=== PATIENT | female | born 1955 | race Caucasian/White ===

== ENCOUNTER 2023-12-10 06:18 | Day surgery (SDC) | payer MEDICARE, OTHER, SELFPAY ==
--- NOTE | 2023-11-05 09:10 | CM ---
Addendum entered by Joan Ferrer 12/01/23 07:21:
Surgery date was changed to 12/10/23.
Addendum entered by Joan Ferrer 11/19/23 13:53:
Spoke again with patient. She has obtained a hip kit and firm cushion.
Original Note:
Patient is scheduled for an elective R THR on 11/26/23- she is a same day patient. Spoke with patient prior to surgery. Introduced role of Orthopedic Navigator. Patient reports that he lives with her in a two story home. There is one step to
enter and patient has a first floor set up. Her son and his twins live on the second floor. She currently functions independently and uses a rolling walker. She also has a cane, raised toilet seat, commode and shower seat. She has had VN services
through [facility]. PCP id Willem Caseyophelia.
Discussed orthopedic program and post surgical plans. Reviewed that she will have VN services initially (medicare.gov website and ratings reviewed) and will then start outpatient PT. Patient selects [facility] (face sheet faxed to [facility] to facilitate
confirmation of benefits) for her home care needs but states she will not have transport for outpatient PT and need VN services beyond the typical period.
Patient is in agreement with plan and states that her will be home with her for the first day.
Patient will complete online education.
Plan: Orthopedic Navigator will remain available to assist with the care of patient and will reassess discharge needs after surgery.
[2023-11-10 13:38] VITALS: BMI 30.7
[2023-11-10 13:56] LABS: Hematocrit 33.1 % (37.0-47.0); Mean Corp Hgb Conc. 33.2 g/dL (33.0-37.0); Mean Corpuscular Hgb 29.8 pg (27.0-31.0); Mean Corpuscular Volume 89.7 fL (81.0-99.0); Mean Platelet Volume 9.4 fL (7.4-10.4); Platelet Count 290 10^3/uL (130-400); Red Blood Cell Count 3.69 10^6/uL (4.20-5.40); White Blood Cell Count 6.2 10^3/uL (4.8-10.8)
[2023-11-10 14:09] LABS: ALT (SGPT) < 10 U/L (0-35); AST (SGOT) 19 U/L (14-36); Albumin 3.6 g/dl (3.5-5.0); Alkaline Phosphatase 126 U/L (38-126); Blood Urea Nitrogen 13 mg/dl (7-17); Calcium 8.8 mg/dl (8.4-10.2); Carbon Dioxide 31 mmol/L (22-30); Chloride 99 mmol/L (98-107); Estimated Creatinine Clearance 85 ml/min; Glucose 96 mg/dl (70-99); Sodium 137 mmol/L (135-145); Total Bilirubin 0.8 mg/dl (0.2-1.3); Total Protein 6.4 g/dl (6.3-8.2); eGFR > 60.00
[2023-11-10 15:12] VITALS: BMI 30.7
[2023-11-11 09:49] LABS: Glycohemoglobin (HgbA1c) 5.5 % (4.0-5.6)
[2023-12-10] VITALS (11 sets, daily range): BP systolic 109–143; BP diastolic 56–76; PULSE 76; O2SAT 96; BMI 30.7
[2023-12-10] MEDS: NORMOSOL-R 1000 IV (07:54)
[2023-12-10] MEDS: ROXICODONE 5 MG PO ×2 (11:57→12:56)
[2023-12-10] MEDS: TYLENOL 1000 MG PO (12:03)
--- NOTE | 2023-12-10 12:12 | CM ---
Patient had planned R THR today. Met with patient and her at bedside to review discharge plans. Patient will be returning home today with services through [facility]. She will not have transportation for outpatient PT and will have [facility] services
until able to drive.
Patient has her rolling walker here with her.
PT and VN were kept updated as to progress and discharge plans.
[2023-12-10] MEDS: SINEMET 25-100 2 TABLET PO (12:33)
[2023-12-10] MEDS: ANCEF 5 IV (12:50)
== END 2023-12-10 13:47 | disposition home health service (06) ==
LOC: SDS 06:18
PROVIDERS: ATTENDING PHYSICIAN Orthopaedic Surgery; FAMILY PHYSICIAN Physician Assistant Medical; REFERRING PHYSICIAN Physician Assistant
DX: M16.11 Unilateral primary osteoarthritis, right hip (principal)
CPT/HCPCS: 27130; C1776; 36415; 73502; 80053; 83036; 85027; 86850; 86900; 86901; 87070; 93005; 97116; 97162

== ENCOUNTER 2024-04-22 17:31 | Observation (INO) | payer MEDICARE, OTHER, SELFPAY ==
[2024-04-22 14:10] VITALS: BP 121/57
[2024-04-22 14:15] VITALS: BMI 29.9
[2024-04-22 14:40] LABS: % Basophils 0.3 % (0-2); % Eosinophils 0.1 % (0-6); % Immature Granulocytes 0.1 % (0-0.5); % Lymphocytes 4.8 % (20.5-51.1); % Monocytes 3.4 % (1.7-9.3); % Neutrophils 91.3 % (42.2-75.2); Absolute Lymphocytes 0.4 10^3/uL (1.2-3.4); Absolute Monocytes 0.3 10^3/uL (0.1-0.6); Absolute Neutrophils 6.7 10^3/uL (1.4-6.5); Hematocrit 34.8 % (37.0-47.0); Hemoglobin 11.1 g/dL (12.0-16.0); Mean Corp Hgb Conc. 31.9 g/dL (33.0-37.0); Mean Corpuscular Hgb 26.9 pg (27.0-31.0); Mean Corpuscular Volume 84.5 fL (81.0-99.0); Mean Platelet Volume 10.2 fL (7.4-10.4); Nucleated Red Blood Cells % 0 %; Platelet Count 233 10^3/uL (130-400); Red Blood Cell Count 4.12 10^6/uL (4.20-5.40); Red Cell Dist. Width 14.7 % (11.5-14.5); White Blood Cell Count 7.4 10^3/uL (4.8-10.8)
[2024-04-22 14:42] LABS: Blood Urea Nitrogen 10 mg/dl (7-17); Calcium 8.9 mg/dl (8.4-10.2); Carbon Dioxide 28 mmol/L (22-30); Chloride 101 mmol/L (98-107); Estimated Creatinine Clearance 86 ml/min; Glucose 139 mg/dl (70-99); Sodium 136 mmol/L (135-145); eGFR > 60.00
--- NOTE | 2024-04-22 14:54 | ED.GENMED ---
History of Present Illness
General
Chief Complaint: Seizure
Source: patient and ambulance crew
Time Seen by Provider: 04/22/24 14:30
History of Present Illness
History of Present Illness:
68-year-old female brought to the emergency room by ambulance after being found unresponsive by family. They report her being blue. When they called 911 reported a cardiac arrest. When medics arrived they found the patient to have a pulse and the
breathing spontaneously though the hypoxic. Patient seemed to gradually increase her level of responsiveness. She had vomited for medics. They gave her Zofran. Medics report a history of a decrease in her dose of Ativan from 2 mg 3 times a day
to an unknown dose. Patient is responsive to me but not able to provide much history at this point because she still appears a bit sleepy and slow to answer
Past History
Past History
ED Past Medical History: Cancer (ovarian), Hypercholesterolemia, Psychiatric (Anxiety/depression) and Other (Migraines, Parkinson's)
ED Past Surgical History: Appendectomy and Gynecological
Social History
Tobacco: Non-smoker
Alcohol: None
Drug: None
Personal:
Living: with family
Employment: Retired
Family History
Family History: Other (Noncontributory )
Phy Exam
Physical Exam
Physical Exam:
General: Awake, but slow to answer
Vitals: unremarkable
Head: Atraumatic
Eyes: Pupils equal, EOMI
Throat: Airway intact, no exudates
Neck: Trachea midline
Lungs: Clear and equal b/l
Heart: Regular rate, no murmurs
Abd: Soft, Nontender, No pulsatile mass
Neuro: Grossly nonfocal
Skin: Warm, dry, no rash
Extremities: pulses equal b/l, no edema
Course
Orders/Labs/Results
Orders:
Orders
04/22/24 14:17
Electrocardiogram (*1) Urgent
Reason for Study: Fatigue / Weakness
04/22/24 14:19
EKG- Treatment ONCE
04/22/24 14:20
Basic Metabolic Panel Urgent
Complete Blood Count/With Diff Urgent
04/22/24 Dinner
Regular
At Your Request: Full Participation
Does patient need a safe tray?: No
04/22/24 15:18
Lorazepam [Ativan] 2 mg IV NOW STA
04/22/24 15:31
Rotigotine [Neupro] 4 mg TRANSDERM NOW STA
04/22/24 15:32
Rotigotine [Neupro] 2 mg TRANSDERM NOW STA
04/22/24 15:33
CT Head W/o Iv Contrast Urgent
Comment:
Reason For Exam: frequent seizure
04/22/24 17:21
Admit/Transfer Patient As Directed
Co-Sign Provider:
Level of Care: Observation services
Assign to:: Telemetry
Physician / Group: yony
Diagnosis: seizure
Reason for Telemetry: Arrhythmia
Date to Stop Telemetry: 04/25/24
Time to Stop Telemetry: 11:00
Code Status As Directed
Resuscitation Status: Full Code
04/22/24 18:10
Acetaminophen [Tylenol] 500 mg PO DAILYPRN PRN
Calcium Carbonate Chewable [Tums] 1 tablet PO DAILYPRN PRN
Carbidopa/Levodopa [Sinemet 25-100] 1 tablet PO TIDPRN PRN
Loperamide [Imodium] 2 mg PO BIDPRN PRN
Trimethobenzamide [Tigan] 200 mg IM Q6HPRN PRN
04/22/24 18:10
NEUROLOGY CONSULT Routine
Consulting Provider: Soham De Luna
Was physician already notified: Yes
Activity As Directed
Activity Level: As Tolerated
Vital Signs As Directed
Frequency: Per unit guidelines
DX Deep Vein Thrombosis Video Routine
04/22/24 18:26
Bismuth Subsalicylate [Pepto-Bismol] 1 tablet PO BIDPRN PRN
04/22/24 19:00
Midodrine [ProAmatine] 2.5 mg PO TID @ 0800,1200,1700
04/22/24 20:00
Heparin 5,000 units SC Q12
04/22/24 22:00
Escitalopram Oxalate [Lexapro] 10 mg PO HS
Escitalopram Oxalate [Lexapro] 20 mg PO HS
Lorazepam [Ativan] 2 mg PO TID
Rosuvastatin Calcium [Crestor] 10 mg PO HS
04/23/24 06:00
EKG [Electrocardiogram (*1)] IN AM
Reason for Study: QTc Monitoring
Complete Blood Count/With Diff IN AM
Comprehensive Metabolic Panel IN AM
04/23/24 08:00
Aspirin 325 mg PO DAILY
Carbidopa/Levodopa [Sinemet 25-100] 2 tablet PO TID@0800,1200,1600
Rotigotine [Neupro] 4 mg TRANSDERM DAILY
04/25/24 11:00
DC Protocol for Telemetry ONCE
Abnormal Lab Results
04/22/24
14:20
RBC 4.12 L 10^6/uL
(4.20-5.40)
Hgb 11.1 L g/dL
(12.0-16.0)
Hct 34.8 L %
(37.0-47.0)
MCH 26.9 L pg
(27.0-31.0)
MCHC 31.9 L g/dL
(33.0-37.0)
RDW 14.7 H %
(11.5-14.5)
Absolute Neuts (auto) 6.7 H 10^3/uL
(1.4-6.5)
Absolute Lymphs (auto) 0.4 L 10^3/uL
(1.2-3.4)
Neutrophils % 91.3 H %
(42.2-75.2)
Lymphocytes % 4.8 L %
(20.5-51.1)
Creatinine 0.4 L mg/dL
(0.6-1.0)
Glucose 139 H mg/dl
(70-99)
04/22/24 14:20
04/22/24 14:20
Vital Signs
Initial and Last Documented VS:
Initial Vital Signs
Temp Pulse Resp BP Pulse Ox
98.1 F 80 18 121/57 90
04/22/24 14:10 04/22/24 14:10 04/22/24 14:10 04/22/24 14:10 04/22/24 14:10
Last Documented Vital Signs
Temp Pulse Resp BP Pulse Ox
98.3 F 83 16 111/60 98
04/22/24 18:29 04/22/24 18:29 04/22/24 18:29 04/22/24 18:29 04/22/24 18:29
MDM/Problems Addressed
Differential Diagnosis Includes:
Breakthrough seizure, benzo withdrawal seizure, electrolyte abnormality
MDM/Problems Addressed:
Patient appears postictal on arrival. Family arrived short time after the patient and has informed me that the patient did not receive all of her medications today. Patient slept in later than normal. She did get a dose of her carbidopa levodopa.
However she did not get her Ativan and has not had her patch of neuro pro. 2 mg of lorazepam ordered IV as well as her Parkinson's patch. Shortly after receiving the Ativan the patient had a tonic-clonic seizure. Lasted for about 45 seconds. It
seems that the patient did not receive her medications because she was sleeping late today.
Patient will be hospitalized for observation of further seizures. I do not believe starting Keppra is appropriate as these are likely related to the withdrawal or lack of benzos for period of time. Patient seems particularly sensitive to missing
her dose of her lower dose.
*Radiology
Radiology exam reviewed: radiology read reviewed
*Pulse Oximetry
Patient hypoxic: no
*EKG
Comparison EKG: no changes
Heart Rate: 84
Rate: normal
Rhythm: PVC's
QRS Pattern: normal QRS
Ischemia: non-specific ST changes
*Store Receiving Clerk Interpretation
Rate: normal
Interpretation: abnormal
Rhythm: sinus and PVC's
*Critical Care Note
Total Time (30-74mins, 75-104mins- exclusive of procedures): 35 min
comment:
Critical care statement: A total of 35 minutes of critical care time was provided for this patient. This includes management of unstable vital signs, evaluation of the patient at bedside, reviewing the patient's pertinent medical records, discussion
with consultants, review of old EKGs and review of pertinent medical records. This time with separate from time utilized to perform the aforementioned documented procedures
ED Attending Note
-
Portions of this chart may have been created with voice recognition software.� Occasional wrong word or��sound alike� substitutions may have occurred due to the inherent limitations of voice recognition software.
Discharge Plan
Departure
Patient Disposition: Admit
Date of Disposition: 04/22/24
Time of Disposition: 16:43
Admit to: IMU
Presentation/result/management discussed w/ accepting MD/DO: Hospitalist
Condition: Fair
Discharge Problem:
Seizure concurrent with and due to sedative withdrawal
Interventions
Interventions:
*Risk Screen - Suicide Last Done: 04/22/24 18:29
*General Assessment Last Done: 04/22/24 14:15
*Neglect/Abuse Screening Last Done: 04/22/24 14:15
ED- Fall Risk Assessment Last Done: 04/22/24 15:00
*ED COVID-19 Vaccine History Last Done: 04/22/24 18:29
*Nursing Disposition Last Done: 04/22/24 18:02
ED- Cardiac Assessment Last Done: 04/22/24 14:16
ED- Neurological Assessment Last Done: 04/22/24 14:21
ED- Pulmonary Assessment Last Done: 04/22/24 14:21
Discharge Date and Time
Discharge Date/Time: 04/22/24 18:02
[2024-04-22 15:00] VITALS: BP 118/61
[2024-04-22] MEDS: ATIVAN 2 MG IV (15:23)
[2024-04-22] MEDS: NEUPRO 2 MG TRANSDERM (15:55)
[2024-04-22] MEDS: NEUPRO 4 MG TRANSDERM (15:56)
[2024-04-22 16:16] VITALS: BP 123/55
--- NOTE | 2024-04-22 16:23 | PHANOTE ---
Addendum entered by Hubert English 04/22/24 17:10:
04/22/2024, med rec tech, daughter states pt. takes Aspirin 325 mg daily, but is unsure of Lexapro dose; spoke to pt. and they state that they take 30 mg of Lexapro HS.
Original Note:
04/22/2024, med rec tech, spoke to daughter to obtain pt.'s med. history; daughter does not know how pt. currently takes her Lexapro; daughter going home to confirm meds.; will followup with daughter to confirm the rest of pt.'s meds.
[2024-04-22 17:00] VITALS: BP 110/53
--- NOTE | 2024-04-22 17:23 | HPS.HSE ---
Family Physician
-
Family Physician: NOT KNOW UNKNOWN - PT DOES
Chief Complaint
-
seizure
History of Present Illness
68-year-old female past medical history of advanced Parkinson disease with autonomic dysfunction, benzodiazepine withdrawal seizures, anxiety/depression, hyperlipidemia, migraines, Chiari I malformation, prolonged QTc, cervical disc herniation,
presenting to the emergency room after being found unresponsive by family. History is obtained from patient's . He states that patient did not sleep well last night and woke up later than usual today so her morning medications were delayed.
Later she was feeling unwell and she was sitting down and sometime after she took her medication she suddenly became unresponsive. Her eyes went off to the side which is a sign that she was having a seizure. noted that she had bilateral
upper extremity tremor and patient was unresponsive for around 15 minutes. 911 was called and medics arrived and they found the patient had a pulse and was breathing spontaneously although hypoxic. Patient became more responsive and vomited once
as per medics. She was given Zofran.
She has been more tired and lethargic since then but is able to answer questions at this time. She denies any pain.
Apparently yesterday patient saw her primary care physician and Ativan was recommended to be decreased from 2 mg 3 times a day to 2 mg twice a day with an extra milligram dose in the middle of the day. This was not implemented yet. Zofran is also
a new medication that started within the past few days. Also Lexapro dosage was also increased within the past few days.
Patient denies smoking or alcohol use.
Medical History
Past Medical History
Past Medical History: Reports Other (advanced Parkinson disease with autonomic dysfunction, benzodiazepine withdrawal seizures, anxiety/depression, hyperlipidemia, migraines, Chiari I malformation, prolonged QTc, cervical disc herniation)
Past Surgical History: Reports Other (Appendectomy and Gynecological)
Social History
Tobacco: Non-smoker
Alcohol: None
Drug: None
Family History
Family History: Not pertinent
Allergies / Home Medications
Allergies reflects when Allergies were last updated in [facility].
Home Medications with original date entered in [facility]
Allergy/Medication List:
Allergies
Allergy/AdvReac Type Severity Reaction Status Date / Time
No Known Allergies Allergy Verified 04/22/24 14:10
Home Medications
rosuvastatin 10 mg tablet 10 mg PO HS High Cholesterol 03/14/23
lorazepam 2 mg tablet 2 mg PO BID Mental Health/Anxiety 03/28/23
midodrine 2.5 mg tablet 2.5 mg PO TID 30 days #90 tabs 04/27/23
escitalopram oxalate 20 mg tablet (Lexapro) 20 mg PO HS 11/05/23
carbidopa 25 mg-levodopa 100 mg tablet 2 tab PO TID@0800,12,16 12/10/23
acetaminophen 500 mg tablet (Tylenol Extra Strength) 500 mg PO DAILYPRN PRN mild pain 04/22/24
aspirin 325 mg tablet 325 mg PO DAILY 04/22/24
bismuth subsalicylate 262 mg tablet (Pepto-Bismol) 262 mg PO BIDPRN PRN diarrhea 04/22/24
calcium carbonate (Tums) 400 mg PO DAILYPRN PRN gerd 04/22/24
carbidopa 25 mg-levodopa 100 mg tablet 1 tab PO TID PRN Parkinson's disease 04/22/24
escitalopram oxalate 10 mg tablet (Lexapro) 10 mg PO HS 04/22/24
loperamide 2 mg capsule 2 mg PO BIDPRN PRN diarrhea 04/22/24
ondansetron HCl 4 mg tablet 4 mg PO Q6H PRN nausea/vomiting 04/22/24
rotigotine 6 mg/24 hour transdermal 24 hour patch (Neupro) 6 mg transdermal DAILY 04/22/24
trazodone 100 mg tablet 100 mg PO HS 04/22/24
Review of Systems
-
History Source: Patient
A 12 point ROS was completed and negative except as noted: Yes
Constitutional: Reports No Symptoms
EENT: Reports No Symptoms
Respiratory: Reports No Symptoms
Cardiac: Reports No Symptoms
Abdomen/GI: Reports No Symptoms
: Reports No Symptoms
Musculoskeletal: Reports No Symptoms
Skin: Reports No Symptoms
Neurological: Reports No Symptoms
Endocrine: Reports No Symptoms
Hematologic/Lymphatic: Reports No Symptoms
Psych: Reports No Symptoms
Physical Exam
Vital Signs
Vital Signs
Temp Pulse Resp BP Pulse Ox
98.1 F 72 17 123/55 98
04/22/24 14:10 04/22/24 16:16 04/22/24 16:16 04/22/24 16:16 04/22/24 16:16
Physical Exam
General: Well Developed, Well Nourished and No Apparent Distress
HEENT: NormoCephalic, Moist mucous membranes and Atraumatic
Respiratory: Clear
Cardiac: S1/S2 and Regular Rhythm; No Murmur or Rub
GI: Soft, Non Tender, Non Distended and Normal Bowel Sounds; No Organomegaly
Rectal: Deferred by Provider
Musculoskeletal: No Clubbing, No Cyanosis and No Edema
Skin: No Rash
Neuro: Nonfocal/grossly intact
Laboratory Results
-
04/22/24 14:20
04/22/24 14:20
Laboratory Results
Total Bilirubin Cancelled 04/22/24 14:20
AST Cancelled 04/22/24 14:20
ALT Cancelled 04/22/24 14:20
Alkaline Phosphatase Cancelled 04/22/24 14:20
Data Reviewed
-
Lab Data: Labs Reviewed by me
Old Records: Reviewed
Impression/Plan
-
IMPRESSION:
PLAN:
# Seizure, possibly secondary to benzodiazepine delay
# History of benzodiazepine withdrawal seizures
-Benzodiazepine dose decrease has not been implemented yet
-EKG shows sinus rhythm with occasional PVCs,
-2 mg IV Ativan given in ER
-Continue Ativan 2 mg 3 times daily
-Neurology consulted
# QTc prolongation secondary to increased Lexapro dose/addition of Zofran
-QTc of 512
-Recheck in the morning
-Hold Zofran, Tigan if needed for nausea
History of advanced Parkinson's
-Continue carbidopa/levodopa
-Continue Neupro
Orthostatic hypotension secondary to autonomic dysfunction from Parkinson's
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
-Continue midodrine
History of migraines
Chiari I malformation
Anxiety/depression
-Hold trazodone for now given lethargy
Hyperlipidemia
-Continue statin
Cervical disc herniation
Obesity secondary to excess calories
History of partial small bowel obstruction due to incarcerated ventral abdominal hernia status post hernia repair
Full code
DVT prophylaxis�heparin
Regular diet
[2024-04-22 18:29] VITALS: BP 111/60; BMI 29.7
[2024-04-22] MEDS: ProAmatine 2.5 MG PO (19:54)
[2024-04-22] MEDS: HEPARIN 5000 UNITS SC (19:54)
[2024-04-22] MEDS: TIGAN 200 MG IM (19:55)
[2024-04-22] MEDS: LEXAPRO 20 MG PO (21:49)
[2024-04-22] MEDS: CRESTOR 10 MG PO (21:49)
[2024-04-22] MEDS: ATIVAN 2 MG PO (21:49)
[2024-04-22] MEDS: LEXAPRO 10 MG PO (21:50)
[2024-04-22 23:17] VITALS: BP 101/50
[2024-04-23 03:18] VITALS: BP 105/52
[2024-04-23 06:49] LABS: % Basophils 0.3 % (0-2); % Eosinophils 0.2 % (0-6); % Immature Granulocytes 0.3 % (0-0.5); % Lymphocytes 8.5 % (20.5-51.1); % Monocytes 6.6 % (1.7-9.3); % Neutrophils 84.1 % (42.2-75.2); Absolute Lymphocytes 0.6 10^3/uL (1.2-3.4); Absolute Monocytes 0.4 10^3/uL (0.1-0.6); Absolute Neutrophils 5.6 10^3/uL (1.4-6.5); Hematocrit 32.4 % (37.0-47.0); Hemoglobin 10.6 g/dL (12.0-16.0); Mean Corp Hgb Conc. 32.7 g/dL (33.0-37.0); Mean Corpuscular Volume 82.7 fL (81.0-99.0); Mean Platelet Volume 10.3 fL (7.4-10.4); Nucleated Red Blood Cells % 0 %; Platelet Count 263 10^3/uL (130-400); Red Blood Cell Count 3.92 10^6/uL (4.20-5.40); Red Cell Dist. Width 15.1 % (11.5-14.5); White Blood Cell Count 6.6 10^3/uL (4.8-10.8)
[2024-04-23 07:00] VITALS: BP 123/57
[2024-04-23 07:17] LABS: ALT (SGPT) < 10 U/L (0-35); AST (SGOT) 12 U/L (14-36); Albumin 3.9 g/dl (3.5-5.0); Alkaline Phosphatase 120 U/L (38-126); Blood Urea Nitrogen 10 mg/dl (7-17); Calcium 9.1 mg/dl (8.4-10.2); Carbon Dioxide 33 mmol/L (22-30); Chloride 99 mmol/L (98-107); Estimated Creatinine Clearance 85 ml/min; Glucose 96 mg/dl (70-99); Potassium 3.5 mmol/L (3.5-5.1); Sodium 139 mmol/L (135-145); Total Bilirubin 1.6 mg/dl (0.2-1.3); Total Protein 6.6 g/dl (6.3-8.2); eGFR > 60.00
[2024-04-23] MEDS: ASPIRIN 325 MG PO (07:50)
[2024-04-23] MEDS: ATIVAN 2 MG PO ×2 (07:50→16:21)
[2024-04-23] MEDS: HEPARIN 5000 UNITS SC (07:51)
[2024-04-23] MEDS: NEUPRO 4 MG TRANSDERM (07:51)
[2024-04-23] MEDS: NEUPRO 2 MG TRANSDERM (07:52)
[2024-04-23] MEDS: ProAmatine 2.5 MG PO (07:52)
[2024-04-23] MEDS: SINEMET 25-100 2 TABLET PO ×3 (07:53→16:21)
--- NOTE | 2024-04-23 07:59 | CON.NEURO ---
Neuro Assessment/Plan
Assessment
IMPRESSIONS/RECOMMENDATIONS:
Abrupt recurrence of unresponsiveness. Patient has a prior history of episodic changes in mental status presumed to be due to seizure activity secondary to benzodiazepine decrease
Patient additionally has a history of parkinsonism and orthostatic hypotension.
Plan
Consider restart of levetiracetam 500 mg twice a day
Store patient's prior benzodiazepine dosing to dosing of 2 mg 3 times a day, long-term plan for diminishing this medication may be of benefit
Check orthostatic blood pressures
Continue carbidopa levodopa 25/100 tablet p.o. 3 times a day
Continue rotigotine 6 mg/day
Increase midodrine from 2.5 to 5 mg 3 times a day, hold SBP > 140
Continue Trimethobenzamide
Will continue to follow patient. Thank you.
Consultation
Order
Date of Consultation: 04/23/24
Requesting Provider: Hospitalist
Reason for Consult: Seizure activity
Subjective/Objective
Subjective Data
Date of Service: April 23, 2024
Edited from my esteemed colleague's note:
'DICTATED BY: Mars Davis
DATE/TIME OF CONSULTATION: 03/28/23
67-year-old woman with a past medical history of Parkinson's disease, significant anxiety on chronic benzodiazepines, migraines, cervical degenerative disc disease who presents to the hospital with multiple episodes of vomiting brownish in color and
has been noted to have partial small bowel obstruction. Currently denies any flatus but denies any abdominal pain or nausea. She does not have any hallucinations currently but says that the wounds she has been having recently have been bothersome
to her or anxiety provoking.
Hospitalization 03/14 to 03/27 for seizure secondary to benzodiazepine withdrawal and underdosing, she had been placed on levetiracetam with plan for taper as an outpatient she has not had any seizures since she was resumed on higher dose of lorazepam
she has been on 2 mg TID for total of 6 mg total at home.
Reports tremor on the right hand is tolerable. Had formal diagnosis of Parkinson's disease around 2 years ago and had been following with Maira Michael although the symptoms of Parkinson's seem to been going around around for around 4 to 5
years according to patient's sister. Dosing or Carbidopa/Levodopa at home had been 2 tablets of 10/100 four times during the day and 2 tablets at bedtime around midnight. Last dose of Carbidopa/Levodopa last night around midnight.'
From his subsequent note during that admission:
'-Continue Rotigotine patch 6 mg total daily dosing q24 hours as replacement for dopamine while not able to take carbidopa/levodopa
-When able to resume PO, would switch to the 25/100 carbidopa levodopa formulation and not 10/100, higher dose of carbidopa helps to prevent nausea
-Follow for worsening symptoms of rigidity or tremor
-No significant or disturbing hallucinations
-Avoid antipsychotics which can worsen Parkinsonism, would prefer Zofran for anti-nausea rather than prochlorperazine or promethazine which have anti-dopamine properties
-Levetiracetam 500 mg q12hr IV
-Patient on adequate dosing of benzodiazepines'
Patient was subsequently evaluated by our esteemed nurse practitioner as an outpatient on April 08, 2024. At that time the patient was described as stable while off of levetiracetam.'
Patient returned to this hospital's emergency department with described change in mental status and unresponsiveness. The patient was also described as having generalized shaking with a recurrent episode after the patient presented to this
[facility]'s emergency department.
As stated by the patient's daughter at bedside, the patient had missed dosing of her usual medications at the usual timing of her medications including lorazepam.
Objective Data
Vital Signs
Temp Pulse Resp BP Pulse Ox
37.6 C 71 18 105/52 98
04/23/24 03:18 04/23/24 03:18 04/23/24 03:18 04/23/24 03:18 04/23/24 03:18
Lab Results
04/23/24 05:44
04/23/24 05:44
Sodium 139 mmol/L (135-145) 04/23/24 05:44
Potassium 3.5 mmol/L (3.5-5.1) 04/23/24 05:44
BUN 10 mg/dl (7-17) 04/23/24 05:44
Glucose 96 mg/dl (70-99) 04/23/24 05:44
Calcium 9.1 mg/dl (8.4-10.2) 04/23/24 05:44
Patient Allergies
No Known Allergies Allergy (Verified 04/22/24 14:10)
Review of Systems
-
History Source: Patient
All other systems: Reviewed and negative
EENT: Negative Swallowing Difficulty
Respiratory: Negative Trouble Breathing
Cardiac: Negative Chest Pain
Abdomen/GI: Negative Incontinence of Stool
Genitourinary: Negative Incontinence
Physical Exam
-
General: No Apparent Distress and Appears Stated Age
Eyes: OU Absent Papilledema, Round OU, [place] Conjunctivae and No Ptosis
HEENT: Anicteric and Moist Mucous Membranes
Neck: Full Range of Motion
Respiratory: No Dyspnea
Cardiac: No JVD
GI: Non-distended
Skin: Unremarkable
Extremities: No Clubbing, No Cyanosis and No Edema
Psych: Intact Judgement/Insight
Extended Neurological Exam
Mood & Affect: Mood Unremarkable and Affect Unremarkable
Attention Span & Concentration: Awake, Alert, Interactive and Mild Difficulty with 2 Step Request
Memory: Unremarkable and Reduced (Recall for the event leading to the hospital.)
Tremor: Hand Tremor Absent and Head Tremor Absent
Involuntary Movement: None
Speech: Quality Unremarkable and Quantity Unremarkable
Cranial Nerve II: Left Eye: Pupillary Reactivity Unremarkable, Pupillary Size Unremarkable and Visual Arita Intact
Cranial Nerve II: Right Eye: Pupillary Reactivity Unremarkable, Pupillary Size Unremarkable and Visual Arita Intact
Cranial Nerves III, IV, : Extraocular Movement: Extraocular Movement Full in all Directions
Cranial Nerve VII: Facial Symmetry: Normal Facial Symmetry
Cranial Nerve VIII: Hearing: Negative Unremarkable Hearing to Normal Conversational Volume
Cranial Nerves IX, X: Palate Movement: Palate Elevation Symmetric
Cranial Nerve XI: Shoulder Shrug: Unremarkable
Cranial Nerve XII: Tongue Protusion: Midline
Muscle Strength, Overall: Full Throughout
Muscle Bulk & Tone: Bulk Unremarkable, Tone Unremarkable and Other (Mildly Camptocormic)
Pronator Drift: No Drift in Upper Extremities
Deep Tendon Reflexes: Absent Throughout
Touch Sensation: Unremarkable
Coordination: [id number] Testing Unremarkable
Babinski Sign: Absent Bilaterally
Data Reviewed
-
CT Head: Report Reviewed
MRI Head: Report Reviewed (March 2023 right frontal lobe gyrus signal abnormality, Arnold-Chiari type I malformation 9 mm on the right)
Labs: Report Reviewed
Reviewed with: Physician and Patient
Old Records: Summarized
Medications
-
Active Medications
Generic Name Dose Route Start Last Admin
Trade Name Freq PRN Reason Stop Dose Admin
Acetaminophen 500 mg 04/22/24 18:10
Acetaminophen 500 Mg Tablet PO 05/20/24 18:09
DAILYPRN PRN
mild pain
Aspirin 325 mg 04/23/24 08:00
Aspirin 325 Mg Tablet PO 05/21/24 07:59
DAILY LISSA
Bismuth Subsalicylate 1 tablet 04/22/24 18:26
Pepto-Bismol Chewable Tablet (Bismuth Subsalicylate 262 Mg) PO 05/20/24 18:25
BIDPRN PRN
diarrhea
Calcium Carbonate 1 tablet 04/22/24 18:10
Calcium Carbonate 500 Mg (Regular-Strength) Chew Tablet PO 05/20/24 18:09
DAILYPRN PRN
gerd
Carbidopa/Levodopa 2 tablet 04/23/24 08:00
Carbidopa (25 Mg)/Levodopa (100 Mg) Regular Release Tablet PO 05/21/24 07:59
TID@0800,1200,1600 LISSA
Carbidopa/Levodopa 1 tablet 04/22/24 18:10
Carbidopa (25 Mg)/Levodopa (100 Mg) Regular Release Tablet PO 05/20/24 18:09
TIDPRN PRN
Parkinson's disease
Escitalopram Oxalate 20 mg 04/22/24 22:00 04/22/24 21:49
Escitalopram 20 Mg Tablet PO 05/20/24 21:59 20 mg
HS LISSA Administration
Escitalopram Oxalate 10 mg 04/22/24 22:00 04/22/24 21:50
Escitalopram 10 Mg Tablet PO 05/20/24 21:59 10 mg
HS LISSA Administration
Heparin Sodium 5,000 units 04/22/24 20:00 04/22/24 19:54
Heparin 5,000 Units/Ml 1 Ml Vial SC 05/20/24 19:59 5,000 units
Q12 LISSA Administration
Loperamide HCl 2 mg 04/22/24 18:10
Loperamide 2 Mg Capsule PO 05/20/24 18:09
BIDPRN PRN
diarrhea
Lorazepam 2 mg 04/22/24 22:00 04/22/24 21:49
Lorazepam 2 Mg Tablet PO 05/20/24 21:59 2 mg
TID LISSA Administration
Midodrine 2.5 mg 04/22/24 19:00 04/22/24 19:54
Midodrine 5 Mg Tablet PO 05/20/24 18:59 2.5 mg
TID @ 0800,1200,1700 LISSA Administration
Rosuvastatin Calcium 10 mg 04/22/24 22:00 04/22/24 21:49
Rosuvastatin (Crestor) 10 Mg Tablet PO 05/20/24 21:59 10 mg
HS LISSA Administration
Rotigotine 4 mg 04/23/24 08:00
Rotigotine (Neupro) 4 Mg Patch TRANSDERM 05/21/24 07:59
DAILY LISSA
Rotigotine 2 mg 04/23/24 08:00
Rotigotine (Neupro) 2 Mg Patch TRANSDERM 05/21/24 07:59
DAILY LISSA
Sodium Chloride 0 flush 04/22/24 19:00
Sodium Chloride 0.9% (Flush) Syringe IV 05/20/24 18:59
PER PROTOCOL LISSA
Trimethobenzamide HCl 200 mg 04/22/24 18:10 04/22/24 19:55
Trimethobenzamide 200 Mg/2 Ml Vial IM 05/20/24 18:09 200 mg
Q6HPRN PRN Administration
nausea
Home Medications
�Medication �Instructions �Recorded
rosuvastatin 10 mg tablet 10 mg PO HS High Cholesterol 03/14/23
lorazepam 2 mg tablet 2 mg PO BID Mental Health/Anxiety 03/28/23
midodrine 2.5 mg tablet 2.5 mg PO TID 30 days #90 tabs 04/27/23
escitalopram oxalate 20 mg tablet 20 mg PO HS 11/05/23
(Lexapro)
carbidopa 25 mg-levodopa 100 mg 2 tab PO TID@0800,12,16 12/10/23
tablet
acetaminophen 500 mg tablet 500 mg PO DAILYPRN PRN mild pain 04/22/24
(Tylenol Extra Strength)
aspirin 325 mg tablet 325 mg PO DAILY 04/22/24
bismuth subsalicylate 262 mg 262 mg PO BIDPRN PRN diarrhea 04/22/24
tablet (Pepto-Bismol)
calcium carbonate (Tums) 400 mg PO DAILYPRN PRN gerd 04/22/24
carbidopa 25 mg-levodopa 100 mg 1 tab PO TID PRN Parkinson's 04/22/24
tablet disease
escitalopram oxalate 10 mg tablet 10 mg PO HS 04/22/24
(Lexapro)
loperamide 2 mg capsule 2 mg PO BIDPRN PRN diarrhea 04/22/24
ondansetron HCl 4 mg tablet 4 mg PO Q6H PRN nausea/vomiting 04/22/24
rotigotine 6 mg/24 hour 6 mg transdermal DAILY 04/22/24
transdermal 24 hour patch (Neupro)
trazodone 100 mg tablet 100 mg PO HS 04/22/24
Past History
Past History
ED Past Medical History: Cancer (ovarian team), Hypercholesterolemia, Psychiatric (Anxiety/depression) and Other (Migraines, Parkinson's)
ED Past Surgical History: Appendectomy, Gynecological (AMALIA/BSO 2012), Orthopedic (Bilateral knee replacements, right hip replacement) and Other (Herniorrhaphy)
Social History
Tobacco: Non-smoker
Alcohol: None
Drug: None
Personal:
Living: with family
Employment: Retired
Family History
Family History: Other (Reviewed and noncontributory )
--- NOTE | 2024-04-23 08:00 | W.PN.HOSP.TC ---
Addendum entered and electronically signed by Davis Walker MD 04/23/24 17:40:
[id number]
Addendum entered and electronically signed by Davis Walker MD 04/23/24 17:38:
Patient and patient's family amenable to Keppra initiation. Start Keppra 500 mg, 2 times daily. Increase midodrine to 5 mg 3 times daily. Orthostatics negative.
Follow-up PCP, psychiatry, neurology outpatient. Goal is to wean Ativan. May need to increase Keppra in the future
Original Note:
Today's Communication/Plan
-
neuro recs
orthostatics
pt/ot
midodrine
Assessment / Plan
Assessment / Plan
Physical Exam
General: Well Developed, Well Nourished and No Apparent Distress
HEENT: NormoCephalic, Moist mucous membranes and Atraumatic
Respiratory: Clear
Cardiac: S1/S2 and Regular Rhythm; No Murmur or Rub
GI: Soft, Non Tender, Non Distended and Normal Bowel Sounds; No Organomegaly
Rectal: Deferred by Provider
Musculoskeletal: No Clubbing, No Cyanosis and No Edema
Skin: No Rash
Neuro: Nonfocal/grossly intact
# Seizure, possibly secondary to benzodiazepine delay, lack of absorption due to GI issues
# History of benzodiazepine withdrawal seizures
-Benzodiazepine dose decrease has not been implemented yet
-EKG shows sinus rhythm with occasional PVCs,
-2 mg IV Ativan given in ER
-Continue Ativan 2 mg 3 times daily
-Neurology consulted
-Orthostaics
-Needs manager long term care plan for diminishing ativan need by psychiatry
-Consider starting Keppra - f/u neuro recs
-F/u PT/OT
# QTc prolongation secondary to increased Lexapro dose/addition of Zofran
-QTc 482 this am
-Hold Zofran, Tigan if needed for nausea
History of advanced Parkinson's
-Continue carbidopa/levodopa
-Continue Neupro
Orthostatic hypotension secondary to autonomic dysfunction from Parkinson's
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
-Continue midodrine
History of migraines
Chiari I malformation
Anxiety/depression
-Hold trazodone for now given lethargy
N/V
-possible viral gastroenteritis
-resolved
Hyperlipidemia
-Continue statin
Cervical disc herniation
Obesity secondary to excess calories
History of partial small bowel obstruction due to incarcerated ventral abdominal hernia status post hernia repair
Full code
DVT prophylaxis�heparin
Regular diet
Anticipated Discharge: 24 - 48 hours
Subjective/Interval History
-
Date of Service: April 23, 2024
no acute events, able to tolerate diet better now; less nauseous
Objective Data
-
Labs:
Laboratory Results
04/23/24
05:44
WBC 6.6
Hgb 10.6 L
Hct 32.4 L
Plt Count 263
Sodium 139
Potassium 3.5
Chloride 99
Carbon Dioxide 33 H
BUN 10
Creatinine 0.5 L
Glucose 96
Calcium 9.1
Total Bilirubin 1.6 H
AST 12 L
ALT < 10
Alkaline Phosphatase 120
Vital Signs:
Vital Signs
Temp Pulse Resp BP Pulse Ox
99.7 F 71 18 105/52 98
04/23/24 03:18 04/23/24 03:18 04/23/24 03:18 04/23/24 03:18 04/23/24 03:18
I&O
04/22/24 04/23/24 04/24/24
06:59 06:59 06:59
Intake Total 320 / 320
Balance 320 / 320
Review of Systems
-
History Source: Patient
All other systems: Not reviewed unless documented
Physical Exam
-
General: Well Developed and No Apparent Distress
HEENT: Normocephalic, Atraumatic and Moist Mucous Membranes
Respiratory: Clear to Auscultation
Cardiac: Regular Rhythm and S1/S2; Negative Murmur, Rub or Gallop
GI: Soft, Nontender, Nondistended and Normal Bowel Sounds; Negative Organomegaly
Rectal: Deferred by Provider
Musculoskeletal: No Clubbing, No Cyanosis and No Edema
Skin: Negative Rash
Neuro: Nonfocal/Grossly Intact
Data Reviewed
-
CT Scan: Image personally visualized and interpreted and Report Reviewed by me
[2024-04-23] MEDS: PEPTO-BISMOL 1 TABLET PO (08:07)
[2024-04-23] MEDS: TIGAN 200 MG IM (08:11)
[2024-04-23 11:19] VITALS: BP 121/64
[2024-04-23] MEDS: ProAmatine 5 MG PO ×2 (12:23→16:21)
--- NOTE | 2024-04-23 13:27 | CM ---
Patient seen bedside with spouse, Sedrick, initial assessment completed. Patient resides in a one story home, two steps to enter. Patient has adult children who reside in the home with her. Patient has a walker and cane at home, has had VN in the past
after knee and hip surgery, unsure with who. Patient denies SNF history. Patient reports she does have a PCP but is unsure name, [facility] used [facility]. Patient and denied food, transportation, and housing/utility insecurities.
WARD form reviewed, refused to sign, placed in chart. Patient inquiring about discharge, CM will update patient once further information is received. CM will continue to follow for all discharge planning needs.
Plan; home no needs likely, watch PT/OT evals for VN needs.
[2024-04-23 14:25] VITALS: BP 113/51; PULSE 71
[2024-04-23 15:00] VITALS: BP 101/50
--- NOTE | 2024-04-23 17:38 | W.DS.TRANS ---
DC Summary - Medicine Assistant
-
Discharge Instructions:
Discharge Diagnosis/Procedures seizures, most likely withdrawal from ativan
Diet Low Cholesterol,Low Fat
Activity As tolerated
Blood Work lfts within 1 week with pcp
Instructions:
Stand-Alone Forms:
Changes to Home Medications: Yes
Discharge Medications:
DC Medications w/original date entered in Cognitive Code
rosuvastatin 10 mg tablet 10 mg PO HS High Cholesterol 03/14/23
escitalopram oxalate 20 mg tablet (Lexapro) 20 mg PO HS Depression 11/05/23
carbidopa 25 mg-levodopa 100 mg tablet 2 tab PO TID@0800,12,16 Neurological Condition 12/10/23
acetaminophen 500 mg tablet (Tylenol Extra Strength) 500 mg PO DAILYPRN PRN mild pain 04/22/24
aspirin 325 mg tablet 325 mg PO DAILY Blood Clot Prevention/Tx 04/22/24
bismuth subsalicylate 262 mg tablet (Pepto-Bismol) 262 mg PO BIDPRN PRN diarrhea 04/22/24
calcium carbonate (Tums) 400 mg PO DAILYPRN PRN gerd 04/22/24
carbidopa 25 mg-levodopa 100 mg tablet 1 tab PO TID PRN Parkinson's disease 04/22/24
escitalopram oxalate 10 mg tablet (Lexapro) 10 mg PO HS Depression 04/22/24
loperamide 2 mg capsule 2 mg PO BIDPRN PRN diarrhea 04/22/24
ondansetron HCl 4 mg tablet 4 mg PO Q6H PRN nausea/vomiting 04/22/24
rotigotine 6 mg/24 hour transdermal 24 hour patch (Neupro) 6 mg transdermal DAILY Neurological Condition 04/22/24
trazodone 100 mg tablet 100 mg PO HS Sleep 04/22/24
levetiracetam 500 mg tablet (Keppra) 500 mg PO BID 30 days #60 tabs 04/23/24
lorazepam 2 mg tablet 2 mg PO TID #0 tabs 04/23/24
midodrine 5 mg tablet 5 mg PO TID @ 0800,1200,1700 30 days #90 tabs 04/23/24
Home Medication Changes
levetiracetam 500 mg tablet (Keppra) 500 mg PO BID 30 days #60 tabs 04/23/24
midodrine 5 mg tablet 5 mg PO TID @ 0800,1200,1700 30 days #90 tabs 04/23/24
Pending Results: No
== END 2024-04-23 18:30 | disposition home or self-care (01) ==
LOC: 4 WEST ACU 17:31
PROVIDERS: Emergency Medicine; ADMITTING PHYSICIAN Hospitalist; ATTENDING PHYSICIAN Internal Medicine; CONSULT PHYSICIAN Psychiatry & Neurology Neurology; EMERGENCY PHYSICIAN Emergency Medicine
DX: R56.9 Unspecified convulsions (principal); R09.02 Hypoxemia; F13.20 Sedative, hypnotic or anxiolytic dependence, uncomplicated; T42.4X6A Underdosing of benzodiazepines, initial encounter; Y63.6 Underdosing and nonadministration of necessary drug, medicament or biological substance; Y92.9 Unspecified place or not applicable; F32.A Depression, unspecified; E78.00 Pure hypercholesterolemia, unspecified; F41.9 Anxiety disorder, unspecified; G20.A1 Parkinson's disease without dyskinesia, without mention of fluctuations; R53.83 Other fatigue; R53.1 Weakness; I49.3 Ventricular premature depolarization; E78.5 Hyperlipidemia, unspecified; R94.31 Abnormal electrocardiogram [ECG] [EKG]; G93.5 Compression of brain; R41.82 Altered mental status, unspecified; R11.2 Nausea with vomiting, unspecified; I95.1 Orthostatic hypotension; M50.20 Other cervical disc displacement, unspecified cervical region; E66.09 Other obesity due to excess calories; F45.8 Other somatoform disorders; Z85.43 Personal history of malignant neoplasm of ovary; Z79.82 Long term (current) use of aspirin; Z68.29 Body mass index [BMI] 29.0-29.9, adult; Z98.890 Other specified postprocedural states; Z90.49 Acquired absence of other specified parts of digestive tract; Z96.653 Presence of artificial knee joint, bilateral; Z96.641 Presence of right artificial hip joint; Z90.722 Acquired absence of ovaries, bilateral; Z90.710 Acquired absence of both cervix and uterus; Z87.19 Personal history of other diseases of the digestive system
CPT/HCPCS: 70450; 80048; 80053; 85025; 93005; 96374; 97162; 99291; G0378

== ENCOUNTER 2024-04-27 15:14 | Inpatient (IN) | payer MEDICARE, OTHER, SELFPAY ==
[2024-04-27] VITALS (12 sets, daily range): BP systolic 98–130; BP diastolic 44–63
--- NOTE | 2024-04-27 08:47 | ED.GENMED ---
History of Present Illness
General
Chief Complaint: Seizure
Time Seen by Provider: 04/27/24 08:45
History of Present Illness
History of Present Illness:
68-year-old female with history of seizure disorder and Parkinson's presents to the emergency department via EMS for evaluation after a seizure. EMS was called as the patient began to display by tremulous activity which is apparently a classic
seizure precursor for her. On arrival of EMS the patient did have a witnessed generalized tonic-clonic seizure, self-limited lasting 1 minute. No benzodiazepines were administered. On arrival the patient was postictal but responsive to verbal
stimuli. She was admitted to this hospital last week for evaluation of seizures were felt to be most likely due to withdrawal of benzodiazepines. Per most recent hospital discharge she is on 500 mg of Keppra twice daily, it is unknown whether she
has been compliant at my initial assessment
Past History
Past History
ED Past Medical History: Cancer (ovarian team), Hypercholesterolemia, Psychiatric (Anxiety/depression) and Other (Migraines, Parkinson's)
ED Past Surgical History: Appendectomy, Gynecological (AMALIA/BSO 2012), Orthopedic (Bilateral knee replacements, right hip replacement) and Other (Herniorrhaphy)
Social History
Tobacco: Non-smoker
Alcohol: None
Drug: None
Personal:
Living: with family
Employment: Retired
Family History
Family History: Other (Reviewed and noncontributory )
Review of Systems
Review of Systems
Allergies reviewed?: Yes
All Other Systems: ROS reviewed and negative except as documented in HPI and ROS
Phy Exam
Physical Exam
Physical Exam:
GEN: Somnolent, arouses to voice
HEENT: Oral mucosa moist, no scleral icterus, no nasal congestion
Cardiac: Regular rate and rhythm, faint systolic murmur auscultated
Lung: No respiratory distress, no tachypnea
MSK: No gross deformity or injuries
Skin: Good color, no pallor or jaundice, no rashes
Neuro: Somnolent, arouses to voice, oriented x 3, follows commands, symmetric bilateral upper and lower extremity strength
Psych: Calm, cooperative
Course
Orders/Labs/Results
Orders:
Orders
04/27/24 08:51
Electrocardiogram (*1) Urgent
Reason for Study: QTc Monitoring
EKG- Treatment ONCE
04/27/24 09:02
Basic Metabolic Panel Urgent
Complete Blood Count/With Diff Urgent
Keppra (Levetiracetam) [S] Urgent
04/27/24 10:00
Carbidopa/Levodopa [Sinemet 25-100] 1 tablet PO ONCE ONE
04/27/24 10:03
Urinalysis Reflex To Culture Urgent
Date Specimen was Collected: 04/27/24
Time Specimen was Collected: 09:31
Urine Microscopic Reflex Cult Urgent
Urine Culture Urgent
FREDA Source: U
Specimen Description:
Date Specimen was Collected: 04/27/24
Time Specimen was Collected: 09:31
04/27/24 10:46
LevoFLOXacin 500 MG/100 ML [Levaquin] 500 mg in 100 ml IV NOW
04/27/24 12:24
Carbidopa/Levodopa [Sinemet 25-100] 2 tablet PO NOW STA
Midodrine [ProAmatine] 5 mg PO NOW STA
04/27/24 14:12
Admit/Transfer Patient As Directed
Co-Sign Provider:
Level of Care: Inpatient admission
Assign to:: Telemetry
Physician / Group: Dr. Roque
Diagnosis: Breakthrough Seizures and positive UTI
Reason for Telemetry: Other
Other Reason for Telemetry: Seizures
Date to Stop Telemetry: 04/29/24
Time to Stop Telemetry: 11:00
Reason for Hospitalization: Seizures
Expected length of stay greater than two midnights?: No
ELOS- Estimated Length of Stay in days: 2
I certify the patient meets the requirements for IP care: Yes
04/27/24 14:20
Code Status As Directed
Resuscitation Status: Full Code
04/29/24 11:00
DC Protocol for Telemetry ONCE
Abnormal Lab Results
04/27/24 04/27/24
09:02 10:03
RBC 3.82 L 10^6/uL
(4.20-5.40)
Hgb 10.4 L g/dL
(12.0-16.0)
Hct 31.9 L %
(37.0-47.0)
MCHC 32.6 L g/dL
(33.0-37.0)
RDW 15.0 H %
(11.5-14.5)
MPV 11.0 H fL
(7.4-10.4)
Absolute Lymphs (auto) 0.6 L 10^3/uL
(1.2-3.4)
Neutrophils % 80.7 H %
(42.2-75.2)
Lymphocytes % 10.8 L %
(20.5-51.1)
Creatinine 0.4 L mg/dL
(0.6-1.0)
Glucose 113 H mg/dl
(70-99)
Urine Ketones Trace A
(Negative)
Ur Occult Blood Reflex 3+ A
(Negative)
Leukocyte Esterase Rfl 2+ A
(Negative)
Urine RBC 7-10 A /HPF
(0-2)
Urine WBC (Reflex) 30-40 A /HPF
(0-5)
Urine Bacteria (Reflex) Few A
(Negative)
04/27/24 09:02
04/27/24 09:02
Vital Signs
Initial and Last Documented VS:
Initial Vital Signs
Temp Pulse Resp BP Pulse Ox
98.3 F 85 20 113/51 93
04/27/24 08:48 04/27/24 08:48 04/27/24 08:48 04/27/24 08:48 04/27/24 08:48
Last Documented Vital Signs
Temp Pulse Resp BP Pulse Ox
98.3 F 69 21 130/63 90
04/27/24 08:48 04/27/24 13:30 04/27/24 13:30 04/27/24 13:00 04/27/24 09:45
MDM/Problems Addressed
MDM/Problems Addressed:
Patient's neurologic status gradual onset department. Workup does reveal likely urinary tract infection which would be the presumed provoking factor for her breakthrough seizure given that she has been compliant with her antiepileptic and
benzodiazepine medications. Given the frequency of her recent seizures will admit for treatment of UTI with IV biotics and further neurologic assessment. Given return to neurologic baseline and recent unremarkable CT of the head do not see any
indication for repeat neuroimaging
*Critical Care Note
Total Time (30-74mins, 75-104mins- exclusive of procedures): Not Applicable
Update Note
Update Note:
0930: Pt reassessed, neuro status unchanged. Remains somnolent, arouses to voice. Discussed with and daughter. Pt has been compliant w/ 2mg lorazepam TID since hospital discharge, also taking levetiracetam as prescribed. Has reportedly had
'starting episodes with left facial droop' that have occurred on occasional since d/c, not associated w/ generalized tonic-clonic activity. Pt is responsive during these episodes.
ED Attending Note
-
Portions of this chart may have been created with voice recognition software.� Occasional wrong word or��sound alike� substitutions may have occurred due to the inherent limitations of voice recognition software.
Discharge Plan
Departure
Patient Disposition: Admit
Date of Disposition: 04/27/24
Time of Disposition: 10:52
Admit to: Med/Surg
Presentation/result/management discussed w/ accepting MD/DO: Hospitalist
Discharge Problem:
Urinary tract infection, Breakthrough seizure
Prescriptions:
No Action
rosuvastatin 10 mg tablet
10 mg PO HS
carbidopa-levodopa 25-100 mg tablet
2 tab PO TID@0800,12,16
loperamide 2 mg Capsule
2 mg PO BIDPRN PRN (Reason: diarrhea)
acetaminophen [Tylenol Extra Strength] 500 mg Tablet
1,000 mg PO DAILYPRN PRN (Reason: mild pain)
trazodone 100 mg Tablet
50 mg PO HS
calcium carbonate [Tums] 200 mg calcium (500 mg) Tablet,Chewable
400 mg PO DAILYPRN PRN (Reason: gerd)
Pepto-Bismol 262 mg Tablet
262 mg PO BIDPRN PRN (Reason: diarrhea)
escitalopram oxalate [Lexapro] 10 mg Tablet
30 mg PO HS
Neupro 6 mg/24 hour Patch 24 Hour
6 mg TRANSDERMAL DAILY
carbidopa-levodopa 25-100 mg Tablet
1 tab PO TIDPRN PRN (Reason: Parkinson's disease)
Patient Comments:
Rx Instructions:
taken as needed in between doses of other straight order Sinemet 2 tabs TID
naproxen 500 mg Tablet
500 mg PO BIDPRN PRN (Reason: NECK PAINS)
cyclobenzaprine [Flexeril] 5 mg Tablet
5 mg PO HSPRN PRN (Reason: NECK PAINS)
lorazepam 2 mg tablet
2 mg PO TID@0800,16,2200
levetiracetam [Keppra] 500 mg tablet
500 mg PO BID
midodrine 5 mg tablet
5 mg PO TID @ 0800,1200,1700
Referrals:
Donavon Alvarez DO [Family Provider] -
Interventions
Interventions:
*Risk Screen - Suicide Last Done: 04/27/24 08:56
*Neglect/Abuse Screening Last Done: 04/27/24 08:56
ED- Fall Risk Assessment Last Done: 04/27/24 08:56
ED- Cardiac Assessment Last Done: 04/27/24 08:56
ED- Neurological Assessment Last Done: 04/27/24 08:58
ED- Pulmonary Assessment Last Done: 04/27/24 08:56
Discharge Date and Time
Print Language: INDIAN
[2024-04-27 09:24] LABS: % Basophils 0.3 % (0-2); % Eosinophils 2.9 % (0-6); % Immature Granulocytes 0.2 % (0-0.5); % Lymphocytes 10.8 % (20.5-51.1); % Monocytes 5.1 % (1.7-9.3); % Neutrophils 80.7 % (42.2-75.2); Absolute Eosinophils 0.2 10^3/uL (0-0.7); Absolute Lymphocytes 0.6 10^3/uL (1.2-3.4); Absolute Monocytes 0.3 10^3/uL (0.1-0.6); Absolute Neutrophils 4.7 10^3/uL (1.4-6.5); Hematocrit 31.9 % (37.0-47.0); Hemoglobin 10.4 g/dL (12.0-16.0); Mean Corp Hgb Conc. 32.6 g/dL (33.0-37.0); Mean Corpuscular Hgb 27.2 pg (27.0-31.0); Mean Corpuscular Volume 83.5 fL (81.0-99.0); Nucleated Red Blood Cells % 0 %; Platelet Count 235 10^3/uL (130-400); Red Blood Cell Count 3.82 10^6/uL (4.20-5.40); White Blood Cell Count 5.8 10^3/uL (4.8-10.8)
[2024-04-27 09:49] LABS: Blood Urea Nitrogen 12 mg/dl (7-17); Calcium 8.4 mg/dl (8.4-10.2); Carbon Dioxide 24 mmol/L (22-30); Chloride 100 mmol/L (98-107); Glucose 113 mg/dl (70-99); Potassium 3.5 mmol/L (3.5-5.1); Sodium 137 mmol/L (135-145); eGFR > 60.00
[2024-04-27 10:18] LABS: Urine Albumin Trace (Neg - Trace); Urine Bilirubin Negative (Negative); Urine Character Clear (Clear); Urine Color Yellow; Urine Glucose Negative (Negative); Urine Ketone Trace (Negative); Urine Leukocyte 2+ (Negative); Urine Nitrite Negative (Negative); Urine Occult Blood 3+ (Negative); Urine Urobilinogen Negative (Neg - 1+); Urine pH 6.5 (5.0-9.0)
[2024-04-27] MEDS: SINEMET 25-100 1 TABLET PO (10:27)
[2024-04-27 10:43] LABS: Urine Bacteria Few (Negative); Urine White Cell 30-40 /HPF (0-5)
[2024-04-27] MEDS: LEVAQUIN 100 IV (11:11)
[2024-04-27] MEDS: ProAmatine 5 MG PO ×2 (12:35→18:08)
[2024-04-27] MEDS: SINEMET 25-100 2 TABLET PO ×2 (12:35→15:11)
[2024-04-27] MEDS: ATIVAN 1 MG IV (15:44)
--- NOTE | 2024-04-27 17:10 | HPS.HSE ---
Addendum entered and electronically signed by Roni Roque MD 04/27/24 18:45:
I personally performed a history and physical exam of the patient and discussed management with the resident. I reviewed the resident's note and agree with the documented findings and plan of care HPI/CC.
Admitted with breakthrough seizure. Pt says she is complaint with meds and daughter at bedside affirms that . Will rule out UTI as a trigger and check Keppra levels and adjust the dose as apporpriate.
Neuro consulted.
Original Note:
Family Physician
-
Family Physician: Donavon Alvarez
Chief Complaint
-
Seizures
History of Present Illness
Patient is a 68-year-old woman with a history of seizure disorder and Parkinson's. EMS was called when she became tremulous which is a sign of an oncoming seizure for the patient. Patient had about 10 minutes of tremulousness which she is able to
recall before she forgets what happened. On arrival the EMS said the patient had a generalized tonic-clonic seizure self-limited lasting 1 minute. She was not given any benzodiazepines while in the care of EMS. On arrival the patient was
postictal but responsive to verbal stimuli. She was admitted to the hospital last week for evaluation of seizures which were felt to be mostly due to withdrawal of benzodiazepines. As per her most recent hospital discharge she is on 500 mg of
Keppra twice daily but it is uncertain whether the patient has been compliant with her medication regimen. Upon speaking to her daughter and other family members at the bedside it is possible that the patient may have missed taking some of her home
medications. Patient also states that her handwriting has changed over the past few years. It worsened and got smaller and then more recently has started to improve with parkinson medications.
Medical History
Past Medical History
Past Medical History: Reports Seizures
Past Surgical History: Reports Orthopedic (Bilateral Knee Replacement and unilateral hip replacement)
Social History
Tobacco: Non-smoker
Alcohol: Occasional
Drug: None
Personal:
Living: With Family
Family History
Family History: Other (Mother has a Hx of seizures and a stroke.)
Allergies / Home Medications
Allergies reflects when Allergies were last updated in [facility].
Home Medications with original date entered in [facility]
Allergy/Medication List:
Allergies
Allergy/AdvReac Type Severity Reaction Status Date / Time
No Known Allergies Allergy Verified 04/27/24 08:48
Home Medications
rosuvastatin 10 mg tablet 10 mg PO HS High Cholesterol 03/14/23
carbidopa 25 mg-levodopa 100 mg tablet 2 tab PO TID@0800,12,16 Neurological Condition 12/10/23
acetaminophen 500 mg tablet (Tylenol Extra Strength) 1,000 mg PO DAILYPRN PRN mild pain 04/22/24
bismuth subsalicylate 262 mg tablet (Pepto-Bismol) 262 mg PO BIDPRN PRN diarrhea 04/22/24
calcium carbonate (Tums) 400 mg PO DAILYPRN PRN gerd 04/22/24
carbidopa 25 mg-levodopa 100 mg tablet 1 tab PO TIDPRN PRN Parkinson's disease 04/22/24
escitalopram oxalate 10 mg tablet (Lexapro) 30 mg PO HS Depression 04/22/24
loperamide 2 mg capsule 2 mg PO BIDPRN PRN diarrhea 04/22/24
rotigotine 6 mg/24 hour transdermal 24 hour patch (Neupro) 6 mg transdermal DAILY Neurological Condition 04/22/24
trazodone 100 mg tablet 50 mg PO HS Sleep 04/22/24
cyclobenzaprine 5 mg tablet 5 mg PO HSPRN PRN NECK PAINS 04/27/24
levetiracetam 500 mg tablet (Keppra) 500 mg PO BID Seizures 04/27/24
lorazepam 2 mg tablet 2 mg PO TID@0800,16,2200 Mental Health/Anxiety 04/27/24
midodrine 5 mg tablet 5 mg PO TID @ 0800,1200,1700 Blood Pressure 04/27/24
naproxen 500 mg tablet 500 mg PO BIDPRN PRN NECK PAINS 04/27/24
Review of Systems
-
History Source: Patient
A 12 point ROS was completed and negative except as noted: No
Constitutional: Reports See HPI
EENT: Reports No Symptoms
Respiratory: Reports No Symptoms
Cardiac: Reports No Symptoms
Abdomen/GI: Reports No Symptoms
: Reports No Symptoms
Musculoskeletal: Reports Other (Mild numbness of toes)
Skin: Reports No Symptoms
Neurological: Reports Other (Seizures)
Endocrine: Reports No Symptoms
Hematologic/Lymphatic: Reports No Symptoms
Psych: Reports Anxiety
Physical Exam
Vital Signs
Vital Signs
Temp Pulse Resp BP Pulse Ox
98.5 F 72 18 116/50 95
04/27/24 17:06 04/27/24 17:06 04/27/24 17:06 04/27/24 17:06 04/27/24 17:06
Physical Exam
General: Well Developed, Well Nourished and Conversant
HEENT: NormoCephalic, Anicteric, Moist mucous membranes and Atraumatic
Respiratory: Clear
Cardiac: S1/S2, Regular Rhythm and Murmur (Faint systolic murmur)
Breast: Deferred by me
GI: Soft, Non Tender, Non Distended and Normal Bowel Sounds
Rectal: Deferred by Provider
Genito-urinary: Deferred by me
Musculoskeletal: No Clubbing and No Cyanosis
Skin: Warm
Psych: Anxious
Laboratory Results
-
04/27/24 09:02
04/27/24 09:02
Laboratory Results
Total Bilirubin Cancelled 04/27/24 09:02
AST Cancelled 04/27/24 09:02
ALT Cancelled 04/27/24 09:02
Alkaline Phosphatase Cancelled 04/27/24 09:02
Impression/Plan
-
Impression + Plan:
- Breakthrough seizure:
Possibly due to poor medication compliance at home. Will check Keppra levels. May consider adjustment of Keppra dosage depending on efficacy.
Neurology consult
Seizure precaution protocols
Restart home medications.
Consider electroencephalogram to evaluate for epileptiform activity
- Urinary tract infection:
Ceftriaxone administered
Urine analysis shows trace ketones, 3+ occult blood, 2+ leukocyte Estrace, with bacteria, and 30-40 high-power field of white blood cell.
Reorder urine analysis and check for improvement.
-Parkinson's Disease:
Resume carbidopa�levodopa
Resume home medications
Consult neurology
Continue to monitor patient.
- Anxiety:
Possibly due to benzodiazepine withdrawal
Consider psych consult
Consider encouraging therapy to better educate the patient in regards to coping mechanisms.
-Ambulation with cane:
Recommend PT/OT
[2024-04-27] MEDS: TYLENOL 1000 MG PO (17:47)
[2024-04-27] MEDS: ZOFRAN 4 MG IV (17:51)
[2024-04-27] MEDS: LOVENOX 40 MG SC (17:55)
[2024-04-27] MEDS: NON-FORMULARY ITEM 1 UNIT PO (17:58)
[2024-04-27] MEDS: ROCEPHIN 1000 MG IV (18:08)
[2024-04-27] MEDS: ROCEPHIN IV (18:08)
[2024-04-27] MEDS: STERILE WATER FOR INJECTION 10 ML IV (18:09)
[2024-04-27] MEDS: ATIVAN 2 MG PO ×2 (18:18→21:08)
[2024-04-27] MEDS: LEXAPRO 30 MG PO (21:08)
[2024-04-27] MEDS: KEPPRA 500 MG PO (21:08)
[2024-04-27] MEDS: CRESTOR 10 MG PO (21:08)
[2024-04-27] MEDS: DESYREL 50 MG PO (21:08)
[2024-04-28] VITALS (7 sets, daily range): BP systolic 105–126; BP diastolic 43–96; PULSE 62; BMI 28.4
[2024-04-28 06:35] LABS: Hematocrit 30.5 % (37.0-47.0); Hemoglobin 10.2 g/dL (12.0-16.0); Mean Corp Hgb Conc. 33.4 g/dL (33.0-37.0); Mean Corpuscular Volume 83.8 fL (81.0-99.0); Mean Platelet Volume 10.8 fL (7.4-10.4); Platelet Count 209 10^3/uL (130-400); Red Blood Cell Count 3.64 10^6/uL (4.20-5.40)
[2024-04-28] MEDS: ATIVAN 2 MG PO ×3 (07:02→21:37)
[2024-04-28] MEDS: SINEMET 25-100 2 TABLET PO ×3 (07:02→15:43)
[2024-04-28] MEDS: KEPPRA 500 MG PO ×2 (07:02→20:26)
[2024-04-28] MEDS: ProAmatine 5 MG PO ×3 (07:02→17:01)
[2024-04-28 07:52] LABS: Blood Urea Nitrogen 11 mg/dl (7-17); Calcium 8.8 mg/dl (8.4-10.2); Carbon Dioxide 30 mmol/L (22-30); Chloride 102 mmol/L (98-107); Estimated Creatinine Clearance 86 ml/min; Glucose 91 mg/dl (70-99); Potassium 3.3 mmol/L (3.5-5.1); Sodium 138 mmol/L (135-145); eGFR > 60.00
[2024-04-28] MEDS: NEUPRO 2 MG TRANSDERM (09:43)
[2024-04-28] MEDS: NEUPRO 4 MG TRANSDERM (09:44)
[2024-04-28] MEDS: TYLENOL 1000 MG PO (10:14)
[2024-04-28] MEDS: REFRESH EYE DROPS (PF) 1 DROPS OPHTH (10:22)
--- NOTE | 2024-04-28 10:55 | CON.NEURO4 ---
Documented by User: [email or web address] Henning NP 04/28/24 11:52
Consultation - Neurology 4
-
CONSULTING PHYSICIAN: Bautista Kendrick MD
REFERRING PHYSICIAN: Hospitalists/Shira Hawthorne MD Resident
DICTATED BY: VIRAJ Catalan
DATE/TIME OF REQUEST: 04/27/24
DATE/TIME OF CONSULTATION: 04/28/24
Reason for Consultation: Seizure
History of Present Illness:
This is a 68-year-old female who has presented to the hospital with report of recurrent seizure. Patient is followed by Neurology as an outpatient for a history of benzodiazepine withdrawal seizure and Parkinson disease. She also notably has
severe anxiety and has been benzodiazepine dependent for decades.
From most recent office visit with Neurology VIRAJ Silva on 04/08/24:
'67-year-old female presents to establish care here after a recent hospitalization with multiple benzodiazepine withdrawal seizures. She also has a history of PD. She previously followed with Dr. Griffith. She lives at home with her and
son with other family members nearby. Her manages her meds and has had difficulty keeping them straight per her sister who is here visiting from [place]. Per hospital records, she had some n/v prior to hospitalization and was not able to
take some of her meds. Her sister believes she had been taking 10 mg of Ativan per day for several years and has been taking benzodiazepines in some form since age 16. (She has the phone number for Dr. Sanchez, a local psychiatrist, but has not yet
called for an appt.)Dr. Davis reviewed the PDMP while she was hospitalized, and she had been taking an average of 5-6 mg of Lorazepam daily and then was received a lower dose while hospitalized at 1 mg TID. She was initially admitted on March 14,
2022, and was discharged on March 27.
She had an EEG done on March 18, 2023, while hospitalized which showed mild diffuse slowing. She later had a 24-hour EEG from March 20 to March 21 which showed short periods of generalized slowing but nothing epileptiform. MRI of the brain done on March
2022, with and without contrast showed 'minimal periventricular white matter leukoaraiosis in the frontal lobes. Thin band of signal abnormality in the cortical [place] matter of the superior lateral right frontal lobe gyrus could be secondary to
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 Chiari I malformation.' She was placed on Keppra during her hospitalization with a plan for taper as an outpatient. She has not had any other seizures since her higher dose of lorazepam was
resumed. She was later seen again by neurology on March 28 after being readmitted for a partial small bowel obstruction. She remains seizure-free since being discharged. She has been taking Keppra 500 mg twice daily. Concern was raised during her
hospitalization for visual hallucinations.
(05/16/23) She remains seizure-free now off of Keppra. She has not seen psychiatry and continues to take a benzodiazepine 3 times a day. Her tremor has worsened considerably. Her hallucinations have resolved.06/25/2023atient seen in the office today
with her daughter. Since her last visit she did start Sinemet and is now up to 2 tablets 3 times a day. She is tolerating this well. She feels tremor has resolved. She needs renewal of her Neupro patch and needs paperwork filled out. She does report
she has not slept since her last hospitalization. She reports increased anxiety and stress. She does have an appointment with psychiatry on July 07, 2023. She has not been given any additional medications for sleep. She does take Ativan 2 mg 3
times a day. This has been ongoing and is not new. She does report that she has been on antidepressants in the past. She has not had any seizures.
(09/03/2023) TELEHEALTH ENCOUNTER : Video ECW LOCATION OF PROVIDER: office LOCATION OF PATIENT: HOME Patient initiated the visit. The patient verbally consented to the virtual check-in.DURATION: 14 minutes. Patient encounter via telemedicine.
Patient reports her Parkinson's symptoms continue to be well controlled on Sinemet 2 tablets 3 times a day and Neupo patch. No adverse side effects medication. No falls. No hallucinations. She reports significant anxiety. She does have planned
follow-up with psychiatry first week in September. She did see her primary care doctor who did start Lexapro. She is continued on lorazepam 2 mg 3 times a day. She also has continued on trazodone 25 mg at night. She does report trouble with sleeping.
(01/16/2024) Patient seen in the office today with her sister. She has been doing well. She does have a mild tremor left hand intermittently when she is due for her carbidopa/levodopa. She continues on Neupro patch. She does not feel she needs an
increase in medication. She has had an increase in anxiety and has been working with her psychiatrist to adjust medications. She has no recent falls. She does report fatigue however she continues on lorazepam 3 times a day. She also has not
increased dose of trazodone. Since her last visit she did have right hip surgery and has been ambulating with a walker.
(04/08/2024)� His standpoint her symptoms have been stable. She reports her biggest issue is increased anxiety. She continues to follow-up with psychiatry. She did have her hip replaced recently. She is recovering well from that.� She continues on
Neupro patch.� She has not been able to get financial assistance but does not want to discontinue. She continues to take Sinemet 2 tablets 3 times a day and an additional 1 tablet as needed.� She feels the additional 1 tablet as needed is very very
helpful.� No recent falls. No hallucinations.� No adverse side effects of medication.'
Patient had been off of Keppra since April 2023 and seizure-free until 04/22/24. At the beginning of April 2024, patient had several days of nausea, vomiting and diarrhea. Patient's daughter reports that she was not able to take all of her doses of
medications due to this. On April 22, 2024 she presented to ER with report of generalized shaking and loss of consciousness. Keppra 500mg BID was restarted, and she was discharged home on 04/23/24. Patient's daughter reports that since discharge,
she has been having odd starring spells lasting 1-3 minutes in the evening. Yesterday (04/27/24), she reports that the patient started having generalized tremors, began starring-off, stopped talking, her left eye started drooping, and then the patient
lost consciousness and her lips turned blue and she was foaming at the mouth. On arrival in the ER, patient had a witnessed generalized seizure lasting 1 minute, with spontaneous resolution. Patient was confused/lethargic following the event but
opened eyes to voice. There was no tongue biting or bowel incontinence with this event, she wears a depends for urinary incontinence at baseline. Urinalysis is suggestive of a UTI and she was started on IV Rocephin last evening. Today (04/28/24),
patient feels back to her baseline. She reports a mild frontal headache that she rates a 4/10. She also reports mild nausea and chronic tingling in her feet. She denies any dizziness, vision changes, speech/swallow difficulty, numbness, focal
weakness, dysuria/frequency/retention, chest pain, palpitations, and shortness of breath. Patient's daughter reports that this would be her 4th UTI in 2023. Patient reports that she is typically asymptomatic when she has a UTI. Her daughter also
reports that the patient's manages her medications and he isn't prompt with giving them to her on time and she often finds pills on the ground that the patient never took. Lorazepam 2mg TID is not significantly improving her anxiety, her
outpatient psychiatrist has been working to adjust her psych medication regimen. At baseline, patient ambulates with a single point cane occasionally, she denies any recent falls or gait difficulty.
Past Medical History: Parkinson disease, seizures, HLD, significant anxiety, depression, benzodiazepine dependence, migraines, cervical DDD, ovarian cancer, impaired fasting blood glucose
Surgical History: AMALIA/BSO, appendectomy, b/l TKR, R THR, herniorrhaphy
Family History: Reviewed and noncontributory
Social History: Denies tobacco, alcohol, and illicit drug use.
Allergies: No known allergies.
Home Medications: See below.
Review of Symptoms:
Patient denies any fever, chest pain, shortness of breath, GI or symptoms.
�Per the HPI.�All systems are reviewed negative except above.
Physical Exam:
The patient is afebrile, abdomen is nondistended, breathing is unlabored, skin is cool and dry, no edema. Scattered ecchymosis/scabbing bilateral toes.
Neurologic Examination:
The patient is awake, alert and oriented x 3. She is able to follow commands and answer questions appropriately. There is no aphasia or dysarthria. On cranial nerve assessment, pupils are 3 mm bilateral, round and reactive to light and
accommodation. Visual garcia are full. Extraocular movements are intact. Facial sensations are intact and bilaterally symmetrical, there is no facial asymmetry. Hearing is intact bilaterally to normal conversation volume. Tongue palate and uvula are
midline. Sternocleidomastoid strengths are full bilaterally. Motor strengths are 5/5 bilateral upper and lower extremities on medical research [place] scale. There is no drift. There is a low amplitude semi rhythmic resting tremor in distal RUE.
Deep tendon reflexes are 2+ bilateral upper and lower extremities and Babinski is absent bilaterally. Sensations of touch, temperature and vibration are intact and bilaterally symmetrical. There was no extinction noted on double simultaneous
stimulation. Coordination is intact by finger to nose bilaterally.
Lab Results: See below.
Neuro Imaging:
1. CT Head 04/22/24: No acute intracranial abnormality.
Differentials for the patient's presentation include:
1. Breakthrough seizures without status epilepticus; possibly due to UTI and/or accidental medication noncompliance.
2. Benzodiazepine dependence.
3. Parkinson disease, stable.
Patient has the following risk factors for their symptoms: Hx seizure, benzodiazepine usage, possible UTI, questionable medication compliance
Recommendations:
-Continue Keppra 500mg PO q12hrs.
-Continue lorazepam 2mg PO TID for now. Needs outpatient Psychiatry follow-up for consideration of medication adjustment/very gradual reduction of Ativan.
-Infectious workup per primary team.
-Do not see a role for further neurological imaging at this point.
-Seizure precautions.
-PT/OT evaluations.
-Continue home PD medication regimen: Sinemet 25-100 two tablets TID and Rotigotine patch 6mg daily.
-Patient needs outpatient follow-up with Neurology in the next 2 weeks, can see Dr. De Luna.
Discussed patient care with: Dr. Kendrick, the patient, patient's children
Vital Signs and Labs
-
Vital Signs and Labs:
Vital Signs
Temp Pulse Resp BP Pulse Ox
98.3 F 62 18 121/61 95
04/28/24 11:00 04/28/24 11:00 04/28/24 11:00 04/28/24 11:00 04/28/24 11:00
Lab Results
04/28/24 06:01
04/28/24 06:01
Sodium 138 mmol/L (135-145) 04/28/24 06:01
Potassium 3.3 mmol/L (3.5-5.1) L 04/28/24 06:01
BUN 11 mg/dl (7-17) 04/28/24 06:01
Glucose 91 mg/dl (70-99) 04/28/24 06:01
Calcium 8.8 mg/dl (8.4-10.2) 04/28/24 06:01
Medications
-
Active Medications
Generic Name Dose Route Start Last Admin
Trade Name Freq PRN Reason Stop Dose Admin
Acetaminophen 1,000 mg 04/28/24 10:03 04/28/24 10:14
Acetaminophen 500 Mg Tablet PO 05/25/24 16:57 1,000 mg
Q6HPRN PRN Administration
mild pain, fever, SANCHEZ
Artificial Tears 1 drops 04/27/24 23:07 04/28/24 10:22
Artificial Tears Pf (Refresh) 10 Drop Droperette OPHTH 05/25/24 23:06 1 drops
QIDPRN PRN Administration
dry eyes, burning eyes
Calcium Carbonate 1 tablet 04/27/24 16:58
Calcium Carbonate 500 Mg (Regular-Strength) Chew Tablet PO 05/25/24 16:57
DAILYPRN PRN
gerd
Carbidopa/Levodopa 1 tablet 04/27/24 16:58
Carbidopa (25 Mg)/Levodopa (100 Mg) Regular Release Tablet PO 05/25/24 16:57
TIDPRN PRN
Parkinson's disease
Carbidopa/Levodopa 2 tablet 04/28/24 08:00 04/28/24 11:44
Carbidopa (25 Mg)/Levodopa (100 Mg) Regular Release Tablet PO 05/26/24 07:59 2 tablet
TID@0800,12,16 LISSA Administration
Ceftriaxone Sodium 1,000 mg 04/27/24 18:00 04/27/24 18:08
Ceftriaxone 1000 Mg / 10 Ml Vial IV 1,000 mg
Q24H LISSA Administration
Cyclobenzaprine HCl 5 mg 04/27/24 17:09
Cyclobenzaprine 10 Mg Tablet PO 05/25/24 17:08
HSPRN PRN
NECK PAINS
Enoxaparin Sodium 40 mg 04/27/24 18:00 04/27/24 17:55
Enoxaparin Sodium 40 Mg/0.4 Ml Syringe SC 05/25/24 17:59 40 mg
QPM LISSA Administration
Escitalopram Oxalate 30 mg 04/27/24 22:00 04/27/24 21:08
Escitalopram 10 Mg Tablet PO 05/25/24 21:59 30 mg
HS LISSA Administration
Levetiracetam 500 mg 04/27/24 20:00 04/28/24 07:02
Levetiracetam 500 Mg Regular Release Tablet PO 05/25/24 19:59 500 mg
BID LISSA Administration
Loperamide HCl 2 mg 04/27/24 16:58
Loperamide 2 Mg Capsule PO 05/25/24 16:57
BIDPRN PRN
diarrhea
Lorazepam 2 mg 04/27/24 16:58 04/28/24 07:02
Lorazepam 2 Mg Tablet PO 05/25/24 16:57 2 mg
TID@0800,1600,2200 LISSA Administration
Midodrine 5 mg 04/27/24 17:00 04/28/24 11:45
Midodrine 5 Mg Tablet PO 05/25/24 16:59 5 mg
TID @ 0800,1200,1700 LISSA Administration
Naproxen 500 mg 04/27/24 16:58
Naproxen 500 Mg Tablet PO 05/25/24 16:57
BIDPRN PRN
NECK PAINS
Pepto Bismol 0 unit 04/27/24 17:48 04/27/24 17:58
Liquicaps 1 Po PO 05/25/24 17:47 1 unit
Bidprn Diarrhea BIDPRN PRN Administration
diarrhea
Ondansetron HCl 4 mg 04/27/24 17:35 04/27/24 17:51
Ondansetron 4 Mg/2 Ml Vial IV 05/25/24 17:34 4 mg
Q6HPRN PRN Administration
NAUSEA/VOMITING
Rosuvastatin Calcium 10 mg 04/27/24 22:00 04/27/24 21:08
Rosuvastatin (Crestor) 10 Mg Tablet PO 05/25/24 21:59 10 mg
HS LISSA Administration
Rotigotine 4 mg 04/28/24 09:30 04/28/24 09:44
Rotigotine (Neupro) 4 Mg Patch TRANSDERM 05/26/24 09:29 4 mg
DAILY LISSA Administration
Rotigotine 2 mg 04/28/24 09:30 04/28/24 09:43
Rotigotine (Neupro) 2 Mg Patch TRANSDERM 05/26/24 09:29 2 mg
DAILY LISSA Administration
Sodium Chloride 0 flush 04/27/24 16:00
Sodium Chloride 0.9% (Flush) Syringe IV 05/25/24 15:59
PER PROTOCOL LISSA
Sterile Water 10 ml 04/27/24 18:00 04/27/24 18:09
Sterile Water For Injection 10 Ml Vial IV 05/25/24 17:59 10 ml
Q24H LISSA Administration
Trazodone HCl 50 mg 04/27/24 22:00 04/27/24 21:08
Trazodone 50 Mg Tablet PO 05/25/24 21:59 50 mg
HS LISSA Administration
Home Medications
�Medication �Instructions �Recorded
rosuvastatin 10 mg tablet 10 mg PO HS High Cholesterol 03/14/23
carbidopa 25 mg-levodopa 100 mg 2 tab PO TID@0800,12,16 12/10/23
tablet Neurological Condition
acetaminophen 500 mg tablet 1,000 mg PO DAILYPRN PRN mild pain 04/22/24
(Tylenol Extra Strength)
bismuth subsalicylate 262 mg 262 mg PO BIDPRN PRN diarrhea 04/22/24
tablet (Pepto-Bismol)
calcium carbonate (Tums) 400 mg PO DAILYPRN PRN gerd 04/22/24
carbidopa 25 mg-levodopa 100 mg 1 tab PO TIDPRN PRN Parkinson's 04/22/24
tablet disease
escitalopram oxalate 10 mg tablet 30 mg PO HS Depression 04/22/24
(Lexapro)
loperamide 2 mg capsule 2 mg PO BIDPRN PRN diarrhea 04/22/24
rotigotine 6 mg/24 hour 6 mg transdermal DAILY 04/22/24
transdermal 24 hour patch (Neupro) Neurological Condition
trazodone 100 mg tablet 50 mg PO HS Sleep 04/22/24
cyclobenzaprine 5 mg tablet 5 mg PO HSPRN PRN NECK PAINS 04/27/24
levetiracetam 500 mg tablet 500 mg PO BID Seizures 04/27/24
(Keppra)
lorazepam 2 mg tablet 2 mg PO TID@0800,16,2200 Mental 04/27/24
Health/Anxiety
midodrine 5 mg tablet 5 mg PO TID @ 0800,1200,1700 Blood 04/27/24
Pressure
naproxen 500 mg tablet 500 mg PO BIDPRN PRN NECK PAINS 04/27/24

Documented by User: Batuista Kendrick MD 04/28/24 20:20
Consultation - Neurology 4
-
Total Time Spent with Patient (in minutes): 30
--- NOTE | 2024-04-28 14:37 | CM ---
Reviewed chart, met with patient and her spouse at bedside. Patient stated that she lives with her spouse in a one story home all one level with two steps to enter. Patient stated that she is independent with her ADLs, personal care, dressing and
bathing. She uses a cane to assist with her ambulation for longer distances. She has a walker that she does not use.
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
Patient does not drive, however her spouse and daughter do and they are able to transport her to where she needs.
Patient has had VN in the past through after a hip replacement.
Patient has never been to a SNF
She has a prescription plan and uses [facility] on for all of her medications.
Her PCP is, Dr. Donavon Alvarez.
Patient stated that she feels she will be able to return home when medically cleared for discharge.
Plan: Case management will continue to follow and assist with discharge planning. Home when stable.
--- NOTE | 2024-04-28 14:54 | W.PN.HOSP.TC ---
Addendum entered and electronically signed by Roni Roque MD 04/28/24 15:46:
I saw and evaluated the patient. I reviewed the resident�s note and agree with findings and plan as documented in the resident�s note.
Original Note:
Documented by User: Shira Hawthorne MD, Resident 04/28/24 15:11
Today's Communication/Plan
-
We are awaiting Keppra levels and will decide whether to adjust Keppra dosages depending on lab results. Awaiting neurology suggestions. If patient remains stable and Keppra levels remain therapeutic we will move forward with discharge planning.
Assessment / Plan
Assessment / Plan
- Breakthrough seizures without status epilepticus: Stable
possibly due to UTI and/or accidental medication noncompliance
Awaiting Keppra levels - Results Pending. May consider adjusting Keppra dosage depending on efficacy.
Neurology consult
Seizure precaution protocol
Restarted home medications
Consider electroencephalogram to evaluate for epileptiform activity if another breakthrough seizure occurs.
- Urinary tract infection: Monitoring
Ceftriaxone administered
Urine analysis shows trace ketones, 3+ occult blood, 2+ leukocyte Estrace, with bacteria, and 30-40 high-power field of white blood cell.
Reorder urine analysis and check for improvement.
- Benzodiazepine dependence: Stable
Patient educated on the risks of missing medication dosages specially with high benzodiazepine tolerance.
Consider slow outpatient benzodiazepine taper
- Parkinson disease: Stable
Resumed carbidopa�levodopa
Resumed home medications
Consult neurology
Continue to monitor patient.
- Anxiety:
Possibly due to benzodiazepine withdrawal
Consider psych consult
Consider encouraging therapy to better educate the patient in regards to coping mechanisms.
-Ambulation with cane:
Consider PT/OT
Anticipated Discharge: 24 - 48 hours
Subjective/Interval History
-
Date of Service: April 28, 2024
Met with patient at the bedside. Overall, she states that she is feeling much better than she did yesterday. She states that she also slept well and does not have any sensation of possible seizure activity today. She states that she is not
tremulous either.
Objective Data
-
Labs:
Laboratory Results
04/28/24
06:01
WBC 6.0
Hgb 10.2 L
Hct 30.5 L
Plt Count 209
Sodium 138
Potassium 3.3 L
Chloride 102
Carbon Dioxide 30
BUN 11
Creatinine 0.4 L
Glucose 91
Calcium 8.8
Vital Signs:
Vital Signs
Temp Pulse Resp BP Pulse Ox
98.3 F 62 18 121/61 95
04/28/24 11:00 04/28/24 11:00 04/28/24 11:00 04/28/24 11:00 04/28/24 11:00
I&O
04/27/24 04/28/24 04/29/24
06:59 06:59 06:59
Intake Total 360 / 360
Balance 360 / 360
Review of Systems
-
History Source: Patient
Constitutional: Reports No Symptoms
EENT: Reports No Symptoms Reported
Respiratory: Reports No Symptoms
Cardiac: Reports No Symptoms
Abdomen/GI: Reports No Symptoms
Breast: Reports No Symptoms
Genitourinary: Reports No Symptoms
Skin: Reports No Symptoms
Neuro: Reports No Symptoms
Endocrine: Reports No Symptoms
Hematologic / Lymphatic: Reports No Symptoms
Physical Exam
-
General: Well Developed, Well Nourished and No Apparent Distress
HEENT: Normocephalic, Atraumatic and Moist Mucous Membranes
Respiratory: Clear to Auscultation
Cardiac: Regular Rhythm and S1/S2
Breast: Deferred by me
GI: No Hepatosplenomegaly
Rectal: Deferred by Provider
Genito-urinary: Deferred by me
Musculoskeletal: No Clubbing, No Cyanosis and No Edema
Skin: Warm
Neuro: Nonfocal/Grossly Intact
Psych: Calm

Documented by User: Roni Roque MD 04/28/24 15:46
Assessment / Plan
Assessment / Plan
- Breakthrough seizures without status epilepticus -none further. Unclear etiology
Pyruia without symptoms noted - rule out UTI ; pt and family affirms medication complaince.
Awaiting Keppra levels - Results Pending. May consider adjusting Keppra dosage depending on efficacy.
Neurology consult pending
Seizure precaution protocol
Restarted home medications
- Eval for Urinary tract infection:
Ceftriaxone administered
Urine analysis shows trace ketones, 3+ occult blood, 2+ leukocyte Estrace, with bacteria, and 30-40 high-power field of white blood cell.
- Benzodiazepine dependence: Stable
Patient educated on the risks of missing medication dosages specially with high benzodiazepine tolerance.
Consider slow outpatient benzodiazepine taper
- Parkinson disease: Stable
Resumed carbidopa�levodopa
Resumed home medications
Continue to monitor patient.
- Anxiety:Chronic. Follows with local psychiatry . No med changes for now.
-Ambulation with cane:
PT/OT
Anticipated Discharge: Within 24 hours
[2024-04-28] MEDS: ROCEPHIN 1000 MG IV (17:02)
[2024-04-28] MEDS: STERILE WATER FOR INJECTION 10 ML IV (17:02)
[2024-04-28] MEDS: LOVENOX 40 MG SC (17:02)
[2024-04-28 18:12] LABS: Keppra (Levetiracetam) 16 ug/mL (10-40)
[2024-04-28] MEDS: DESYREL 50 MG PO (21:38)
[2024-04-28] MEDS: CRESTOR 10 MG PO (21:38)
[2024-04-28] MEDS: LEXAPRO 30 MG PO (21:38)
--- NOTE | 2024-04-28 23:35 | PTCARENOTE ---
Transfer of care from JEN Alvarez. Patient asleep in room, seizure pads intact on bed rails, no seizure activity per report. Normal sinus rhythm noted on tele monitor. Vitals stable. Care ongoing.
[2024-04-29 03:47] VITALS: BP 102/51
[2024-04-29 06:46] LABS: Hematocrit 29.6 % (37.0-47.0); Hemoglobin 9.7 g/dL (12.0-16.0); Mean Corp Hgb Conc. 32.8 g/dL (33.0-37.0); Mean Corpuscular Volume 82.5 fL (81.0-99.0); Mean Platelet Volume 10.6 fL (7.4-10.4); Platelet Count 206 10^3/uL (130-400); Red Blood Cell Count 3.59 10^6/uL (4.20-5.40); Red Cell Dist. Width 14.9 % (11.5-14.5); White Blood Cell Count 5.2 10^3/uL (4.8-10.8)
[2024-04-29] MEDS: KEPPRA 500 MG PO (07:23)
[2024-04-29] MEDS: ATIVAN 2 MG PO ×2 (07:23→15:56)
[2024-04-29] MEDS: NEUPRO 2 MG TRANSDERM (07:23)
[2024-04-29] MEDS: NEUPRO 4 MG TRANSDERM (07:24)
[2024-04-29] MEDS: ProAmatine PO (07:28)
[2024-04-29] MEDS: SINEMET 25-100 2 TABLET PO ×3 (07:30→15:56)
[2024-04-29 07:37] LABS: Blood Urea Nitrogen 10 mg/dl (7-17); Calcium 8.5 mg/dl (8.4-10.2); Carbon Dioxide 34 mmol/L (22-30); Chloride 99 mmol/L (98-107); Estimated Creatinine Clearance 86 ml/min; Glucose 89 mg/dl (70-99); Potassium 3.2 mmol/L (3.5-5.1); Sodium 138 mmol/L (135-145); eGFR > 60.00
[2024-04-29 07:46] VITALS: BP 140/69
--- NOTE | 2024-04-29 09:08 | W.PN.HOSP.TC ---
Documented by User: Shira Hawthorne MD, Resident 04/29/24 09:26
Today's Communication/Plan
-
Potassium repleted for hypokalemia. We will follow the recommendations of neurology and continue Keppra 500 mg p.o. every 12 hours. Continue lorazepam 2 mg p.o. 3 times daily. Recommended outpatient psychiatry follow-up for consideration of
medication adjustment or very gradual reduction of Ativan. Continue seizure precautions. PT OT evaluations. Outpatient follow-up with [facility] neurology in about [address] De Luna.
Assessment / Plan
Assessment / Plan
- Breakthrough seizures without status epilepticus -none further. Unclear etiology
Pyruia without symptoms noted - rule out UTI ; pt and family affirms medication compliance.
Keppra levels -levetiracetam levels within normal limits.
Neurology consult -Neurology consult recommends Keppra continued at 500 mg p.o. every 12 hours. Continue lorazepam 2 mg p.o. 3 times daily for now. Patient will possibly require psychiatry follow-up for consideration of medication adjustment and
gradual reduction via tapering. Seizure precaution should continue. They also recommended PT OT evaluations. They recommended that the patient should be followed up in the outpatient setting with [facility] neurology in the next 2 weeks.
No need for further neurological imaging.
Seizure precaution protocol
Restarted home medications
- Hypokalemia: Monitoring
Potassium was 3.3 on 04/28 and 3.2 on 04/29. Potassium Chloride given for repletion.
- Eval for Urinary tract infection:
Ceftriaxone administered
Urine analysis shows trace ketones, 3+ occult blood, 2+ leukocyte Estrace, with bacteria, and 30-40 high-power field of white blood cell.
- Benzodiazepine dependence: Stable
Patient educated on the risks of missing medication dosages specially with high benzodiazepine tolerance.
Consider slow outpatient benzodiazepine taper
- Parkinson disease: Stable
Resumed carbidopa�levodopa
Resumed home medications
Continue to monitor patient.
- Anxiety: Chronic.
Follows with local psychiatry . No med changes for now.
-Ambulation with cane:
PT/OT
Anticipated Discharge: Within 24 hours
Subjective/Interval History
-
Date of Service: April 29, 2024
Met with patient at the bedside. She is calm and pleasant in discussion. Earlier today she believes she was suffering from a seizure and called her nurses for help. When nurses came to her they noted unilateral twitching of the eye. Her family
wanted help finding an automatic blood pressure machine for home BP readings.
Objective Data
-
Labs:
Laboratory Results
04/29/24
06:28
WBC 5.2
Hgb 9.7 L
Hct 29.6 L
Plt Count 206
Sodium 138
Potassium 3.2 L
Chloride 99
Carbon Dioxide 34 H
BUN 10
Creatinine 0.5 L
Glucose 89
Calcium 8.5
Vital Signs:
Vital Signs
Temp Pulse Resp BP Pulse Ox
98.0 F 84 16 140/69 94
04/29/24 03:47 04/29/24 07:46 04/29/24 07:46 04/29/24 07:46 04/29/24 07:46
I&O
04/28/24 04/29/24 04/30/24
06:59 06:59 06:59
Intake Total 360 / 360 480 / 480
Balance 360 / 360 480 / 480
Review of Systems
-
History Source: Patient
Constitutional: Reports No Symptoms
EENT: Reports No Symptoms Reported
Respiratory: Reports No Symptoms
Cardiac: Reports No Symptoms
Breast: Reports No Symptoms
Genitourinary: Reports No Symptoms
Musculoskeletal: Reports No Symptoms
Skin: Reports No Symptoms
Neuro: Reports Other (Sporadic twitching of Left Eye)
Endocrine: Reports No Symptoms
Hematologic / Lymphatic: Reports No Symptoms
Allergy / Immunology: Reports No Symptoms
Physical Exam
-
General: Well Developed, Well Nourished and No Apparent Distress
HEENT: Normocephalic, Atraumatic and Moist Mucous Membranes
Respiratory: Clear to Auscultation
Cardiac: Regular Rhythm and S1/S2
Breast: Deferred by me
GI: Soft, Nontender and Nondistended
Rectal: Deferred by Provider
Genito-urinary: Deferred by me
Musculoskeletal: No Clubbing, No Cyanosis and No Edema
Skin: Warm
Neuro: Awake, Alert and Oriented
Psych: Calm

Documented by User: Roni Roque MD 04/29/24 15:24
Today's Communication/Plan
-
DC home.
Assessment / Plan
Assessment / Plan
- Breakthrough seizures without status epilepticus -none further. Unclear etiology
Pyruia without symptoms noted ; pt and family affirms medication compliance.
Keppra levels -levetiracetam levels within normal limits.
Neurology consult -Neurology Switching Keppra to Depakote due to mood issues and seizures. Continue lorazepam 2 mg p.o. 3 times daily for now. Patient will require psychiatry follow-up for consideration of medication adjustment and gradual
reduction via tapering. . They recommended that the patient should be followed up in the outpatient setting with [facility] neurology in the next 2 weeks. No need for further neurological imaging.
Restarted home medications
- Hypokalemia: Monitoring
Potassium was 3.3 on 04/28 and 3.2 on 04/29. Potassium Chloride given for repletion.
- Eval for Urinary tract infection:
asymptomatic without dysuria, frequency. Urine culture shows mixed richelle suggestive of contamination. Based on the current available data no evidence of UTI. Stop antibiotics.
Urine analysis shows trace ketones, 3+ occult blood, 2+ leukocyte Estrace, with bacteria, and 30-40 high-power field of white blood cell.
- Benzodiazepine dependence: Stable
Patient educated on the risks of missing medication dosages specially with high benzodiazepine tolerance.
Consider slow outpatient benzodiazepine taper
- Parkinson disease: Stable
Resumed carbidopa�levodopa
Resumed home medications
Continue to monitor patient.
- Anxiety: Chronic.
Follows with local psychiatry . No med changes for now.
-Ambulation with cane:
PT/OT
Discussed with neurology-stable for discharge from
DC home
Total time of discharge 32 minutes
PT eval noted- recommend home health.
[2024-04-29] MEDS: KCL 40 MEQ PO (09:37)
--- NOTE | 2024-04-29 10:34 | W.PN.NEURO.1 ---
Today's Communication / Plan
-
.
Neuro Assessment/Plan
Assessment
This is a 68-year-old female with a PMH of severe anxiety, seizures, Parkinson disease, and chronic benzodiazepine dependence who presented to on 04/27/24 with report of a breakthrough seizure then had a witnessed seizure lasting one minute while
in the ER.
-CT Head 04/22/24: No acute intracranial abnormality.
I. Breakthrough seizures without status epilepticus; possibly due to UTI and/or accidental medication noncompliance.
II. Starring event this morning possibly related to anxiety attack, unclear if this was a partial seizure.
III. Chronic benzodiazepine dependence.
IV. Parkinson disease, stable.
Plan
-Discontinue Keppra 500mg q12hrs and replace with Depakote 500mg PO q12hrs due to concern for mood issues/increased anxiety on Keppra.
-Continue lorazepam 2mg PO TID for now. Needs outpatient Psychiatry follow-up for consideration of medication adjustment/very gradual reduction of Ativan.
-Infectious workup per primary team.
-Do not see a role for further neurological imaging at this point.
-Seizure precautions.
-PT/OT evaluations.
-Continue home PD medication regimen: Sinemet 25-100 two tablets TID and Rotigotine patch 6mg daily.
-Patient needs outpatient follow-up with Neurology in the next 2 weeks, can see Dr. De Luna.
Subjective/Objective
Subjective Data
Date of Service: April 29, 2024
Patient with 15-30 seconds of starring to the right and eyelid fluttering before returned to baseline this morning around 0700. Patient denies losing consciousness, tongue biting, or incontinence with this event. Currently, she reports feeling at
her baseline. She does report significant anxiety and feeling tremulous leading up to this event, her daughter was at bedside and was very anxious as well. She denies any headache, dizziness, vision changes, speech/swallow difficulty, numbness,
weakness, chest pain, palpitations, and shortness of breath.
Objective Data
Vital Signs
Temp Pulse Resp BP Pulse Ox
98.0 F 84 16 140/69 94
04/29/24 03:47 04/29/24 07:46 04/29/24 07:46 04/29/24 07:46 04/29/24 07:46
Lab Results
04/29/24 06:28
04/29/24 06:28
Sodium 138 mmol/L (135-145) 04/29/24 06:28
Potassium 3.2 mmol/L (3.5-5.1) L 04/29/24 06:28
BUN 10 mg/dl (7-17) 04/29/24 06:28
Glucose 89 mg/dl (70-99) 04/29/24 06:28
Calcium 8.5 mg/dl (8.4-10.2) 04/29/24 06:28
Patient Allergies
No Known Allergies Allergy (Verified 04/27/24 08:48)
Review of Systems
-
History Source: Patient
EENT: Negative Blurry Vision, Decreased Vision or Swallowing Difficulty
Respiratory: Negative Cough or Trouble Breathing
Cardiac: Negative Chest Pain or Palpitations
Abdomen/GI: Negative Nausea
Genitourinary: Negative Incontinence
Neuro: Negative Dizzy, Headache, Weakness, Numbness, Ataxia, Tremors or Speech Problem
Physical Exam
-
General: No Apparent Distress
Eyes: No Ptosis and PERRLA
HEENT: Normocephalic and Atraumatic
Neck: Full Range of Motion
Respiratory: No Dyspnea
GI: Non-distended
Skin: Other (toes scabbed and great left toe with ecchymosis)
Extremities: Edema +1
Psych: Anxious
Extended Neurological Exam
Mood & Affect: Anxious
Attention Span & Concentration: Awake, Alert and Interactive
Memory: Unremarkable (AAOx3) and Able to Recall
Tremor: Hand Tremor Absent and Head Tremor Absent
Involuntary Movement: None
Speech: Quality Unremarkable, Quantity Unremarkable and Rate of Production Unremarkable
Cranial Nerve II: Left Eye: Pupillary Reactivity Unremarkable, Pupillary Size Unremarkable and Visual Arita Intact
Cranial Nerve II: Right Eye: Pupillary Reactivity Unremarkable, Pupillary Size Unremarkable and Visual Arita Intact
Cranial Nerves III, IV, : Extraocular Movement: Extraocular Movement Full in all Directions
Cranial Nerve V: Facial Sensation: Intact to Light Touch
Cranial Nerve VII: Facial Symmetry: Normal Facial Symmetry
Cranial Nerve VIII: Hearing: Unremarkable Hearing to Normal Conversational Volume
Cranial Nerves IX, X: Palate Movement: Palate Elevation Symmetric
Cranial Nerve XI: Shoulder Shrug: Unremarkable
Cranial Nerve XII: Tongue Protusion: Midline
Muscle Strength, Overall: Full Throughout
Muscle Bulk & Tone: Bulk Unremarkable and Tone Unremarkable
Pronator Drift: No Drift in Upper Extremities and No Drift in Lower Extremities
Deep Tendon Reflexes: Unremarkable Throughout
Touch Sensation: Double Simultaneous Stimulation Unremarkable
Coordination: [id number] Testing Unremarkable
Babinski Sign: Absent Bilaterally
Data Reviewed
-
CT Head: Report Reviewed and Image Reviewed
Labs: Report Reviewed
Reviewed with: Physician, Patient and Family
Medications
-
Active Medications
Generic Name Dose Route Start Last Admin
Trade Name Freq PRN Reason Stop Dose Admin
Acetaminophen 1,000 mg 04/28/24 10:03 04/28/24 10:14
Acetaminophen 500 Mg Tablet PO 05/25/24 16:57 1,000 mg
Q6HPRN PRN Administration
mild pain, fever, SANCHEZ
Artificial Tears 1 drops 04/27/24 23:07 04/28/24 10:22
Artificial Tears Pf (Refresh) 10 Drop Droperette OPHTH 05/25/24 23:06 1 drops
QIDPRN PRN Administration
dry eyes, burning eyes
Calcium Carbonate 1 tablet 04/27/24 16:58
Calcium Carbonate 500 Mg (Regular-Strength) Chew Tablet PO 05/25/24 16:57
DAILYPRN PRN
gerd
Carbidopa/Levodopa 1 tablet 04/27/24 16:58
Carbidopa (25 Mg)/Levodopa (100 Mg) Regular Release Tablet PO 05/25/24 16:57
TIDPRN PRN
Parkinson's disease
Carbidopa/Levodopa 2 tablet 04/28/24 08:00 04/29/24 11:13
Carbidopa (25 Mg)/Levodopa (100 Mg) Regular Release Tablet PO 05/26/24 07:59 2 tablet
TID@0800,12,16 LISSA Administration
Ceftriaxone Sodium 1,000 mg 04/27/24 18:00 04/28/24 17:02
Ceftriaxone 1000 Mg / 10 Ml Vial IV 1,000 mg
Q24H LISSA Administration
Cyclobenzaprine HCl 5 mg 04/27/24 17:09
Cyclobenzaprine 10 Mg Tablet PO 05/25/24 17:08
HSPRN PRN
NECK PAINS
Enoxaparin Sodium 40 mg 04/27/24 18:00 04/28/24 17:02
Enoxaparin Sodium 40 Mg/0.4 Ml Syringe SC 05/25/24 17:59 40 mg
QPM LISSA Administration
Escitalopram Oxalate 30 mg 04/27/24 22:00 04/28/24 21:38
Escitalopram 10 Mg Tablet PO 05/25/24 21:59 30 mg
HS LISSA Administration
Levetiracetam 500 mg 04/27/24 20:00 04/29/24 07:23
Levetiracetam 500 Mg Regular Release Tablet PO 05/25/24 19:59 500 mg
BID LISSA Administration
Loperamide HCl 2 mg 04/27/24 16:58
Loperamide 2 Mg Capsule PO 05/25/24 16:57
BIDPRN PRN
diarrhea
Lorazepam 2 mg 04/27/24 16:58 04/29/24 07:23
Lorazepam 2 Mg Tablet PO 05/25/24 16:57 2 mg
TID@0800,1600,2200 LISSA Administration
Midodrine 5 mg 04/27/24 17:00 04/29/24 11:13
Midodrine 5 Mg Tablet PO 05/25/24 16:59 5 mg
TID @ 0800,1200,1700 LISSA Administration
Naproxen 500 mg 04/27/24 16:58
Naproxen 500 Mg Tablet PO 05/25/24 16:57
BIDPRN PRN
NECK PAINS
Pepto Bismol 0 unit 04/27/24 17:48 04/27/24 17:58
Liquicaps 1 Po PO 05/25/24 17:47 1 unit
Bidprn Diarrhea BIDPRN PRN Administration
diarrhea
Ondansetron HCl 4 mg 04/27/24 17:35 04/27/24 17:51
Ondansetron 4 Mg/2 Ml Vial IV 05/25/24 17:34 4 mg
Q6HPRN PRN Administration
NAUSEA/VOMITING
Potassium Chloride 20 meq 04/29/24 20:00
Potassium Chloride 20 Meq Extended Release Tablet PO 05/27/24 19:59
BID LISSA
Rosuvastatin Calcium 10 mg 04/27/24 22:00 04/28/24 21:38
Rosuvastatin (Crestor) 10 Mg Tablet PO 05/25/24 21:59 10 mg
HS LISSA Administration
Rotigotine 4 mg 04/28/24 09:30 04/29/24 07:24
Rotigotine (Neupro) 4 Mg Patch TRANSDERM 05/26/24 09:29 4 mg
DAILY LISSA Administration
Rotigotine 2 mg 04/28/24 09:30 04/29/24 07:23
Rotigotine (Neupro) 2 Mg Patch TRANSDERM 05/26/24 09:29 2 mg
DAILY LISSA Administration
Sodium Chloride 0 flush 04/27/24 16:00
Sodium Chloride 0.9% (Flush) Syringe IV 05/25/24 15:59
PER PROTOCOL LISSA
Sterile Water 10 ml 04/27/24 18:00 04/28/24 17:02
Sterile Water For Injection 10 Ml Vial IV 05/25/24 17:59 10 ml
Q24H LISSA Administration
Trazodone HCl 50 mg 04/27/24 22:00 04/28/24 21:38
Trazodone 50 Mg Tablet PO 05/25/24 21:59 50 mg
HS LISSA Administration
Home Medications
�Medication �Instructions �Recorded
rosuvastatin 10 mg tablet 10 mg PO HS High Cholesterol 03/14/23
carbidopa 25 mg-levodopa 100 mg 2 tab PO TID@0800,12,16 12/10/23
tablet Neurological Condition
acetaminophen 500 mg tablet 1,000 mg PO DAILYPRN PRN mild pain 04/22/24
(Tylenol Extra Strength)
bismuth subsalicylate 262 mg 262 mg PO BIDPRN PRN diarrhea 04/22/24
tablet (Pepto-Bismol)
calcium carbonate (Tums) 400 mg PO DAILYPRN PRN gerd 04/22/24
carbidopa 25 mg-levodopa 100 mg 1 tab PO TIDPRN PRN Parkinson's 04/22/24
tablet disease
escitalopram oxalate 10 mg tablet 30 mg PO HS Depression 04/22/24
(Lexapro)
loperamide 2 mg capsule 2 mg PO BIDPRN PRN diarrhea 04/22/24
rotigotine 6 mg/24 hour 6 mg transdermal DAILY 04/22/24
transdermal 24 hour patch (Neupro) Neurological Condition
trazodone 100 mg tablet 50 mg PO HS Sleep 04/22/24
cyclobenzaprine 5 mg tablet 5 mg PO HSPRN PRN NECK PAINS 04/27/24
levetiracetam 500 mg tablet 500 mg PO BID Seizures 04/27/24
(Keppra)
lorazepam 2 mg tablet 2 mg PO TID@0800,16,2200 Mental 04/27/24
Health/Anxiety
midodrine 5 mg tablet 5 mg PO TID @ 0800,1200,1700 Blood 04/27/24
Pressure
naproxen 500 mg tablet 500 mg PO BIDPRN PRN NECK PAINS 04/27/24
[2024-04-29 11:08] VITALS: BP 103/45
[2024-04-29] MEDS: ProAmatine 5 MG PO ×2 (11:13→15:56)
--- NOTE | 2024-04-29 15:27 | W.DS.TRANS ---
DC Summary - [facility]
-
Discharge Instructions:
Discharge Diagnosis/Procedures Breakthrough seizures; anxiety disorder
Diet Regular
Activity As tolerated
Driving Restrictions No driving
Bathing Restrictions None
Instructions:
Stand-Alone Forms:
Changes to Home Medications: Yes
Discharge Medications:
DC Medications w/original date entered in [employer]
rosuvastatin 10 mg tablet 10 mg PO HS High Cholesterol 03/14/23
carbidopa 25 mg-levodopa 100 mg tablet 2 tab PO TID@0800,12,16 Neurological Condition 12/10/23
acetaminophen 500 mg tablet (Tylenol Extra Strength) 1,000 mg PO DAILYPRN PRN mild pain 04/22/24
bismuth subsalicylate 262 mg tablet (Pepto-Bismol) 262 mg PO BIDPRN PRN diarrhea 04/22/24
calcium carbonate (Tums) 400 mg PO DAILYPRN PRN gerd 04/22/24
carbidopa 25 mg-levodopa 100 mg tablet 1 tab PO TIDPRN PRN Parkinson's disease 04/22/24
escitalopram oxalate 10 mg tablet (Lexapro) 30 mg PO HS Depression 04/22/24
loperamide 2 mg capsule 2 mg PO BIDPRN PRN diarrhea 04/22/24
rotigotine 6 mg/24 hour transdermal 24 hour patch (Neupro) 6 mg transdermal DAILY Neurological Condition 04/22/24
trazodone 100 mg tablet 50 mg PO HS Sleep 04/22/24
cyclobenzaprine 5 mg tablet 5 mg PO HSPRN PRN NECK PAINS 04/27/24
lorazepam 2 mg tablet 2 mg PO TID@0800,16,2200 Mental Health/Anxiety 04/27/24
midodrine 5 mg tablet 5 mg PO TID @ 0800,1200,1700 Blood Pressure 04/27/24
naproxen 500 mg tablet 500 mg PO BIDPRN PRN NECK PAINS 04/27/24
divalproex 500 mg tablet,delayed release 500 mg PO BID #60 tabs 04/29/24
Home Medication Changes
New med - Depakote
DC med -keppra
Pending Results: No
--- NOTE | 2024-04-29 15:48 | W.PN.UPDATE ---
Update Note
Progress Note Update
spoke to dr pulliam who is canceling the psych consult so patient will not be seen . please call us if she remains and you would like us to see her.
[2024-04-29 16:15] VITALS: BP 116/58
--- NOTE | 2024-04-29 18:08 | W.DCSUMMARY ---
Discharge Summary
Discharge Data
Date of Admission: 04/27/24
Date of Discharge: 04/29/24
-
Pending Results: No
Hospital Course
Patient is a 68-year-old woman with a history of seizure disorder and Parkinson's. EMS was called when she became tremulous which is a sign of an oncoming seizure for the patient. Patient had about 10 minutes of tremulousness which she was able to
recall before she forgot what happened. On arrival the EMS said the patient had a generalized tonic-clonic seizure self-limited lasting 1 minute. She was not given any benzodiazepines while in the care of EMS. On arrival the patient was postictal
but responsive to verbal stimuli. She was admitted to the hospital last week for evaluation of seizures which were suspected to be caused by withdrawal of benzodiazepines. As per her most recent hospital discharge she is on 500 mg of Keppra twice
daily but it is uncertain whether the patient has been compliant with her medication regimen. Upon speaking to her daughter and other family members at the bedside it is possible that the patient may have missed taking some of her home medications.
Patient also states that her handwriting has changed over the past few years. It worsened and got smaller and then more recently has started to improve with parkinson medications.
After admission the patient was resumed on her home medication lists and Keppra levels were checked. Neurology was consulted. Ceftriaxone was administered due to non-symptomatic UTI. Neurology consultation recommended outpatient psychiatry
follow-up for consideration of medication adjustment/very gradual reduction of Ativan. Patient was also placed on seizure precautions. Neurology also recommended outpatient follow-up with Dr. De Luna 2 weeks after her discharge. Once Keppra levels
were determined to be within normal limits neurology recommended switching the patient to Depakote due to mood issues and seizures. The patient's hospital course showed a steady pattern of improvement and the patient was well tolerating her
medication adjustments.
The patient has reached maximal benefit from this hospital stay and is appropriate for discharge at the present time. The patient should be followed up by outpatient psychiatry, neurology, and her primary care provider. Her care team may want to
consider a slow gradual benzodiazepine taper in order to avoid possible complications of long-term benzodiazepine use including falls.
Discharge Plan
-
Patient Disposition: Home with Home Care
Discharge Diagnosis/Procedures: Breakthrough seizures; anxiety disorder, hypokalemia, Parkinson disease
Diet: Regular
Activity: As tolerated
Driving Restrictions: No driving
Bathing Restrictions: None
Referrals:
Donavon Alvarez DO [Family Provider] - in less than 1 week
Soham De Luna MD [Active] - in two weeks
Prescriptions:
New
divalproex 500 mg Tablet,Delayed Release (Dr/Ec)
500 mg PO BID Qty: 60 0RF
Continued
rosuvastatin 10 mg tablet
10 mg PO HS
carbidopa-levodopa 25-100 mg tablet
2 tab PO TID@0800,12,16
loperamide 2 mg Capsule
2 mg PO BIDPRN PRN (Reason: diarrhea)
acetaminophen [Tylenol Extra Strength] 500 mg Tablet
1,000 mg PO DAILYPRN PRN (Reason: mild pain)
trazodone 100 mg Tablet
50 mg PO HS
calcium carbonate [Tums] 200 mg calcium (500 mg) Tablet,Chewable
400 mg PO DAILYPRN PRN (Reason: gerd)
Pepto-Bismol 262 mg Tablet
262 mg PO BIDPRN PRN (Reason: diarrhea)
escitalopram oxalate [Lexapro] 10 mg Tablet
30 mg PO HS
Neupro 6 mg/24 hour Patch 24 Hour
6 mg TRANSDERMAL DAILY
carbidopa-levodopa 25-100 mg Tablet
1 tab PO TIDPRN PRN (Reason: Parkinson's disease)
Patient Comments:
Rx Instructions:
taken as needed in between doses of other straight order Sinemet 2 tabs TID
naproxen 500 mg Tablet
500 mg PO BIDPRN PRN (Reason: NECK PAINS)
cyclobenzaprine 5 mg Tablet
5 mg PO HSPRN PRN (Reason: NECK PAINS)
lorazepam 2 mg tablet
2 mg PO TID@0800,16,2200
midodrine 5 mg tablet
5 mg PO TID @ 0800,1200,1700
Discontinued
levetiracetam [Keppra] 500 mg tablet
500 mg PO BID
Discharge Orders:
Discharge Patient (As Directed); Ordered 04/29/24
Ordered By: Roni Roque
Discharge Date and Time
Discharge Date/Time: 04/29/24 17:57
Print Language: AFGHAN
== END 2024-04-29 17:57 | disposition home health service (06) | DRG 101 ==
LOC: 3 WEST ACU 15:14
PROVIDERS: Physician Assistant; ADMITTING PHYSICIAN Internal Medicine; CONSULT PHYSICIAN Psychiatry & Neurology Neurology; EMERGENCY PHYSICIAN Emergency Medicine; FAMILY PHYSICIAN Family Medicine
DX: G40.409 Other generalized epilepsy and epileptic syndromes, not intractable, without status epilepticus (principal); F13.20 Sedative, hypnotic or anxiolytic dependence, uncomplicated; G20.A1 Parkinson's disease without dyskinesia, without mention of fluctuations; F41.9 Anxiety disorder, unspecified; E87.6 Hypokalemia; Z79.899 Other long term (current) drug therapy
CPT/HCPCS: 80048; 80177; 81003; 81015; 85025; 85027; 87086; 93005; 96365; 97163; 99285

== ENCOUNTER 2024-05-05 23:18 | Inpatient (IN) | payer MEDICARE, OTHER, SELFPAY ==
[2024-05-05 20:54] VITALS: BP 122/53
--- NOTE | 2024-05-05 20:54 | ED.GENMED ---
History of Present Illness
General
Chief Complaint: Weakness
Time Seen by Provider: 05/05/24 20:49
History of Present Illness
History of Present Illness:
HPI: I spoke to EMS for history�the patient has a history of Parkinson's and was recently here in the hospital. She was recently here she was felt to have a benzo withdrawal seizure. Today the patient complained of double vision and appeared
weaker than normal. The family was concerned about the possibly of having a seizure but she did not have a seizure this evening. As of 2 weeks ago she was able to walk without difficulty and now she can barely walk
EXAM:
GENERAL: Appears chronically ill
HEENT: Slightly dry oral mucosa
CARDIOVASCULAR: No murmurs, normal heart rate, regular rhythm, No chest wall tenderness
PULMONARY: No respiratory distress, breath sounds are clear and equal
ABDOMEN: Soft with no peritoneal signs, no tenderness
NEUROLOGIC: Equally decreased strength all extremities, minimal [id number] impairment bilaterally, mild dysarthria
PSYCHIATRIC: Appropriate mental status, normal insight and judgement but she appears to have some mild cognitive deficits
EXTREMITIES: Nontender, no edema, moves all extremities equally
SKIN: No rash, no lesions
TIME OF INITIAL ENCOUNTER: 8:50 PM
NUMBER AND COMPLEXITY OF PROBLEMS ADDRESSED AT THE ENCOUNTER
� Chronic conditions affecting care: Has had benzo withdrawal seizure and used to be on Keppra
� Acute Exacerbation and/or Progression of Chronic Illness: This is an acute but recurring problem
� Differential Diagnosis includes: Breakthrough seizure, impending benzo withdrawal, neurologic changes related to Parkinson's
AMOUNT AND/OR COMPLEXITY OF DATA TO BE REVIEWED AND ANALYZED
� I performed an independent evaluation of and my interpretation is:
EKG: Sinus 63, leftward axis deviation, nonspecific ST abnormality without significant change from 04/27/2024
CT:
X-rays:
Laboratory Studies: White count 5.9, hemoglobin 11.7, chemistries unremarkable, Depakote level at the higher end of normal
Other:
� Review of other/old records: The patient was admitted from 04/27/2024 through 04/29/2024. She has a history of seizure disorder and Parkinson's. It was felt that recent seizure was related to benzo withdrawal in the. She used
to take Keppra as of [address] of the brain from 04/22/2024 was unremarkable.
� Clinical information was obtained by an independent historian: I spoke to EMS for history. I later spoke to the daughter at bedside.
� Prescriptions/Medications Considered but not given: Did not give her her trazodone/Lexapro as she appears rather sedate current
� Further testing considered but not performed: Considered CT imaging of the brain however the patient recently had a CT earlier this month that was relatively unremarkable. I also reviewed MRI from last year.
RISK OF COMPLICATIONS AND/OR MORBIDITY OR MORTALITY OF PATIENT MANAGEMENT
� Social determinants of health affecting care: Lives at home
� Discussion with other providers: Spoke to hospitalist team for admission
� Escalation of care including admission/observation vs risk of discharge considered: I spoke to the daughter at bedside. The patient has been doing poorly over the last several days. She has been unable to walk recently. She
continues to decline. Last admission it was felt that she was having a benzo withdrawal seizure however she has been taking her Ativan 2 mg 3 times daily. Daughter feels that she cannot wait for another few weeks to see Dr. De Luna again. There was
really no plan at home and daughter feels that she has been doing poorly at home. Suspect medication related cognitive decline.
Past History
Past History
ED Past Medical History: Cancer (ovarian team), Hypercholesterolemia, Psychiatric (Anxiety/depression) and Other (Migraines, Parkinson's)
ED Past Surgical History: Appendectomy, Gynecological (AMALIA/BSO 2012), Orthopedic (Bilateral knee replacements, right hip replacement) and Other (Herniorrhaphy)
Social History
Tobacco: Non-smoker
Alcohol: None
Drug: None
Personal:
Living: with family
Employment: Retired
Family History
Family History: Other (Reviewed and noncontributory )
Phy Exam
Physical Exam
Physical Exam:
See HPI
Course
Orders/Labs/Results
Orders:
Orders
05/05/24 20:53
0.9% Sodium Chloride 1000 ml [Nss] 1,000 ml IV BOLUS
05/05/24 20:57
Electrocardiogram (*1) Urgent
Reason for Study: Syncope
EKG- Treatment ONCE
05/05/24 21:01
Complete Blood Count/With Diff Urgent
Comprehensive Metabolic Panel Urgent
Magnesium Urgent
Valproic Acid Level [Depakane] Urgent
05/05/24 21:40
Escitalopram Oxalate [Lexapro] 30 mg PO NOW STA
Trazodone [Desyrel] 50 mg PO NOW STA
05/05/24 22:42
Escitalopram Oxalate [Lexapro] 30 mg PO NOW STA
05/05/24 22:43
CT Head W/o Iv Contrast Urgent
Comment:
Reason For Exam: double vision
05/05/24 23:00
Flush (0.9% Sodium Chloride) [Flush (Nss)] See Dose Instructions IV PER PROTOCOL
Abnormal Lab Results
05/05/24
21:01
Hgb 11.7 L D g/dL
(12.0-16.0)
Hct 35.0 L %
(37.0-47.0)
RDW 16.0 H %
(11.5-14.5)
MPV 10.9 H fL
(7.4-10.4)
Absolute Lymphs (auto) 0.9 L 10^3/uL
(1.2-3.4)
Neutrophils % 78.4 H %
(42.2-75.2)
Lymphocytes % 14.8 L %
(20.5-51.1)
Creatinine 0.4 L mg/dL
(0.6-1.0)
AST 10 L U/L
(14-36)
Alkaline Phosphatase 144 H U/L
(38-126)
05/05/24 21:01
05/05/24 21:01
Vital Signs
Initial and Last Documented VS:
Initial Vital Signs
Pulse Resp BP Pulse Ox
71 26 122/53 97
05/05/24 20:54 05/05/24 20:54 05/05/24 20:54 05/05/24 20:54
Last Documented Vital Signs
Temp Pulse Resp BP Pulse Ox
97.6 F 63 17 106/52 97
05/05/24 21:01 05/05/24 22:15 05/05/24 22:15 05/05/24 22:00 05/05/24 22:15
*Critical Care Note
Total Time (30-74mins, 75-104mins- exclusive of procedures): Not Applicable
ED Attending Note
-
Portions of this chart may have been created with voice recognition software.� Occasional wrong word or��sound alike� substitutions may have occurred due to the inherent limitations of voice recognition software.
Discharge Plan
Departure
Patient Disposition: Admit
Date of Disposition: 05/05/24
Time of Disposition: 22:04
Presentation/result/management discussed w/ accepting MD/DO: Hospitalist
Discharge Problem:
Weakness
Prescriptions:
No Action
rosuvastatin 10 mg tablet
10 mg PO HS
carbidopa-levodopa 25-100 mg tablet
2 tab PO TID@0630,1030,1530
loperamide 2 mg Capsule
2 mg PO BIDPRN PRN (Reason: diarrhea)
acetaminophen [Tylenol Extra Strength] 500 mg Tablet
1,000 mg PO DAILYPRN PRN (Reason: mild pain)
calcium carbonate [Tums] 200 mg calcium (500 mg) Tablet,Chewable
400 mg PO DAILYPRN PRN (Reason: gerd)
Pepto-Bismol 262 mg Tablet
262 mg PO BIDPRN PRN (Reason: diarrhea)
escitalopram oxalate [Lexapro] 10 mg Tablet
10 mg PO HS
Patient Comments:
05/05/2024: taken w/ 20mg = 30mg
lorazepam 2 mg tablet
2 mg PO TID@0630,1530,1930
Patient Comments:
05/05/2024: last filled 04/21/24, 60 tabs for 30 days from [place]
midodrine 5 mg tablet
5 mg PO TID@0630,1330,1930
trazodone 50 mg tablet
50 mg PO HS
ondansetron HCl 4 mg tablet
4 mg PO Q6HPRN PRN (Reason: nausea/vomiting)
escitalopram oxalate 20 mg tablet
20 mg PO HS
Patient Comments:
05/05/2024: taken w/ 10mg = 30mg
Neupro 8 mg/24 hour patch 24 hour
8 mg transdermal DAILY@0630
Patient Comments:
05/05/2024: Switch arms
divalproex 500 mg tablet,delayed release (DR/EC)
500 mg PO BID@0630,1830
Referrals:
UNKNOWN - PT DOES,NOT KNOW [Family Provider] -
Interventions
Interventions:
*Risk Screen - Suicide Last Done: 05/05/24 20:59
*General Assessment Last Done: 05/05/24 20:59
*Neglect/Abuse Screening Last Done: 05/05/24 20:59
ED- Fall Risk Assessment Last Done: 05/05/24 22:11
*ED COVID-19 Vaccine History Last Done: 05/05/24 20:59
ED- Cardiac Assessment Last Done: 05/05/24 22:11
ED- Neurological Assessment Last Done: 05/05/24 22:11
ED- Pulmonary Assessment Last Done: 05/05/24 22:13
Discharge Date and Time
Print Language: WALLISIAN
[2024-05-05 20:57] VITALS: BP 122/53
[2024-05-05 20:58] VITALS: BMI 28.4
[2024-05-05 21:00] VITALS: BP 118/58
[2024-05-05] MEDS: NSS 1000 IV (21:04)
[2024-05-05 21:16] LABS: % Basophils 0.3 % (0-2); % Eosinophils 1.4 % (0-6); % Immature Granulocytes 0.3 % (0-0.5); % Lymphocytes 14.8 % (20.5-51.1); % Monocytes 4.8 % (1.7-9.3); % Neutrophils 78.4 % (42.2-75.2); Absolute Eosinophils 0.1 10^3/uL (0-0.7); Absolute Lymphocytes 0.9 10^3/uL (1.2-3.4); Absolute Monocytes 0.3 10^3/uL (0.1-0.6); Absolute Neutrophils 4.6 10^3/uL (1.4-6.5); Hemoglobin 11.7 g/dL (12.0-16.0); Mean Corp Hgb Conc. 33.4 g/dL (33.0-37.0); Mean Corpuscular Hgb 27.1 pg (27.0-31.0); Mean Corpuscular Volume 81.2 fL (81.0-99.0); Mean Platelet Volume 10.9 fL (7.4-10.4); Nucleated Red Blood Cells % 0 %; Platelet Count 236 10^3/uL (130-400); Red Blood Cell Count 4.31 10^6/uL (4.20-5.40); White Blood Cell Count 5.9 10^3/uL (4.8-10.8)
[2024-05-05 21:28] LABS: ALT (SGPT) < 10 U/L (0-35); AST (SGOT) 10 U/L (14-36); Alkaline Phosphatase 144 U/L (38-126); Blood Urea Nitrogen 13 mg/dl (7-17); Calcium 8.9 mg/dl (8.4-10.2); Carbon Dioxide 29 mmol/L (22-30); Chloride 98 mmol/L (98-107); Estimated Creatinine Clearance 86 ml/min; Glucose 91 mg/dl (70-99); Magnesium 2.1 mg/dl (1.6-2.3); Potassium 3.7 mmol/L (3.5-5.1); Sodium 136 mmol/L (135-145); Total Bilirubin 1.1 mg/dl (0.2-1.3); Total Protein 6.9 g/dl (6.3-8.2); eGFR > 60.00
[2024-05-05 21:35] LABS: Depakane 117.5 ug/ml (50.0-120.0)
[2024-05-05 22:00] VITALS: BP 106/52
--- NOTE | 2024-05-05 22:50 | HPS.HSE ---
Family Physician
-
Family Physician: NOT KNOW UNKNOWN - PT DOES
Chief Complaint
-
Weakness and Double Vision
History of Present Illness
Patient is a 68 y/o female with PMH of Parkinson's disease, benzo withdrawal seizure, and anxiety/depression who reports to the ED for weakness and increased fatigue. Patient was recently admitted on 04/29 after a benzo withdrawal seizure and was put
on Depakote. Patient admits to double vision since she was discharge. Her daughter states that her mother has increased weakness, has difficulty walking, and has been sleeping all day x 2 weeks. Her daughter says prior to her admission she was able
to walk on her own with a cane and toilet herself. Patient denies chest pain, palpitations, shortness of breath, abdominal pain, nausea, vomiting, changes in bowel movements, dysuria, or edema.
Medical History
Past Medical History
Past Medical History: Reports Other
Additional Past Medical History:
Parkinson's Disease with Autonomic Dysfunction
Seizure Disorder
Anxiety/Depression
Hyperlipidemia
Chiari I Malformation
Ovarian Cancer
Past Surgical History: Reports Other
Additional Past Surgical History:
Bilateral Knee Replacements
Right Total Hip Replacement
Hysterectomy and Bilateral Salpingo-oophorectomy
Appendectomy
Hernia Repair
Social History
Tobacco: Non-smoker
Living: With Family
Family History
Family History: Not pertinent
Allergies / Home Medications
Allergies reflects when Allergies were last updated in [facility].
Home Medications with original date entered in [facility]
Allergy/Medication List:
Allergies
Allergy/AdvReac Type Severity Reaction Status Date / Time
No Known Allergies Allergy Verified 04/27/24 08:48
Home Medications
rosuvastatin 10 mg tablet 10 mg PO HS High Cholesterol 03/14/23
carbidopa 25 mg-levodopa 100 mg tablet 2 tab PO TID@0630,1030,1530 Neurological Condition 12/10/23
acetaminophen 500 mg tablet (Tylenol Extra Strength) 1,000 mg PO DAILYPRN PRN mild pain 04/22/24
bismuth subsalicylate 262 mg tablet (Pepto-Bismol) 262 mg PO BIDPRN PRN diarrhea 04/22/24
calcium carbonate (Tums) 400 mg PO DAILYPRN PRN gerd 04/22/24
escitalopram oxalate 10 mg tablet (Lexapro) 10 mg PO HS Depression 04/22/24
loperamide 2 mg capsule 2 mg PO BIDPRN PRN diarrhea 04/22/24
lorazepam 2 mg tablet 2 mg PO TID@0630,1530,1930 Mental Health/Anxiety 04/27/24
midodrine 5 mg tablet 5 mg PO TID@0630,1330,1930 Blood Pressure 04/27/24
divalproex 500 mg tablet,delayed release 500 mg PO BID@0630,1830 05/05/24
escitalopram oxalate 20 mg tablet 20 mg PO HS 05/05/24
ondansetron HCl 4 mg tablet 4 mg PO Q6HPRN PRN nausea/vomiting 05/05/24
rotigotine 8 mg/24 hour transdermal 24 hour patch (Neupro) 8 mg transdermal DAILY@0630 05/05/24
trazodone 50 mg tablet 50 mg PO HS 05/05/24
Review of Systems
-
A 12 point ROS was completed and negative except as noted: Yes
Constitutional: Denies Fever or Chills
Respiratory: Denies Cough or Trouble Breathing
Cardiac: Denies Chest Pain or Palpitations
Abdomen/GI: Denies Abdominal Pain, Nausea, Vomiting or Diarrhea
: Denies Dysuria or Frequency
Physical Exam
Vital Signs
Vital Signs
Temp Pulse Resp BP Pulse Ox
97.6 F 63 17 106/52 97
05/05/24 21:01 05/05/24 22:15 05/05/24 22:15 05/05/24 22:00 05/05/24 22:15
Physical Exam
General: Comfortable and Conversant
HEENT: Anicteric and Moist mucous membranes
Respiratory: Clear and Non Labored Respirations
Cardiac: S1/S2 and Regular Rhythm
GI: Soft and Non Tender
Rectal: Deferred by Provider
Musculoskeletal: No Clubbing and No Cyanosis
Skin: Warm and Dry
Neuro: Awake, Alert, Oriented, Nonfocal/grossly intact and Other (Speech is slow but clear; Answers questions slowly)
Psych: Calm
Laboratory Results
-
05/05/24 21:01
05/05/24 21:01
Laboratory Results
Total Bilirubin 1.1 mg/dl (0.2-1.3) 05/05/24 21:01
AST 10 U/L (14-36) L 05/05/24 21:01
ALT < 10 U/L (0-35) 05/05/24 21:01
Alkaline Phosphatase 144 U/L (38-126) H 05/05/24 21:01
Data Reviewed
-
Lab Data: Labs Reviewed by me
Impression/Plan
-
Generalized Weakness, likely secondary to Poly-Pharmacy and Elevated Depakote Level
-Hold Depakote - Recheck Level in AM
-Hold Trazodone
-Decrease lorazepam 1mg TID
-Consult PT/IT
Seizure Disorder
-Depakote on hold due to elevated elevated
-Consult Neurology
Parkinson's Disease with Autonomic Dysfunction
-Continue Sinemet and Neupro Patch
-Continue Midodrine
Anxiety/Depression
-Hold Trazodone
-Continue lorazepam decreased as above
-Continue Lexapro
Hyperlipidemia
-Continue Crestor
Hx Ovarian Cancer s/p AMALIA-BSO and Chemo
DVT proph: SCDs
Code Status: Full Code
[2024-05-05 23:00] VITALS: BP 112/53
[2024-05-05] MEDS: LEXAPRO 30 MG PO (23:05)
--- NOTE | 2024-05-05 23:14 | W.PN.UPDATE ---
Update Note
Progress Note Update
Seen and examined and discussed with physician family law legal assistant in detail I am in agreement with plan and management mentioned by physician family law legal assistant, independent evaluation made by me
Patient seen and evaluated, lethargic, daughter at the bedside, brought in as she is sleeping according to the daughter for the last 3-day and this morning she was telling the daughter she has a bladder infection. There are some changes in her
medication made recently. Currently looks calm and comfortable lethargic, sleepy, speaks in low tone of voice, moves extremities freely.
Vital signs reviewed
Physical exam:
General: Lethargic, speaks in low tone of voice, not in distress and answers very short and brief,
HEENT: No active discharge, ecchymosis or bruising, moist lips, tongue and mucous membrane.
Eyes: No discharge or red conjunctiva, no nystagmus, pupils are reactive and equal
Neck:Supple, no JVD no bruit no goiter.
Respiratory: Normal AP contour and diameter, normal chest wall movement, normal respiratory effort, no respiratory distress,
Lungs: Good air entry bilaterally, no wheezing or rhonchi, no rales or crackles
Heart: S1, S2 regular, normal rate, no added sound.
Gastrointestinal: Positive bowel sounds, soft, nontender, no guarding or rigidity or organomegaly
Extremities: No pitting edema, good peripheral pulses, good range of motion
Neurological: Lethargic, speaks in low tone of voice, moves extremities freely, no facial, speech clear and comprehensive, good muscle tone,
Psychiatric: Normal mood, normal thought and judgment, flat affect,
Workup including labs, imaging, EKG and archive reviewed.
Assessment and plan:
Generalized Weakness, likely secondary to Poly-Pharmacy and Elevated Depakote Level
-Hold Depakote - Recheck Level in AM
-Hold Trazodone
-Decrease lorazepam 1mg TID, as she is look like oversedated with close monitoring for withdrawal, while oversedation and respiratory suppression will be another higher dose especially she was sleeping for 3 days according to the daughter.
-Get a CT of brain
-Consult PT/IT
-Neurology consult
Seizure Disorder
-Depakote on hold due to elevated elevated
-Consult Neurology
Parkinson's Disease with Autonomic Dysfunction
-Continue Sinemet and Neupro Patch
-Continue Midodrine
Anxiety/Depression
-Hold Trazodone
-Continue lorazepam decreased as above
-Continue Lexapro
All discussed with the patient and the family
Discussed with physician family law legal assistant
[2024-05-06] VITALS (9 sets, daily range): BP systolic 97–139; BP diastolic 53–65; PULSE 84–93; BMI 28.4
--- NOTE | 2024-05-06 00:20 | PTCARENOTE ---
Pt arrived onto floor @0020. Pt AAOx3 with no complaints of pain at this time. Pt a dross puller to the bed. Vital signs are stable. Pt oriented to room and call nam; will continue to monitor
[2024-05-06] MEDS: ATIVAN 1 MG PO (06:19)
[2024-05-06] MEDS: SINEMET 25-100 2 TABLET PO ×3 (06:19→16:36)
[2024-05-06] MEDS: ProAmatine 5 MG PO ×3 (06:19→20:17)
[2024-05-06] MEDS: NEUPRO 8 MG TRANSDERM (06:21)
--- NOTE | 2024-05-06 08:16 | CON.NEURO4 ---
Addendum entered and electronically signed by Aroldo Davis MD 05/06/24 13:46:
e I saw and evaluate the patient I reviewed the note by Judy Calderon agree with the findings the following comments:
68-year-old woman with a past medical history of Parkinson's disease, severe anxiety with benzodiazepine dependence, seizures who presented to hospital due to lethargy generalized weakness diplopia and poor mental status after starting Depakote for
seizure prevention.
Patient had had a recent hospitalization for likely seizure event on 04/22 which may have occurred in the context of nausea and vomiting and not taking any medications, she was restarted on levetiracetam which she had been off of for around 1 year.
Levetiracetam was eventually changed to Depakote 500 mg twice daily out of concern for possible effect of levetiracetam on patient's mood as she already has baseline severe anxiety.
Patient's daughter does feel that she may have had an increase in anxiety since starting levetiracetam but not entirely clear if this was a significant change or not as she has baseline severe anxiety.
I had cared for the patient in a hospitalization in March 2023 during which she had multiple seizures and status epilepticus which was likely due to underdosing of benzodiazepines compared to her home dosing. At that point I thought that she had
purely benzodiazepine withdrawal seizures.
Valproic acid levels 117 and 120.5
Neurologic examination shows patient with some mild cognitive impairment but is awake alert and interactive and participatory during conversation no evidence of aphasia and obeys multistep commands.
Cranial nerves shows no abnormality of extraocular movements
Minimal parkinsonism with no appreciable rigidity in the limbs, no tremors seen
Assessment: Mild valproic acid toxicity, no evidence of cerebral edema or stupor/coma, normal liver function tests.
Baseline severe anxiety benzodiazepine at home with benzodiazepine dependence and likely history of benzodiazepine withdrawal seizures.
Patient still may have purely a benzodiazepine withdrawal seizure instances rather than true epilepsy but I am concerned enough over her risk for further seizures in the future that I think would be best to have antiseizure medication present moving
forward
Recommendations
-Follow daily valproic acid levels
-No role for aggressive interventions on mild valproic acid toxicity
-Hold valproic acid and would remain off the medication
-No changes to her home regimen of carbidopa/levodopa, midodrine or rotigotine
-Avoid any antipsychotics as this can be harmful to patients with parkinson's disease
-Would hold trazodone for the time being
-When valproic acid levels fall in the range of 50-70 or less, I would recommend starting 100 mg twice daily lacosamide p.o., patient has no significant heart conditions or arrhythmia that would prohibit the medication and it is generally very mood
neutral
-No role for EEG or further brain imaging
Will follow
Original Note:
Consultation - Neurology 4
-
CONSULTING PHYSICIAN: Mars Davis MD
REFERRING PHYSICIAN: Hospitalists/Radha Adam PA-C
DICTATED BY: VIRAJ Catalan
DATE/TIME OF REQUEST: 05/06/24
DATE/TIME OF CONSULTATION: 05/06/24
Reason for Consultation: Change in mental status
History of Present Illness:
This is a 68-year-old female with a PMH of Parkinson disease, severe anxiety, benzodiazepine withdrawal seizure and more recently seizure with unknown cause who has presented to the hospital on 05/05/24 with report of severe lethargy, weakness,
diplopia, and overall change in mental status after initiation of Depakote for seizure prevention. Patient is followed by our outpatient Neurology service and was recently hospitalized here twice this month with report of seizure. On 04/22/24 she was
restarted on Keppra, this was then changed to Depakote 500mg BID one week ago due to her mental health history and recurrent seizure.
From my previous evaluation on 04/28/24:
''This is a 68-year-old female who has presented to the hospital with report of recurrent seizure. Patient is followed by Neurology as an outpatient for a history of benzodiazepine withdrawal seizure and Parkinson disease. She also notably has
severe anxiety and has been benzodiazepine dependent for decades.
From most recent office visit with Neurology VIRAJ Silva on 04/08/24:
'67-year-old female presents to establish care here after a recent hospitalization with multiple benzodiazepine withdrawal seizures. She also has a history of PD. She previously followed with Dr. Griffith. She lives at home with her and
son with other family members nearby. Her manages her meds and has had difficulty keeping them straight per her sister who is here visiting from [place]. Per hospital records, she had some n/v prior to hospitalization and was not able to
take some of her meds. Her sister believes she had been taking 10 mg of Ativan per day for several years and has been taking benzodiazepines in some form since age 16. (She has the phone number for Dr. Sanchez, a local psychiatrist, but has not yet
called for an appt.)Dr. Davis reviewed the PDMP while she was hospitalized, and she had been taking an average of 5-6 mg of Lorazepam daily and then was received a lower dose while hospitalized at 1 mg TID. She was initially admitted on March 14,
2022, and was discharged on March 27.
She had an EEG done on March 18, 2023, while hospitalized which showed mild diffuse slowing. She later had a 24-hour EEG from March 20 to March 21 which showed short periods of generalized slowing but nothing epileptiform. MRI of the brain done on March 21,
2022, with and without contrast showed 'minimal periventricular white matter leukoaraiosis in the frontal lobes. Thin band of signal abnormality in the cortical [place]by matter of the superior lateral right frontal lobe gyrus could be secondary to focal
cortical dysplasia given history of seizures. Chiari I malformation.' She was placed on Keppra during her hospitalization with a plan for taper as an outpatient. She has not had any other seizures since her higher dose of lorazepam was resumed. She
was later seen again by neurology on March 28 after being readmitted for a partial small bowel obstruction. She remains seizure-free since being discharged. She has been taking Keppra 500 mg twice daily. Concern was raised during her hospitalization
for visual hallucinations.
(05/16/23) She remains seizure-free now off of Keppra. She has not seen psychiatry and continues to take a benzodiazepine 3 times a day. Her tremor has worsened considerably. Her hallucinations have resolved.06/25/2023atient seen in the office today
with her daughter. Since her last visit she did start Sinemet and is now up to 2 tablets 3 times a day. She is tolerating this well. She feels tremor has resolved. She needs renewal of her Neupro patch and needs paperwork filled out. She does report
she has not slept since her last hospitalization. She reports increased anxiety and stress. She does have an appointment with psychiatry on July 07, 2023. She has not been given any additional medications for sleep. She does take Ativan 2 mg 3
times a day. This has been ongoing and is not new. She does report that she has been on antidepressants in the past. She has not had any seizures.
(09/03/2023) TELEHEALTH ENCOUNTER : Video ECW LOCATION OF PROVIDER: office LOCATION OF PATIENT: HOME Patient initiated the visit. The patient verbally consented to the virtual check-in.DURATION: 14 minutes. Patient encounter via telemedicine.
Patient reports her Parkinson's symptoms continue to be well controlled on Sinemet 2 tablets 3 times a day and Neupo patch. No adverse side effects medication. No falls. No hallucinations. She reports significant anxiety. She does have planned
follow-up with psychiatry first week in September. She did see her primary care doctor who did start Lexapro. She is continued on lorazepam 2 mg 3 times a day. She also has continued on trazodone 25 mg at night. She does report trouble with sleeping.
(01/16/2024) Patient seen in the office today with her sister. She has been doing well. She does have a mild tremor left hand intermittently when she is due for her carbidopa/levodopa. She continues on Neupro patch. She does not feel she needs an
increase in medication. She has had an increase in anxiety and has been working with her psychiatrist to adjust medications. She has no recent falls. She does report fatigue however she continues on lorazepam 3 times a day. She also has not
increased dose of trazodone. Since her last visit she did have right hip surgery and has been ambulating with a walker.
(04/08/2024)� His standpoint her symptoms have been stable. She reports her biggest issue is increased anxiety. She continues to follow-up with psychiatry. She did have her hip replaced recently. She is recovering well from that.� She continues on
Neupro patch.� She has not been able to get financial assistance but does not want to discontinue. She continues to take Sinemet 2 tablets 3 times a day and an additional 1 tablet as needed.� She feels the additional 1 tablet as needed is very very
helpful.� No recent falls. No hallucinations.� No adverse side effects of medication.'
Patient had been off of Keppra since April 2023 and seizure-free until 04/22/24. At the beginning of April 2024, patient had several days of nausea, vomiting and diarrhea. Patient's daughter reports that she was not able to take all of her doses of
medications due to this. On April 22, 2024 she presented to ER with report of generalized shaking and loss of consciousness. Keppra 500mg BID was restarted, and she was discharged home on 04/23/24. Patient's daughter reports that since discharge,
she has been having odd starring spells lasting 1-3 minutes in the evening. Yesterday (04/27/24), she reports that the patient started having generalized tremors, began starring-off, stopped talking, her left eye started drooping, and then the patient
lost consciousness and her lips turned blue and she was foaming at the mouth. On arrival in the ER, patient had a witnessed generalized seizure lasting 1 minute, with spontaneous resolution. Patient was confused/lethargic following the event but
opened eyes to voice. There was no tongue biting or bowel incontinence with this event, she wears a depends for urinary incontinence at baseline. Urinalysis is suggestive of a UTI and she was started on IV Rocephin last evening. Today (04/28/24),
patient feels back to her baseline. She reports a mild frontal headache that she rates a 4/10. She also reports mild nausea and chronic tingling in her feet. She denies any dizziness, vision changes, speech/swallow difficulty, numbness, focal
weakness, dysuria/frequency/retention, chest pain, palpitations, and shortness of breath. Patient's daughter reports that this would be her 4th UTI in 2023. Patient reports that she is typically asymptomatic when she has a UTI. Her daughter also
reports that the patient's manages her medications and he isn't prompt with giving them to her on time and she often finds pills on the ground that the patient never took. Lorazepam 2mg TID is not significantly improving her anxiety, her
outpatient psychiatrist has been working to adjust her psych medication regimen. At baseline, patient ambulates with a single point cane occasionally, she denies any recent falls or gait difficulty.''
CT head was obtained on arrival in the ER last night 05/05/24 and is negative for any acute abnormalities. Depakote level is high at 120.5 and Depakote was placed on hold. Today (05/06/24), patient reports feeling much improved and her daughter
reports that the patient is the most awake she has been since she left the hospital last week. Patient denies any headache, dizziness, vision changes, speech/swallow difficulty, numbness, focal weakness, nausea, chest pain, palpitations, and
shortness of breath. They deny any further seizure activity since admission last week.
Past Medical History: Parkinson disease, seizures (one in the setting of benzodiazepine withdrawal), HLD, significant anxiety, depression, benzodiazepine dependence for decades, migraines, cervical DDD, ovarian cancer, impaired fasting blood glucose
Surgical History: AMALIA/BSO, appendectomy, b/l TKR, R THR, herniorrhaphy
Family History: Reviewed and noncontributory
Social History: Denies tobacco, alcohol, and illicit drug use.
Allergies: No known allergies.
Home Medications: See below.
Review of Symptoms:
Patient denies any fever, headache, chest pain, shortness of breath, GI or symptoms.
�Per the HPI.�All systems are reviewed negative except above.
Physical Exam:
The patient is afebrile, abdomen is nondistended, breathing is unlabored, skin is warm and dry, no edema.
Neurologic Examination:
The patient is awake, alert and oriented x 3, poor historian. She is able to follow commands and answer questions appropriately. There is no aphasia or dysarthria. On cranial nerve assessment, pupils are 3 mm bilateral, round and reactive to light
and accommodation. Visual garcia are full. Extraocular movements are intact. Facial sensations are intact and bilaterally symmetrical, there is no facial asymmetry. Hearing is intact bilaterally to normal conversation volume. Tongue palate and uvula
are midline. Sternocleidomastoid strengths are full bilaterally. Motor strengths are 5/5 bilateral upper and lower extremities on medical research Rudolph scale. There is no drift or involuntary movement noted. Deep tendon reflexes are 1+ bilateral
upper and lower extremities and Babinski is absent bilaterally. There was no extinction noted on double simultaneous stimulation. Coordination is intact by finger to nose bilaterally.
Lab Results: See below.
Neuro Imaging:
1. CT Head 05/05/24: No acute intracranial abnormality.
Differentials for the patient's presentation include:
1. Adverse reaction to Depakote likely producing change in mental status, Depakote level is high.
2. Low concern for any breakthrough seizures.
3. Parkinson disease.
4. Severe anxiety with decades of benzodiazepine dependency.
Patient has the following risk factors for their symptoms: Seizures, anxiety, medication changes
Recommendations:
-Hold Depakote and discontinue this medication. Continue to monitor Depakote level and ensure it trends downward.
-Will trend depakote level and initiate Vimpat for seizure prevention when depakote level is closer to 60.
-Will continue to avoid Keppra due to severe anxiety.
-Continue Sinemet 25-100 2 tablets TID at 0630, 1030, and 1530.
-Continue Rotigotine 8mg patch daily.
-Continue home lorazepam 2mg TID at 0630, 1530, 1930, would not reduce dosage at this time due to concern for withdrawal seizure.
-Seizure precautions.
-Neurological checks per unit guidelines.
-PT/OT evaluations.
-DVT prophylaxis.
-Will follow.
Discussed patient care with: Dr. Davis, the patient, patient's family
Medications
-
Active Medications
Generic Name Dose Route Start Last Admin
Trade Name Freq PRN Reason Stop Dose Admin
Acetaminophen 650 mg 05/06/24 00:02
Acetaminophen 325 Mg Tablet PO 06/03/24 00:01
Q4HPRN PRN
mild pain/ fever>100.5F
Carbidopa/Levodopa 2 tablet 05/06/24 06:30 05/06/24 11:17
Carbidopa (25 Mg)/Levodopa (100 Mg) Regular Release Tablet PO 06/03/24 06:29 2 tablet
TID@0630,1030,1530 LISSA Administration
Escitalopram Oxalate 20 mg 05/06/24 22:00
Escitalopram 20 Mg Tablet PO 06/03/24 21:59
HS LISSA
Escitalopram Oxalate 10 mg 05/06/24 22:00
Escitalopram 10 Mg Tablet PO 06/03/24 21:59
HS LISSA
Lorazepam 2 mg 05/06/24 15:30
Lorazepam 1 Mg Tablet PO 06/03/24 15:29
TID@0630,1530,1930 LISSA
Midodrine 5 mg 05/06/24 06:30 05/06/24 06:19
Midodrine 5 Mg Tablet PO 06/03/24 06:29 5 mg
TID@0630,1330,1930 LISSA Administration
Rosuvastatin Calcium 10 mg 05/06/24 22:00
Rosuvastatin (Crestor) 10 Mg Tablet PO 06/03/24 21:59
HS LISSA
Rotigotine 8 mg 05/07/24 06:30
Rotigotine (Neupro) 4 Mg Patch TRANSDERM 06/04/24 06:29
DAILY@0630 LISSA
Sodium Chloride 0 flush 05/05/24 23:00
Sodium Chloride 0.9% (Flush) Syringe IV 06/02/24 22:59
PER PROTOCOL LISSA
Home Medications
�Medication �Instructions �Recorded
rosuvastatin 10 mg tablet 10 mg PO HS High Cholesterol 03/14/23
carbidopa 25 mg-levodopa 100 mg 2 tab PO TID@0630,1030,1530 12/10/23
tablet Neurological Condition
acetaminophen 500 mg tablet 1,000 mg PO DAILYPRN PRN mild pain 04/22/24
(Tylenol Extra Strength)
bismuth subsalicylate 262 mg 262 mg PO BIDPRN PRN diarrhea 04/22/24
tablet (Pepto-Bismol)
calcium carbonate (Tums) 400 mg PO DAILYPRN PRN gerd 04/22/24
escitalopram oxalate 10 mg tablet 10 mg PO HS depression/anxiety 04/22/24
(Lexapro)
loperamide 2 mg capsule 2 mg PO BIDPRN PRN diarrhea 04/22/24
lorazepam 2 mg tablet 2 mg PO TID@0630,1530,1930 Mental 04/27/24
Health/Anxiety
midodrine 5 mg tablet 5 mg PO TID@0630,1330,1930 Blood 04/27/24
Pressure
divalproex 500 mg tablet,delayed 500 mg PO BID@0630,1830 Seizures 05/05/24
release
escitalopram oxalate 20 mg tablet 20 mg PO HS depression/anxiety 05/05/24
ondansetron HCl 4 mg tablet 4 mg PO Q6HPRN PRN nausea/vomiting 05/05/24
rotigotine 8 mg/24 hour 8 mg transdermal DAILY@0630 05/05/24
transdermal 24 hour patch (Neupro) cognition/memory
trazodone 50 mg tablet 50 mg PO HS sleep 05/05/24
divalproex 500 mg tablet,delayed 500 mg PO BID Seizures 05/06/24
release
Vital Signs and Labs
-
Vital Signs and Labs:
Vital Signs
Temp Pulse Resp BP Pulse Ox
97.6 F 66 18 117/59 94
05/06/24 08:16 05/06/24 08:16 05/06/24 08:16 05/06/24 08:16 05/06/24 08:16
Lab Results
05/06/24 08:46
05/06/24 08:46
Sodium 136 mmol/L (135-145) 05/06/24 08:46
Potassium 3.8 mmol/L (3.5-5.1) 05/06/24 08:46
BUN 11 mg/dl (7-17) 05/06/24 08:46
Glucose 84 mg/dl (70-99) 05/06/24 08:46
Calcium 8.8 mg/dl (8.4-10.2) 05/06/24 08:46
[2024-05-06 09:24] LABS: Hematocrit 32.1 % (37.0-47.0); Hemoglobin 10.7 g/dL (12.0-16.0); Mean Corp Hgb Conc. 33.3 g/dL (33.0-37.0); Mean Corpuscular Hgb 27.2 pg (27.0-31.0); Mean Corpuscular Volume 81.5 fL (81.0-99.0); Mean Platelet Volume 10.6 fL (7.4-10.4); Platelet Count 209 10^3/uL (130-400); Red Blood Cell Count 3.94 10^6/uL (4.20-5.40); Red Cell Dist. Width 15.9 % (11.5-14.5); White Blood Cell Count 6.9 10^3/uL (4.8-10.8)
[2024-05-06 10:00] LABS: Depakane 120.5 ug/ml (50.0-120.0)
[2024-05-06 10:09] LABS: Blood Urea Nitrogen 11 mg/dl (7-17); Calcium 8.8 mg/dl (8.4-10.2); Carbon Dioxide 27 mmol/L (22-30); Chloride 101 mmol/L (98-107); Estimated Creatinine Clearance 87 ml/min; Glucose 84 mg/dl (70-99); Potassium 3.8 mmol/L (3.5-5.1); Sodium 136 mmol/L (135-145); eGFR > 60.00
--- NOTE | 2024-05-06 10:37 | W.PN.HOSP.TC ---
Today's Communication/Plan
-
see outlined plan
Assessment / Plan
Assessment / Plan
Assessment:
Generalized Weakness, likely secondary to Poly-Pharmacy and Elevated Depakote Level
- Hold Depakote - Recheck Level in AM
- Hold Trazodone
- continue lorazepam 2mg TID
- Consult PT/OT
Seizure Disorder
- Depakote on hold due to elevated elevated
- Neurology consulted
- will start Vimpat once Depakote level between 50-70
Parkinson's Disease with Autonomic Dysfunction
- continue Sinemet and Neupro Patch
- continue Midodrine
Anxiety/Depression
- hold Trazodone
- continue lorazepam decreased as above
- continue Lexapro
Hyperlipidemia
- continue Crestor
Hx Ovarian Cancer s/p AMALIA-BSO and Chemo
DVT ppx: SCDs
Code Status: Full Code
Anticipated Discharge: > 48 hours
Subjective/Interval History
-
Date of Service: May 06, 2024
no acute events
Objective Data
-
Labs:
Laboratory Results
05/06/24
08:46
WBC 6.9
Hgb 10.7 L
Hct 32.1 L
Plt Count 209
Sodium 136
Potassium 3.8
Chloride 101
Carbon Dioxide 27
BUN 11
Creatinine 0.4 L
Glucose 84
Calcium 8.8
Vital Signs:
Vital Signs
Temp Pulse Resp BP Pulse Ox
97.6 F 66 18 117/59 94
05/06/24 08:16 05/06/24 08:16 05/06/24 08:16 05/06/24 08:16 05/06/24 08:16
Physical Exam
-
General: No Apparent Distress
HEENT: Normocephalic and Atraumatic
Respiratory: Negative Wheezes
Cardiac: Regular Rhythm and S1/S2
GI: Soft and Nontender
Genito-urinary: No Costovertebral Tender
Musculoskeletal: No Edema
Neuro: AO x 3
Hematologic / Lymphatic: No Lymphadenopathy
Psych: Calm
Data Reviewed
-
Total Time Spent with Patient (in minutes): 45
Labs: Labs Reviewed by me
[2024-05-06] MEDS: ATIVAN 2 MG PO ×2 (16:36→20:17)
[2024-05-06] MEDS: CRESTOR 10 MG PO (20:18)
[2024-05-06] MEDS: LEXAPRO 20 MG PO (20:18)
[2024-05-06] MEDS: LEXAPRO 10 MG PO (20:18)
[2024-05-07] VITALS (7 sets, daily range): BP systolic 100–132; BP diastolic 56–70
[2024-05-07] MEDS: ATIVAN 2 MG PO ×3 (06:18→20:49)
[2024-05-07] MEDS: NEUPRO 8 MG TRANSDERM (06:19)
[2024-05-07] MEDS: ProAmatine 5 MG PO ×3 (06:20→20:49)
[2024-05-07] MEDS: SINEMET 25-100 2 TABLET PO ×3 (06:20→15:21)
[2024-05-07 08:00] LABS: Hemoglobin 11.1 g/dL (12.0-16.0); Mean Corp Hgb Conc. 33.6 g/dL (33.0-37.0); Mean Corpuscular Hgb 27.8 pg (27.0-31.0); Mean Corpuscular Volume 82.5 fL (81.0-99.0); Mean Platelet Volume 10.9 fL (7.4-10.4); Platelet Count 198 10^3/uL (130-400); Red Cell Dist. Width 16.2 % (11.5-14.5); White Blood Cell Count 5.6 10^3/uL (4.8-10.8)
[2024-05-07 08:11] LABS: Ammonia 19 umol/L (9-30)
[2024-05-07 09:04] LABS: Depakane 74.3 ug/ml (50.0-120.0)
[2024-05-07 09:39] LABS: Blood Urea Nitrogen 11 mg/dl (7-17); Calcium 8.9 mg/dl (8.4-10.2); Carbon Dioxide 27 mmol/L (22-30); Chloride 99 mmol/L (98-107); Estimated Creatinine Clearance 87 ml/min; Glucose 78 mg/dl (70-99); Potassium 3.7 mmol/L (3.5-5.1); Sodium 135 mmol/L (135-145); eGFR > 60.00
[2024-05-07] MEDS: FLUSH (NSS) 1 FLUSH IV (10:09)
--- NOTE | 2024-05-07 10:27 | W.PN.HOSP.TC ---
Today's Communication/Plan
-
start Vimpat and monitor
DC planning to SNF
Assessment / Plan
Assessment / Plan
Assessment:
Generalized Weakness, likely secondary to Poly-Pharmacy and Elevated Depakote Level
- Depakote stopped
- Trazodone remains held
- continue lorazepam 2mg TID
- PT/OT - SNF recommended
Seizure Disorder
- Depakote stopped
- Neurology consulted
- start Vimpat now that valproic acid levels 74
- Neurology following
Parkinson's Disease with Autonomic Dysfunction
- continue Sinemet and Neupro Patch
- continue Midodrine
Anxiety/Depression
- hold Trazodone
- continue lorazepam 2mg TID
- continue Lexapro
Hyperlipidemia
- continue Crestor
Hx Ovarian Cancer s/p AMALIA-BSO and Chemo
DVT ppx: SCDs
Code Status: Full Code
Anticipated Discharge: 24 - 48 hours
Subjective/Interval History
-
Date of Service: May 07, 2024
denies any new complaints at present
transitioned to Vimpat with lower VA levels
Objective Data
-
Labs:
Laboratory Results
05/07/24
07:42
WBC 5.6
Hgb 11.1 L
Hct 33.0 L
Plt Count 198
Sodium 135
Potassium 3.7
Chloride 99
Carbon Dioxide 27
BUN 11
Creatinine 0.4 L
Glucose 78
Calcium 8.9
Vital Signs:
Vital Signs
Temp Pulse Resp BP Pulse Ox
98.2 F 76 18 132/63 95
05/07/24 07:00 05/07/24 07:00 05/07/24 07:00 05/07/24 07:00 05/07/24 07:00
I&O
05/06/24 05/07/24 05/08/24
06:59 06:59 06:59
Intake Total 600 / 600
Balance 600 / 600
Physical Exam
-
General: No Apparent Distress
HEENT: Normocephalic and Atraumatic
Respiratory: Negative Wheezes
Cardiac: Regular Rhythm and S1/S2
GI: Soft and Nontender
Genito-urinary: No Costovertebral Tender
Musculoskeletal: No Edema
Neuro: AO x 3
Psych: Calm
Data Reviewed
-
Total Time Spent with Patient (in minutes): 42
Labs: Labs Reviewed by me
--- NOTE | 2024-05-07 11:35 | W.PN.NEURO.1 ---
Addendum entered and electronically signed by Aroldo Davis MD 05/07/24 12:05:
I saw and evaluated the patient, reviewed note by Judy Henning and agree with the findings:
68 year old woman with history of anxiety, benzodiazepine dependency, previous seizures felt mostly due to benzodiazepine withdrawal, Parkinson's disease presenting with symptoms due to valproic acid toxicity.
Patient not quite at baseline with some mild confusion per her but clearly improving compared to 4-5 days ago. No double vision, no significant tremor, no hallucinations.
Neurologic exam largely unremarkable, awake and alert, pleasant, answers questions appropriately and interactive, no tremor, little to no rigidity in limbs.
Assessment:
1) Although I suspect her seizures are more likely due to benzodiazepine withdrawl (in summer 2022 and more recently April 2024 seizure was associated with some vomiting and missing medications), I do feel best to have on seizure prevention
medication for time being, tentatively for 1-2 years before consideration of coming off
2) Valproic acid toxicity improving
3) Parkinson's disease, mild/moderate, on Sinemet and Rotigotine
4) Severe anxiety, benzodiazepine dependence
Recommendations
-With valproic acid levels trending down start Lacosamide 100 mg BID, remain off valproic acid
-No changes to Sinemet and Rotigotine
-Can resume trazodone qhs upon discharge
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
Original Note:
Today's Communication / Plan
-
.
Neuro Assessment/Plan
Assessment
68-year-old woman with a past medical history of Parkinson's disease, severe anxiety with benzodiazepine dependence, seizures who presented to hospital due to lethargy generalized weakness diplopia and poor mental status after starting Depakote for
seizure prevention.
Patient had had a recent hospitalization for likely seizure event on 04/22 which may have occurred in the context of nausea and vomiting and not taking any medications, she was restarted on levetiracetam which she had been off of for around 1 year.
Levetiracetam was eventually changed to Depakote 500 mg twice daily out of concern for possible effect of levetiracetam on patient's mood as she already has baseline severe anxiety.
Patient's daughter does feel that she may have had an increase in anxiety since starting levetiracetam but not entirely clear if this was a significant change or not as she has baseline severe anxiety.
Valproic acid levels 117 (05/05), 120.5 (05/06), 74.3 (05/07)
-CT Head 05/05/24: No acute intracranial abnormality.
I. Adverse reaction to new medication Depakote likely producing change in mental status, Depakote level is high.
II. Low concern for any breakthrough seizures.
III. Parkinson disease.
IV. Severe anxiety with decades of benzodiazepine dependency.
V. History of benzodiazepine withdrawal seizure.
Plan
-Initiate lacosamide 100mg BID starting tonight (05/07/24), as Depakote level has neared 70.
-No role for aggressive interventions on mild valproic acid toxicity
-Hold valproic acid and would remain off the medication.
-Would also avoid Keppra due to extensive mood disturbance history.
-No changes to her home regimen of carbidopa/levodopa, midodrine or rotigotine.
-Avoid any antipsychotics as this can be harmful to patients with Parkinson disease.
-Would hold trazodone for the time being.
-No role for EEG or further brain imaging.
-DVT prophylaxis.
-PT/OT/ST evaluations.
-Will follow.
-Patient should keep her outpatient Neurology follow-up appt with Dr. De Luna on 05/25/24.
Subjective/Objective
Subjective Data
Date of Service: May 07, 2024
No acute events overnight. Patient reports feeling improved today. Her at bedside reports that she is still mildly confused at times and her speech is intermittently slurred. She denies any headache, dizziness, diplopia, swallowing
difficulty, focal numbness, focal weakness, chest pain, palpitations, and shortness of breath.
Objective Data
Vital Signs
Temp Pulse Resp BP Pulse Ox
98.2 F 76 18 132/63 95
05/07/24 07:00 05/07/24 07:00 05/07/24 07:00 05/07/24 07:00 05/07/24 07:00
Lab Results
05/07/24 07:42
05/07/24 07:42
Sodium 135 mmol/L (135-145) 05/07/24 07:42
Potassium 3.7 mmol/L (3.5-5.1) 05/07/24 07:42
BUN 11 mg/dl (7-17) 05/07/24 07:42
Glucose 78 mg/dl (70-99) 05/07/24 07:42
Calcium 8.9 mg/dl (8.4-10.2) 05/07/24 07:42
Patient Allergies
No Known Allergies Allergy (Verified 04/27/24 08:48)
Review of Systems
-
History Source: Patient
EENT: Negative Blurry Vision, Decreased Vision or Swallowing Difficulty
Respiratory: Negative Cough or Trouble Breathing
Cardiac: Negative Chest Pain or Palpitations
Abdomen/GI: Negative Nausea
Genitourinary: Negative Dysuria
Neuro: Weakness and Speech Problem; Negative Dizzy, Headache, Numbness, Ataxia or Tremors
Physical Exam
-
General: No Apparent Distress
Eyes: No Ptosis and PERRLA
HEENT: Normocephalic and Atraumatic
Neck: Full Range of Motion
Respiratory: No Dyspnea
GI: Non-distended
Extremities: No Clubbing, No Cyanosis and No Edema
Psych: Anxious
Extended Neurological Exam
Mood & Affect: Anxious
Attention Span & Concentration: Awake, Alert and Interactive
Memory: Reduced (AAOx3, forgetful)
Tremor: Hand Tremor Absent and Head Tremor Absent
Involuntary Movement: None
Speech: Quality Unremarkable, Quantity Unremarkable and Rate of Production Unremarkable
Cranial Nerve II: Left Eye: Pupillary Reactivity Unremarkable, Pupillary Size Unremarkable and Visual Arita Intact
Cranial Nerve II: Right Eye: Pupillary Reactivity Unremarkable, Pupillary Size Unremarkable and Visual Arita Intact
Cranial Nerves III, IV, : Extraocular Movement: Extraocular Movement Full in all Directions
Cranial Nerve V: Facial Sensation: Intact to Light Touch
Cranial Nerve VII: Facial Symmetry: Normal Facial Symmetry
Cranial Nerve VIII: Hearing: Unremarkable Hearing to Normal Conversational Volume
Cranial Nerves IX, X: Palate Movement: Palate Elevation Symmetric
Cranial Nerve XI: Shoulder Shrug: Unremarkable
Cranial Nerve XII: Tongue Protusion: Midline
Muscle Strength, Overall: Full Throughout
Muscle Bulk & Tone: Bulk Unremarkable and Tone Unremarkable
Pronator Drift: No Drift in Upper Extremities and No Drift in Lower Extremities
Deep Tendon Reflexes: Unremarkable Throughout
Coordination: Egayxe-yxss-ezyhcp Testing Unremarkable
Babinski Sign: Absent Bilaterally
Data Reviewed
-
CT Head: Report Reviewed and Image Reviewed
Labs: Report Reviewed
Reviewed with: Physician, Patient and Family
Medications
-
Active Medications
Generic Name Dose Route Start Last Admin
Trade Name Freq PRN Reason Stop Dose Admin
Acetaminophen 650 mg 05/06/24 00:02
Acetaminophen 325 Mg Tablet PO 06/03/24 00:01
Q4HPRN PRN
mild pain/ fever>100.5F
Carbidopa/Levodopa 2 tablet 05/06/24 06:30 05/07/24 10:09
Carbidopa (25 Mg)/Levodopa (100 Mg) Regular Release Tablet PO 06/03/24 06:29 2 tablet
TID@0630,1030,1530 LISSA Administration
Escitalopram Oxalate 20 mg 05/06/24 22:00 05/06/24 20:18
Escitalopram 20 Mg Tablet PO 06/03/24 21:59 20 mg
HS LISSA Administration
Escitalopram Oxalate 10 mg 05/06/24 22:00 05/06/24 20:18
Escitalopram 10 Mg Tablet PO 06/03/24 21:59 10 mg
HS LISSA Administration
Lacosamide 100 mg 05/07/24 20:00
Lacosamide (Vimpat) 50 Mg Tablet PO 06/04/24 19:59
BID LISSA
Lorazepam 2 mg 05/06/24 15:30 05/07/24 06:18
Lorazepam 1 Mg Tablet PO 06/03/24 15:29 2 mg
TID@0630,1530,1930 LISSA Administration
Midodrine 5 mg 05/06/24 06:30 05/07/24 06:20
Midodrine 5 Mg Tablet PO 06/03/24 06:29 5 mg
TID@0630,1330,1930 LISSA Administration
Rosuvastatin Calcium 10 mg 05/06/24 22:00 05/06/24 20:18
Rosuvastatin (Crestor) 10 Mg Tablet PO 06/03/24 21:59 10 mg
HS LISSA Administration
Rotigotine 8 mg 05/07/24 06:30 05/07/24 06:19
Rotigotine (Neupro) 4 Mg Patch TRANSDERM 06/04/24 06:29 8 mg
DAILY@0630 LISSA Administration
Sodium Chloride 0 flush 05/05/24 23:00 05/07/24 10:09
Sodium Chloride 0.9% (Flush) Syringe IV 06/02/24 22:59 1 flush
PER PROTOCOL LISSA Administration
Home Medications
�Medication �Instructions �Recorded
rosuvastatin 10 mg tablet 10 mg PO HS High Cholesterol 03/14/23
carbidopa 25 mg-levodopa 100 mg 2 tab PO TID@0630,1030,1530 12/10/23
tablet Neurological Condition
acetaminophen 500 mg tablet 1,000 mg PO DAILYPRN PRN mild pain 04/22/24
(Tylenol Extra Strength)
bismuth subsalicylate 262 mg 262 mg PO BIDPRN PRN diarrhea 04/22/24
tablet (Pepto-Bismol)
calcium carbonate (Tums) 400 mg PO DAILYPRN PRN gerd 04/22/24
escitalopram oxalate 10 mg tablet 10 mg PO HS depression/anxiety 04/22/24
(Lexapro)
loperamide 2 mg capsule 2 mg PO BIDPRN PRN diarrhea 04/22/24
lorazepam 2 mg tablet 2 mg PO TID@0630,1530,1930 Mental 04/27/24
Health/Anxiety
midodrine 5 mg tablet 5 mg PO TID@0630,1330,1930 Blood 04/27/24
Pressure
divalproex 500 mg tablet,delayed 500 mg PO BID@0630,1830 Seizures 05/05/24
release
escitalopram oxalate 20 mg tablet 20 mg PO HS depression/anxiety 05/05/24
ondansetron HCl 4 mg tablet 4 mg PO Q6HPRN PRN nausea/vomiting 05/05/24
rotigotine 8 mg/24 hour 8 mg transdermal DAILY@0630 05/05/24
transdermal 24 hour patch (Neupro) cognition/memory
trazodone 50 mg tablet 50 mg PO HS sleep 05/05/24
divalproex 500 mg tablet,delayed 500 mg PO BID Seizures 05/06/24
release
[2024-05-07] MEDS: LEXAPRO 20 MG PO (20:49)
[2024-05-07] MEDS: VIMPAT 100 MG PO (20:49)
[2024-05-07] MEDS: CRESTOR 10 MG PO (20:49)
[2024-05-07] MEDS: LEXAPRO 10 MG PO (21:02)
--- NOTE | 2024-05-07 22:00 | W.PN.UPDATE ---
Addendum entered and electronically signed by VIRAJ Solano 05/07/24 23:41:
UA pos--> started on rocephin iv
K low 3.4--> 20 kcl po
Original Note:
Update Note
Progress Note Update
2200 Asked to eval pt due to concerns for ataxia and lethargy
Per nurse when NIH performed scored 3 (right upper limb ataxia=1, mild aphasia=1, drowsy=1)
Speaking with daughter at bedside, she expresses frustration and concerns over pt not getting any better. Per daughter at home she was having issues with lethargy, confusion, also ataxia (couldn't feed herself). Per daughter pt is normally does not
have any problems with walking and talking. CT head previously all normal.
Daughter frustrated that even despite valproic acid level now normal that symptoms not improving. Daughter not interested in repeat Ct scan of head. Daughter requesting Brain MRI.
Speaking with pt she is aa03. stays awake when speaking with her but does drift to sleep. Will check labs as well and check UA (already ordered this morning). Brain MRi ordered per daughter request.
--- NOTE | 2024-05-07 22:00 | PTCARENOTE ---
Pt lethargic, unable to make complete sentences. NIH-3 (right upper limb ataxia=1, mild aphasia=1, drowsy=1). Notified MANAGER VALUATION- see orders
[2024-05-07 22:34] LABS: Hematocrit 29.4 % (37.0-47.0); Hemoglobin 10.4 g/dL (12.0-16.0); Mean Corp Hgb Conc. 35.3 g/dL (33.0-37.0); Mean Corpuscular Hgb 27.4 pg (27.0-31.0); Mean Corpuscular Volume 77.6 fL (81.0-99.0); Mean Platelet Volume 10.2 fL (7.4-10.4); Platelet Count 133 10^3/uL (130-400); Red Cell Dist. Width 16.3 % (11.5-14.5); White Blood Cell Count 6.8 10^3/uL (4.8-10.8)
[2024-05-07 22:39] LABS: Urine Albumin 1+ (Neg - Trace); Urine Bilirubin 1+ (Negative); Urine Character Very Cloudy (Clear); Urine Color Amber; Urine Glucose Negative (Negative); Urine Ketone 2+ (Negative); Urine Leukocyte 2+ (Negative); Urine Nitrite Positive (Negative); Urine Occult Blood 4+ (Negative); Urine Urobilinogen 1+ (Neg - 1+)
[2024-05-07 22:45] LABS: Urine Bacteria Few (Negative); Urine Red Blood Cell 0-2 /HPF (0-2); Urine Squamous Cell 0-2 /LPF (Few); Urine White Cell 40-50 /HPF (0-5)
[2024-05-07 22:52] LABS: Blood Urea Nitrogen 13 mg/dl (7-17); Calcium 8.9 mg/dl (8.4-10.2); Carbon Dioxide 30 mmol/L (22-30); Chloride 96 mmol/L (98-107); Estimated Creatinine Clearance 87 ml/min; Glucose 105 mg/dl (70-99); Magnesium 1.8 mg/dl (1.6-2.3); Potassium 3.4 mmol/L (3.5-5.1); Sodium 131 mmol/L (135-145); eGFR > 60.00
[2024-05-08] VITALS (7 sets, daily range): BP systolic 116–141; BP diastolic 51–70
[2024-05-08] MEDS: STERILE WATER FOR INJECTION 10 ML IV ×2 (00:07→13:56)
[2024-05-08] MEDS: KCL 20 MEQ PO (00:07)
[2024-05-08] MEDS: ROCEPHIN 1000 MG IV ×2 (00:07→13:56)
[2024-05-08] MEDS: ATIVAN 2 MG PO ×3 (06:10→20:19)
[2024-05-08] MEDS: ProAmatine 5 MG PO ×3 (06:10→20:19)
[2024-05-08] MEDS: SINEMET 25-100 2 TABLET PO ×3 (06:10→15:38)
[2024-05-08] MEDS: NEUPRO 8 MG TRANSDERM (06:11)
[2024-05-08] MEDS: VIMPAT 100 MG PO ×2 (07:59→20:20)
[2024-05-08] MEDS: FLUSH (NSS) 1 FLUSH IV (08:12)
--- NOTE | 2024-05-08 08:50 | W.PN.HOSP.TC ---
Today's Communication/Plan
-
MRI brain, MRI c-spine
continue Vimpat
continue IV Abx for UTI tx
Assessment / Plan
Assessment / Plan
Assessment:
Generalized Weakness, likely secondary to Poly-Pharmacy and Elevated Depakote Level
- Depakote stopped
- Trazodone remains on hold
- continue lorazepam 2mg TID for now; should try to wean off over time
- MRI brain per family request
- PT/OT - SNF recommended
UTI
- continue Rocephin, day 1 pending cultures
Seizure Disorder
- Depakote stopped; most recent valproic acid level was 74
- Neurology following
- continue newly started Vimpat
Parkinson's Disease with Autonomic Dysfunction
- continue Sinemet and Neupro Patch
- continue Midodrine
Anxiety/Depression
- hold Trazodone
- continue lorazepam 2mg TID for now; should try to wean off over time
- continue Lexapro
Hyperlipidemia
- continue Crestor
Neck pain
- C-spine MRI ordered
Hx Ovarian Cancer s/p AMALIA-BSO and Chemo
DVT ppx: SCDs
Code Status: Full Code
Anticipated Discharge: > 48 hours
Subjective/Interval History
-
Date of Service: May 08, 2024
no acute complaints
Objective Data
-
Labs:
Laboratory Results
05/07/24 05/08/24
22:23 07:39
WBC 6.8 Pending
Hgb 10.4 L Pending
Hct 29.4 L Pending
Plt Count 133 D Pending
Sodium 131 L Pending
Potassium 3.4 L Pending
Chloride 96 L Pending
Carbon Dioxide 30 Pending
BUN 13 Pending
Creatinine 0.4 L Pending
Glucose 105 H Pending
Calcium 8.9 Pending
Vital Signs:
Vital Signs
Temp Pulse Resp BP Pulse Ox
98.6 F 74 16 118/56 95
05/08/24 07:41 05/08/24 07:41 05/08/24 07:41 05/08/24 07:41 05/08/24 07:41
I&O
05/07/24 05/08/24 05/09/24
06:59 06:59 06:59
Intake Total 600 / 600 480 / 480
Output Total 250 / 250
Balance 600 / 600 230 / 230
Physical Exam
-
General: No Apparent Distress
HEENT: Normocephalic and Atraumatic
Respiratory: Negative Wheezes
Cardiac: Regular Rhythm
GI: Soft
Genito-urinary: No Costovertebral Tender
Musculoskeletal: No Edema
Neuro: AO x 3
Hematologic / Lymphatic: No Lymphadenopathy
Psych: Calm
Data Reviewed
-
Total Time Spent with Patient (in minutes): 45
Labs: Labs Reviewed by me
[2024-05-08 09:09] LABS: Hemoglobin 10.5 g/dL (12.0-16.0); Mean Corp Hgb Conc. 33.9 g/dL (33.0-37.0); Mean Corpuscular Volume 82.7 fL (81.0-99.0); Mean Platelet Volume 11.9 fL (7.4-10.4); Platelet Count 195 10^3/uL (130-400); Red Blood Cell Count 3.75 10^6/uL (4.20-5.40); Red Cell Dist. Width 16.3 % (11.5-14.5); White Blood Cell Count 7.8 10^3/uL (4.8-10.8)
[2024-05-08 09:17] LABS: Depakane 39.2 ug/ml (50.0-120.0)
[2024-05-08 09:37] LABS: Blood Urea Nitrogen 12 mg/dl (7-17); Calcium 8.7 mg/dl (8.4-10.2); Carbon Dioxide 25 mmol/L (22-30); Chloride 99 mmol/L (98-107); Estimated Creatinine Clearance 87 ml/min; Glucose 89 mg/dl (70-99); Potassium 3.5 mmol/L (3.5-5.1); Sodium 134 mmol/L (135-145); eGFR > 60.00
[2024-05-08 11:51] LABS: Glucose - Point of Care 111 mg/dl (70-99)
[2024-05-08] MEDS: FLUSH (NSS) 2 FLUSH IV (14:13)
--- NOTE | 2024-05-08 14:36 | W.PN.NEURO.1 ---
Today's Communication / Plan
-
continue lacosamide
Neuro Assessment/Plan
Assessment
68-year-old woman with a past medical history of Parkinson's disease, severe anxiety with benzodiazepine dependence, seizures who presented to hospital due to lethargy generalized weakness diplopia and poor mental status after starting Depakote for
seizure prevention.
Patient had had a recent hospitalization for likely seizure event on 04/22 which may have occurred in the context of nausea and vomiting and not taking any medications, she was restarted on levetiracetam which she had been off of for around 1 year.
Levetiracetam was eventually changed to Depakote 500 mg twice daily out of concern for possible effect of levetiracetam on patient's mood as she already has baseline severe anxiety.
Patient's daughter does feel that she may have had an increase in anxiety since starting levetiracetam but not entirely clear if this was a significant change or not as she has baseline severe anxiety.
Valproic acid levels 117 (05/05), 120.5 (05/06), 74.3 (05/07)
Imaging:
-CT Head 05/05/24: No acute intracranial abnormality.
-MRI brain, 05/08: normal
-MRI Cspine, 05/08:
'C2-3.
Normal
C3-4.
There is a small focal central posterior herniation of the intervertebral disc associated with mild cord impingement
C4-5.
There is mild concentric bulging of the intervertebral disc associated with mild broad-based impingement upon the anterior aspect of the thecal sac without associated cord impingement
C5-6.
There is moderate loss of disc stature in mild concentric bulging of the intervertebral disc associated with mild broad-based impingement upon the anterior aspect of the thecal sac without associated cord impingement
C6-7.
There is mild broad-based posterior bulging of the intervertebral disc associated with mild broad-based impingement upon the anterior aspect of the thecal sac without associated cord impingement
C7-T1.
Normal
IMPRESSION:
Multilevel cervical degenerative disc disease as outlined above.'
05/07-05/08:
Evaluated overnight due to concerns for ataxia and lethargy; family requested MRI brain be done which was normal
UA positive for UTI, started on Rocephin
Impressions:
I. Adverse reaction to new medication Depakote likely producing change in mental status, Depakote level is high.
II. Low concern for any breakthrough seizures.
III. Parkinson disease.
IV. Severe anxiety with decades of benzodiazepine dependency.
V. History of benzodiazepine withdrawal seizure.
Plan
-Continue lacosamide 100mg BID (started 05/07/24)
-continue treatment for UTI
-Hold valproic acid and would remain off the medication.
-Would also avoid Keppra due to extensive mood disturbance history.
-No changes to her home regimen of carbidopa/levodopa, midodrine or rotigotine.
-Would hold trazodone for the time being. Can restart trazodone upon d/c. Continue benzodiazepine, should try to wean this over time as an outpatient.
-reviewed MRI brain and Cspine results requested by family
-DVT prophylaxis.
-PT/OT/ST evaluations.
-Patient should keep her outpatient neurology follow-up appt with Dr. De Luna on 05/25/24.
Will follow as needed; please call with further questions
Subjective/Objective
Subjective Data
Date of Service: May 08, 2024
reports mild dizziness just after MRI done today
evaluated overnight due to concerns for ataxia and lethargy; family requested MRI brain be done which was normal
UA positive for UTI, started on Rocephin
Objective Data
Vital Signs
Temp Pulse Resp BP Pulse Ox
97.8 F 77 18 133/62 94
05/08/24 11:40 05/08/24 11:40 05/08/24 11:40 05/08/24 11:40 05/08/24 11:40
Lab Results
05/08/24 07:39
05/08/24 07:39
Sodium 134 mmol/L (135-145) L 05/08/24 07:39
Potassium 3.5 mmol/L (3.5-5.1) 05/08/24 07:39
BUN 12 mg/dl (7-17) 05/08/24 07:39
Glucose 89 mg/dl (70-99) 05/08/24 07:39
Calcium 8.7 mg/dl (8.4-10.2) 05/08/24 07:39
Patient Allergies
No Known Allergies Allergy (Verified 04/27/24 08:48)
Physical Exam
-
Mood & Affect: Anxious
Attention Span & Concentration: Awake, Alert and Interactive
Memory: Reduced (AAOx3, forgetful, vague historian, at times a bit of delayed processing; able to name everyone in the room)
Tremor: Hand Tremor Absent and Head Tremor Absent
Involuntary Movement: None
Speech: Quality Unremarkable, Quantity Unremarkable and Rate of Production Unremarkable
Cranial Nerve II: Left Eye: Pupillary Reactivity Unremarkable, Pupillary Size Unremarkable and Visual Arita Intact
Cranial Nerve II: Right Eye: Pupillary Reactivity Unremarkable, Pupillary Size Unremarkable and Visual Arita Intact
Cranial Nerves III, IV, : Extraocular Movement: Extraocular Movement Full in all Directions
Cranial Nerve V: Facial Sensation: Intact to Light Touch
Cranial Nerve VII: Facial Symmetry: Normal Facial Symmetry
Cranial Nerve VIII: Hearing: Unremarkable Hearing to Normal Conversational Volume
Cranial Nerves IX, X: Palate Movement: Palate Elevation Symmetric
Cranial Nerve XI: Shoulder Shrug: Unremarkable
Cranial Nerve XII: Tongue Protrusion: Midline
Muscle Strength, Overall: Full Throughout
Muscle Bulk & Tone: Bulk Unremarkable and Tone Unremarkable
Pronator Drift: No Drift in Upper Extremities and No Drift in Lower Extremities
Deep Tendon Reflexes: Unremarkable Throughout
Coordination: Sydayf-dcbs-hvskeq Testing Unremarkable--slow but accurate
Babinski Sign: Absent Bilaterally
[2024-05-08] MEDS: ZOFRAN 4 MG IV (19:33)
[2024-05-08] MEDS: LEXAPRO 20 MG PO (20:19)
[2024-05-08] MEDS: LEXAPRO 10 MG PO (20:20)
[2024-05-08] MEDS: CRESTOR 10 MG PO (20:20)
[2024-05-09] MEDS: SINEMET 25-100 2 TABLET PO ×3 (06:27→16:11)
[2024-05-09] MEDS: ProAmatine 5 MG PO ×3 (06:27→21:57)
[2024-05-09] MEDS: ATIVAN 2 MG PO ×3 (06:27→21:56)
[2024-05-09] MEDS: NEUPRO 8 MG TRANSDERM (06:28)
[2024-05-09 07:08] VITALS: BP 115/62
[2024-05-09 08:19] LABS: Depakane 25.6 ug/ml (50.0-120.0)
--- NOTE | 2024-05-09 08:56 | W.PN.HOSP.TC ---
Today's Communication/Plan
-
continue Rocephin day 2 pending final culture/sensitivity
Assessment / Plan
Assessment / Plan
Assessment:
Generalized Weakness, likely secondary to Poly-Pharmacy and Elevated Depakote Level
- Depakote stopped
- Trazodone remains on hold; but will resume at discharge
- continue lorazepam 2mg TID for now; should try to wean off over time
- MRI brain : no CVA
- PT/OT - SNF recommended but family desiring home/VN. VN ordered
UTI
- continue Rocephin, day 2 pending final culture/sensitivity
Seizure Disorder
- Depakote stopped; most recent valproic acid level was 74
- Neurology following
- continue newly started Vimpat
Parkinson's Disease with Autonomic Dysfunction
- continue Sinemet and Neupro Patch
- continue Midodrine
Anxiety/Depression
- Trazodone remains on hold; but will resume at discharge
- continue lorazepam 2mg TID for now; should try to wean off over time
- continue Lexapro
Hyperlipidemia
- continue Crestor
Neck pain
- C-spine MRI: Multilevel cervical degenerative disc disease as outlined above.
Hx Ovarian Cancer s/p AMALIA-BSO and Chemo
DVT ppx: SCDs
Code Status: Full Code
Anticipated Discharge: Within 24 hours
Subjective/Interval History
-
Date of Service: May 09, 2024
no CVA on MRI yesterday
denies any complaints today
Objective Data
-
Vital Signs:
Vital Signs
Temp Pulse Resp BP Pulse Ox
98.8 F 72 14 115/62 93
05/09/24 07:08 05/09/24 07:08 05/09/24 07:08 05/09/24 07:08 05/09/24 07:08
I&O
05/08/24 05/09/24 05/10/24
06:59 06:59 06:59
Intake Total 480 / 480 240 / 240
Output Total 250 / 250
Balance 230 / 230 240 / 240
Physical Exam
-
General: No Apparent Distress
HEENT: Normocephalic and Atraumatic
Respiratory: Negative Wheezes
Cardiac: Regular Rhythm and S1/S2
GI: Soft
Genito-urinary: No Costovertebral Tender
Musculoskeletal: No Edema
Neuro: AO x 3
Hematologic / Lymphatic: No Lymphadenopathy
Psych: Calm
Data Reviewed
-
Total Time Spent with Patient (in minutes): 47
Labs: Labs Reviewed by me
[2024-05-09] MEDS: VIMPAT 100 MG PO ×2 (09:49→21:57)
[2024-05-09 11:47] LABS: Glucose - Point of Care 94 mg/dl (70-99)
[2024-05-09] MEDS: ROCEPHIN 1000 MG IV (14:39)
[2024-05-09] MEDS: STERILE WATER FOR INJECTION 10 ML IV (14:40)
[2024-05-09 15:07] VITALS: BP 127/55
[2024-05-09 16:08] VITALS: BP 127/55
[2024-05-09 21:32] VITALS: BP 129/61
[2024-05-09] MEDS: ZOFRAN 4 MG IV (22:00)
[2024-05-09] MEDS: LEXAPRO 20 MG PO (22:13)
[2024-05-09] MEDS: LEXAPRO 10 MG PO (22:13)
[2024-05-09] MEDS: CRESTOR 10 MG PO (22:13)
[2024-05-09 23:39] VITALS: BP 127/56
[2024-05-10] MEDS: ATIVAN 2 MG PO ×3 (06:15→19:43)
[2024-05-10] MEDS: NEUPRO 8 MG TRANSDERM (06:17)
[2024-05-10 07:15] VITALS: BP 129/63
[2024-05-10] MEDS: SINEMET 25-100 2 TABLET PO ×3 (07:51→15:54)
[2024-05-10] MEDS: ProAmatine 5 MG PO ×3 (07:51→19:42)
[2024-05-10] MEDS: VIMPAT 100 MG PO ×2 (07:52→19:43)
[2024-05-10 08:06] LABS: Hematocrit 33.4 % (37.0-47.0); Hemoglobin 11.1 g/dL (12.0-16.0); Mean Corp Hgb Conc. 33.2 g/dL (33.0-37.0); Mean Corpuscular Hgb 27.3 pg (27.0-31.0); Mean Corpuscular Volume 82.1 fL (81.0-99.0); Mean Platelet Volume 11.1 fL (7.4-10.4); Platelet Count 207 10^3/uL (130-400); Red Blood Cell Count 4.07 10^6/uL (4.20-5.40); Red Cell Dist. Width 16.1 % (11.5-14.5); White Blood Cell Count 4.8 10^3/uL (4.8-10.8)
[2024-05-10 08:18] LABS: Blood Urea Nitrogen 10 mg/dl (7-17); Carbon Dioxide 28 mmol/L (22-30); Chloride 98 mmol/L (98-107); Estimated Creatinine Clearance 87 ml/min; Glucose 96 mg/dl (70-99); Potassium 3.5 mmol/L (3.5-5.1); Sodium 135 mmol/L (135-145); eGFR > 60.00
--- NOTE | 2024-05-10 11:09 | W.PN.HOSP.TC ---
Addendum entered and electronically signed by Ozzie Pearson DO 05/10/24 16:21:
Was notified by pharmacy that patient's urine culture was (+) for pseudomona aeruginosa. DC CTX and start cefepime IV for pseudomonal coverage
Original Note:
Today's Communication/Plan
-
Follow-up Final urine cultures
DC planning
Assessment / Plan
Assessment / Plan
#Generalized Weakness
-DDx:Poly-Pharmacy, Elevated Depakote Level, deconditioning, seizure activity
-On admission, VPA and trazodone were held; was continued on home BZD regimen
-MRI of brain here showed no acute findings
-SNF recommended but family desiring home/VN
-Improved
Plan
-DC VPA until follow-up with out-pt neurology
-Resume Trazodone at discharge
-Continue lorazepam 2mg TID for now; should try to wean off over time
-C/W PT at discharge
#UTI
-continue Rocephin, day 3 with plan to transition to PO Abx
-pending final culture/sensitivity
#Seizure Disorder
-Unclear etiology, may be related to high BZD use and possible withdrawal with missed doses
-Was on VPA which was stopped due to overdosing; transitioned to Lacosamide BID
-Neurology following
#Parkinson's Disease with Autonomic Dysfunction
-Chronic, complicated by neurogenic orthostatic hypotension
-continue Sinemet and Neupro Patch, Midodrine
#Anxiety/Depression
-Trazodone remains on hold; but will resume at discharge
-continue lorazepam 2mg TID for now; should try to wean off over time
-continue Lexapro
#Hyperlipidemia
-No known history of ASCVD
-continue Crestor
#Neck pain
-C-spine MRI: Multilevel cervical degenerative disc disease
-No signs of radicular symtpoms/cervical myeolysis
-should follow-up with PCP at discharge
#Hx Ovarian Cancer s/p AMALIA-BSO and Chemo
DVT ppx: SCDs
Code Status: Full Code
Anticipated Discharge: Within 24 hours
Subjective/Interval History
-
Date of Service: May 10, 2024
Seen and examined at bed side. No events over night. Complains of dizziness in mornings, worse when she gets moved or rolled over in bed. Denies N/V, sensation of room spinning. Also complains of hoarseness to her voice since being admitted.
Objective Data
-
Labs:
Laboratory Results
05/10/24
06:45
WBC 4.8
Hgb 11.1 L
Hct 33.4 L
Plt Count 207
Sodium 135
Potassium 3.5
Chloride 98
Carbon Dioxide 28
BUN 10
Creatinine 0.4 L
Glucose 96
Calcium 9.0
Vital Signs:
Vital Signs
Temp Pulse Resp BP Pulse Ox
98.4 F 75 14 129/63 93
05/10/24 07:15 05/10/24 07:51 05/10/24 07:15 05/10/24 07:51 05/10/24 08:00
I&O
05/09/24 05/10/24 05/11/24
06:59 06:59 06:59
Intake Total 240 / 240 720 / 720
Balance 240 / 240 720 / 720
Review of Systems
-
History Source: Patient
Constitutional: Reports No Symptoms
Respiratory: Reports No Symptoms
Cardiac: Reports No Symptoms
Abdomen/GI: Reports No Symptoms
Genitourinary: Reports No Symptoms
Musculoskeletal: Reports No Symptoms
Skin: Reports No Symptoms
Neuro: Reports Dizzy
Physical Exam
-
General: No Apparent Distress and Conversant
HEENT: Normocephalic, Atraumatic, Moist Mucous Membranes and Anicteric
Respiratory: Clear to Auscultation
Cardiac: Regular Rhythm and S1/S2; Negative Murmur, Rub, JVD or Gallop
GI: Soft, Nontender, Nondistended and Normal Bowel Sounds
Genito-urinary: No Costovertebral Tender
Skin: Warm and Dry; Negative Rash
Neuro: AO x 3, Nonfocal/Grossly Intact and Central Nerve's Intact; Negative Other (No nystagmus)
Psych: Calm
--- NOTE | 2024-05-10 12:10 | CM ---
Farhana lives with her , Sedrick, in a one story home with 2 entry steps. Patient has adult children who reside in the home with her. Patient has a walker and cane at home, has had VN in the past after knee and hip surgery, unsure with who. Home
PT is recommended with family support upon returning home due to deconditioning.
Patient denies SNF history. Patient reports she does have a PCP but is unsure name, [facility] used [facility]. Patient and denied food, transportation, and housing/utility insecurities. WARD form reviewed, refused to sign, placed in
chart. Patient inquiring about discharge, CM will update patient once further information is received. CM will continue to follow for all discharge planning needs.
Plan: Discharge to home with home PT; need to identify agency preference.
[2024-05-10 12:31] VITALS: BP 122/62; BP 128/64; BP 130/71; BP 138/62; PULSE 68; O2SAT 95
[2024-05-10] MEDS: ZOFRAN 4 MG IV (12:33)
[2024-05-10] MEDS: D5W 1000 IV (13:33)
[2024-05-10] MEDS: ROCEPHIN 1000 MG IV (14:43)
[2024-05-10] MEDS: STERILE WATER FOR INJECTION 10 ML IV ×2 (14:43→18:25)
[2024-05-10 15:20] VITALS: BP 116/66
[2024-05-10] MEDS: MAXIPIME 1000 MG IV (18:24)
[2024-05-10] MEDS: LEXAPRO 10 MG PO (19:43)
[2024-05-10] MEDS: LEXAPRO 20 MG PO (19:43)
[2024-05-10] MEDS: CRESTOR 10 MG PO (19:43)
[2024-05-10] MEDS: TYLENOL 650 MG PO (21:48)
[2024-05-10 23:13] VITALS: BP 134/60
[2024-05-11] MEDS: STERILE WATER FOR INJECTION 10 ML IV ×3 (01:52→19:29)
[2024-05-11] MEDS: MAXIPIME 1000 MG IV ×3 (01:52→19:29)
[2024-05-11] MEDS: D5W 1000 IV ×2 (06:17→19:29)
[2024-05-11] MEDS: SINEMET 25-100 2 TABLET PO ×3 (06:22→14:30)
[2024-05-11] MEDS: ProAmatine 5 MG PO ×3 (06:23→19:57)
[2024-05-11] MEDS: NEUPRO 8 MG TRANSDERM (06:23)
[2024-05-11] MEDS: ATIVAN 2 MG PO ×3 (06:23→19:57)
[2024-05-11 08:03] VITALS: BP 123/60
[2024-05-11 08:17] LABS: % Basophils 0.5 % (0-2); % Eosinophils 0.5 % (0-6); % Immature Granulocytes 0.5 % (0-0.5); % Lymphocytes 11.1 % (20.5-51.1); % Monocytes 9.7 % (1.7-9.3); % Neutrophils 77.7 % (42.2-75.2); Absolute Lymphocytes 0.5 10^3/uL (1.2-3.4); Absolute Monocytes 0.4 10^3/uL (0.1-0.6); Absolute Neutrophils 3.4 10^3/uL (1.4-6.5); Hematocrit 32.2 % (37.0-47.0); Hemoglobin 10.8 g/dL (12.0-16.0); Mean Corp Hgb Conc. 33.5 g/dL (33.0-37.0); Mean Corpuscular Hgb 27.8 pg (27.0-31.0); Mean Platelet Volume 10.5 fL (7.4-10.4); Nucleated Red Blood Cells % 0 %; Platelet Count 198 10^3/uL (130-400); Red Blood Cell Count 3.88 10^6/uL (4.20-5.40); Red Cell Dist. Width 15.8 % (11.5-14.5); White Blood Cell Count 4.3 10^3/uL (4.8-10.8)
[2024-05-11 08:49] LABS: Blood Urea Nitrogen 9 mg/dl (7-17); Calcium 8.8 mg/dl (8.4-10.2); Carbon Dioxide 32 mmol/L (22-30); Chloride 94 mmol/L (98-107); Estimated Creatinine Clearance 87 ml/min; Glucose 121 mg/dl (70-99); Potassium 3.6 mmol/L (3.5-5.1); Sodium 132 mmol/L (135-145); eGFR > 60.00
[2024-05-11] MEDS: VIMPAT 100 MG PO ×2 (09:39→19:58)
[2024-05-11 09:49] VITALS: BP 140/63; PULSE 68; O2SAT 94
[2024-05-11] MEDS: ZOFRAN 4 MG IV (12:13)
--- NOTE | 2024-05-11 12:55 | W.PN.HOSP.TC ---
Addendum entered and electronically signed by Ozzie Pearson DO 05/11/24 14:47:
Hyponatremia:
-Likely from reduced oral intake, was vomiting yesterday, minimal food intake
-Has had fluctuating sodium in the low to mid 130s while here
-Will provide IV fluids and monitor BMP, encourage oral intake
Acute metabolic encephalopathy:
-Improving today, suspect this was from untreated UTI with resistant Pseudomonas
-Will continue to monitor mental status on IV cefepime
Mild cervical cord impingement:
-Radiographic diagnosis, does not correlate to physical exam findings
-Suspect this is noncontributory, should have follow-up as outpatient
Original Note:
Today's Communication/Plan
-
Continue with IV cefepime
Continue PT and OT
Assessment / Plan
Assessment / Plan
#Generalized Weakness
#Urinary tract infection
-DDx: UTI, Poly-Pharmacy, deconditioning; less likely due to seizure or VPA
-On admission, VPA and trazodone were held; was continued on home BZD regimen
-Was empirically on IV CTX, urine culture came back with Pseudomonas and CTX resistance
-Ultimately suspect due to UTI which was undertreated due to resistant bacteria
-MRI of brain here showed no acute findings
-Improving now
Plan
-Continue with IV cefepime for Pseudomonas UTI, day 1
-DC VPA until follow-up with out-pt neurology
-Continue lorazepam 2mg TID for now; should try to wean off over time
-C/W PT at discharge
#Seizure Disorder
-Unclear etiology, may be related to high BZD use and possible withdrawal with missed doses
-Was on VPA which was stopped due to overdosing; transitioned to Lacosamide BID
-Neurology following
#Parkinson's Disease with Autonomic Dysfunction
-Chronic, complicated by neurogenic orthostatic hypotension
-continue Sinemet and Neupro Patch, Midodrine
#Anxiety/Depression
-Trazodone remains on hold; but will resume at discharge
-continue lorazepam 2mg TID for now; should try to wean off over time
-continue Lexapro
#Hyperlipidemia
-No known history of ASCVD
-continue Crestor
#Neck pain
-C-spine MRI: Multilevel cervical degenerative disc disease
-No signs of radicular symtpoms/cervical myeolysis
-should follow-up with PCP at discharge
#Hx Ovarian Cancer s/p AMALIA-BSO and Chemo
DVT ppx: SCDs
Code Status: Full Code
Anticipated Discharge: 24 - 48 hours
Subjective/Interval History
-
Date of Service: May 11, 2024
No acute events overnight. Patient looks and feels better this morning. Urine culture data came back yesterday showing Pseudomonas aeruginosa with sensitivity to cefepime. IV antibiotics were transitioned from ceftriaxone to cefepime. She is
less nauseous and more alert today. Has no acute complaints, denies chest pain or shortness of breath.
Objective Data
-
Labs:
Laboratory Results
05/11/24
07:27
WBC 4.3 L
Hgb 10.8 L
Hct 32.2 L
Plt Count 198
Sodium 132 L
Potassium 3.6
Chloride 94 L
Carbon Dioxide 32 H
BUN 9
Creatinine 0.5 L
Glucose 121 H
Calcium 8.8
Vital Signs:
Vital Signs
Temp Pulse Resp BP Pulse Ox
98.3 F 67 18 123/60 97
05/11/24 08:03 05/11/24 08:03 05/11/24 08:03 05/11/24 08:03 05/11/24 08:03
I&O
05/10/24 05/11/24 05/12/24
06:59 06:59 06:59
Intake Total 720 / 720 480 / 480
Balance 720 / 720 480 / 480
Review of Systems
-
History Source: Patient
All other systems: Reviewed and negative
Physical Exam
-
General: No Apparent Distress, Comfortable, Conversant and Other (Frail-appearing)
HEENT: Normocephalic, Atraumatic, Moist Mucous Membranes and Anicteric
Respiratory: Clear to Auscultation; Negative Wheezes, Rales or Rhonchi
Cardiac: Regular Rhythm and S1/S2; Negative Murmur, Rub or Gallop
GI: Soft, Nontender, Nondistended and Normal Bowel Sounds
Genito-urinary: No Costovertebral Tender and Other (No suprapubic tenderness to deep palpation)
Musculoskeletal: No Clubbing, No Cyanosis and No Edema
Skin: Warm and Dry; Negative Rash
Neuro: AO x 3, Nonfocal/Grossly Intact and Central Nerve's Intact
Data Reviewed
-
Labs: Labs Reviewed by me
--- NOTE | 2024-05-11 13:23 | VNURNOTE ---
Home Health Liaison met with patient at bedside to discuss [facility] nurse/therapy, visits, schedule and homebound status. Patient wants to think about it, seems likely to agree. She understands that visits at home will be 2 x per week to assess and
teach medical management. [facility] brochure provided with contact information. Patient is aware that [facility] will contact them for start of care in 1-2 days after discharge from . Will follow hospital course, per notes, was declining SNF. [facility] referral
updated in [facility].
--- NOTE | 2024-05-11 14:03 | PN.CDI ---
CDI
- -
CDI:
Physician Documentation Request
Admit Date: 05/05/24 23:18
Dear Doctor Michel,
Please review the following and provide your response in the progress notes.
Clinical Indicators:
The diagnosis of Mild Cord Impingement, (Cervical), was included in the signed Cervical Spine MRI report.
MRI Cervical Spine, 05/08
#C3-4.
#...There is a small focal central posterior herniation of the intervertebral disc
#...associated with mild cord impingement
Please indicate in the progress notes that the above diagnosis is valid for this patient:
Mild(Cervical) Spinal Cord Impingement is a valid diagnosis (Please include it in your progress notes)
Mild(Cervical) Spinal Cord Impingement is not a valid diagnosis for this patient
Mild(Cervical) Spinal Cord Impingement is not yet confirmed but remains a suspected condition
Other(please specify)
Use of terms such as suspected, likely, concern for, or probable are acceptable for a diagnosis that is being evaluated, monitored or treated as if it exists and can be coded in the inpatient setting, when documented at the time of discharge.
Thank you,
Yuliet Ortega RN BSN CCDS
CDI Specialist
Please contact via tiger text
Please use your independent medical judgment in providing your response.
--- NOTE | 2024-05-11 14:14 | PN.CDI ---
CDI
- -
CDI:
Physician Documentation Request
Admit Date: 05/05/24 23:18
Dear Doctor Michel,
Please review the following and provide your response in the progress notes.
Clinical Indicators:
Neuro Consult, 05/07
#Reason for Consultation: Change in mental status
#68 year old woman with history of anxiety, benzodiazepine dependency,
#...previous seizures felt mostly due to benzodiazepine withdrawal,
#...Parkinson's disease presenting with symptoms due to valproic acid toxicity.
#Patient not quite at baseline with some mild confusion
#...per her but clearly improving compared to 4-5 days ago.
PN, 05/07
#2200 Asked to eval pt due to concerns for ataxia and lethargy
#Per nurse when NIH performed scored 3 (right upper limb ataxia=1, mild aphasia=1, drowsy=1)
#Speaking with daughter at bedside, she expresses frustration and
#...concerns over pt not getting any better.
#...Per daughter at home she was having issues with lethargy, confusion,
#...also ataxia (couldn't feed herself).
#...Per daughter pt is normally does not have any problems with walking and talking.
PN, 05/11
#Urinary tract infection
#-DDx: UTI, Poly-Pharmacy, deconditioning; less likely due to seizure or VPA
#-On admission, VPA and trazodone were held; was continued on home BZD regimen
#-Was empirically on IV CTX, urine culture came back with Pseudomonas and CTX resistance
#-Ultimately suspect due to UTI which was undertreated due to resistant bacteria
Based on the above and your clinical assessment, please clarify in the Progress Notes and Discharge Summary which, if any of the following, is the most likely etiology of the confusion/altered mental status.
Toxic Metabolic Encephalopathy, multifactorial, UTI, seizure disorder, benzodiazepine dependence/withdrawal, valproic toxicity, parkinsons disease, metabolic derangements etc.
Altered mental status
Other (please specify)
Use of terms such as suspected, likely, concern for, or probable (associated with a specific diagnosis that is being evaluated, monitored, or treated as if it exists) are acceptable and can be coded in the inpatient setting, when documented at the
time of discharge.
Thank you,
Yuliet Ortega RN BSN CCDS
CDI Specialist
Please contact via tiger text
Please use your independent medical judgment in providing your response.
--- NOTE | 2024-05-11 14:32 | PN.CDI ---
CDI
- -
CDI:
Physician Documentation Request
Admit Date: 05/05/24 23:18
Dear Doctor Michel,
Please review the following and provide your response in the progress notes.
Clinical Indicators:
Laboratory Tests
05/05/24 05/06/24 05/07/24
21:01 08:46 07:42
Sodium 136 136 135
05/07/24 05/08/24 05/10/24
22:23 07:39 06:45
Sodium 131 L 134 L 135
05/11/24
07:27
Sodium 132 L
Based on the above, please clarify in the progress notes, the appropriate diagnosis, if significant, that supports the above abnormalities and additional evaluation, monitoring and/or treatment rendered:
Hyponatremia
Abnormal Lab Value, clinically insignificant
Other(please specify)
Use of terms such as suspected, likely, concern for, or probable (associated with a specific diagnosis that is being evaluated, monitored, or treated as if it exists) are acceptable and can be coded in the inpatient setting, when documented at the
time of discharge.
Thank you,
Yuliet Ortega RN BSN CCDS
CDI Specialist
please contact via tiger text
Please use your independent medical judgment in providing your response.
[2024-05-11 16:02] VITALS: BP 124/64
[2024-05-11 20:11] VITALS: BP 106/70
[2024-05-11 20:11] LABS: Glucose - Point of Care 145 mg/dl (70-99)
[2024-05-11 20:32] LABS: Hemoglobin 11.3 g/dL (12.0-16.0); Mean Corp Hgb Conc. 34.2 g/dL (33.0-37.0); Mean Corpuscular Hgb 27.4 pg (27.0-31.0); Mean Corpuscular Volume 80.1 fL (81.0-99.0); Mean Platelet Volume 9.8 fL (7.4-10.4); Platelet Count 250 10^3/uL (130-400); Red Blood Cell Count 4.12 10^6/uL (4.20-5.40); Red Cell Dist. Width 15.5 % (11.5-14.5); White Blood Cell Count 8.2 10^3/uL (4.8-10.8)
[2024-05-11 20:49] LABS: AST (SGOT) 13 U/L (14-36); Albumin 4.4 g/dl (3.5-5.0); Alkaline Phosphatase 111 U/L (38-126); Blood Urea Nitrogen 10 mg/dl (7-17); Calcium 9.1 mg/dl (8.4-10.2); Carbon Dioxide 20 mmol/L (22-30); Chloride 92 mmol/L (98-107); Estimated Creatinine Clearance 87 ml/min; Glucose 147 mg/dl (70-99); Potassium 3.4 mmol/L (3.5-5.1); Sodium 129 mmol/L (135-145); Total Bilirubin 1.2 mg/dl (0.2-1.3); Total Protein 7.2 g/dl (6.3-8.2); eGFR > 60.00
[2024-05-11] MEDS: VIMPAT 100 MG IV (20:57)
[2024-05-11 21:02] LABS: ALT (SGPT) < 30 U/L (0-35)
[2024-05-11 21:21] LABS: INR 1.12; PT 14.5 Sec (11.4-14.6)
[2024-05-11 21:22] LABS: APTT 33.9 Sec (23.4-35.0)
[2024-05-11] MEDS: CRESTOR PO (21:47)
[2024-05-11] MEDS: LEXAPRO PO ×2 (21:48)
[2024-05-11] MEDS: KCL 260 MEQ IV (22:24)
--- NOTE | 2024-05-11 22:54 | PTCARENOTE ---
195 at pt bs giving meds, pt not verbal but nodding head to my questions and swallowed crushed meds with applesauce. states this is not her usual state, lt arm noted to be tremoring, questioned if this was r/t her parkinsons,
stated no, question if this looked like her previous seizure activity, again he stated no. then at 2005 with RN at bs patient began to have a seizure that lasted 4 mins, patient turned to rt side, airway remained patent, rapid
response called, patient placed on 3L NC. vs 2005 109/65-66-18-98% 98.6 axillary. 2016 151/78-24-58-98-99% 3L, 2020 145/66-77-18-98%. Blood Glucose at 2010 145. patient now postictal. Seizure pads on bed. See Mar for medication documentation. HEALTH PLAN SPECIALIST
spoke with neurology
--- NOTE | 2024-05-11 23:32 | PTCARENOTE ---
0970 patient awake but lethargic, Ox3, asked for a sip of water. Explained to patient that she had a seizure, pt verb understanding and said that she felt better.
--- NOTE | 2024-05-11 23:37 | W.PN.UPDATE ---
Update Note
Progress Note Update
2056 HOTBED TRANSFER OPERATOR for seizure
RN states that she had just given pt evening ativan po and vimpat. Pt was alert but not really talking. RN stated per this was unusual for pt and then shortly thereafter left arm started twitching and LLE twitching too. Pt was turned to
right side by staff.
On arrival to pt room, pt post ictal. vital signs WNL. Snorous respirations but maintaining airway. Per this seizure was different than her normal. Normally with previous seizures she tend to have staring spells. Spoke with Neuro wind commissioning technician via
Dr Kendrick- will increase vimpat to 200mg bid. Will give and extra 100mg iv now. Order place for neuro to re see pt in am. Also ativan iv ordered for breakthrough seizure > 3min.
[2024-05-11 23:58] VITALS: BP 130/69
[2024-05-12] VITALS (23 sets, daily range): BP systolic 81–132; BP diastolic 42–86; BMI 28.4
[2024-05-12] MEDS: MAXIPIME 1000 MG IV ×2 (01:48→10:29)
[2024-05-12] MEDS: STERILE WATER FOR INJECTION 10 ML IV ×2 (01:49→10:29)
[2024-05-12] MEDS: ATIVAN 1 MG IV ×2 (03:37→08:51)
[2024-05-12] MEDS: NSS (PRESERVATIVE FREE) 0.5 ML IV (03:38)
[2024-05-12] MEDS: NSS 500 IV (04:21)
--- NOTE | 2024-05-12 05:45 | PTCARENOTE ---
0334 patient began to have tremors and then seizure followed for 6-7mins. Ativan 1mg given IVP, DRY CURER notified, pt turned to right side. O2 3L on patient. VSS stable. DRY CURER notified. NSS @100cc/hr started. patient remains postictal.
--- NOTE | 2024-05-12 05:59 | RR ---
A Rapid Response was called on this patient, please see Rapid Response form.
1956 at pt bs giving meds, pt not verbal but nodding head to my questions and swallowed crushed meds with applesauce. states this is not her usual state, lt arm noted to be tremoring, questioned if this was r/t her parkinsons,
stated no, question if this looked like her previous seizure activity, again he stated no. then at 2005 with RN at bs patient began to have a seizure that lasted 4 mins, patient turned to rt side, airway remained patent, rapid
response called, patient placed on 3L NC. vs 2005 109/65-66-18-98% 98.6 axillary. 2016 151/85-14-70-98-99% 3L, 2020 145/66-77-18-98%. Blood Glucose at 2010 145. patient now postictal. Seizure pads on bed. See Mar for medication documentation. SCHEDULING MANAGER
spoke with neurology
--- NOTE | 2024-05-12 06:08 | PTCARENOTE ---
0605 pt awake, but lethargic, answering questions and oriented x3
[2024-05-12] MEDS: NEUPRO 8 MG TRANSDERM (06:37)
[2024-05-12 08:01] LABS: Blood Urea Nitrogen 9 mg/dl (7-17); Calcium 9.1 mg/dl (8.4-10.2); Carbon Dioxide 27 mmol/L (22-30); Chloride 94 mmol/L (98-107); Estimated Creatinine Clearance 87 ml/min; Glucose 103 mg/dl (70-99); Potassium 3.5 mmol/L (3.5-5.1); Sodium 132 mmol/L (135-145); eGFR > 60.00
[2024-05-12 08:02] LABS: % Basophils 0.2 % (0-2); % Eosinophils 0.1 % (0-6); % Immature Granulocytes 0.3 % (0-0.5); % Lymphocytes 8.5 % (20.5-51.1); % Monocytes 7.5 % (1.7-9.3); % Neutrophils 83.4 % (42.2-75.2); Absolute Lymphocytes 0.8 10^3/uL (1.2-3.4); Absolute Monocytes 0.7 10^3/uL (0.1-0.6); Absolute Neutrophils 7.6 10^3/uL (1.4-6.5); Hematocrit 33.2 % (37.0-47.0); Hemoglobin 11.3 g/dL (12.0-16.0); Mean Corpuscular Hgb 27.2 pg (27.0-31.0); Mean Platelet Volume 10.3 fL (7.4-10.4); Nucleated Red Blood Cells % 0 %; Platelet Count 219 10^3/uL (130-400); Red Blood Cell Count 4.15 10^6/uL (4.20-5.40); Red Cell Dist. Width 15.2 % (11.5-14.5); White Blood Cell Count 9.1 10^3/uL (4.8-10.8)
--- NOTE | 2024-05-12 08:30 | PTCARENOTE ---
Dr. Michael and Dr. Baum made aware of pt. seizure activity overnight and that pt. is still postictal/drowsy and unable to take PO medication. New order for IV medication to follow.
[2024-05-12] MEDS: SINEMET 25-100 PO ×4 (08:33→15:43)
[2024-05-12] MEDS: ProAmatine PO ×4 (08:33→21:39)
[2024-05-12] MEDS: ATIVAN PO ×2 (08:37→10:09)
--- NOTE | 2024-05-12 08:51 | W.PN.HOSP.TC ---
Today's Communication/Plan
-
transfer to ICU
sz medications switched to IV
NPO
cont abx
EEG
Assessment / Plan
Assessment / Plan
General: post-ictal (Frail-appearing)
HEENT: Normocephalic, Atraumatic, Moist Mucous Membranes and Anicteric
Respiratory: Clear to Auscultation; Negative Wheezes, Rales or Rhonchi, hyperventilating on 3L saturating well
Cardiac: Regular Rhythm and S1/S2; Negative Murmur, Rub or Gallop
GI: Soft, Nondistended and Normal Bowel Sounds
Musculoskeletal: No Clubbing, No Cyanosis and No Edema
Skin: Warm and Dry; Negative Rash
Neuro: Post-ictal nonverbal
68F Parkinson Sz d/o HLD Anxiety/Depression benzo dependence Hx Ovarian Cancer s/p AMALIA-BSO and Chemo initially admitted due to concerns weakness, polypharmacy, side effect Depakote found to have pseudomonas UTI. Later hospital course complicated
with seizure rapid response twice overnight and morning. Post-ictal, seizure medications were switched to IV and patient was subsequently transferred to ICU for closer monitoring potential requirement continuous EEG.
Seizure Disorder
Acute Metabolic Encephalopathy
PORTFOLIO ARCHITECT overnight and morning 05/11-05/12
-Unclear etiology, may be related to high BZD use and possible withdrawal with missed doses
-Was on VPA which was stopped due to overdosing; transitioned to Lacosamide BID
-following rapid response breakthrough seizures, vimpat increased to 200 mg BID and switched to IV
-Neurology eval appreciated
-Transferred to ICU closer monitoring EEG, potentially may require continuous EEG
-Coal Carrier eval requested
-NPO except meds eventual ST/PT/OT eval diet advancement as patient improves
#Generalized Weakness
#Urinary tract infection
-DDx: UTI, Poly-Pharmacy, deconditioning; less likely due to seizure or VPA
-On admission, VPA and trazodone were held; was continued on home BZD regimen
-Was empirically on IV CTX, urine culture came back with Pseudomonas and CTX resistance
-Ultimately suspect due to UTI which was undertreated due to resistant bacteria
-MRI of brain here showed no acute findings
-Continue with IV cefepime for Pseudomonas UTI
-DC VPA until follow-up with out-pt neurology
-Continue lorazepam 2mg TID for now; should try to wean off over time
#Parkinson's Disease with Autonomic Dysfunction
-Chronic, complicated by neurogenic orthostatic hypotension
-continue Sinemet and Neupro Patch, Midodrine
#Anxiety/Depression
-Trazodone remains on hold; but will resume at discharge
-continue lorazepam 2mg TID for now; should try to wean off over time
-continue Lexapro
#Hyperlipidemia
-No known history of ASCVD
-continue Crestor
#Neck pain
-C-spine MRI: Multilevel cervical degenerative disc disease
-No signs of radicular symtpoms/cervical myeolysis
-should follow-up with PCP at discharge
#Mild Hyponatremia
monitor
#Hx Ovarian Cancer s/p AMALIA-BSO and Chemo
DVT ppx: SCDs
Code Status: Full Code
Total Critical Care Time__50___ minutes. I was immediately available to the patient and staff. I personally examined, reviewed labs, diagnostic images/reports, interpretations, treatment plans, discussed patient care with other providers and pt's
Bill (patient unable to make decisions at this time), entered orders as appropriate and documented the medical record.
Anticipated Discharge: > 48 hours
Subjective/Interval History
-
Date of Service: May 12, 2024
Rapid response this morning due to seizure aborted with IV ativan. Overnight event also noted for rapid response. Postictal, Bill at bedside during evaluation.
Objective Data
-
Labs:
Laboratory Results
05/11/24 05/11/24 05/12/24
20:15 21:05 07:11
WBC 9.1
Hgb 11.3 L
Hct 33.2 L
Plt Count 219
PT 14.5
INR 1.12
APTT 33.9
Sodium 132 L
Potassium 3.5
Chloride 94 L
Carbon Dioxide 27
BUN 9
Creatinine 0.4 L
Glucose 103 H
Calcium 9.1
ALT < 30
Vital Signs:
Vital Signs
Temp Pulse Resp BP Pulse Ox
98 F 68 20 130/55 97
05/12/24 08:18 05/12/24 08:18 05/12/24 08:18 05/12/24 08:18 05/12/24 08:18
I&O
05/11/24 05/12/24 05/13/24
06:59 06:59 06:59
Intake Total 480 / 480 720 / 720
Output Total 50 / 50
Balance 480 / 480 670 / 670
--- NOTE | 2024-05-12 08:53 | RR ---
A Rapid Response was called on this patient, please see Rapid Response form.
[2024-05-12] MEDS: VIMPAT 200 MG IV ×2 (08:56→19:45)
[2024-05-12 08:57] LABS: Glucose - Point of Care 121 mg/dl (70-99)
--- NOTE | 2024-05-12 09:10 | PTCARENOTE ---
Pt. with decrease verbal response. Pt. started starring off to the left with eye twitching at 0844. Dr. Michael made aware and rapid response called. IV Ativan given at 0851. Pt. seizure active became more jerking of her arms and head and pt. yelled
out a couple times. Seizure activity stopped at 0856 and pt. was drooling and breathing heavy. Pt. o2 sats 97-99% on 3Lo2 throughout seizure activity. Dr. Michael and rapid response team at bedside, Pt. at bedside as well and updated on the
plan to move the pt. to ICU room 3365. Pt. transported via bed by ICU nurse, all belonging sent with pt.
[2024-05-12 09:32] LABS: B.E. 1.3 mmol/L; HCO3 25.9 mmol/L (21-28); O2 Saturation % 99.6 % (94-98); PCO2 40 mmHg (32-35); PO2 116 mmHg (83-108); pH 7.42 (7.35-7.45)
--- NOTE | 2024-05-12 10:10 | PTCARENOTE ---
Received pt s/p rapid response for seizure activity. Pt lethargic but opens eyes to verbal/physical stimuli, not following commands at this time. POX 97% on 3L O2 NC. Remainder of assessment as documented. Neurology at the bedside for pt assessment,
plan to transition seizure medications from PO to IV. biofuels production technician at the bedside setting up routine EEG. Pt's at the bedside, updated on POC.
[2024-05-12 10:11] LABS: Magnesium 1.7 mg/dl (1.6-2.3)
--- NOTE | 2024-05-12 10:36 | CON.INTV ---
Consultation
Consultation Request
Date/Time Consultation Requested: 05/12/2024-10 AM
Date/Time Consultation Performed: 05/08/2024-10 AM
Requesting Provider: Hospitalist
Performing Provider: Dr. Hernández
Reason for Consultation: Seizures/critical care management
Medical History
-
Chief Complaint: Seizures
History of Present Illness:
68-year-old female with a history of ovarian cancer, Parkinson's disease with autonomic dysfunction, benzodiazepine withdrawal seizures, anxiety and depression presented with weakness and increased fatigue after recent admission for benzodiazepine
withdrawal and was admitted 05/05/2024 with generalized weakness felt to be secondary to polypharmacy and elevated Depakote level and found to have pseudomonal UTI and found to have 3 witnessed seizures this morning with significant lethargy
thereafter and transferred to ICU for seizures/critical care management 05/08/2024. Patient is evaluated in the ICU the patient is postictal and minimally responsive and review of systems was unobtainable. She does not have any respiratory distress.
Past Medical History
Past Medical History: None (Ovarian cancer status post AMALIA/BSO/chemotherapy. Parkinson's with autonomic dysfunction. Seizure disorder. Benzodiazepine withdrawal seizures. Anxiety. Depression. Hyperlipidemia. Bilateral knee replacement. Right
total hip replacement. Appendectomy. Hernia repair.)
Social History
Tobacco: Non-smoker
Alcohol: None
Living: With Family
Occupational Exposures: No known asbestos exposure
Environmental Exposures: No known tuberculosis exposure
Family History
Family History: Reviewed & Not Pertinent
Allergies / Home Medications
Allergies
Allergy/AdvReac Type Severity Reaction Status Date / Time
No Known Allergies Allergy Verified 04/27/24 08:48
Home Medications
�Medication �Instructions �Recorded �Confirmed �Last Taken �Type
rosuvastatin 10 mg tablet 10 mg PO HS High Cholesterol 03/14/23 05/05/24 05/04/24 History
carbidopa 25 mg-levodopa 100 mg 2 tab PO TID@0630,1030,1530 12/10/23 05/05/24 05/05/24 15:30 History
tablet Neurological Condition
acetaminophen 500 mg tablet 1,000 mg PO DAILYPRN PRN mild pain 04/22/24 05/05/24 04/26/24 History
(Tylenol Extra Strength)
bismuth subsalicylate 262 mg 262 mg PO BIDPRN PRN diarrhea 04/22/24 05/05/24 04/26/24 History
tablet (Pepto-Bismol)
calcium carbonate (Tums) 400 mg PO DAILYPRN PRN gerd 04/22/24 05/05/24 04/26/24 History
escitalopram oxalate 10 mg tablet 10 mg PO HS depression/anxiety 04/22/24 05/05/24 05/04/24 History
(Lexapro)
loperamide 2 mg capsule 2 mg PO BIDPRN PRN diarrhea 04/22/24 05/05/24 Unknown History
lorazepam 2 mg tablet 2 mg PO TID@0630,1530,1930 Mental 04/27/24 05/05/24 05/05/24 15:30 History
Health/Anxiety
midodrine 5 mg tablet 5 mg PO TID@0630,1330,1930 Blood 04/27/24 05/05/24 05/05/24 13:30 History
Pressure
escitalopram oxalate 20 mg tablet 20 mg PO HS depression/anxiety 05/05/24 05/05/24 05/04/24 History
ondansetron HCl 4 mg tablet 4 mg PO Q6HPRN PRN nausea/vomiting 05/05/24 05/05/24 Unknown History
rotigotine 8 mg/24 hour 8 mg transdermal DAILY@0630 05/05/24 05/05/24 05/05/24 06:30 History
transdermal 24 hour patch (Neupro) cognition/memory
trazodone 50 mg tablet 50 mg PO HS sleep 05/05/24 05/05/24 05/04/24 History
lacosamide 50 mg tablet 100 mg (2 x 50 mg) PO BID #120 tabs 05/07/24 Unknown Rx
Review of Systems
-
Unable to Obtain full review of systems at this time due to: Other (Per HPI)
Vitals / Labs / Diagnostic Testing
Vital Signs
Temp Pulse Resp BP Pulse Ox
99.4 F 68 20 130/55 99
05/12/24 09:59 05/12/24 08:18 05/12/24 08:18 05/12/24 08:18 05/12/24 10:01
Lab Data
05/12/24 07:11
05/12/24 07:11
Laboratory Results
05/11/24 05/11/24 05/12/24
20:15 21:05 09:25
PT Cancelled 14.5
INR Cancelled 1.12
APTT Cancelled 33.9
pH 7.42
pCO2 40 H
pO2 116 H
HCO3 25.9
O2 Delivery Level
Microbiology
05/07/24 21:57 Urine Urine Culture - Final
Pseudomonas aeruginosa
Enterococcus faecalis
Diagnostic Testing:
Physical Exam
-
Exam:
Well-nourished and well-developed in no apparent distress
HEENT-atraumatic, normocephalic
Neck-supple, no JVD, no bruit
Heart-regular rate and rhythm-no murmurs, rubs or gallops
Chest-clear to auscultation, no wheezes, crackles
Abdomen-soft, nontender, nondistended, no hepatosplenomegaly
Extremities-no cyanosis, clubbing, edema and good peripheral pulses
Integument-intact, no rashes, lesions or ecchymosis
Neurologically arousable, lethargic, moving all extremities, nonfocal
Assessment
-
68-year-old female with a history of ovarian cancer, Parkinson's disease with autonomic dysfunction, benzodiazepine withdrawal seizures, anxiety and depression presented with weakness and increased fatigue after recent admission for benzodiazepine
withdrawal and was admitted 05/05/2024 with generalized weakness felt to be secondary to polypharmacy and elevated Depakote level and found to have pseudomonal UTI and found to have 3 witnessed seizures this morning with significant lethargy
thereafter and transferred to ICU for seizures/critical care management 05/08/2024.
Recurrent uncontrolled seizures
Generalized weakness secondary to polypharmacy and elevated Depakote level
Parkinson disease with autonomic dysfunction
Mild hyponatremia
Mild [id number]-[id number]-07.3
Mild hyperglycemia
UTI-Pseudomonas and Enterococcus
Conditions present prior to admission:
Ovarian cancer status post AMALIA/BSO/chemotherapy.
Parkinson's with autonomic dysfunction.
Seizure disorder.
Benzodiazepine withdrawal seizures.
Anxiety.
Depression.
Hyperlipidemia.
Bilateral knee replacement. Right total hip replacement. Appendectomy. Hernia repair.
Plan
Patient will be admitted to medical intensive care unit for close observation
Supplemental oxygen as needed
Aspiration precautions
BiPAP if needed
Intubate and mechanically ventilate to protect airways if necessary
CT head and MRI summarized below
EEG
Consider continuous EEG
Neurology evaluation
Ativan as needed
Ativan drip if needed
Antiepileptics per neurology
Additional antiepileptics to be considered include fosphenytoin, and valproic acid
If refractory seizures then consider phenobarbital and Lacosamide
Check cultures
Urine cultures with Pseudomonas and Enterococcus
Change antibiotics-Zosyn initiated-should cover both organisms
DVT prophylaxis
Consider GI prophylaxis
Early nutrition with aspiration precautions
Early mobilization
Critical care statement: A total of 52 minutes of critical care time was provided for this patient today. This includes management of unstable vital signs, evaluation of the patient at bedside, reviewing the patient's pertinent medical records
including radiographs, microbiology, laboratory evaluations, and discussion with primary team, consultants, pharmacy, critical care nursing and charge nurse.
Diagnostic data:
Chest x-ray 03/14/2023-NAD
Chest x-ray 05/08/2024-low lung volumes, NAD
CT chest 03/14/2023-no CT evidence for pulm embolism, 3.3 mm right upper lobe nodule only mildly increased in size compared to 2012
Brain MRI 03/21/2023-no evidence for acute infarct, hemorrhage or intracranial metastases, Chiari I malformation
Brain MRI 05/08/2024-normal
Urine culture-05/07/2024-Pseudomonas and Enterococcus
Echocardiogram 03/18/2023-EF 55-60%, normal diastolic function, right ventricle mildly hypokinetic
Data Reviewed
-
EKG: Report reviewed by me
Radiology: Report reviewed by me
CT Scan: Report reviewed by me
MRI: Report reviewed by me
Labs: Labs reviewed by me
Old Records: Reviewed
Critical Care Time (in minutes): 52
--- NOTE | 2024-05-12 10:38 | CM ---
Late Note from 05/11/2024: Initial plan was for discharge to home with home care, however PT recommending home care, OT recommending SNF. Need to review options and agencies/facilities with patient.
--- NOTE | 2024-05-12 11:03 | PTCARENOTE ---
Pt more awake/arousable, oriented x3. Routine EEG complete, 24-hour EEG to be initiated, per neurology. PCXR obtained.
--- NOTE | 2024-05-12 12:01 | EEG.RPT ---
Electroencephalogram Report
Recording
Date of EE05/12/24
Length of EEG recordin minutes
Done with Video Recording: Yes
Patient Status: Inpatient
Recording Conditions: Awake and Drowsy
Hyperventilation Performed: No
Photic Stimulation Performed: No
Report
LESS THAN 1 HOUR EEG INTERPRETATION:
Mildly abnormal EEG showing mild diffuse slowing of background, limitation of muscle artifact, no seizures or interictal epileptiform discharges seen.
CLINICAL CORRELATION:
Mild diffuse slowing seen, is non specific as to etiology and reflects mild global cerebral dysfunction, no seizures or interictal epileptiform discharges seen
Clinical correlation is advised.
METHODS:
A 21 channel digitized electroencephalogram (EEG) was performed using the 10/20 international system of electrode placement and one-lead of ECG recorded. Study lasted 26 minutes
ELECTROENCEPHALOGRAPHER IMPRESSION(S):
Quality of study
Fair/poor, significant muscle artifact present
Background
Background consists of predominantly delta and theta maximum frequencies of normal medium amplitude
No normal posterior dominant rhythm seen
No background asymmetry seen
Sleep
Drowsiness present
Photic Stimulation
No activation
Hyperventilation
Not performed
ECG
Normal sinus rhythm
Abnormalities
Mild diffuse slowing of background, no seizures or interictal epileptiform discharges seen
[2024-05-12] MEDS: ZOSYN 100 IV (13:03)
--- NOTE | 2024-05-12 13:23 | W.PN.HOSP.TC ---
Today's Communication/Plan
-
Continue antiepileptic regimen IV
Resume p.o. intake
Consider further EEG studies
Continue with cefepime for UTI
Assessment / Plan
Assessment / Plan
68F Parkinson Disease, Anxiety/Depression, benzo dependence, H/O Ovarian Cancer s/p AMALIA-BSO and Chemo initially admitted due to concerns weakness, polypharmacy, side effect Depakote found to have pseudomonas UTI. Later hospital course complicated
with seizure rapid response twice overnight and morning. Post-ictal, seizure medications were switched to IV and patient was subsequently transferred to ICU for closer monitoring potential requirement continuous EEG.
#Seizure Disorder -- due to severe benzodiazepine withdrawal syndrome for missed doses
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
#Acute Metabolic Encephalopathy
-Was switched to cefepime, can lower seizure threshold, though do not suspect this is etiology
-Was on VPA which was stopped due to overdosing; transitioned to Lacosamide BID
-following NOOD[employer] breakthrough seizures, vimpat increased to 200 mg BID and switched to IV
-EEG without obvious epileptic foci, patient now awake and slowly becoming more cognitive
-Neurology following; concerns for safety at DC due to reliance on benzo dosing
Plan
-Continue Vimpat 200 mg twice daily IV for now
-Continue 2 mg IV Ativan, do not hold under any circumstance
-Resume home oral medications now that she is awake
-Consider continuous EEG
#Generalized Weakness
#Urinary tract infection
-DDx: UTI, Poly-Pharmacy, deconditioning; less likely due to seizure or VPA
-On admission, VPA and trazodone were held; was continued on home BZD regimen
-Was empirically on IV CTX, urine culture came back with Pseudomonas and CTX resistance
-Ultimately suspect due to UTI which was undertreated due to resistant bacteria
-MRI of brain here showed no acute findings
Plan
-Continue with IV cefepime for Pseudomonas UTI, day 2
-DC VPA until follow-up with out-pt neurology
-Continue lorazepam 2mg TID for now; should try to wean off over time
-C/W PT at discharge
#Parkinson's Disease with Autonomic Dysfunction
-Chronic, complicated by neurogenic orthostatic hypotension
-continue Sinemet and Neupro Patch, Midodrine
#Anxiety/Depression
-Trazodone remains on hold; but will resume at discharge
-continue lorazepam 2mg TID for now; should try to wean off over time
-continue Lexapro
#Hyperlipidemia
-No known history of ASCVD
-continue Crestor
#Neck pain/Mild cervical cord impingement:
-C-spine MRI: Multilevel cervical degenerative disc disease
-No signs of radicular symtpoms/cervical myeolysis
-should follow-up with PCP at discharge
#Mild Hyponatremia
-monitor
#Hx Ovarian Cancer s/p AMALIA-BSO and Chemo
DVT ppx: SCDs
Code Status: Full Code
Diet: Full liquids for now
Anticipated Discharge: > 48 hours
Subjective/Interval History
-
Date of Service: May 12, 2024
Seen and examined in ICU today. Overnight had 2 seizure episodes that resolved with IV benzodiazepine. Patient was transferred to the ICU. Suspect that delaying standing dose Ativan once etiology, is a very extensive history of requiring this
dose of her medication (has been on it for close to 50 years). Her was at the bedside and I updated him and answered questions as I was able
Objective Data
-
Labs:
Laboratory Results
05/12/24 05/12/24
07:11 09:25
WBC 9.1
Hgb 11.3 L
Hct 33.2 L
Plt Count 219
HCO3 25.9
Sodium 132 L
Potassium 3.5
Chloride 94 L
Carbon Dioxide 27
BUN 9
Creatinine 0.4 L
Glucose 103 H
Calcium 9.1
Vital Signs:
Vital Signs
Temp Pulse Resp BP Pulse Ox
99.4 F 58 18 122/60 97
05/12/24 09:59 05/12/24 11:30 05/12/24 09:30 05/12/24 12:26 05/12/24 12:26
I&O
05/11/24 05/12/24 05/13/24
06:59 06:59 06:59
Intake Total 480 / 480 720 / 720 100 / 100
Output Total 50 / 50
Balance 480 / 480 670 / 670 100 / 100
Review of Systems
-
Unable to obtain full review of systems at this time due to: Acuity
History Source: Patient and Family
All other systems: Reviewed and negative
Physical Exam
-
General: Appears Chronically Ill and Other (Lethargic though able to speak.)
HEENT: Normocephalic, Atraumatic, Anicteric and PERRLA
Respiratory: Clear to Auscultation and Non Labored Respirations; Negative Wheezes, Rales or Rhonchi
Cardiac: Regular Rhythm and S1/S2; Negative Murmur, Rub, JVD or Gallop
GI: Soft, Nontender, Nondistended and Normal Bowel Sounds
Musculoskeletal: No Clubbing, No Cyanosis and No Edema
Skin: Warm and Dry; Negative Rash
Neuro: Awake, Nonfocal/Grossly Intact, Central Nerve's Intact and Other (Somnolent); Negative Tremors
Data Reviewed
-
Medical Tests (Nuc Med, Echo etc): Report Reviewed by me and Discussed with Family
Labs: Labs Reviewed by me and Discussed with Family
--- NOTE | 2024-05-12 15:15 | PTCARENOTE ---
Pt drowsy but arouses easily with verbal stimuli, offers no complaints at this time, resting comfortably in bed. Assessment unchanged. 24-hour EEG discontinued per neurology. at the bedside.
[2024-05-12] MEDS: NSS (PRESERVATIVE FREE) 1 ML IV (15:42)
[2024-05-12] MEDS: DESENEX/MITRAZOL/ZEASORB 1 APPLIC TOPICAL (15:42)
[2024-05-12] MEDS: ATIVAN 2 MG IV ×2 (15:43→19:44)
[2024-05-12] MEDS: ZOSYN 50 IV ×2 (18:10→23:34)
[2024-05-12] MEDS: LOVENOX 40 MG SC (18:11)
[2024-05-12] MEDS: ZOFRAN 4 MG IV (18:40)
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
[2024-05-12] MEDS: TYLENOL ORAL SOLUTION 650 MG PO (19:44)
[2024-05-12] MEDS: NSS (PRESERVATIVE FREE) 10 ML IV (19:44)
--- NOTE | 2024-05-12 20:00 | PTCARENOTE ---
Rec'd pt resting in bed with at bedside. Pt drowsy, arouses to voice. Able to hold conversation, knows name, birthday, but consistently unable to provide current year. Follows commands. Pleasant. Tylenol given for mild headache. Afebrile.
NSR on monitor. SBP low 100s. Pulses palpable. 93% room air. Tolerating regular diet. Purewick changed. Skin as documented. Will monitor.
[2024-05-12] MEDS: LEXAPRO PO ×2 (21:40)
[2024-05-12] MEDS: CRESTOR PO (21:40)
[2024-05-13] VITALS (21 sets, daily range): BP systolic 86–120; BP diastolic 41–81; PULSE 55–57; O2SAT 92; BMI 27.6
[2024-05-13 05:01] LABS: Hemoglobin 10.8 g/dL (12.0-16.0); Mean Corp Hgb Conc. 33.8 g/dL (33.0-37.0); Mean Corpuscular Hgb 27.6 pg (27.0-31.0); Mean Corpuscular Volume 81.8 fL (81.0-99.0); Mean Platelet Volume 11.2 fL (7.4-10.4); Platelet Count 197 10^3/uL (130-400); Red Blood Cell Count 3.91 10^6/uL (4.20-5.40); Red Cell Dist. Width 15.3 % (11.5-14.5); White Blood Cell Count 4.3 10^3/uL (4.8-10.8)
[2024-05-13 05:24] LABS: Calcium 8.8 mg/dl (8.4-10.2); Carbon Dioxide 31 mmol/L (22-30); Chloride 97 mmol/L (98-107); Estimated Creatinine Clearance 87 ml/min; Glucose 92 mg/dl (70-99); Magnesium 1.8 mg/dl (1.6-2.3); Potassium 3.3 mmol/L (3.5-5.1); Sodium 134 mmol/L (135-145); eGFR > 60.00
[2024-05-13 05:33] LABS: Blood Urea Nitrogen 7 mg/dl (7-17)
[2024-05-13] MEDS: NEUPRO 8 MG TRANSDERM (05:44)
[2024-05-13] MEDS: ATIVAN 2 MG IV ×3 (05:45→19:26)
[2024-05-13] MEDS: ZOSYN 50 IV ×4 (05:45→23:52)
[2024-05-13] MEDS: NSS (PRESERVATIVE FREE) 1 ML IV ×3 (05:45→19:26)
[2024-05-13] MEDS: ProAmatine PO (05:46)
[2024-05-13] MEDS: SINEMET 25-100 2 TABLET PO ×3 (05:48→15:13)
[2024-05-13] MEDS: KCL 270 MEQ IV (06:00)
--- NOTE | 2024-05-13 07:41 | W.PN.INTV ---
Today's Communication / Plan
Recommendations
Antiepileptics
Monitor for recurrent seizures
Antibiotics
Transfer out of ICU-call pulmonary if respiratory issues arise
Assessment
-
68-year-old female with a history of ovarian cancer, Parkinson's disease with autonomic dysfunction, benzodiazepine withdrawal seizures, anxiety and depression presented with weakness and increased fatigue after recent admission for benzodiazepine
withdrawal and was admitted 05/05/2024 with generalized weakness felt to be secondary to polypharmacy and elevated Depakote level and found to have pseudomonal UTI and found to have 3 witnessed seizures this morning with significant lethargy
thereafter and transferred to ICU for seizures/critical care management 05/08/2024.
Recurrent uncontrolled seizures
Generalized weakness secondary to polypharmacy and elevated Depakote level
Parkinson disease with autonomic dysfunction
Mild hyponatremia
Mild wwsbil-[id number]-99.3
Mild hyperglycemia
UTI-Pseudomonas and Enterococcus
Conditions present prior to admission:
Ovarian cancer status post AMALIA/BSO/chemotherapy.
Parkinson's with autonomic dysfunction.
Seizure disorder.
Benzodiazepine withdrawal seizures.
Anxiety.
Depression.
Hyperlipidemia.
Bilateral knee replacement. Right total hip replacement. Appendectomy. Hernia repair.
Plan
Patient has been stable neurologically-no obvious recurrent seizures
Supplemental oxygen as needed
Aspiration precautions
CT head and MRI summarized below
EEG 05/12/2024-no obvious seizure activity-mild abnormal EEG with mild diffuse slowing
Neurology evaluation ongoing
Ativan as needed
Ativan drip if needed
Antiepileptics per neurology
Cultures reviewed
Urine cultures with Pseudomonas and Enterococcus
Change antibiotics-Zosyn initiated-should cover both organisms
DVT prophylaxis-On Lovenox
Early nutrition with aspiration precautions
Early mobilization
Patient without seizures-could be transferred out of ICU-call pulmonary if respiratory issues arise
Reviewed the patient's pertinent medical records including radiographs, microbiology, laboratory evaluations, and discussion with primary team, consultants, pharmacy, critical care nursing and charge nurse.
Diagnostic data:
Chest x-ray 03/14/2023-NAD
Chest x-ray 05/08/2024-low lung volumes, NAD
CT chest 03/14/2023-no CT evidence for pulm embolism, 3.3 mm right upper lobe nodule only mildly increased in size compared to 2012
Brain MRI 03/21/2023-no evidence for acute infarct, hemorrhage or intracranial metastases, Chiari I malformation
Brain MRI 05/08/2024-normal
Urine culture-05/07/2024-Pseudomonas and Enterococcus
Echocardiogram 03/18/2023-EF 55-60%, normal diastolic function, right ventricle mildly hypokinetic
Subjective Dataa
Subjective Data
Date of Service:
Date of Service: May 13, 2024
Chief Complaint: [employer] Follow Up and Pulmonary Follow Up
Subjective:
No further seizures, more alert, no complaints of shortness of breath, chest pain or abdominal pain
Review of Systems
General: Other (Per HPI)
Objective Data
Data Reviewed
Vital Signs / I&O / Oxygen:
Vital Signs
Temp Pulse Resp BP Pulse Ox
98.6 F 58 21 109/49 92
05/13/24 03:08 05/13/24 06:30 05/13/24 06:30 05/13/24 06:00 05/13/24 06:30
Intake and Output
05/12/24 05/13/24 05/14/24
06:59 06:59 06:59
Intake Total 720 / 720 610 / 610
Output Total 50 / 50 875 / 875
Balance 670 / 670 -265 / -265
SaO2 92
Nasal Cannula flow liters per 1
minute
Physical Exam
General: Respiratory Distress (n) and Comfortable
HEENT: Normocephalic, Anicteric and Moist Mucous Membranes
Cardiovascular: Regular Rhythm
Respiratory: Wheeze (n), Crackles (n), Rhonchi, Non-Labored Respirations, Accessory Resp Muscle Use and Stridor
GI: Soft, Non Distended and Non Tender
Neurology: Awake, Alert, No Motor Deficits and Lethargic
Skin: Warm, Good Color, Cyanosis (n), Jaundice (n) and Rash (n)
Labs/Micro/Reports
Lab Data
05/13/24 04:37
05/13/24 04:37
Laboratory Results
05/12/24
09:25
pH 7.42
pCO2 40 H
pO2 116 H
HCO3 25.9
O2 Delivery Level
Microbiology
05/07/24 21:57 Urine Urine Culture - Final
Pseudomonas aeruginosa
Enterococcus faecalis
[2024-05-13] MEDS: VIMPAT 200 MG IV ×2 (08:49→19:27)
[2024-05-13] MEDS: DESENEX/MITRAZOL/ZEASORB 1 APPLIC TOPICAL (08:52)
--- NOTE | 2024-05-13 09:10 | PTCARENOTE ---
report received, assessments per work list. patient orientedX2, forgetful. slow speech. some word finding difficulty. sleeps unless disturbed. nsr, K rider infusing without issue. [email or web address]. room air. aspiration, seizure precautions maintained.
family at bedside. call nam in hand
--- NOTE | 2024-05-13 09:53 | EEGC.RPT ---
Continuous EEG Report
Recording
Start Date of Data Reviewed: 05/12/24
Start Time of Data Reviewed: 10:37
End Date of Data Reviewed: 05/12/24
End Time of Data Reviewed: 13:23
Type of EEG: Continuous
Done with Video Recording: Yes
Study Sequence: Continuation of ongoing Study
Electrocardiogram: Unremarkable
Report
CONTINUOUS EEG INTERPRETATION:
Mildly abnormal EEG showing mild diffuse slowing of background, limitation of muscle artifact, no seizures or interictal epileptiform discharges seen.
CLINICAL CORRELATION:
Mild diffuse slowing seen, is non specific as to etiology and reflects mild global cerebral dysfunction, no seizures or interictal epileptiform discharges seen
Clinical correlation is advised.
METHODS:
A 21 channel digitized electroencephalogram (EEG) was performed using the 10/20 international system of electrode placement and one-lead of ECG recorded. Study lasted 2 hours 46 minutes.
ELECTROENCEPHALOGRAPHER IMPRESSION(S):
Quality of study
Fair/poor, significant muscle artifact present
Background
Background consists of predominantly delta and theta maximum frequencies of normal medium amplitude
No normal posterior dominant rhythm seen
No background asymmetry seen
Sleep
Drowsiness present
ECG
Normal sinus rhythm
Abnormalities
Mild diffuse slowing of background, no seizures or interictal epileptiform discharges seen
[2024-05-13] MEDS: TYLENOL 650 MG PO (11:06)
--- NOTE | 2024-05-13 11:12 | W.PN.HOSP.TC ---
Today's Communication/Plan
-
Continue antiepileptic regimen and monitor closely
Downgrade from ICU to telemetry
Tylenol for mild IV site pain
Assessment / Plan
Assessment / Plan
68F Parkinson Disease, Anxiety/Depression, benzo dependence, H/O Ovarian Cancer s/p AMALIA-BSO and Chemo initially admitted due to concerns weakness, polypharmacy, side effect Depakote found to have pseudomonas UTI. Later hospital course complicated
with seizure rapid response twice overnight and morning. Post-ictal, seizure medications were switched to IV and patient was subsequently transferred to ICU for closer monitoring potential requirement continuous EEG.
#Seizure Disorder -- due to severe benzodiazepine withdrawal syndrome for missed doses
#RESOURCING ADVISOR overnight and morning 05/11-05/12 -- delay in Ativan dose at time of seizure
#Acute Metabolic Encephalopathy
-Was switched to cefepime, can lower seizure threshold, though do not suspect this is etiology
-Was on VPA which was stopped due to overdosing; transitioned to Lacosamide BID
-following RESOURCING ADVISOR breakthrough seizures, vimpat increased to 200 mg BID and switched to IV
-EEG without obvious epileptic foci, patient now awake and slowly becoming more cognitive
-Neurology following; concerns for safety at DC due to reliance on benzo dosing
Plan
-Continue Vimpat 200 mg twice daily IV for now
-Continue 2 mg IV Ativan, do not hold under any circumstance
-Monitor closely for signs of seizure recurrence
#Generalized Weakness
#Urinary tract infection
-DDx: UTI, Poly-Pharmacy, deconditioning; less likely due to seizure or VPA
-On admission, VPA and trazodone were held; was continued on home BZD regimen
-Was empirically on IV CTX, urine culture came back with Pseudomonas and CTX resistance
-Ultimately suspect due to UTI which was undertreated due to resistant bacteria
-MRI of brain here showed no acute findings
Plan
-Continue with IV Zosyn, day 4 of effective IV antibiotics
-DC VPA until follow-up with out-pt neurology
-C/W PT at discharge
#Parkinson's Disease with Autonomic Dysfunction
-Chronic, complicated by neurogenic orthostatic hypotension
-continue Sinemet and Neupro Patch, Midodrine
#Anxiety/Depression
-Trazodone remains on hold; but will resume at discharge
-continue lorazepam 2mg TID for now; should try to wean off over time
-continue Lexapro
#Hyperlipidemia
-No known history of ASCVD
-continue Crestor
#Neck pain/Mild cervical cord impingement:
-C-spine MRI: Multilevel cervical degenerative disc disease
-No signs of radicular symtpoms/cervical myeolysis
-should follow-up with PCP at discharge
#Mild Hyponatremia
-monitor
#Hx Ovarian Cancer s/p AMALIA-BSO and Chemo
DVT ppx: SCDs
Code Status: Full Code
Diet: Full liquids for now
Disposition: Downgrade to telemetry
Anticipated Discharge: 24 - 48 hours
Subjective/Interval History
-
Date of Service: May 13, 2024
Seen and examined at the bedside. No acute events. She appears well today, was in good spirits and smiling. Says that she slept well, has no complaints this morning. at bedside and updated him on progress.
She did complain of mild pain at the site of her IV site at the RUE. No signs of erythema or purulence, ordered Tylenol as needed
Objective Data
-
Labs:
Laboratory Results
05/13/24
04:37
WBC 4.3 L
Hgb 10.8 L
Hct 32.0 L
Plt Count 197
Sodium 134 L
Potassium 3.3 L
Chloride 97 L
Carbon Dioxide 31 H
BUN 7
Creatinine 0.4 L
Glucose 92
Calcium 8.8
Vital Signs:
Vital Signs
Temp Pulse Resp BP Pulse Ox
98.2 F 63 24 109/81 91
05/13/24 08:30 05/13/24 09:01 05/13/24 09:01 05/13/24 09:01 05/13/24 09:01
I&O
05/12/24 05/13/24 05/14/24
06:59 06:59 06:59
Intake Total 720 / 720 610 / 610 285 / 285
Output Total 50 / 50 875 / 875
Balance 670 / 670 -265 / -265 285 / 285
Review of Systems
-
History Source: Patient and Family
Constitutional: Reports Weakness; Denies Fever or Chills
Respiratory: Reports No Symptoms
Cardiac: Reports No Symptoms
Abdomen/GI: Reports No Symptoms
Breast: Reports No Symptoms
Genitourinary: Reports No Symptoms
Musculoskeletal: Reports Other (Tenderness at site of RUE IV)
Skin: Reports No Symptoms
Neuro: Reports No Symptoms
Hematologic / Lymphatic: Reports No Symptoms
Physical Exam
-
General: Well Nourished, No Apparent Distress and Conversant
HEENT: Normocephalic, Atraumatic, Moist Mucous Membranes and Anicteric
Respiratory: Clear to Auscultation and Non Labored Respirations; Negative Wheezes, Rales or Rhonchi
Cardiac: Regular Rhythm and S1/S2; Negative Murmur, Rub, JVD or Gallop
GI: Soft, Nontender, Nondistended and Normal Bowel Sounds
Musculoskeletal: No Clubbing, No Cyanosis and No Edema
Skin: Warm and Dry; Negative Rash
Neuro: AO x 3, Nonfocal/Grossly Intact and Central Nerve's Intact; Negative Tremors
Data Reviewed
-
Labs: Labs Reviewed by me and Discussed with Family
[2024-05-13] MEDS: ProAmatine 5 MG PO ×2 (12:08→19:32)
--- NOTE | 2024-05-13 14:06 | CM ---
CM following re: discharge planning.
Reviewed pt's chart, met with pt and pt's at bedside. CM has a long conversation with pt's and pt's daughter regarding family dispute on who has POA and who is a decision maker to pt's care.
Pt's stated he has POA and alternative agent is daughter Meche and per he gave a copy of POA to staff. There is no copy of POA on chart and CM asked pt's to bring a copy of POA.
CM spoke to pt's daughter Meche and she stated she lives with the pt and she provides all necessary care for her. Per daughter Meche, she does not think that a POA exists and she asked to leave a copy of POA to complete. A copy of POA provided to pt
and her family to complete. Pt stated that she has 4 siblings, 4 pt's children from pt's 1st marriage and her mother and stepfather have son Gil together. Per Meche, she likes her stepfather and he does provide good care for the pt.
Both pt, her and daughter Meche are aware that OT recommends SNF, PT recommends home PT and pt and her family politely declined SNF level of care and they requested to bring the pt home with [facility] and family will continue providing necessary
care and support to the pt. Pt's daughter stated that pt was at a SNF at some point in the past and it was not a great experience.
D/C plan: home with VN and family support.
CM will follow with discharge plan updates as hospitalization progresses
--- NOTE | 2024-05-13 14:31 | PN.CDI ---
CDI
- -
CDI:
Physician Documentation Request
Admit Date: 05/05/24 23:18
Dear Doctor Michel,
Please review the following and provide your response in the progress notes.
Clinical Indicators:
Laboratory Tests
05/05/24 05/06/24 05/07/24
21:01 08:46 07:42
Potassium 3.7 3.8 3.7
05/07/24 05/08/24 05/10/24
22:23 07:39 06:45
Potassium 3.4 L 3.5 3.5
05/11/24 05/11/24 05/12/24
07:27 20:15 07:11
Potassium 3.6 3.4 L 3.5
05/13/24
04:37
Potassium 3.3 L
Medications
Potassium Chloride (Potassium Chloride 20 Meq Extended Release Tablet) 20 meq PO NOW STA
Stop: 05/07/24 23:16
Last Admin: 05/08/24 00:07 Dose: 20 meq
Potassium Chloride 20 meq/ (Sodium Chloride) 260 mls @ 130 mls/hr IV ONCE ONE
Stop: 05/12/24 00:29
Last Admin: 05/11/24 22:24 Dose: 260 mls
Potassium Chloride 40 meq/ (Sodium Chloride) 270 mls @ 67.5 mls/hr IV NOW STA
Stop: 05/13/24 09:49
Last Admin: 05/13/24 06:00 Dose: 270 mls
Based on the above and your clinical assessment, please clarify in the progress notes, the appropriate diagnosis, if significant, that supports the above abnormalities and additional evaluation, monitoring and/or treatment rendered:
Hypokalemia
Abnormal lab value, clinically insignificant
Other(please specify)
Use of terms such as suspected, likely, concern for, or probable (associated with a specific diagnosis that is being evaluated, monitored, or treated as if it exists) are acceptable and can be coded in the inpatient setting, when documented at the
time of discharge.
Thank you,
Yuliet Ortega RN BSN CCDS
CDI Specialist
plase contact via tiger text
Please use your independent medical judgment in providing your response.
[2024-05-13] MEDS: ZOFRAN 4 MG IV (14:39)
--- NOTE | 2024-05-13 14:46 | PTCARENOTE ---
Addendum entered by Emilee Miller RN 05/13/24 15:24:
hospitalist updated regarding vomiting, poor oral intake by tiger text. no new orders at this time
Original Note:
after patient assisted back to bed with PT, patient vomited small amount liquids. medicated with zofran per prn order
[2024-05-13] MEDS: LOVENOX 40 MG SC (17:27)
--- NOTE | 2024-05-13 21:12 | PTCARENOTE ---
Received patient AAOx2, disoriented to time. Following commands, denying pain, drowsy, and slow speech. at bedside. Bed alarm on. Sinus olesya, 50s. BP stable 110s/70s. Normothermic. 96% on room air, lung sounds diminished at the bases. Poor
appetite, last BM 05/09. Purewick in place draining yellow urine. Bruises throughout extremities. Left forearm #22 WNL, patent. Call nam within reach.
[2024-05-13] MEDS: KCL ELIXIR 40 MEQ PO (21:44)
[2024-05-13] MEDS: LEXAPRO 10 MG PO (21:52)
[2024-05-13] MEDS: LEXAPRO 20 MG PO (21:52)
[2024-05-13] MEDS: CRESTOR 10 MG PO (21:52)
--- NOTE | 2024-05-13 23:11 | PTCARENOTE ---
Patient transferred to room 319, bed 1.
[2024-05-13] MEDS: FLUSH (NSS) 2 FLUSH IV (23:52)
[2024-05-14] VITALS (7 sets, daily range): BP systolic 99–126; BP diastolic 44–55; PULSE 59; BMI 27.6
[2024-05-14] MEDS: ATIVAN 2 MG IV (06:02)
[2024-05-14] MEDS: NSS (PRESERVATIVE FREE) 1 ML IV (06:03)
[2024-05-14] MEDS: NEUPRO 8 MG TRANSDERM (06:04)
[2024-05-14] MEDS: ZOSYN 50 IV ×2 (06:06→11:48)
[2024-05-14] MEDS: FLUSH (NSS) 2 FLUSH IV (06:07)
[2024-05-14] MEDS: ProAmatine 5 MG PO ×2 (06:44→13:41)
[2024-05-14] MEDS: SINEMET 25-100 2 TABLET PO ×3 (06:45→15:15)
[2024-05-14 07:25] LABS: Hematocrit 31.3 % (37.0-47.0); Hemoglobin 10.3 g/dL (12.0-16.0); Mean Corp Hgb Conc. 32.9 g/dL (33.0-37.0); Mean Corpuscular Hgb 26.8 pg (27.0-31.0); Mean Corpuscular Volume 81.3 fL (81.0-99.0); Mean Platelet Volume 10.8 fL (7.4-10.4); Platelet Count 207 10^3/uL (130-400); Red Blood Cell Count 3.85 10^6/uL (4.20-5.40); Red Cell Dist. Width 15.6 % (11.5-14.5); White Blood Cell Count 4.7 10^3/uL (4.8-10.8)
[2024-05-14 07:52] LABS: Blood Urea Nitrogen 9 mg/dl (7-17); Calcium 8.6 mg/dl (8.4-10.2); Carbon Dioxide 32 mmol/L (22-30); Chloride 98 mmol/L (98-107); Estimated Creatinine Clearance 85 ml/min; Glucose 90 mg/dl (70-99); Magnesium 1.8 mg/dl (1.6-2.3); Phosphorus 2.7 mg/dl (2.5-4.5); Potassium 3.4 mmol/L (3.5-5.1); Sodium 135 mmol/L (135-145); eGFR > 60.00
[2024-05-14] MEDS: VIMPAT 200 MG IV (08:21)
[2024-05-14] MEDS: ZOSYN IV ×2 (11:08→18:10)
--- NOTE | 2024-05-14 11:43 | PTCARENOTE ---
Patients daughter and were updated on plan of care by MD and RN. She will be going home today with [facility] and daughter support, per latest CM note and tolerance of regular diet. Pt's daughter is hostile, demanding, and raising her voice at
nurse while nurse was trying to explain to her and plan of care and medication education. RN was setting up IV antibiotic and patient's daughter continued on in generalized complaints about doctors orders/communication/food/medications to RN
and RN asked daughter to please give her a moment to concentrate on programming pump for her mothers antibiotic, as she needed to concentrate on medication administration and would answer her questions and address any concerns after she set pump up
correctly. New PIV placed in patient as other IV infiltrated. RN answered all of patient and patient family questions, call nam within reach.
--- NOTE | 2024-05-14 11:54 | PTCARENOTE ---
Gave report to [facility] JEN Andrade
--- NOTE | 2024-05-14 12:13 | PTCARENOTE ---
Received pt from previous RN. Pt in bed, denies pain/discomfort. Family at bedside. Seizure pads in place. New IV site obtained for Zosyn administration.
--- NOTE | 2024-05-14 13:20 | W.PN.HOSP.TC ---
Today's Communication/Plan
-
Continue current antiepileptic regimen
Switch to full house diet
Discharge if home PT set up
Assessment / Plan
Assessment / Plan
#Seizure Disorder -- due to severe benzodiazepine withdrawal syndrome for missed doses
#GUNITE MIXER overnight and morning 05/11-05/12 -- delay in Ativan dose at time of seizure
#Acute Metabolic Encephalopathy
-Was switched to cefepime, can lower seizure threshold, though do not suspect this is etiology
-Was on VPA which was stopped due to overdosing; transitioned to Lacosamide BID
-following GUNITE MIXER breakthrough seizures, vimpat increased to 200 mg BID and switched to IV
-EEG without obvious epileptic foci, patient now awake and slowly becoming more cognitive
-Neurology following; concerns for safety at DC due to reliance on benzo dosing
Plan
-Continue Vimpat 200 mg twice daily IV for now
-Continue 2 mg IV Ativan at 0630, 1530, 1930; DO NOT HOLD under any circumstance
-Monitor closely for signs of seizure recurrence
#Generalized Weakness
#Urinary tract infection
-On admission, VPA and trazodone were held; was continued on home BZD regimen
-Was empirically on IV CTX, urine culture came back with Pseudomonas and CTX resistance
-Ultimately suspect due to UTI which was undertreated due to resistant bacteria
-MRI of brain here showed no acute findings
Plan
-Continue with IV Zosyn, day 5 of effective IV antibiotics. To complete course of antibiotics today
-DC VPA until follow-up with out-pt neurology
-C/W PT at discharge
#Parkinson's Disease with Autonomic Dysfunction
-Chronic, complicated by neurogenic orthostatic hypotension
-continue Sinemet and Neupro Patch, Midodrine
#Anxiety/Depression
-Trazodone remains on hold; but will resume at discharge
-continue lorazepam 2mg TID for now; should try to wean off over time
-continue Lexapro
#Hyperlipidemia
-No known history of ASCVD
-continue Crestor
#Neck pain/Mild cervical cord impingement:
-C-spine MRI: Multilevel cervical degenerative disc disease
-No signs of radicular symtpoms/cervical myeolysis
-should follow-up with PCP at discharge
#Hx Ovarian Cancer s/p AMALIA-BSO and Chemo
DVT ppx: SCDs
Code Status: Full Code
Diet: House diet
Anticipated Discharge: Today
Subjective/Interval History
-
Date of Service: May 14, 2024
No acute events overnight. She appears well, states that she feels well today and would like to go home. She denies any chest pain or shortness of breath
Family raise concerns about dosing of her Ativan, delays which can cause seizures only delayed by an hour.
I spoke with nursing and confirmed the times for her Ativan doses to ensure ambulate properly. The orders in computer were correct as well. Ativan to be given at 0630, 1530, 1930 without any delays or holds.
Objective Data
-
Labs:
Laboratory Results
05/14/24
06:52
WBC 4.7 L
Hgb 10.3 L
Hct 31.3 L
Plt Count 207
Sodium 135
Potassium 3.4 L
Chloride 98
Carbon Dioxide 32 H
BUN 9
Creatinine 0.5 L
Glucose 90
Calcium 8.6
Vital Signs:
Vital Signs
Temp Pulse Resp BP Pulse Ox
97.6 F 54 18 126/55 95
05/14/24 11:00 05/14/24 11:00 05/14/24 11:00 05/14/24 11:00 05/14/24 11:00
I&O
05/13/24 05/14/24 05/15/24
06:59 06:59 06:59
Intake Total 610 / 610 435 / 435
Output Total 875 / 875 700 / 700
Balance -265 / -265 -265 / -265
Review of Systems
-
History Source: Patient
All other systems: Reviewed and negative
Physical Exam
-
General: No Apparent Distress, Comfortable and Conversant
HEENT: Normocephalic, Atraumatic, Moist Mucous Membranes and Anicteric
Respiratory: Clear to Auscultation and Non Labored Respirations
Cardiac: Regular Rhythm and S1/S2; Negative Murmur, Rub or Gallop
GI: Soft, Nontender, Nondistended and Normal Bowel Sounds
Musculoskeletal: No Clubbing, No Cyanosis and No Edema
Skin: Warm, Dry and Normal Turgor
Neuro: AO x 3, Nonfocal/Grossly Intact and Central Nerve's Intact; Negative Tremors
Data Reviewed
-
Labs: Labs Reviewed by me
[2024-05-14] MEDS: NSS (PRESERVATIVE FREE) IV ×2 (15:33→21:05)
[2024-05-14] MEDS: ATIVAN 2 MG PO ×2 (15:42→18:50)
--- NOTE | 2024-05-14 16:51 | CM ---
Received notification that patient is stable for discharge. Confirmation obtained from Catalina in admissions at [facility] that patient is set up. Patient's daughter will transport home.
Plan: Case management will continue to follow and assist with discharge planning. Home with [facility].
[2024-05-14] MEDS: LOVENOX 40 MG SC (18:11)
--- NOTE | 2024-05-14 19:51 | PTCARENOTE ---
IV removed and discharge instructions reviewed with daughter Meche. Meche signed discharge instructions and had already picked up prescriptions from [facility]. When returning to pt room for fruit picker, pt's sister//son were all in room and refused Meche
to take patient home. Reported pt unsafe to go home in Meche's care at this time as pt is unable to stand - Meche and Bill unable to take care of patient. Meche angry, yelling at staff and left hospital. notified of above. IV team paged to
replace IV.
[2024-05-14] MEDS: ProAmatine PO (20:49)
[2024-05-14] MEDS: CRESTOR 10 MG PO (21:05)
[2024-05-14] MEDS: VIMPAT 200 MG PO (21:05)
[2024-05-14] MEDS: LEXAPRO 20 MG PO (21:05)
[2024-05-14] MEDS: LEXAPRO 10 MG PO (21:05)
[2024-05-15 03:00] VITALS: BP 121/59
[2024-05-15] MEDS: ATIVAN 1 MG IV (05:50)
[2024-05-15] MEDS: NSS (PRESERVATIVE FREE) 1 ML IV (05:51)
[2024-05-15] MEDS: NSS (PRESERVATIVE FREE) IV ×2 (05:51→14:32)
--- NOTE | 2024-05-15 05:53 | PTCARENOTE ---
Informed by PCT that patient may be seizing following being changed. Upon this ball mill mixer, patient appeared to be tremulous, eyes open and able to track but patient would not respond verbally to staff. DEBURRING TECHNICIAN on unit at this time and able to assess
right away, patient with PRN Ativan IV for seizure lasting >3 minutes per MD orders. Patient began violently shaking intermittently throughout episode, episode lasted for approximately 4 minutes. PRN Ativan provided to patient, see MAR. Immediately
following dose patient was able to turn head and respond with one word answers. Seizure pads in place on bed at this time. Call nam maintained. HR 70-80s on telemetry. Will continue to monitor.
[2024-05-15] MEDS: ATIVAN 2 MG PO ×2 (06:17→14:32)
[2024-05-15] MEDS: SINEMET 25-100 2 TABLET PO ×3 (06:17→14:33)
[2024-05-15] MEDS: NEUPRO 8 MG TRANSDERM (06:17)
[2024-05-15] MEDS: ProAmatine 5 MG PO (06:18)
[2024-05-15 07:00] VITALS: BP 118/51
[2024-05-15] MEDS: VIMPAT 200 MG PO (08:06)
[2024-05-15 10:18] LABS: Hematocrit 32.4 % (37.0-47.0); Hemoglobin 10.7 g/dL (12.0-16.0); Mean Corpuscular Hgb 27.3 pg (27.0-31.0); Mean Corpuscular Volume 82.7 fL (81.0-99.0); Mean Platelet Volume 12.1 fL (7.4-10.4); Platelet Count 238 10^3/uL (130-400); Red Blood Cell Count 3.92 10^6/uL (4.20-5.40); Red Cell Dist. Width 15.3 % (11.5-14.5); White Blood Cell Count 6.1 10^3/uL (4.8-10.8)
[2024-05-15 10:46] LABS: Blood Urea Nitrogen 10 mg/dl (7-17); Calcium 8.5 mg/dl (8.4-10.2); Carbon Dioxide 31 mmol/L (22-30); Chloride 97 mmol/L (98-107); Estimated Creatinine Clearance 85 ml/min; Glucose 82 mg/dl (70-99); Magnesium 1.7 mg/dl (1.6-2.3); Phosphorus 3.3 mg/dl (2.5-4.5); Potassium 3.3 mmol/L (3.5-5.1); Sodium 134 mmol/L (135-145); eGFR > 60.00
[2024-05-15 11:00] VITALS: BP 96/50
--- NOTE | 2024-05-15 11:24 | W.PN.HOSP.TC ---
Addendum entered and electronically signed by Ozzie Pearson DO 05/25/24 14:14:
Hypokalemia: Due to reduced oral intake, responded to repletion. Monitored and repleted potassium daily
Original Note:
Today's Communication/Plan
-
Discharge home today with home care/home PT from [facility]
Assessment / Plan
Assessment / Plan
#Seizure Disorder -- due to severe benzodiazepine withdrawal syndrome for missed doses
#MOBILITY DEVELOPER overnight and morning 05/11-05/12 -- delay in Ativan dose at time of seizure
#Acute Metabolic Encephalopathy
-Was switched to cefepime, can lower seizure threshold, though do not suspect this is etiology
-Was on VPA which was stopped due to overdosing; transitioned to Lacosamide BID
-following MOBILITY DEVELOPER breakthrough seizures, vimpat increased to 200 mg BID and switched to IV
-EEG without obvious epileptic foci, patient now awake and slowly becoming more cognitive
-Neurology following; concerns for safety at DC due to reliance on benzo dosing
Plan
-Continue Vimpat 200 mg twice daily IV for now
-Continue 2 mg IV Ativan at 0630, 1530, 1930; DO NOT HOLD under any circumstance
-Monitor closely for signs of seizure recurrence
#Generalized Weakness
#Urinary tract infection
-On admission, VPA and trazodone were held; was continued on home BZD regimen
-Was empirically on IV CTX, urine culture came back with Pseudomonas and CTX resistance
-Ultimately suspect due to UTI which was undertreated due to resistant bacteria
-MRI of brain here showed no acute findings
Plan
-Continue with IV Zosyn, day 5 of effective IV antibiotics. To complete course of antibiotics today
-DC VPA until follow-up with out-pt neurology
-C/W PT at discharge
#Parkinson's Disease with Autonomic Dysfunction
-Chronic, complicated by neurogenic orthostatic hypotension
-continue Sinemet and Neupro Patch, Midodrine
#Anxiety/Depression
-Trazodone remains on hold; but will resume at discharge
-continue lorazepam 2mg TID for now; should try to wean off over time
-continue Lexapro
#Hyperlipidemia
-No known history of ASCVD
-continue Crestor
#Neck pain/Mild cervical cord impingement:
-C-spine MRI: Multilevel cervical degenerative disc disease
-No signs of radicular symtpoms/cervical myeolysis
-should follow-up with PCP at discharge
#Hx Ovarian Cancer s/p AMALIA-BSO and Chemo
DVT ppx: SCDs
Code Status: Full Code
Diet: House diet
Anticipated Discharge: Today
Subjective/Interval History
-
Date of Service: May 15, 2024
Seen and examined at bedside. No acute events. Was slightly tremulous this morning though no seizure events reported. Upon my evaluation she was in good spirits, appears well.
I had a long discussion with both Farhana and her daughter Meche, I notified them that our physical therapist recommendations as well as my own would be a safe disposition at short-term rehab/alf facility following discharge from the
hospital. That said, Farhana adamantly does not want to go to a facility at this time. She is alert and oriented x 4, no signs of altered cognition or hallucinations. She states very clearly 'I want to go home and have the visiting [facility] from
[facility], for PT and nursing, we called them yesterday and they said they would come 4 times a week and would not charge with my insurance'
I spoke with Meche and told her that we would facilitate discharge home today. Case management at bedside as well. I called her POA Sedrick, her , and notified him of our plan for today. He again expressed concerns that her weakness made him
feel uneasy about her going home. I expressed that I agree that are safer disposition options however we cannot legally make her do something that she does not want to do. I do feel that home nursing and physical therapy provide an extra layer of
security for when she gets home.
Objective Data
-
Labs:
Laboratory Results
05/15/24
08:33
WBC 6.1
Hgb 10.7 L
Hct 32.4 L
Plt Count 238
Sodium 134 L
Potassium 3.3 L
Chloride 97 L
Carbon Dioxide 31 H
BUN 10
Creatinine 0.4 L
Glucose 82
Calcium 8.5
Vital Signs:
Vital Signs
Temp Pulse Resp BP Pulse Ox
98.0 F 65 14 118/51 93
05/15/24 07:00 05/15/24 07:00 05/15/24 07:00 05/15/24 07:00 05/15/24 07:00
I&O
05/14/24 05/15/24 05/16/24
06:59 06:59 06:59
Intake Total 435 / 435 480 / 480 480 / 480
Output Total 700 / 700
Balance -265 / -265 480 / 480 480 / 480
Review of Systems
-
History Source: Patient
All other systems: Reviewed and negative
Constitutional: Denies Fever, Night Sweats or Chills
Respiratory: Reports No Symptoms
Cardiac: Reports No Symptoms
Abdomen/GI: Denies Abdominal Pain, Nausea, Vomiting or Diarrhea
Genitourinary: Denies Dysuria or Frequency
Musculoskeletal: Reports No Symptoms
Skin: Reports No Symptoms
Neuro: Reports No Symptoms
Physical Exam
-
General: No Apparent Distress, Comfortable and Conversant
HEENT: Normocephalic, Atraumatic, Moist Mucous Membranes and Anicteric
Respiratory: Clear to Auscultation and Non Labored Respirations; Negative Wheezes, Rales or Rhonchi
Cardiac: Regular Rhythm and S1/S2; Negative Murmur, Rub, JVD or Gallop
GI: Soft, Nontender, Nondistended and Normal Bowel Sounds
Musculoskeletal: No Clubbing, No Cyanosis and No Edema
Skin: Warm and Dry; Negative Rash or Jaundice
Neuro: AO x 3, Nonfocal/Grossly Intact and Central Nerve's Intact; Negative Tremors or Facial Droop
Psych: Calm
--- NOTE | 2024-05-15 11:30 | W.DCSUMMARY ---
Discharge Summary
Discharge Data
Date of Admission: 05/05/24
Date of Discharge: 05/15/24
-
Pending Results: No
Hospital Course
Presented to the hospital with generalized weakness and initial concerns for VPA toxicity with excess levels on serum testing. Recently started on the medication, was discontinued on arrival. Maintained on lacosamide and Ativan for her seizure
disorder, severe benzodiazepine dependency. Was found to have evidence of cystitis that was felt to be contributing to her weakness.
She was started on IV ceftriaxone, ultimately urine culture came back with resistant Pseudomonas and she was transitioned to cefepime. Developed a benzodiazepine withdrawal seizure when her evening dose was delayed by 1 hour. Brief stay in the
ICU, rapidly recovered from postictal state and was downgraded to floors. No further seizure activity.
She experienced some nausea due to the increased dose of lacosamide as well as her UTI/cefepime. Clinically improved over the time. She completed 5 days of proper IV antibiotics for UTI while in the hospital, discontinued at discharge. She only
to follow-up with neurology and PCP outside hospital within 1 to 2 weeks.
-Lacosamide dose increased to 200 mg twice daily
-Valproic acid discontinued
-Continue on 2 mg Ativan at 630, 1530, 1930
-Home PT/OT and home nursing arranged
Discharge Plan
-
Patient Disposition: Home with Home Care
Discharge Diagnosis/Procedures: Seizure disorder
Severe benzodiazepine dependence
Cystitis
Generalized weakness
Condition: Fair
Diet: Regular
Activity: As tolerated
Driving Restrictions: No driving
Bathing Restrictions: None
Other Services: VN, PT and OT
Referrals:
Donavon Alvarez DO [Family Provider] -
Bautista Kendrick MD [Active] - in one to two weeks (Seizure disorder, if new neurologist is needed)
Additional Discharge Medication Instructions: Start lacosamide 200 mg twice daily (every 12 hours)
Continue Ativan 2 mg at 6:30 AM, 3:30 PM, 7:30 PM
Stop divalproex (Depakote)
Prescriptions:
New
lacosamide 200 mg Tablet
200 mg PO BID 30 Days Qty: 60 0RF
Continued
rosuvastatin 10 mg tablet
10 mg PO HS
carbidopa-levodopa 25-100 mg tablet
2 tab PO TID@0630,1030,1530
loperamide 2 mg Capsule
2 mg PO BIDPRN PRN (Reason: diarrhea)
acetaminophen [Tylenol Extra Strength] 500 mg Tablet
1,000 mg PO DAILYPRN PRN (Reason: mild pain)
calcium carbonate [Tums] 200 mg calcium (500 mg) Tablet,Chewable
400 mg PO DAILYPRN PRN (Reason: gerd)
escitalopram oxalate [Lexapro] 10 mg Tablet
10 mg PO HS
Patient Comments:
05/05/2024: taken w/ 20mg = 30mg
lorazepam 2 mg tablet
2 mg PO TID@0630,1530,1930
Patient Comments:
05/05/2024: last filled 04/21/24, 60 tabs for 30 days from [place]
midodrine 5 mg tablet
5 mg PO TID@0630,1330,1930
trazodone 50 mg tablet
50 mg PO HS
ondansetron HCl 4 mg tablet
4 mg PO Q6HPRN PRN (Reason: nausea/vomiting)
escitalopram oxalate 20 mg tablet
20 mg PO HS
Patient Comments:
05/05/2024: taken w/ 10mg = 30mg
Neupro 8 mg/24 hour patch 24 hour
8 mg transdermal DAILY@0630
Patient Comments:
05/05/2024: Switch arms
Discontinued
Pepto-Bismol 262 mg Tablet
262 mg PO BIDPRN PRN (Reason: diarrhea)
divalproex 500 mg tablet,delayed release (DR/EC)
500 mg PO BID@629,1829
divalproex 500 mg Tablet,Delayed Release (Dr/Ec)
500 mg PO BID
Rx Instructions:
@0630 and 1829
Discharge Orders:
Discharge Patient (As Directed); Ordered 05/15/24
Ordered By: Ozzie Pearson
Discharge Date and Time
Print Language: MONEGASQUE
--- NOTE | 2024-05-15 11:40 | CM ---
Reviewed chart, PT/OT recommendation is for SNF placement. Spoke with RN who stated that family was in last evening, expressing concern that patient's daughter, Meche, who cares for patient time study statistician won't be able to do it alone. They had also
expressed some concerns regarding the dynamics of their relationship, and indicated that they would feel better with placement (per Meche/daughter).
Met with patient and her daughter, Meche, who was at bedside as well as attending who stated that patient can return home with VN services. Spoke with Meche and patient at length. Reiterated that there are concerns on behalf of the medical staff about
patient's safety at home as she has been a two person assist while in acute care with most ADLs and personal care as well as ambulation, transfers and bed mobility. Meche stated that she is aware that there are concerns on behalf of the medical
staff, as well as well as her family however she feels that she will be able to handle the scope of her care.
Spoke with patient who was adamant about going home.
Patient's daughter left the bedside for a while to go home and walk their dog. Patient was asked if she feels safe with Meche, and if she is in absolute agreement with the plan to return home. She stated that she wants to go home and would not
consider a SNF. Per Meche patient was recently at [facility] and she does not want to return to a skilled facility. Patient confirmed she feels safe with Meche. Offer was made to send an SW out with VN services, however patient declined stating that she
does not want a Seater Assembler to come out to her home.
Patient and her daughter as per original plan were in agreement with Home Care, VN, PT, OT. Her daughter had vocalized that she would prefer [facility]. Advised that referral has been made to and patient was agreeable.
Spoke with RN to update. She stated that she will help transition patient from bed to w/c. Will arrange for patient to take an ambulance home at RN's advisement due to some confusion patient has.
Confirmed that patient's referral was sent to VN and sent updated information.
IMM reviewed
Plan: Case management will continue to follow and assist with discharge planning. Home with [facility].
[2024-05-15] MEDS: ProAmatine PO (14:28)
[2024-05-15 15:00] VITALS: BP 98/69
== END 2024-05-15 15:38 | disposition home health service (06) | DRG 896 ==
LOC: 3 WEST ACU 23:18
PROVIDERS: Internal Medicine; Nurse Practitioner Family; Physician Assistant Medical; Registered Nurse Critical Care Medicine; ADMITTING PHYSICIAN Internal Medicine; ATTENDING PHYSICIAN Internal Medicine; CONSULT PHYSICIAN Internal Medicine Critical Care Medicine; CONSULT PHYSICIAN Student in an Organized Health Care Education/Training Program; EMERGENCY PHYSICIAN Emergency Medicine; FAMILY PHYSICIAN Family Medicine
DX: F13.239 Sedative, hypnotic or anxiolytic dependence with withdrawal, unspecified (principal); G93.41 Metabolic encephalopathy; G93.5 Compression of brain; E87.1 Hypo-osmolality and hyponatremia; G90.3 Multi-system degeneration of the autonomic nervous system; Z16.20 Resistance to unspecified antibiotic; G40.909 Epilepsy, unspecified, not intractable, without status epilepticus; F32.A Depression, unspecified; D64.9 Anemia, unspecified; D50.9 Iron deficiency anemia, unspecified; N30.90 Cystitis, unspecified without hematuria; B95.2 Enterococcus as the cause of diseases classified elsewhere; B96.5 Pseudomonas (aeruginosa) (mallei) (pseudomallei) as the cause of diseases classified elsewhere; F41.9 Anxiety disorder, unspecified; E78.5 Hyperlipidemia, unspecified; G43.909 Migraine, unspecified, not intractable, without status migrainosus; K21.9 Gastro-esophageal reflux disease without esophagitis; R73.9 Hyperglycemia, unspecified; R53.1 Weakness; E87.6 Hypokalemia; T42.8X5A Adverse effect of antiparkinsonism drugs and other central muscle-tone depressants, initial encounter; Z79.899 Other long term (current) drug therapy; Z87.19 Personal history of other diseases of the digestive system; Z85.43 Personal history of malignant neoplasm of ovary; Z90.710 Acquired absence of both cervix and uterus; Z90.722 Acquired absence of ovaries, bilateral; Z90.49 Acquired absence of other specified parts of digestive tract; Z96.641 Presence of right artificial hip joint; Z96.653 Presence of artificial knee joint, bilateral
CPT/HCPCS: 36600; 70450; 70553; 71045; 72141; 74018; 80048; 80053; 80164; 81003; 81015; 82140; 82805; 82962; 83735; 84100; 85025; 85027; 85610; 85730; 87077; 87086; 87186; 93005; 95714; 95813; 95816; 96360; 97110; 97116; 97163; 97164; 97167; 97168; 97530; 99284; A9575; C9254

== ENCOUNTER 2024-05-17 08:32 | Emergency (ER) | payer MEDICARE, OTHER, SELFPAY ==
[2024-05-17 08:35] VITALS: BMI 28.8
[2024-05-17 08:42] VITALS: BP 114/58
--- NOTE | 2024-05-17 08:44 | ED.GENMED ---
History of Present Illness
General
Chief Complaint: Seizure
Source: patient
Exam Limitations: none
Time Seen by Provider: 05/17/24 08:36
History of Present Illness
History of Present Illness:
68-year-old female presents via EMS from home for evaluation after seizure. Patient was discharged from this hospital 2 days ago after seizures. She is on Ativan 2 mg 3 times a day. Her valproic acid was discontinued and she was started on
lacosamide. She woke up at 4 AM and took her Ativan however proceeded to have a seizure afterwards. This was witnessed by family. She was postictal upon EMS arrival. She has no complaints offer currently.
Past History
Past History
ED Past Medical History: Cancer (ovarian team), Hypercholesterolemia, Psychiatric (Anxiety/depression) and Other (Migraines, Parkinson's)
ED Past Surgical History: Appendectomy, Gynecological (AMALIA/BSO 2012), Orthopedic (Bilateral knee replacements, right hip replacement) and Other (Herniorrhaphy)
Social History
Tobacco: Non-smoker
Alcohol: None
Drug: None
Personal:
Living: with family
Employment: Retired
Family History
Family History: Other (Reviewed and noncontributory )
Phy Exam
Physical Exam
Physical Exam:
General: Well-appearing female no acute respiratory distress
HEENT: Normocephalic no bite green on tongue pupils equal round reactive to light
Heart: Regular rate and rhythm no murmurs
Lungs: Clear no wheeze or rales
Neurologic: Alert oriented to person place and time no facial asymmetry or slurred speech no unilateral deficit noted
Ext: No cyanosis.
Course
Orders/Labs/Results
Orders:
Orders
05/17/24 08:42
Electrocardiogram (*1) Urgent
Reason for Study: Abdominal Pain
EKG- Treatment ONCE
IV Insert/Care/Rem.- Treatment PRN
05/17/24 08:43
Complete Blood Count/With Diff Urgent
Comprehensive Metabolic Panel Urgent
05/17/24 09:42
Lacosamide [Vimpat] 200 mg PO NOW STA
05/17/24 10:10
Carbidopa/Levodopa [Sinemet 25-100] 1 tablet PO NOW STA
05/17/24 11:06
Case Management Consult ONCE
Case Management Consult: Other
Comment: POA paperwork
Abnormal Lab Results
05/17/24
08:43
RBC 3.91 L 10^6/uL
(4.20-5.40)
Hgb 10.5 L g/dL
(12.0-16.0)
Hct 31.1 L %
(37.0-47.0)
MCV 79.5 L fL
(81.0-99.0)
MCH 26.9 L pg
(27.0-31.0)
RDW 15.7 H %
(11.5-14.5)
MPV 11.3 H fL
(7.4-10.4)
Absolute Lymphs (auto) 0.7 L 10^3/uL
(1.2-3.4)
Absolute Monos (auto) 0.7 H 10^3/uL
(0.1-0.6)
Neutrophils % 75.3 H %
(42.2-75.2)
Lymphocytes % 10.9 L %
(20.5-51.1)
Monocytes % 10.9 H %
(1.7-9.3)
Potassium 3.1 L mmol/L
(3.5-5.1)
Carbon Dioxide 31 H mmol/L
(22-30)
Creatinine 0.5 L mg/dL
(0.6-1.0)
Glucose 107 H mg/dl
(70-99)
AST 11 L U/L
(14-36)
05/17/24 08:43
05/17/24 08:43
Vital Signs
Initial and Last Documented VS:
Initial Vital Signs
Temp Pulse Resp BP Pulse Ox
98.3 F 78 17 114/58 93
05/17/24 08:42 05/17/24 08:42 05/17/24 08:42 05/17/24 08:42 05/17/24 08:42
Last Documented Vital Signs
Temp Pulse Resp BP Pulse Ox
98.3 F 68 21 115/52 97
05/17/24 08:42 05/17/24 11:45 05/17/24 11:45 05/17/24 11:00 05/17/24 11:45
MDM/Problems Addressed
Differential Diagnosis Includes:
Seizure. History of such. Recent discharge from this hospital after medication adjustment. Vital signs stable. Check basic labs.
*Critical Care Note
Total Time (30-74mins, 75-104mins- exclusive of procedures): Not Applicable
Update Note
Update Note:
Patient observed for several hours here no further seizure activity. Patient was seen by neurology. Medication regimen not changed. She was given her dose of lacosamide here as well as her carbidopa. Daughter also asked to see case management to
discuss power of senior attorney issues. Case management was in to see patient and clarified her questions. Stable for discharge
ED Attending Note
-
Portions of this chart may have been created with voice recognition software.� Occasional wrong word or��sound alike� substitutions may have occurred due to the inherent limitations of voice recognition software.
Discharge Plan
Departure
Patient Disposition: Home (Routine Discharge)
Date of Disposition: 05/17/24
Time of Disposition: 12:23
Patient with high blood pressure during this ER visit?: No
Discharge Problem:
Seizure
Instructions: Seizures, Adult (DC)
Prescriptions:
No Action
rosuvastatin 10 mg tablet
10 mg PO HS
carbidopa-levodopa 25-100 mg tablet
2 tab PO TID@0630,1030,1530
loperamide 2 mg Capsule
2 mg PO BIDPRN PRN (Reason: diarrhea)
acetaminophen [Tylenol Extra Strength] 500 mg Tablet
1,000 mg PO DAILYPRN PRN (Reason: mild pain)
calcium carbonate [Tums] 200 mg calcium (500 mg) Tablet,Chewable
400 mg PO DAILYPRN PRN (Reason: gerd)
escitalopram oxalate [Lexapro] 10 mg Tablet
10 mg PO HS
Patient Comments:
05/05/2024: taken w/ 20mg = 30mg
lorazepam 2 mg tablet
2 mg PO TID@0630,1530,1930
Patient Comments:
05/05/2024: last filled 04/21/24, 60 tabs for 30 days from [place]
midodrine 5 mg tablet
5 mg PO TID@0630,1330,1930
trazodone 50 mg tablet
50 mg PO HS
ondansetron HCl 4 mg tablet
4 mg PO Q6HPRN PRN (Reason: nausea/vomiting)
escitalopram oxalate 20 mg tablet
20 mg PO HS
Patient Comments:
05/05/2024: taken w/ 10mg = 30mg
Neupro 8 mg/24 hour patch 24 hour
8 mg transdermal DAILY@0630
Patient Comments:
05/05/2024: Switch arms
lacosamide 200 mg Tablet
200 mg PO BID 30 Days Qty: 60 0RF
Referrals:
Donavon Alvarez DO [Family Provider] -
Activity Restrictions/Additional Instructions:
Continue current medication regimen. Return here for worsening symptoms otherwise follow-up with your treating physicians
Interventions
Interventions:
*Risk Screen - Suicide Last Done: 05/17/24 08:35
*General Assessment Last Done: 05/17/24 08:35
*Neglect/Abuse Screening Last Done: 05/17/24 08:35
ED- Fall Risk Assessment Last Done: 05/17/24 08:35
*ED COVID-19 Vaccine History Last Done: 05/17/24 08:35
ED- Cardiac Assessment Last Done: 05/17/24 08:35
ED- Neurological Assessment Last Done: 05/17/24 08:35
ED- Pulmonary Assessment Last Done: 05/17/24 08:35
Discharge Date and Time
Print Language: SLOVAK
[2024-05-17 08:49] LABS: % Basophils 0.3 % (0-2); % Eosinophils 2.1 % (0-6); % Immature Granulocytes 0.5 % (0-0.5); % Lymphocytes 10.9 % (20.5-51.1); % Monocytes 10.9 % (1.7-9.3); % Neutrophils 75.3 % (42.2-75.2); Absolute Eosinophils 0.1 10^3/uL (0-0.7); Absolute Lymphocytes 0.7 10^3/uL (1.2-3.4); Absolute Monocytes 0.7 10^3/uL (0.1-0.6); Hematocrit 31.1 % (37.0-47.0); Hemoglobin 10.5 g/dL (12.0-16.0); Mean Corp Hgb Conc. 33.8 g/dL (33.0-37.0); Mean Corpuscular Hgb 26.9 pg (27.0-31.0); Mean Corpuscular Volume 79.5 fL (81.0-99.0); Mean Platelet Volume 11.3 fL (7.4-10.4); Nucleated Red Blood Cells % 0 %; Platelet Count 248 10^3/uL (130-400); Red Blood Cell Count 3.91 10^6/uL (4.20-5.40); Red Cell Dist. Width 15.7 % (11.5-14.5); White Blood Cell Count 6.6 10^3/uL (4.8-10.8)
[2024-05-17 09:00] VITALS: BP 113/48
[2024-05-17 09:08] LABS: ALT (SGPT) < 10 U/L (0-35); AST (SGOT) 11 U/L (14-36); Albumin 3.9 g/dl (3.5-5.0); Alkaline Phosphatase 114 U/L (38-126); Blood Urea Nitrogen 12 mg/dl (7-17); Calcium 8.9 mg/dl (8.4-10.2); Carbon Dioxide 31 mmol/L (22-30); Chloride 98 mmol/L (98-107); Estimated Creatinine Clearance 87 ml/min; Glucose 107 mg/dl (70-99); Potassium 3.1 mmol/L (3.5-5.1); Sodium 136 mmol/L (135-145); Total Bilirubin 0.9 mg/dl (0.2-1.3); Total Protein 6.3 g/dl (6.3-8.2); eGFR > 60.00
[2024-05-17] MEDS: VIMPAT 200 MG PO (09:45)
[2024-05-17 10:00] VITALS: BP 124/51
[2024-05-17] MEDS: SINEMET 25-100 1 TABLET PO (10:22)
[2024-05-17 11:00] VITALS: BP 115/52
[2024-05-17 12:00] VITALS: BP 123/56
--- NOTE | 2024-05-17 12:18 | CM ---
CM folioing re: discharge planning.
CM consulted to assist pt with information and copy of POA and AD.
Reviewed pt's chart, met with pt and pt's daughter Meche at bedside.
Pt is a 68 year old female, arrived to ED for evaluation after seizure.
Pt is well know to this CM from previous admission last week and a copy of POA provided to pt's daughter last week. Pt lives with and daughter Meche in a 2SH, 3 steps to enter, has 4 children from 1st marriage and son Sedrick with current
together. Per daughter, pt is current with [facility] and they supposed to come today to visit the pt and pt arrived to ED.
Pt's daughter Meche requested to have POA completed here right away. Pt's daughter stated she cares to the pt at home and she would like to have POA. pt's daughter stated she does not know whether or not pt gave POA to someone else in the past. A
copy of POA with AD provided to the pt and her daughter and information with a process of completion provided. pt's daughter expressed unhappy feelings and she stated she thought she can do it here right away. Again, information of the process of
completion of POA provided.
According to pt will be discharged home today. Per daughter, pt ambulates with a walker and she provides 24/7 necessary care and support at home.
CM notified [facility] liaison of pt's arriving to ED and being discharged.
D/C plan: home with resumptions of [facility] and family support. Daughter to transport.
--- NOTE | 2024-05-17 14:25 | VNURNOTE ---
Home Health Liaison called patient's spouse Bill to discuss [facility] nurse/therapy, visits, schedule and homebound status. Spouse expressed frustration with multiple recent ER visits and hospitalization. [facility] was scheduled to see the patient today but
she went to ER with a seizure. Spouse stated that he was interested in another opinion at [facility]. At this point, patient is back home again. Apparently daughter is photovoltaic panel installer as well. Patient's spouse is aware that [facility] will contact them later
today for start of care tomorrow.
--- NOTE | 2024-05-17 14:31 | CON.NEURO4 ---
Consultation - Neurology 4
-
CONSULTING PHYSICIAN: Mars Davis
REFERRING PHYSICIAN: ER
DICTATED BY: Mars Davis
DATE/TIME OF REQUEST: 05/17/24
DATE/TIME OF CONSULTATION: 05/17/24
Reason for Consultation: ? Seizure
History of Present Illness:
Patient is a 68-year-old woman with a past medical history of severe anxiety Parkinson's disease seizures benzodiazepine dependence presenting the hospital with possible seizure event witnessed by her daughter. The event was short lasting and
followed by confusion but did seem a little bit atypical compared to her previous seizures she had some seeming like she may have been hallucinating along with some right arm movements but no clear generalized tonic-clonic seizure activity.
Patient feels back to baseline at this point.
She has been compliant with 200 mg lacosamide twice daily.
The patient and daughter both relates she has been taking 2 mg lorazepam 3 times daily with no big changes in dose
Past Medical History: Seizure, anxiety, benzodiazepine dependency
Social History: Lives with her daughter
Allergies: No known drug allergies
Review of Symptoms:
Patient denies any fever, headache, chest pain, shortness of breath, GI or symptoms.
Physical Exam:
Middle-age woman no distress no signs of head or neck trauma oropharynx clear no tongue laceration heart rate regular breathing unlabored abdomen soft nontender
Neurologic Examination:
The patient is awake, alert and oriented x 3. (He/She) is able to follow commands and answer questions appropriately. There is no aphasia or dysarthria. On cranial nerve assessment, pupils are 3 mm bilateral, round and reactive to light and
accommodation. Visual garcia are full. Extraocular movements are intact. Facial sensations are intact and bilaterally symmetrical, there is no facial asymmetry. Hearing is intact bilaterally to normal conversation volume. Tongue palate and uvula
are midline. Sternocleidomastoid strengths are full bilaterally. Motor strengths are 5/5 bilateral upper and lower extremities on medical research [place] scale. There is no drift or involuntary movement noted. Deep tendon reflexes are 2+ bilateral
upper and lower extremities and Babinski is absent bilaterally. Sensations of pain, touch, temperature and vibration are intact and bilaterally symmetrical. There was no extinction noted on double simultaneous stimulation. Coordination is intact by
finger to nose bilaterally.
Impressions
1. Possible seizure although not a certainty. Some elements suggestive of delirium and hallucinations, I continue to suspect this is related to benzodiazepine use, either missed doses or changing in doses.
2. Parkinson's disease associated with mild hallucinations
3. Anxiety
4.
Recommendations:
1. No changes to Lacosamide would prefer not adding 2nd agent or switching agents
2. Stressed importance of scheduling of Benzodiazepine Lorazepam and consistent use with no changes in dose, pursuing dose roughly every 8 hours (tentatively discussed 630 AM, 230 PM, 930 PM)
Discussed patient care with: Patient and her daughter, ER
== END 2024-05-17 13:30 | disposition home or self-care (01) ==
LOC: EMR 08:32
PROVIDERS: Physician Assistant; EMERGENCY PHYSICIAN Emergency Medicine; FAMILY PHYSICIAN Family Medicine; OTHER PHYSICIAN Student in an Organized Health Care Education/Training Program
DX: R56.9 Unspecified convulsions (principal); R44.3 Hallucinations, unspecified; E78.00 Pure hypercholesterolemia, unspecified; F32.A Depression, unspecified; F41.9 Anxiety disorder, unspecified; G20.A1 Parkinson's disease without dyskinesia, without mention of fluctuations; G43.909 Migraine, unspecified, not intractable, without status migrainosus; F13.20 Sedative, hypnotic or anxiolytic dependence, uncomplicated; Z96.653 Presence of artificial knee joint, bilateral; Z96.641 Presence of right artificial hip joint; Z85.43 Personal history of malignant neoplasm of ovary
CPT/HCPCS: 99283; 80053; 85025; 93005

== ENCOUNTER 2024-05-20 14:25 | Inpatient (IN) | payer MEDICARE, OTHER, SELFPAY ==
[2024-05-17 14:12] VITALS: BP 108/47; BP 95/49; BMI 27.2
[2024-05-17] MEDS: ATIVAN 1 MG IV (14:30)
--- NOTE | 2024-05-17 14:56 | ED.GENMED ---
History of Present Illness
General
Chief Complaint: Seizure
Source: patient and family
Time Seen by Provider: 05/17/24 14:26
History of Present Illness
History of Present Illness:
68-year-old female who was discharged this morning for evaluation of seizure. Patient was seen by neurology. The patient on the way home reported as seizure-like activity. The patient reportedly started to have some twitching in her shoulder and
then had more generalized activity but was awake. She remembers the event. Daughter called 911. Patient was recently admitted to the hospital was here for about 2 weeks. No fevers. No other changes since her recent discharge. Patient is on
lorazepam daily
Past History
Past History
ED Past Medical History: Cancer (ovarian team), Hypercholesterolemia, Psychiatric (Anxiety/depression) and Other (Migraines, Parkinson's)
ED Past Surgical History: Appendectomy, Gynecological (AMALIA/BSO 2012), Orthopedic (Bilateral knee replacements, right hip replacement) and Other (Herniorrhaphy)
Social History
Tobacco: Non-smoker
Alcohol: None
Drug: None
Personal:
Living: with family
Employment: Retired
Family History
Family History: Other (Reviewed and noncontributory )
Phy Exam
Physical Exam
Physical Exam:
CONSTITUTIONAL Patient alert and oriented to person, place and time. Well-appearing. Vital signs reviewed.
HEAD atraumatic, normocephalic.
EYES eyelids normal to inspection, Pupils equally round and reactive to light, Extraocular muscles intact, Conjunctiva normal, Sclera normal.
NECK normal range of motion, Trachea midline, no jugular venous distention.
RESPIRATORY CHEST No respiratory distress noted, Chest expansion equal, Bilateral breath sounds clear.
CARDIOVASCULAR regular rate and rhythm, Heart sounds normal.
ABDOMEN abdomen nontender, Bowel sounds normal. No distention.
BACK normal inspection, no obvious deformities
UPPER EXTREMITY range of motion normal, Motor strength normal, no cyanosis, no edema.
LOWER EXTREMITY range of motion normal, Motor strength normal, no cyanosis, no edema.
NEURO Speech normal, No focal motor deficits, [place] coma scale 15, Memory normal, Cranial Nerves intact to screening exam. Normal finger-nose. No pronator drift.
SKIN skin warm, dry, and normal in color.
PSYCHIATRIC patient oriented to person place and time, Normal affect.
Course
Orders/Labs/Results
Orders:
Orders
05/17/24 14:30
Lorazepam [Ativan] 1 mg IV NOW STA
05/17/24 15:15
Potassium Chloride 10% Elixir [KCl Elixir] 40 meq PO NOW STA
Vital Signs
Initial and Last Documented VS:
Initial Vital Signs
Temp Pulse Resp BP Pulse Ox
99.4 F 80 18 108/47 89
05/17/24 14:12 05/17/24 14:12 05/17/24 14:12 05/17/24 14:12 05/17/24 14:12
Last Documented Vital Signs
Temp Pulse Resp BP Pulse Ox
99.4 F 75 22 107/51 97
05/17/24 14:12 05/17/24 15:00 05/17/24 15:00 05/17/24 15:00 05/17/24 15:00
MDM/Problems Addressed
MDM/Problems Addressed:
Parkinson disease, possible seizure
*Pulse Oximetry
Patient hypoxic: no
*Bonus Clerk Interpretation
Rate: normal
Interpretation: normal
Rhythm: sinus
*Critical Care Note
Total Time (30-74mins, 75-104mins- exclusive of procedures): Not Applicable
Data Reviewed
Review of Other/Old Records Reveals: Radiology Studies (Brain MRI reading reviewed from May 08 normal) and Discharge Summary (Patient's discharge summary was reviewed from May 15.)
Source: patient and family
Prescriptions/Medications Considered But Not Given:
Consider further antiepileptics but will allow neurology to evaluate
Further Testing Considered But Not Given:
Consider head CT but recently had multiple imaging studies
Patient Management
Discussion with other providers: Hospitalist and Travertine Installer (Case discussed with neurology)
Escalation/DeEscalation of care consider admission/obs:
Recurrent event. Unclear whether this is a seizure or not. Daughter is somewhat concerned about the power of assistant prosecuting attorney status and there are some family dynamic issues. She actually requested that I sign a piece of paper that is written in the copy
book. I deferred and asked her discussed with case management.
ED Attending Note
-
Portions of this chart may have been created with voice recognition software.� Occasional wrong word or��sound alike� substitutions may have occurred due to the inherent limitations of voice recognition software.
Discharge Plan
Departure
Patient Disposition: Admit
Date of Disposition: 05/17/24
Time of Disposition: 14:56
Admit to: Telemetry
Presentation/result/management discussed w/ accepting MD/DO: Hospitalist
Discharge Problem:
Seizure
Prescriptions:
No Action
rosuvastatin 10 mg tablet
10 mg PO HS
Rx Instructions:
at bedtime 10pm
carbidopa-levodopa 25-100 mg tablet
2 tab PO TID@0630,1030,1530
Rx Instructions:
2 tab 3x a day at 6:30am, 10:30am, and 3:30pm
loperamide 2 mg Capsule
2 mg PO BIDPRN PRN (Reason: diarrhea)
Rx Instructions:
2mg oral 3 times a day as needed for diarrhea
acetaminophen [Tylenol Extra Strength] 500 mg Tablet
1,000 mg PO DAILYPRN PRN (Reason: mild pain)
Rx Instructions:
1000 mg daily as needed for mild pain
calcium carbonate [Tums] 200 mg calcium (500 mg) Tablet,Chewable
400 mg PO DAILYPRN PRN (Reason: gerd)
Rx Instructions:
400 mg as needed for GERD
escitalopram oxalate [Lexapro] 10 mg Tablet
10 mg PO HS
Patient Comments:
05/05/2024: taken w/ 20mg = 30mg
lorazepam 2 mg tablet
2 mg PO TID@0630,1430,0
Patient Comments:
05/05/2024: last filled 04/21/24, 60 tabs for 30 days from [place]
Rx Instructions:
3 times a day at 0630am, 230pm, 730pm
midodrine 5 mg tablet
5 mg PO TID@0630,1330,1929
Rx Instructions:
3x a day @0630,1330,0
trazodone 50 mg tablet
50 mg PO HS
ondansetron HCl 4 mg tablet
4 mg PO Q6HPRN PRN (Reason: nausea/vomiting)
Rx Instructions:
every six hours as needed for nausea/vometing
escitalopram oxalate 20 mg tablet
20 mg PO HS
Patient Comments:
05/05/2024: taken w/ 10mg = 30mg
Neupro 8 mg/24 hour patch 24 hour
8 mg transdermal DAILY@0630
Patient Comments:
05/05/2024: Switch arms
Rx Instructions:
daily at 630am
lacosamide 200 mg Tablet
200 mg PO BID 30 Days Qty: 60 0RF
Rx Instructions:
200mg oral 2 times a day for 30 days. 8pm
Referrals:
Donavon Alvarez DO [Family Provider] -
Interventions
Interventions:
*Risk Screen - Suicide Last Done: 05/17/24 14:12
*General Assessment Last Done: 05/17/24 14:12
*Neglect/Abuse Screening Last Done: 05/17/24 14:12
ED- Fall Risk Assessment Last Done: 05/17/24 14:12
*ED COVID-19 Vaccine History Last Done: 05/17/24 15:14
ED- Cardiac Assessment Last Done: 05/17/24 14:12
ED- Neurological Assessment Last Done: 05/17/24 14:12
ED- Pulmonary Assessment Last Done: 05/17/24 14:12
Discharge Date and Time
Print Language: FRENCH
[2024-05-17 15:00] VITALS: BP 107/51
--- NOTE | 2024-05-17 15:23 | HPS.HSE ---
Addendum entered and electronically signed by Davis Walker MD 05/17/24 16:08:
I saw and examined the patient.
The MAGNETO REPAIRER or PA's note was reviewed and I agree with the note.
Comment:
68-year-old female with past medical history of severe anxiety, Parkinson's, seizures with benzodiazepine dependence coming in for possible seizure witnessed by daughter.� As per daughter, this AM occurrence had possible hallucinations which is
different than previous seizures in the past � Dced at that time. Upon this instance, Patient reported to have twitching in her shoulder, and subsequently generalized twitching but was awake and remembers event. �Upon admission, patient feels back
to baseline.� Has been compliant with 2 mg lorazepam 3 times daily, no skipping or changing in doses.� Further compliant with lacosamide.� Blood pressure 107/51, respiratory 22, pulse 75, saturating 97% on room air.� Significant labs include
potassium 3.1.Of note, had MR on 05/08 with no significant findings.
Plan: Continuous EEG, Neuro consult; Ativan IV PRN; Cont other home medications. �
Original Note:
Family Physician
-
Family Physician: Donavon Alvarez
Chief Complaint
-
seziure
History of Present Illness
68-year-old woman with a past medical history of severe anxiety Parkinson's disease seizures benzodiazepine dependence presenting the hospital with possible seizure event witnessed by her daughter. patient was in the ER early this morning due to
seizure activity. she was noted to have seizure , on her way to home from ER. at present denied SANCHEZ, dizzy. denied chest pain, sob, fever, chills. denied abdominal pain. stated nausea. denied dysuria or hematuria.
admitting for further management.
Medical History
Past Medical History
Past Medical History: Reports Other
Additional Past Medical History:
Seizure, anxiety, benzodiazepine dependency
Past Surgical History: Reports Other
Additional Past Surgical History:
appendectomy
AMALIA/BSO
b/l Knee replacement
right hip replacement
Social History
Tobacco: Non-smoker
Alcohol: None
Drug: None
Living: With Family
Family History
Family History: Not pertinent
Allergies / Home Medications
Allergies reflects when Allergies were last updated in [employer].
Home Medications with original date entered in [employer]
Allergy/Medication List:
Allergies
Allergy/AdvReac Type Severity Reaction Status Date / Time
No Known Allergies Allergy Verified 04/27/24 08:48
Home Medications
rosuvastatin 10 mg tablet 10 mg PO HS High Cholesterol 03/14/23
carbidopa 25 mg-levodopa 100 mg tablet 2 tab PO TID@0630,1030,1530 Neurological Condition 12/10/23
acetaminophen 500 mg tablet (Tylenol Extra Strength) 1,000 mg PO DAILYPRN PRN mild pain 04/22/24
calcium carbonate (Tums) 400 mg PO DAILYPRN PRN gerd 04/22/24
escitalopram oxalate 10 mg tablet (Lexapro) 10 mg PO HS depression/anxiety 04/22/24
loperamide 2 mg capsule 2 mg PO BIDPRN PRN diarrhea 04/22/24
lorazepam 2 mg tablet 2 mg PO TID@0630,1430,1930 Mental Health/Anxiety 04/27/24
midodrine 5 mg tablet 5 mg PO TID@0630,1330,1930 Blood Pressure 04/27/24
escitalopram oxalate 20 mg tablet 20 mg PO HS depression/anxiety 05/05/24
ondansetron HCl 4 mg tablet 4 mg PO Q6HPRN PRN nausea/vomiting 05/05/24
rotigotine 8 mg/24 hour transdermal 24 hour patch (Neupro) 8 mg transdermal DAILY@0630 cognition/memory 05/05/24
trazodone 50 mg tablet 50 mg PO HS sleep 05/05/24
lacosamide 200 mg tablet 200 mg PO BID 30 days #60 tabs 05/14/24
Review of Systems
-
Constitutional: Reports No Symptoms
EENT: Reports No Symptoms
Respiratory: Reports No Symptoms
Cardiac: Reports No Symptoms
Abdomen/GI: Reports No Symptoms
: Reports No Symptoms
Musculoskeletal: Reports No Symptoms
Skin: Reports No Symptoms
Neurological: Reports No Symptoms
Endocrine: Reports No Symptoms
Hematologic/Lymphatic: Reports No Symptoms
Psych: Reports No Symptoms
Physical Exam
Vital Signs
Vital Signs
Temp Pulse Resp BP Pulse Ox
99.4 F 75 22 107/51 97
05/17/24 14:12 05/17/24 15:00 05/17/24 15:00 05/17/24 15:00 05/17/24 15:00
Physical Exam
General: Well Developed, Well Nourished and No Apparent Distress
HEENT: NormoCephalic, Moist mucous membranes and Atraumatic
Respiratory: Clear
Cardiac: S1/S2 and Regular Rhythm; No Murmur or Rub
GI: Soft, Non Tender, Non Distended and Normal Bowel Sounds; No Organomegaly
Rectal: Deferred by Provider
Musculoskeletal: No Clubbing, No Cyanosis and No Edema
Skin: No Rash
Neuro: AO x 3 and Nonfocal/grossly intact
Psych: Calm
Data Reviewed
-
Lab Data: Labs Reviewed by me
Impression/Plan
-
#possible seizure activity
-lacosamide continued, neuro prefer not to add 2nd agent or switching agents
-continue 2 mg IV Ativan as prescribed
-Monitor closely for signs of seizure recurrence
-continuos EEG
-neuro following
#Parkinson's Disease with Autonomic Dysfunction
-Chronic, complicated by neurogenic orthostatic hypotension
-continue Sinemet and Neupro Patch, Midodrine
#Anxiety/Depression
-Trazodone continued
-continue Lexapro
#Hyperlipidemia
-No known history of ASCVD
-continue Crestor
#hypokalemia
-replated with oral kcl
#anemia of chornic disease
-hgb stable
-ctm
#Hx Ovarian Cancer s/p AMALIA-BSO and Chemo
#DVT ppx: SCDs
#CODE status
-full code
--- NOTE | 2024-05-17 15:34 | CON.NEURO4 ---
Consultation - Neurology 4
-
CONSULTING PHYSICIAN: Mars Davis
REFERRING PHYSICIAN: ER
DICTATED BY: Mars Davis
DATE/TIME OF REQUEST: 05/17/24
DATE/TIME OF CONSULTATION: 05/17/24
Reason for Consultation: ? Seizure
History of Present Illness:
Patient is a 68-year-old woman with a past medical history of Parkinson's disease, anxiety, benzodiazepine dependence, seizure presented to hospital with a second similar event concerning for possible seizure or other neurologic event.
I had seen the patient previously and she had been feeling well she was discharged home and while the patient was riding in her daughter's car she had a similar event to the previous event earlier today.
Event was described to the patient having low amplitude rapid jerk like movement of her eyes as well as bilateral limbs and possibly more involvement on one eyelid than the other. With both of these instances she seemed to possibly be reaching out
to something in the right frontal area of her vision. The jerking movements lasted around 4 minutes and stopped spontaneously. Afterwards the patient was able to make eye contact and attend to her daughter though she did not speak.
Patient actually says that she recalls the jerking movements not feeling that she had lost consciousness.
Over the past few days patient has been having some hallucinations of different benign objects like animals or people that are not there.
Patient and daughter both consistence and she is taking 2 mg of lorazepam 3 times a day.
Past Medical History: Seizure, anxiety, benzodiazepine dependency, Parkinson's disease, orthostatic hypotension
Social History: Lives with her daughter
Allergies: No known drug allergies
Review of Symptoms:
Patient denies any fever, headache, chest pain, shortness of breath, GI or symptoms.
Physical Exam:
Middle-age woman no distress no signs of head or neck trauma oropharynx clear no tongue laceration heart rate regular breathing unlabored abdomen soft nontender
Neurologic Examination:
The patient is awake, alert and oriented x 3. She is able to follow commands and answer questions appropriately. There is no aphasia or dysarthria. On cranial nerve assessment, pupils are 3 mm bilateral, round and reactive to light and
accommodation. Visual garcia are full. Extraocular movements are intact. Facial sensations are intact and bilaterally symmetrical, there is no facial asymmetry. Hearing is intact bilaterally to normal conversation volume. Tongue palate and uvula
are midline. Sternocleidomastoid strengths are full bilaterally. Motor strengths are 5/5 bilateral upper and lower extremities on medical research [place] scale. Little to no significant rigidity present. There is no drift or involuntary movement
noted. Deep tendon reflexes are 2+ bilateral upper and lower extremities and Babinski is absent bilaterally. Sensations of pain, touch, temperature and vibration are intact and bilaterally symmetrical. There was no extinction noted on double
simultaneous stimulation. Coordination is intact by finger to nose bilaterally.
Impressions
1. Some suspicion that these could be nonepileptic events or movement disorder, with epileptic seizure still being in the differential diagnosis.
2. Benzodiazepine dependence
3. Parkinson's disease associated with hallucinations no overt psychosis
4. Anxiety
5. Recent admission for valproic acid toxicity
Recommendations:
1. Will place on continuous EEG to assess if these events are epileptic or not
2. Would keep same dose Lacosamide 200 mg BID
3. Keep Lorazepam at 2 mg TID
4. No changes to home Midodrine, escitalopram, Trazodone.
5. Keep previous dosing of Rotigotine/Neupro patch 8 mg q24hr as well as Carbidopa Levodopa 25/100 mg 2 tab TID
Discussed patient care with:
Vital Signs / Labs
-
Vital Signs and Labs:
Temp Pulse Resp BP Pulse Ox
99.4 F 75 22 107/51 97
05/17/24 14:12 05/17/24 15:00 05/17/24 15:00 05/17/24 15:00 05/17/24 15:00
[2024-05-17] MEDS: SINEMET 25-100 2 TABLET PO (15:56)
[2024-05-17] MEDS: KCL ELIXIR 40 MEQ PO (15:56)
[2024-05-17] MEDS: ProAmatine 5 MG PO ×2 (15:56→20:32)
[2024-05-17] MEDS: ZOFRAN 4 MG IV ×2 (15:57→20:37)
[2024-05-17 17:06] VITALS: BP 114/60; BMI 27.3
[2024-05-17] MEDS: LOVENOX 40 MG SC (18:29)
[2024-05-17 19:30] VITALS: BP 107/61
[2024-05-17] MEDS: NSS (PRESERVATIVE FREE) 1 ML IV (19:32)
[2024-05-17] MEDS: ATIVAN 2 MG IV (19:32)
--- NOTE | 2024-05-17 19:42 | W.PN.UPDATE ---
Update Note
Progress Note Update
Rapid response called 1922
Upon arrival at room patient patient in bed with jerking like tremors, eyes open and tracking and responding to staff. Nurse stated she witnessed patient with seizure activity. Patient currently with continuous EEG in place. VSS.
Plan:
- order placed for STAT IV Lorazepam 2mg now
--- NOTE | 2024-05-17 19:55 | W.PN.UPDATE ---
Update Note
Progress Note Update
Event of abnormal behavior, some eye twitching, staring starting around 7:20 PM captured on video EEG. Subsequent rapid response.
There are no epileptiform features on EEG and patient has normal background rhythm throughout brain throughout the episode, with some limitation by artifact with movement when EKG is obtained. Nursing reports she was mostly able to talk through
this event. Patient was given 2 mg Lorazepam IV. Patient later on is awake and comfortable appearing.
At this time video EEG evidence strongly supports this was a non-epileptic event.
Plan moving forward
Would not give further Lorazepam for this type of event.
Can continue the 2 mg PO Lorazepam TID which is home medication.
No changes to Lacosamide.
Continue continuous EEG monitoring.
Spoke with nursing to notify me if further events and to jane on the EEG
--- NOTE | 2024-05-17 20:05 | RR ---
daughter called nurse to room stating my mom is having a seizure. entered room to find patient awake and able to talk with nurse and follow commands, shortly there after noted patient to have rapid eye twitching and jerking motion of head and arms.
A Rapid Response was called on this patient, please see Rapid Response form. ativan 2mg IV given ordered by SANFORIZER. afterwards patient eye and head movements stopped and patient answering questions and talking with nurse. Dr Davis notified and
discussed episode with nurse over phone. he reviewed EEG monitoring. Instructed nurse to text him if any more episodes occurred. weight shifter aware. plan of care on going.
[2024-05-17 20:22] VITALS: BP 107/61
[2024-05-17] MEDS: VIMPAT 200 MG PO (20:32)
[2024-05-17 21:36] LABS: Glucose - Point of Care 114 mg/dl (70-99)
[2024-05-17] MEDS: ATIVAN 2 MG PO (21:41)
[2024-05-17] MEDS: LEXAPRO 20 MG PO (21:42)
[2024-05-17] MEDS: CRESTOR 10 MG PO (21:42)
[2024-05-17] MEDS: DESYREL 50 MG PO (21:42)
[2024-05-17] MEDS: LEXAPRO 10 MG PO (21:42)
[2024-05-17 23:00] VITALS: BP 101/58
[2024-05-18] VITALS (7 sets, daily range): BP systolic 97–117; BP diastolic 46–58
[2024-05-18] MEDS: DESENEX/MITRAZOL/ZEASORB 1 APPLIC TOPICAL ×3 (01:14→19:45)
[2024-05-18] MEDS: NEUPRO 8 MG TRANSDERM (06:17)
[2024-05-18] MEDS: ATIVAN 2 MG PO ×3 (06:24→21:49)
--- NOTE | 2024-05-18 06:51 | EEGC.RPT ---
Continuous EEG Report
Recording
Start Date of Data Reviewed: 05/17/24
Start Time of Data Reviewed: 17:28
End Date of Data Reviewed: 05/18/24
End Time of Data Reviewed: 07:00
Type of EEG: Continuous
Done with Video Recording: Yes
Study Sequence: Initiation of Study
Electrocardiogram: Unremarkable
Report
CONTINUOUS EEG REPORT
CONTINUOUS EEG INTERPRETATION
Largely unremarkable EEG with some excess beta activity most likely due to chronic benzodiazepine use.
Event at 7:30 PM on 05/17 has no epileptiform changes on EEG.
CLINICAL CORRELATION:
This study showed some benign changes in background due to benzodiazepine use.
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
Clinical correlation is advised.
METHODS:
A 21-channel digital electroencephalogram (EEG) was performed at the bedside. The 10/20 international system of electrode placement was used with ECG and lateral/vertical eye movements recorded. Video was recorded. Study duration 13 hours 24
minutes.
IMPRESSION(S):
Quality of study
Good
Background
Medium amplitude background of theta and alpha activities with excess amount of beta activity seen
Normal posterior dominant rhythm of 10 hz seen which attenuates with eye opening
No asymmetry of background
Sleep
Drowsiness present
Stage 1 sleep seen
Stage 2 sleep seen
Slow wave sleep seen
Hyperventilation
Not performed
Photic Stimulation
Not performed
ECG
Normal rhythm
Abnormal Activity
No seizures or epileptiform discharges seen
[2024-05-18] MEDS: VIMPAT 200 MG PO ×2 (08:16→19:45)
[2024-05-18] MEDS: ProAmatine 5 MG PO ×3 (08:16→17:31)
[2024-05-18] MEDS: SINEMET 25-100 PO ×2 (08:17→19:39)
[2024-05-18 09:03] LABS: Hematocrit 29.5 % (37.0-47.0); Hemoglobin 10.1 g/dL (12.0-16.0); Mean Corp Hgb Conc. 34.2 g/dL (33.0-37.0); Mean Corpuscular Hgb 27.4 pg (27.0-31.0); Mean Corpuscular Volume 80.2 fL (81.0-99.0); Red Blood Cell Count 3.68 10^6/uL (4.20-5.40); Red Cell Dist. Width 15.8 % (11.5-14.5); White Blood Cell Count 6.6 10^3/uL (4.8-10.8)
[2024-05-18 09:07] LABS: Blood Urea Nitrogen 14 mg/dl (7-17); Calcium 8.7 mg/dl (8.4-10.2); Carbon Dioxide 27 mmol/L (22-30); Chloride 101 mmol/L (98-107); Estimated Creatinine Clearance 85 ml/min; Glucose 99 mg/dl (70-99); Potassium 3.6 mmol/L (3.5-5.1); Sodium 134 mmol/L (135-145); eGFR > 60.00
[2024-05-18] MEDS: SINEMET 25-100 2 TABLET PO ×2 (10:27→15:50)
--- NOTE | 2024-05-18 11:58 | W.PN.NEURO.1 ---
Today's Communication / Plan
-
Continue continuous EEG to assess if all events are non-epileptic which the most recent one appeared to be
Plan for x-radha for more intensive EEG monitoring
Likely will need psychiatric evaluation
Neuro Assessment/Plan
Assessment
Impressions
1. Some suspicion that these could be nonepileptic events or movement disorder, with epileptic seizure still being in the differential diagnosis.
2. Benzodiazepine dependence
3. Parkinson's disease associated with hallucinations no overt psychosis
4. Anxiety
5. Recent admission for valproic acid toxicity
Plan
Recommendations:
Continue continuous EEG to assess if all events are non-epileptic which the most recent one appeared to be
Plan for x-radha for more intensive EEG monitoring
Likely will need psychiatric evaluation
No change lacosamide 200 mg BID
Maintain lorazepam at 2 mg TID
No changes to home Midodrine, escitalopram, Trazodone.
Maintain rotigotine/Neupro patch 8 mg q24hr as well as Carbidopa Levodopa 25/100 mg 2 tab TID
Will follow
Subjective/Objective
Subjective Data
Date of Service: May 18, 2024
Patient with a nonepileptic event at 1900 hrs. yesterday. Patient herself reported this was a usual event. Patient's daughter suggest that there have been a variety of events. The most recent event was recorded on continuous EEG
Objective Data
Vital Signs
Temp Pulse Resp BP Pulse Ox
37.2 C 85 18 107/48 93
05/18/24 11:20 05/18/24 11:20 05/18/24 11:20 05/18/24 11:20 05/18/24 08:37
Lab Results
05/18/24 08:22
05/18/24 08:22
Sodium 134 mmol/L (135-145) L 05/18/24 08:22
Potassium 3.6 mmol/L (3.5-5.1) 05/18/24 08:22
BUN 14 mg/dl (7-17) 05/18/24 08:22
Glucose 99 mg/dl (70-99) 05/18/24 08:22
Calcium 8.7 mg/dl (8.4-10.2) 05/18/24 08:22
Patient Allergies
No Known Allergies Allergy (Verified 04/27/24 08:48)
Review of Systems
-
Unable to obtain full review of systems at this time due to: Dementia
History Source: Patient
All other systems: Reviewed and negative
Physical Exam
-
General: No Apparent Distress and Appears Stated Age
Eyes: Round OU, [place] Conjunctivae and No Ptosis
HEENT: Anicteric and Moist Mucous Membranes
Neck: Full Range of Motion
Respiratory: No Dyspnea
Cardiac: No JVD
GI: Non-distended
Skin: Unremarkable
Extremities: No Clubbing, No Cyanosis and No Edema
Psych: Intact Judgement/Insight
Extended Neurological Exam
Mood & Affect: Mood Unremarkable and Affect Unremarkable
Attention Span & Concentration: Awake, Alert, Interactive and Moderate Difficulty with 2 Step Request
Memory: Reduced (Recall for the event leading to the hospital.)
Tremor: Hand Tremor Absent and Head Tremor Absent
Involuntary Movement: None
Speech: Quality Unremarkable and Hoarse (Mildly)
Cranial Nerve II: Left Eye: Pupillary Size Unremarkable and Visual Arita Grossly Intact
Cranial Nerve II: Right Eye: Pupillary Size Unremarkable and Visual Arita Grossly Intact
Cranial Nerves III, IV, : Extraocular Movement: Grossly Intact
Cranial Nerve VII: Facial Symmetry: Normal Facial Symmetry
Cranial Nerve VIII: Hearing: Negative Unremarkable Hearing to Normal Conversational Volume
Cranial Nerve XI: Shoulder Shrug: Unremarkable
Muscle Bulk & Tone: Bulk Unremarkable, Tone Unremarkable and Other (Mildly Camptocormic)
Pronator Drift: No Drift in Upper Extremities
Touch Sensation: Unremarkable
Coordination: [id number] Testing Unremarkable
Data Reviewed
-
EEG: Report Reviewed
Labs: Report Reviewed
Reviewed with: Physician, Nurse Practioner, Patient and Family
Old Records: Summarized
Past History
Past History
ED Past Medical History: Cancer (ovarian team), Hypercholesterolemia, Psychiatric (Anxiety/depression, benzodiazepine dependence) and Other (Migraines, Parkinson's)
ED Past Surgical History: Appendectomy, Gynecological (AMALIA/BSO 2012), Orthopedic (Bilateral knee replacements, right hip replacement) and Other (Herniorrhaphy)
Social History
Tobacco: Non-smoker
Alcohol: None
Drug: None
Personal:
Living: with family
Employment: Retired
Family History
Family History: Other (Reviewed and noncontributory )
Medications
-
Medications:
Generic Name Dose Route Start Last Admin
Trade Name Freq PRN Reason Stop Dose Admin
Acetaminophen 1,000 mg 05/17/24 16:54
Acetaminophen 500 Mg Tablet PO 06/14/24 16:53
DAILYPRN PRN
mild pain
Bisacodyl 10 mg 05/17/24 16:54
Bisacodyl 10 Mg Rectal Suppository RECTAL 06/14/24 16:53
[id number] PRN
constipation
Calcium Carbonate 1 tablet 05/17/24 16:54
Calcium Carbonate 500 Mg (Regular-Strength) Chew Tablet PO 06/14/24 16:53
DAILYPRN PRN
gerd
Carbidopa/Levodopa 2 tablet 05/17/24 15:30 05/18/24 10:27
Carbidopa (25 Mg)/Levodopa (100 Mg) Regular Release Tablet PO 06/14/24 15:29 2 tablet
TID@0630,1030,1530 LISSA Administration
Enoxaparin Sodium 40 mg 05/17/24 18:00 05/17/24 18:29
Enoxaparin Sodium 40 Mg/0.4 Ml Syringe SC 06/14/24 17:59 40 mg
QPM LISSA Administration
Escitalopram Oxalate 20 mg 05/17/24 22:00 05/17/24 21:42
Escitalopram 20 Mg Tablet PO 06/14/24 21:59 20 mg
HS LISSA Administration
Escitalopram Oxalate 10 mg 05/17/24 22:00 05/17/24 21:42
Escitalopram 10 Mg Tablet PO 06/14/24 21:59 10 mg
HS LISSA Administration
Lacosamide 200 mg 05/17/24 20:00 05/18/24 08:16
Lacosamide (Vimpat) 200 Mg Tablet PO 06/14/24 19:59 200 mg
BID LISSA Administration
Lorazepam 2 mg 05/17/24 21:30 05/18/24 06:24
Lorazepam 1 Mg Tablet PO 06/14/24 21:29 2 mg
TID@0630,1430,2130 LISSA Administration
Miconazole Nitrate 0 applic 05/17/24 23:00 05/18/24 08:16
Miconazole Powder Bottle TOPICAL 06/14/24 22:59 1 applic
BID LISSA Administration
Midodrine 5 mg 05/17/24 19:30 05/18/24 08:16
Midodrine 5 Mg Tablet PO 06/14/24 19:29 5 mg
TID @ 0800,1200,1700 LISSA Administration
Ondansetron HCl 4 mg 05/17/24 16:54 05/17/24 20:37
Ondansetron 4 Mg/2 Ml Vial IV 06/14/24 16:53 4 mg
Q6HPRN PRN Administration
nausea and vomiting
Polyethylene Glycol 17 grams 05/17/24 16:54
Polyethylene Glycol Powder 17 Grams Packet PO 06/14/24 16:53
DAILYPRN PRN
constipation
Rosuvastatin Calcium 10 mg 05/17/24 22:00 05/17/24 21:42
Rosuvastatin (Crestor) 10 Mg Tablet PO 06/14/24 21:59 10 mg
HS LISSA Administration
Rotigotine 8 mg 05/18/24 06:30 05/18/24 06:17
Rotigotine (Neupro) 4 Mg Patch TRANSDERM 06/15/24 06:29 8 mg
DAILY@0630 LISSA Administration
Senna/Docusate Sodium 1 tablet 05/17/24 16:54
Docusate W/Senna (Courtney-Colace) Tablet PO 06/14/24 16:53
BIDPRN PRN
constipation
Trazodone HCl 50 mg 05/17/24 22:00 05/17/24 21:42
Trazodone 50 Mg Tablet PO 06/14/24 21:59 50 mg
HS LISSA Administration
--- NOTE | 2024-05-18 12:19 | VNURNOTE ---
Chart reviewed. Prior to admit, [facility] was going to see patient for start of care/sign onto services. Will monitor hospital course.
--- NOTE | 2024-05-18 13:35 | W.PN.HOSP.TC ---
Today's Communication/Plan
-
Continuous EEG
await further neuro recs on possible need to transfer
Assessment / Plan
Assessment / Plan
Physical Exam
General: Well Developed, Well Nourished and No Apparent Distress
HEENT: NormoCephalic, Moist mucous membranes and Atraumatic
Respiratory: Clear
Cardiac: S1/S2 and Regular Rhythm; No Murmur or Rub
GI: Soft, Non Tender, Non Distended and Normal Bowel Sounds; No Organomegaly
Rectal: Deferred by Provider
Musculoskeletal: No Clubbing, No Cyanosis and No Edema
Skin: No Rash
Neuro: AO x 3 and Nonfocal/grossly intact
Psych: Calm
?Seizure activity
-continuous EEG to assess if all events are non-epileptic which the most recent one appeared to be
-Plan for x-radha for more intensive EEG monitoring if deemed necessary by neurology - not sure what other options will be offered at this time- defer to neurology
-May need psych eval
- lacosamide continued,
-Maintain lorazepam at 2 mg TID
- No changes to home Midodrine, escitalopram, Trazodone.
- Maintain rotigotine/Neupro patch 8 mg q24hr as well as Carbidopa Levodopa 25/100 mg 2 tab TID
-Monitor closely for signs of seizure recurrence
-neuro following
#Parkinson's Disease with Autonomic Dysfunction
-Chronic, complicated by neurogenic orthostatic hypotension
-continue Sinemet and Neupro Patch, Midodrine
#Anxiety/Depression
-Trazodone continued
-continue Lexapro
#Hyperlipidemia
-No known history of ASCVD
-continue Crestor
#Hyponatremia
-mild
-ctm
#hypokalemia
-replated with oral kcl
#anemia of chornic disease
-hgb stable
-ctm
#Hx Ovarian Cancer s/p AMALIA-BSO and Chemo
#DVT ppx: Lovenox
#CODE status
-full code
Anticipated Discharge: Within 24 hours
Subjective/Interval History
-
Date of Service: May 18, 2024
had episode of what appears to be psychogenic seizure yesterday evening.
Objective Data
-
Labs:
Laboratory Results
05/18/24
08:22
WBC 6.6
Hgb 10.1 L
Hct 29.5 L
Plt Count
Sodium 134 L
Potassium 3.6
Chloride 101
Carbon Dioxide 27
BUN 14
Creatinine 0.4 L
Glucose 99
Calcium 8.7
Vital Signs:
Vital Signs
Temp Pulse Resp BP Pulse Ox
98.9 F 88 18 107/48 93
05/18/24 11:20 05/18/24 12:20 05/18/24 11:20 05/18/24 12:20 05/18/24 08:37
I&O
05/17/24 05/18/24 05/19/24
06:59 06:59 06:59
Intake Total 0 / 0
Balance 0 / 0
Review of Systems
-
History Source: Patient
All other systems: Not reviewed unless documented
Data Reviewed
-
Labs: Labs Reviewed by me
--- NOTE | 2024-05-18 16:06 | PTCARENOTE ---
Pt AAO x3, MEDEROS weakly; in bed for shift. Assists minimally with turning/positioning. Continuous EEG monitoring and seizure prec maintained.VSS. Telemetry:NSR. On room air- pulseox 93%, no c/o SOB. Abd soft, jake PO, appetite fair. Incont large
amts urine. Resting in bed at present, no c/o; family members at bedside. Will continue to monitor.
--- NOTE | 2024-05-18 16:43 | CM ---
Pt known to CM from prior hospitalization.
Farhana lives with her , Sedrick, in a one story home with 2 entry steps. Patient has adult children who reside in the home with her. Patient has a walker and cane at home, has had [facility] in the past after knee and hip surgery.
Farhana has had multiple admissions to over the past month. Currently being evaluated for seizures and possible transfer to another hospital.
CM will continue to follow while patient is at to assist with discharge planning.
[2024-05-18] MEDS: LOVENOX 40 MG SC (17:31)
[2024-05-18] MEDS: DESYREL 50 MG PO (21:49)
[2024-05-18] MEDS: LEXAPRO 20 MG PO (21:49)
[2024-05-18] MEDS: CRESTOR 10 MG PO (21:49)
[2024-05-18] MEDS: LEXAPRO 10 MG PO (21:49)
[2024-05-19] VITALS (8 sets, daily range): BP systolic 96–117; BP diastolic 37–61
--- NOTE | 2024-05-19 04:58 | PTCARENOTE ---
PT slept well overnight. No seizure activity noted. EEG remains in place. No issues to report. Vital signs stable. Will continue to monitor.
[2024-05-19] MEDS: ATIVAN 2 MG PO ×3 (06:03→22:14)
[2024-05-19] MEDS: SINEMET 25-100 2 TABLET PO ×3 (06:04→15:40)
[2024-05-19] MEDS: NEUPRO 8 MG TRANSDERM (06:04)
--- NOTE | 2024-05-19 06:16 | EEGC.RPT ---
Continuous EEG Report
Recording
Start Date of Data Reviewed: 05/18/24
Start Time of Data Reviewed: 07:00
End Date of Data Reviewed: 05/19/24
End Time of Data Reviewed: 07:00
Study Sequence: Continuation of ongoing Study
Report
CONTINUOUS EEG REPORT
CONTINUOUS EEG INTERPRETATION
Event captured at 430 AM 05/19 consistent with an epileptic seizure, suspect a frontal seizure focus.
CLINICAL CORRELATION:
This EEG study is consistent with an epileptic seizure and based on patient's previous occurrences of similar episodes this may be consistent with focal epilepsy.
Of note previous study had captured an event consistent with a non-epileptic seizure, it is not uncommon to have both non-epileptic and epileptic seizures.
Clinical correlation is advised.
METHODS:
A 21-channel digital electroencephalogram (EEG) was performed at the bedside. The 10/20 international system of electrode placement was used with ECG and lateral/vertical eye movements recorded. Video was recorded. Study duration 24 hours
IMPRESSION(S):
Quality of study
Good
Background
Medium amplitude background of theta and alpha activities in awake and drowsy states
Normal posterior dominant rhythm of 10 hz seen which attenuates with eye opening
No asymmetry of background
Sleep
Drowsiness present
Stage 1 sleep seen
Stage 2 sleep seen
Slow wave sleep seen
Hyperventilation
Not performed
Photic Stimulation
Not performed
ECG
Normal rhythm
Events/abnormal activity
430 AM event at 05/19, prior to this there are frequent but not quite rhythmic bifrontal epileptiform discharges that represent clear change from previous sleep background, patient develops bilateral clonic types movements along with left arm
raising, event lasting around 4-5 minutes with slowing afterwards
[2024-05-19] MEDS: VIMPAT 200 MG PO ×2 (07:54→20:47)
[2024-05-19] MEDS: ProAmatine 5 MG PO ×3 (07:54→17:41)
[2024-05-19] MEDS: DESENEX/MITRAZOL/ZEASORB 1 APPLIC TOPICAL ×2 (07:56→20:47)
[2024-05-19 08:03] LABS: Hematocrit 30.1 % (37.0-47.0); Hemoglobin 9.9 g/dL (12.0-16.0); Mean Corp Hgb Conc. 32.9 g/dL (33.0-37.0); Mean Corpuscular Hgb 27.3 pg (27.0-31.0); Mean Corpuscular Volume 83.1 fL (81.0-99.0); Mean Platelet Volume 10.8 fL (7.4-10.4); Platelet Count 209 10^3/uL (130-400); Red Blood Cell Count 3.62 10^6/uL (4.20-5.40); Red Cell Dist. Width 15.8 % (11.5-14.5)
[2024-05-19 08:13] LABS: Blood Urea Nitrogen 16 mg/dl (7-17); Calcium 8.8 mg/dl (8.4-10.2); Carbon Dioxide 32 mmol/L (22-30); Chloride 100 mmol/L (98-107); Estimated Creatinine Clearance 85 ml/min; Glucose 104 mg/dl (70-99); Potassium 3.4 mmol/L (3.5-5.1); Sodium 138 mmol/L (135-145); eGFR > 60.00
[2024-05-19] MEDS: BRIVIACT 100 MG IV (08:30)
[2024-05-19] MEDS: KCL ELIXIR 40 MEQ PO (09:46)
--- NOTE | 2024-05-19 09:56 | W.PN.NEURO.1 ---
Addendum entered and electronically signed by Aroldo Davis MD 05/19/24 13:48:
Patient's family had further discussed her case and requested transfer to [facility]. I called and spoke with the neurologist Dr Israel and discussed her case in detail. 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
center. Discussed this news with the patient and her .
Addendum entered and electronically signed by Aroldo Davis MD 05/19/24 11:30:
Additionally I showed the patient and her the episode of the epileptic seizures so that they can better recognize what is an epileptic seizure versus a stress/psychogenic seizure.
Original Note:
Today's Communication / Plan
-
-Continue continuous EEG monitoring
-Neurologic checks and seizure precautions
-Keep Lacosamide 200 mg BID is max dosing
-Add Brivaracetam, give 100 mg IV loading dose, start 50 mg BID PO Brivaracetam this evening
-Lorazepam 2 mg TID keep at home dose
-Keep same doses of Midodrine, Neupro, Carbidopa/Levodopa
-Discussed transfer with patient and family, given we have continuous EEG monitoring, neurology, and patient not in status epilepticus although reasonable to discuss I do not feel essential for transfer and I feel unlikely she would accepted given
no hard needs this hospital is unable to provide, provided information on comprehensive epilepsy centers in the area. They are agreeable to staying here.
Total time in reviewing EEG, counseling family, examining patient = 90 minutes
Neuro Assessment/Plan
Assessment
68 year old woman with history of Parkinson's disease, anxiety, previous seizures associated with benzodiazepine withdrawal, benzodiazepine dependence, orthostatic hypotension, insomnia presented to hospital with 2 events on same day seen by her
daughter concerning for potential seizures
Non epileptic likely psychogenic seizure seen the evening of 05/17
Patient had clear epileptic seizure seen at 430 AM on continuous EEG monitoring 05/19
Manifested with bilateral arm raising and clonic jerks and left arm raising
Patient seems to have both non-epileptic and epileptic seizures which occurs in a sizeable minority of patient's with epilepsy
Do not think she is in benzodiazepine withdrawal
Unlikely that a trazodone dose of 50 mg qhs is leading to seizures
MRI brain from 05/08 with and without contrast with no abnormalities seen
Patient not showing signs suggestive of an encephalitis with normal mental status between seizure events
Epilepsy appears to be idiopathic without structural lesion on brain MRI
Subjective/Objective
Subjective Data
Date of Service: May 19, 2024
Patient had epileptic seizure seen on EEG at about 430 AM this morning, currently feeling okay, tired, no new complaints.
Objective Data
Vital Signs
Temp Pulse Resp BP Pulse Ox
98.4 F 82 16 96/37 94
05/19/24 07:05 05/19/24 07:54 05/19/24 07:05 05/19/24 07:54 05/19/24 07:54
Lab Results
05/19/24 07:32
05/19/24 07:32
Sodium 138 mmol/L (135-145) 05/19/24 07:32
Potassium 3.4 mmol/L (3.5-5.1) L 05/19/24 07:32
BUN 16 mg/dl (7-17) 05/19/24 07:32
Glucose 104 mg/dl (70-99) H 05/19/24 07:32
Calcium 8.8 mg/dl (8.4-10.2) 05/19/24 07:32
Patient Allergies
No Known Allergies Allergy (Verified 04/27/24 08:48)
Review of Systems
-
History Source: Patient
All other systems: Reviewed and negative
Constitutional: No Symptoms
EENT: No Symptoms Reported
Respiratory: No Symptoms
Cardiac: No Symptoms
Abdomen/GI: No Symptoms
Genitourinary: No Symptoms
Musculoskeletal: No Symptoms
Skin: No Symptoms
Neuro: See existing Neuro Note
Endocrine: No Symptoms
Hematologic / Lymphatic: No Symptoms
Allergy / Immunology: No Symptoms
Physical Exam
-
General: No Apparent Distress
Eyes: No Ptosis
HEENT: Normocephalic
Neck: No Bruits Bilaterally
Respiratory: Clear to Auscultation
Cardiac: Regular Rhythm
GI: Normal Bowel Sounds
Skin: Unremarkable
Extremities: No Clubbing
Psych: Unremarkable
Extended Neurological Exam
Attention Span & Concentration: Awake, Alert, Interactive and Other (Drowsy, answers questions slowly)
Memory: Reduced
Tremor: Hand Tremor Absent
Involuntary Movement: None
Speech: Quality Unremarkable, Quantity Unremarkable, Mildly Reduced Output and Other (Hypophonic soft speech); Negative Dysarthric
Cranial Nerve II: Left Eye: Pupillary Reactivity Unremarkable, Pupillary Size Unremarkable and Visual Arita Intact
Cranial Nerve II: Right Eye: Pupillary Reactivity Unremarkable, Pupillary Size Unremarkable and Visual Arita Intact
Cranial Nerves III, IV, : Extraocular Movement: Extraocular Movement Full in all Directions
Cranial Nerve VII: Facial Symmetry: Normal Facial Symmetry
Muscle Strength, Overall: Other (4+/5 shoulder abduction arm flexion hip flexion bilaterally)
Muscle Bulk & Tone: Other (Minimal rigidity, moderate masked face)
Vibration Sensation: Unremarkable
Touch Sensation: Unremarkable
Coordination: [id number] Testing Unremarkable
Babinski Sign: Absent Bilaterally
Data Reviewed
-
CT Head: Report Reviewed and Image Reviewed
MRI Head: Report Reviewed and Image Reviewed
EEG: Report Reviewed
--- NOTE | 2024-05-19 13:35 | W.PN.HOSP.TC ---
Today's Communication/Plan
-
-Continue continuous EEG monitoring
-Add Brivaracetam
Assessment / Plan
Assessment / Plan
Physical Exam
General: Well Developed, Well Nourished and No Apparent Distress
HEENT: NormoCephalic, Moist mucous membranes and Atraumatic
Respiratory: Clear
Cardiac: S1/S2 and Regular Rhythm; No Murmur or Rub
GI: Soft, Non Tender, Non Distended and Normal Bowel Sounds; No Organomegaly
Rectal: Deferred by Provider
Musculoskeletal: No Clubbing, No Cyanosis and No Edema
Skin: No Rash
Neuro: AO x 3 and Nonfocal/grossly intact
Psych: Calm
Seizure activity
-continuous EEG to assess if all events are non-epileptic which yesterday appeared to be although appeared to be true epileptic discharges today
- Neuro spoke to [place] for possible transfer at request of family- no further interventions on their side
-Continue continuous EEG monitoring
-Neurologic checks and seizure precautions
-Keep Lacosamide 200 mg BID is max dosing
-Add Brivaracetam, give 100 mg IV loading dose, start 50 mg BID PO Brivaracetam this evening
-Maintain lorazepam at 2 mg TID
- No changes to home Midodrine, escitalopram, Trazodone.
- Maintain rotigotine/Neupro patch 8 mg q24hr as well as Carbidopa Levodopa 25/100 mg 2 tab TID
-Monitor closely for signs of seizure recurrence
-neuro following
#Parkinson's Disease with Autonomic Dysfunction
-Chronic, complicated by neurogenic orthostatic hypotension
-continue Sinemet and Neupro Patch, Midodrine
#Hypokalemia
-monitor and replete
#Anxiety/Depression
-Trazodone continued
-continue Lexapro
#Hyperlipidemia
-No known history of ASCVD
-continue Crestor
#Hyponatremia
-mild
-ctm
#hypokalemia
-replated with oral kcl
#anemia of chornic disease
-hgb stable
-ctm
#Hx Ovarian Cancer s/p AMALIA-BSO and Chemo
#DVT ppx: Lovenox
#CODE status
-full code
Total time spent on today's encounter was 50 minutes which included time spent in counseling the patient/family regarding diagnosis and treatment plan as listed above, goals of care, and symptom management. Case was discussed with nursing staff,
specialists, and care coordinators/case management. All labs and imaging personally reviewed by me. Remainder the time spent in detailed review of previous records, lab data, imaging, and other medical provider documentation.
Anticipated Discharge: 24 - 48 hours
Subjective/Interval History
-
Date of Service: May 19, 2024
had an episode of epileptic seizure this AM noted on EEG.
Objective Data
-
Labs:
Laboratory Results
05/19/24
07:32
WBC 6.0
Hgb 9.9 L
Hct 30.1 L
Plt Count 209
Sodium 138
Potassium 3.4 L
Chloride 100
Carbon Dioxide 32 H
BUN 16
Creatinine 0.5 L
Glucose 104 H
Calcium 8.8
Vital Signs:
Vital Signs
Temp Pulse Resp BP Pulse Ox
98.1 F 75 16 97/47 92
05/19/24 11:20 05/19/24 12:52 05/19/24 11:20 05/19/24 12:52 05/19/24 11:20
I&O
05/18/24 05/19/24 05/20/24
06:59 06:59 06:59
Intake Total 0 / 0 560 / 560
Balance 0 / 0 560 / 560
Review of Systems
-
History Source: Patient
All other systems: Not reviewed unless documented
Data Reviewed
-
Labs: Labs Reviewed by me
--- NOTE | 2024-05-19 15:31 | PTCARENOTE ---
Pt AAO x3, MEDEROS weakly; assists with turning/positioning. Continuos EEG monitoring in place. Seizure prec maintained. Speech soft. VSS. Telemetry:NSR. On room air- pulse ox 94%, no SOB noted. Abd large, soft, jake PO appetite poor; family
bringing in food items from home. Incont urine. Resting in bed at present; no c/o. Will continue to monitor.
[2024-05-19] MEDS: LOVENOX 40 MG SC (17:41)
--- NOTE | 2024-05-19 18:39 | W.PN.UPDATE ---
Addendum entered and electronically signed by Hoda Pathak DO 05/19/24 21:57:
Reviewed cEEG through 10pm, no seizures noted. Will c/t follow.
Original Note:
Update Note
Progress Note Update
Reviewed cEEG through 6:40pm, showed right temporal sharp waves at times. No seizure. Will c/t follow.
[2024-05-19] MEDS: BRIVIACT 50 MG PO (20:47)
[2024-05-19] MEDS: CRESTOR 10 MG PO (22:07)
[2024-05-19] MEDS: DESYREL 50 MG PO (22:07)
[2024-05-19] MEDS: LEXAPRO 20 MG PO (22:07)
[2024-05-19] MEDS: LEXAPRO 10 MG PO (22:08)
[2024-05-20] VITALS (7 sets, daily range): BP systolic 93–118; BP diastolic 44–58
[2024-05-20] MEDS: NEUPRO 8 MG TRANSDERM (06:09)
[2024-05-20] MEDS: SINEMET 25-100 PO (06:09)
[2024-05-20 06:39] LABS: Glucose - Point of Care 100 mg/dl (70-99)
[2024-05-20] MEDS: ATIVAN 2 MG PO ×3 (07:40→21:25)
[2024-05-20] MEDS: SINEMET 25-100 2 TABLET PO ×3 (07:47→15:28)
--- NOTE | 2024-05-20 07:56 | PTCARENOTE ---
Addendum entered by Berry Baum RN 05/20/24 08:05:
seen pt at bedside, okay to give am meds to pt.Pt responding at this time.No new orders at this time.
Original Note:
Pt noted with mild twitching of arms,mouth and legs at 6.20 this morning. Pt responding to her name when called but unable to follow all commands,VSS, BSL checked. inbound call center representative neurologist was made aware of it Dr.Scatton Drummond & awaiting for further
orders, pt was seen back to her normal.
--- NOTE | 2024-05-20 09:26 | EEGC.RPT ---
Continuous EEG Report
Recording
Start Date of Data Reviewed: 05/19/24
Start Time of Data Reviewed: 07:00
End Date of Data Reviewed: 05/20/24
End Time of Data Reviewed: 07:00
Type of EEG: Continuous
Done with Video Recording: Yes
Study Sequence: Continuation of ongoing Study
Electrocardiogram: Unremarkable
Report
METHODS
A 21 channel digitized electroencephalogram was performed at [facility]. The 10/20 international system of electrode placement was used. In addition to EEG, the patient was monitored for EKG. The duration of the recording was 24 hours.
BACKGROUND
During the awake state, with the eyes closed, the background consisted of a normal amplitude, 9 Hertz posterior reactive rhythm that attenuated appropriately with eye opening. Beta activity was distributed diffusely with an anterior predominance.
There was a normal anterior-posterior voltage gradient. With eye opening the background activity changed to a low voltage mixture of alpha, beta, and occasional theta range frequencies. There were no significant asymmetries of background activity
noted.
CLINICAL EVENTS
None
INTERPRETATION AND CLINICAL CORRELATION
This EEG is abnormal due to the presence of rare independent right and left temporal sharp waves. No clear seizures were noted. This finding can be seen in epilepsy and reflects temporal lobe cortical irritability which can predispose to seizures.
[2024-05-20 09:43] LABS: Hemoglobin 9.9 g/dL (12.0-16.0); Mean Corpuscular Hgb 27.4 pg (27.0-31.0); Mean Corpuscular Volume 83.1 fL (81.0-99.0); Mean Platelet Volume 11.4 fL (7.4-10.4); Platelet Count 209 10^3/uL (130-400); Red Blood Cell Count 3.61 10^6/uL (4.20-5.40); Red Cell Dist. Width 15.5 % (11.5-14.5); White Blood Cell Count 5.4 10^3/uL (4.8-10.8)
[2024-05-20] MEDS: DESENEX/MITRAZOL/ZEASORB 1 APPLIC TOPICAL ×2 (09:57→20:00)
[2024-05-20] MEDS: ProAmatine 5 MG PO ×3 (09:57→17:40)
[2024-05-20] MEDS: BRIVIACT 50 MG PO ×2 (09:58→20:01)
[2024-05-20] MEDS: VIMPAT 100 MG PO ×2 (09:59→20:01)
[2024-05-20 10:20] LABS: Blood Urea Nitrogen 16 mg/dl (7-17); Calcium 8.7 mg/dl (8.4-10.2); Carbon Dioxide 32 mmol/L (22-30); Chloride 102 mmol/L (98-107); Estimated Creatinine Clearance 85 ml/min; Glucose 91 mg/dl (70-99); Magnesium 1.8 mg/dl (1.6-2.3); Potassium 3.6 mmol/L (3.5-5.1); Sodium 138 mmol/L (135-145); eGFR > 60.00
[2024-05-20] MEDS: VIMPAT PO (10:59)
--- NOTE | 2024-05-20 14:21 | W.PN.NEURO.1 ---
Today's Communication / Plan
-
-Small decrease in lacosamide to 100 mg BIDwith plans to eventually wean off this medication as an inpatient under EEG monitoring as she still has uncontrolled seizures despite maximum dose of this medication
-Continue brivaracetam 50 mg twice daily with plans to uptitrate to 100 mg twice daily this admission
-Continue continuous EEG monitoring
-No changes to her to room to contain her carbidopa levodopa
-Minimize sedating medications
-Remains on 2 mg 3 times daily Ativan
Neuro Assessment/Plan
Assessment
68 year old woman with history of Parkinson's disease, anxiety, previous seizures associated with benzodiazepine withdrawal, benzodiazepine dependence, orthostatic hypotension, insomnia presented to hospital with 2 events on same day seen by her
daughter concerning for potential seizures
Non epileptic likely psychogenic seizure seen the evening of 05/17
Patient had clear epileptic seizure seen at 430 AM on continuous EEG monitoring 05/19
Manifested with bilateral arm raising and clonic jerks and left arm raising
Patient seems to have both non-epileptic and epileptic seizures which occurs in a sizeable minority of patient's with epilepsy
Do not think she is in benzodiazepine withdrawal
Unlikely that a trazodone dose of 50 mg qhs is leading to seizures
MRI brain from 05/08 with and without contrast with no abnormalities seen
Patient not showing signs suggestive of an encephalitis with normal mental status between seizure events
Epilepsy appears to be idiopathic without structural lesion on brain MRI
Subjective/Objective
Subjective Data
Date of Service: May 20, 2024
No acute events, no epileptic seizures seen on EEG, patient this morning no significant complaints
Objective Data
Vital Signs
Temp Pulse Resp BP Pulse Ox
98 F 81 18 99/48 93
05/20/24 11:11 05/20/24 11:11 05/20/24 11:11 05/20/24 11:58 05/20/24 11:11
Lab Results
05/20/24 09:13
05/20/24 09:13
Sodium 138 mmol/L (135-145) 05/20/24 09:13
Potassium 3.6 mmol/L (3.5-5.1) 05/20/24 09:13
BUN 16 mg/dl (7-17) 05/20/24 09:13
Glucose 91 mg/dl (70-99) 05/20/24 09:13
Calcium 8.7 mg/dl (8.4-10.2) 05/20/24 09:13
Patient Allergies
No Known Allergies Allergy (Verified 04/27/24 08:48)
Review of Systems
-
History Source: Patient
All other systems: Reviewed and negative
Constitutional: No Symptoms
EENT: No Symptoms Reported
Respiratory: No Symptoms
Cardiac: No Symptoms
Abdomen/GI: No Symptoms
Genitourinary: No Symptoms
Musculoskeletal: No Symptoms
Skin: No Symptoms
Neuro: See existing Neuro Note
Endocrine: No Symptoms
Hematologic / Lymphatic: No Symptoms
Allergy / Immunology: No Symptoms
Physical Exam
-
General: Comfortable
Eyes: No Ptosis
HEENT: Normocephalic
Neck: No Bruits Bilaterally
Respiratory: Clear to Auscultation
Cardiac: Regular Rhythm
GI: Normal Bowel Sounds
Skin: Unremarkable
Extremities: No Clubbing
Psych: Other; Negative Depressed or Anxious
Extended Neurological Exam
Attention Span & Concentration: Other (Awake, drowsy, slow speech but responds and answers basic questions, mild moderate parkinsonism)
Memory: Reduced
Tremor: Hand Tremor Absent
Involuntary Movement: None
Speech: Other (Hypophonic); Negative Expressive Aphasia or Receptive Aphasia
Cranial Nerve II: Left Eye: Pupillary Reactivity Unremarkable and Pupillary Size Unremarkable
Cranial Nerve II: Right Eye: Pupillary Reactivity Unremarkable and Pupillary Size Unremarkable
Muscle Bulk & Tone: Other (Minimal rigidity, no tremors)
Data Reviewed
-
CT Head: Report Reviewed and Image Reviewed
MRI Head: Report Reviewed and Image Reviewed
EEG: Report Reviewed
--- NOTE | 2024-05-20 14:34 | W.PN.HOSP.TC ---
Today's Communication/Plan
-
Continuous EEG
Antiepileptics
Neuro recommendations
Assessment / Plan
Assessment / Plan
Physical Exam
General: Well Developed, Well Nourished and No Apparent Distress
HEENT: NormoCephalic, Moist mucous membranes and Atraumatic
Respiratory: Clear
Cardiac: S1/S2 and Regular Rhythm; No Murmur or Rub
GI: Soft, Non Tender, Non Distended and Normal Bowel Sounds; No Organomegaly
Rectal: Deferred by Provider
Musculoskeletal: No Clubbing, No Cyanosis and No Edema
Skin: No Rash
Neuro: AO x 3 and Nonfocal/grossly intact
Psych: Calm
Seizure activity
-continuous EEG to assess if all events are non-epileptic which yesterday appeared to be although appeared to be true epileptic discharges today
- Neuro spoke to [place] for possible transfer at request of family- no further interventions on their side
-Continue continuous EEG monitoring
-Neurologic checks and seizure precautions
-Keep Lacosamide 200 mg BID is max dosing
-Add Brivaracetam, give 100 mg IV loading dose, start 50 mg BID PO Brivaracetam this evening
-Maintain lorazepam at 2 mg TID
- No changes to home Midodrine, escitalopram, Trazodone.
- Maintain rotigotine/Neupro patch 8 mg q24hr as well as Carbidopa Levodopa 25/100 mg 2 tab TID
-Monitor closely for signs of seizure recurrence
-neuro following
#Parkinson's Disease with Autonomic Dysfunction
-Chronic, complicated by neurogenic orthostatic hypotension
-continue Sinemet and Neupro Patch, Midodrine
#Hypokalemia
-monitor and replete
#Anxiety/Depression
-Trazodone continued
-continue Lexapro
#Hyperlipidemia
-No known history of ASCVD
-continue Crestor
#Hyponatremia
-mild
-ctm
#hypokalemia
-replated with oral kcl
#anemia of chornic disease
-hgb stable
-ctm
#Hx Ovarian Cancer s/p AMALIA-BSO and Chemo
#DVT ppx: Lovenox
#CODE status
-full code
Anticipated Discharge: Within 24 hours
Subjective/Interval History
-
Date of Service: May 20, 2024
What appears to be nonepileptic seizure this morning
Objective Data
-
Labs:
Laboratory Results
05/20/24
09:13
WBC 5.4
Hgb 9.9 L
Hct 30.0 L
Plt Count 209
Sodium 138
Potassium 3.6
Chloride 102
Carbon Dioxide 32 H
BUN 16
Creatinine 0.5 L
Glucose 91
Calcium 8.7
Vital Signs:
Vital Signs
Temp Pulse Resp BP Pulse Ox
98 F 81 18 99/48 93
05/20/24 11:11 05/20/24 11:11 05/20/24 11:11 05/20/24 11:58 05/20/24 11:11
I&O
05/19/24 05/20/24 05/21/24
06:59 06:59 06:59
Intake Total 560 / 560 500 / 500
Balance 560 / 560 500 / 500
Review of Systems
-
History Source: Patient
All other systems: Not reviewed unless documented
Data Reviewed
-
Labs: Labs Reviewed by me
--- NOTE | 2024-05-20 15:59 | CM ---
CM met with Farhana and her daughter at bedside today. Farhana was sitting in bed, eating a hoagie that her daughter had brought for her which is a family favorite. Farhana was able to participate in our conversation. Daughter asked about additional
nursing services to help with care during the day. I offerred her a list of private pay services which she declined.
Plan: Discharge to home with continuation of VN services and family care.
PCP: Donavon Alvarez
Pharmacy: [facility]
[2024-05-20] MEDS: LOVENOX 40 MG SC (17:53)
--- NOTE | 2024-05-20 20:25 | W.PN.UPDATE ---
Update Note
Progress Note Update
Reviewed cEEG through 8:20pm; R temporal sharp waves seen at times. No seizures noted. Recording limited by muscle and movement artifact. Will c/t follow.
[2024-05-20] MEDS: LEXAPRO 10 MG PO (21:25)
[2024-05-20] MEDS: LEXAPRO 20 MG PO (21:25)
[2024-05-20] MEDS: CRESTOR 10 MG PO (21:25)
[2024-05-20] MEDS: DESYREL 50 MG PO (21:25)
[2024-05-21 03:24] VITALS: BP 108/52
[2024-05-21] MEDS: ATIVAN 2 MG PO ×3 (06:18→22:19)
[2024-05-21] MEDS: NEUPRO 8 MG TRANSDERM (06:19)
[2024-05-21] MEDS: SINEMET 25-100 2 TABLET PO ×3 (06:19→15:25)
--- NOTE | 2024-05-21 07:07 | W.PN.NEURO.1 ---
Today's Communication / Plan
-
-Stop Lacosamide as this had not controlled seizures
-Brivaracetam 50 mg BID
-Continue continuous EEG monitoring tentatively one further day with consideration for off tomorrow if no seizures
-Same doses of Sinemet and Rotigotine
Neuro Assessment/Plan
Assessment
68 year old woman with history of Parkinson's disease, anxiety, previous seizures associated with benzodiazepine withdrawal, benzodiazepine dependence, orthostatic hypotension, insomnia presented to hospital with 2 events on same day seen by her
daughter concerning for potential seizures
Non epileptic likely psychogenic seizure seen the evening of 05/17
Patient had clear epileptic seizure seen at 430 AM on continuous EEG monitoring 05/19
Manifested with bilateral arm raising and clonic jerks and left arm raising
Patient seems to have both non-epileptic and epileptic seizures which occurs in a sizeable minority of patient's with epilepsy
Do not think she is in benzodiazepine withdrawal
Unlikely that a trazodone dose of 50 mg qhs is leading to seizures
MRI brain from 05/08 with and without contrast with no abnormalities seen
Patient not showing signs suggestive of an encephalitis
Epilepsy appears to be idiopathic without structural lesion on brain MRI
Subjective/Objective
Subjective Data
Date of Service: May 21, 2024
No seizures on cEEG, patient is awake, no complaints at this time
Objective Data
Vital Signs
Temp Pulse Resp BP Pulse Ox
98.6 F 67 16 108/52 92
05/21/24 03:24 05/21/24 03:24 05/21/24 03:24 05/21/24 03:24 05/21/24 03:24
Sodium 138 mmol/L (135-145) 05/20/24 09:13
Potassium 3.6 mmol/L (3.5-5.1) 05/20/24 09:13
BUN 16 mg/dl (7-17) 05/20/24 09:13
Glucose 91 mg/dl (70-99) 08/01/24 09:13
Calcium 8.7 mg/dl (8.4-10.2) 05/20/24 09:13
Patient Allergies
No Known Allergies Allergy (Verified 04/27/24 08:48)
Review of Systems
-
History Source: Patient
All other systems: Reviewed and negative
Constitutional: No Symptoms
EENT: No Symptoms Reported
Respiratory: No Symptoms
Cardiac: No Symptoms
Abdomen/GI: No Symptoms
Genitourinary: No Symptoms
Musculoskeletal: No Symptoms
Skin: No Symptoms
Neuro: See existing Neuro Note
Endocrine: No Symptoms
Hematologic / Lymphatic: No Symptoms
Allergy / Immunology: No Symptoms
Physical Exam
-
General: Comfortable and Appears Chronically Ill
Eyes: No Ptosis
HEENT: Normocephalic
Neck: Full Range of Motion
Respiratory: No Dyspnea; Negative Wheezes
Cardiac: No Murmur
GI: Soft and Non-tender
Skin: Warm and Dry; Negative Rash
Psych: Negative Agitated
Extended Neurological Exam
Attention Span & Concentration: Awake, Alert, Interactive and Other (Psychomotor slowing, Parkinsonism, answers questions appropriately, obeys commands)
Memory: Able to Recall
Tremor: Hand Tremor Absent
Involuntary Movement: None
Speech: Negative Expressive Aphasia or Receptive Aphasia
Cranial Nerve II: Left Eye: Pupillary Reactivity Unremarkable and Pupillary Size Unremarkable
Cranial Nerve II: Right Eye: Pupillary Reactivity Unremarkable and Pupillary Size Unremarkable
Cranial Nerves III, IV, : Extraocular Movement: Extraocular Movement Full in all Directions
Muscle Strength, Overall: Full Throughout
Data Reviewed
-
MRI Head: Image Reviewed
EEG: Report Reviewed
--- NOTE | 2024-05-21 07:24 | EEGC.RPT ---
Continuous EEG Report
Recording
Start Date of Data Reviewed: 05/20/24
Start Time of Data Reviewed: 07:00
End Date of Data Reviewed: 05/21/24
End Time of Data Reviewed: 07:00
Type of EEG: Continuous
Done with Video Recording: Yes
Study Sequence: Continuation of ongoing Study
Report
METHODS
A 21 channel digitized electroencephalogram was performed at [facility]. The 10/20 international system of electrode placement was used. In addition to EEG, the patient was monitored for EKG. The duration of the recording was 24 hours.
BACKGROUND
During the awake state, with the eyes closed, the background consisted of a normal amplitude, 9 Hertz posterior reactive rhythm that attenuated appropriately with eye opening. Beta activity was distributed diffusely with an anterior predominance.
There was a normal anterior-posterior voltage gradient. With eye opening the background activity changed to a low voltage mixture of alpha, beta, and occasional theta range frequencies. There were no significant asymmetries of background activity
noted.
CLINICAL EVENTS
None
INTERPRETATION AND CLINICAL CORRELATION
This EEG is abnormal due to the presence of rare right temporal sharp waves. No clear seizures were noted. This finding can be seen in epilepsy and reflects temporal lobe cortical irritability which can predispose to seizures.
[2024-05-21 07:30] VITALS: BP 101/55
[2024-05-21 08:42] LABS: Hematocrit 30.2 % (37.0-47.0); Hemoglobin 9.8 g/dL (12.0-16.0); Mean Corp Hgb Conc. 32.5 g/dL (33.0-37.0); Mean Corpuscular Hgb 26.7 pg (27.0-31.0); Mean Corpuscular Volume 82.3 fL (81.0-99.0); Mean Platelet Volume 11.1 fL (7.4-10.4); Platelet Count 240 10^3/uL (130-400); Red Blood Cell Count 3.67 10^6/uL (4.20-5.40); Red Cell Dist. Width 15.9 % (11.5-14.5); White Blood Cell Count 5.3 10^3/uL (4.8-10.8)
[2024-05-21] MEDS: DESENEX/MITRAZOL/ZEASORB 1 APPLIC TOPICAL ×2 (08:42→22:19)
[2024-05-21] MEDS: BRIVIACT 50 MG PO ×2 (08:42→22:19)
[2024-05-21] MEDS: ProAmatine 5 MG PO ×3 (08:42→17:39)
[2024-05-21 08:52] LABS: Blood Urea Nitrogen 17 mg/dl (7-17); Calcium 8.7 mg/dl (8.4-10.2); Carbon Dioxide 33 mmol/L (22-30); Chloride 101 mmol/L (98-107); Estimated Creatinine Clearance 85 ml/min; Glucose 97 mg/dl (70-99); Potassium 3.4 mmol/L (3.5-5.1); Sodium 138 mmol/L (135-145); eGFR > 60.00
[2024-05-21] MEDS: KCL ELIXIR 40 MEQ PO (10:26)
[2024-05-21 11:22] VITALS: BP 105/48
--- NOTE | 2024-05-21 14:19 | W.PN.HOSP.TC ---
Today's Communication/Plan
-
-Stop Lacosamide as this had not controlled seizures
-Brivaracetam 50 mg BID
-Cont EEG additional day
Assessment / Plan
Assessment / Plan
Physical Exam
General: Well Developed, Well Nourished and No Apparent Distress
HEENT: NormoCephalic, Moist mucous membranes and Atraumatic
Respiratory: Clear
Cardiac: S1/S2 and Regular Rhythm; No Murmur or Rub
GI: Soft, Non Tender, Non Distended and Normal Bowel Sounds; No Organomegaly
Rectal: Deferred by Provider
Musculoskeletal: No Clubbing, No Cyanosis and No Edema
Skin: No Rash
Neuro: AO x 3 and Nonfocal/grossly intact
Psych: Calm
Seizure activity
-continuous EEG to assess if all events are non-epileptic which yesterday appeared to be although appeared to be true epileptic discharges today
- Neuro spoke to [place] for possible transfer at request of family- no further interventions on their side
-Continue continuous EEG monitoring
-Neurologic checks and seizure precautions
-Stop Lacosamide as this had not controlled seizures
-Brivaracetam 50 mg BID
-Maintain lorazepam at 2 mg TID
- No changes to home Midodrine, escitalopram, Trazodone.
- Maintain rotigotine/Neupro patch 8 mg q24hr as well as Carbidopa Levodopa 25/100 mg 2 tab TID
-Monitor closely for signs of seizure recurrence
-neuro following
#Parkinson's Disease with Autonomic Dysfunction
-Chronic, complicated by neurogenic orthostatic hypotension
-continue Sinemet and Neupro Patch, Midodrine
#Hypokalemia
-monitor and replete
#Anxiety/Depression
-Trazodone continued
-continue Lexapro
#Hyperlipidemia
-No known history of ASCVD
-continue Crestor
#Hyponatremia
-mild
-ctm
#hypokalemia
-replated with oral kcl
#anemia of chornic disease
-hgb stable
-ctm
#Hx Ovarian Cancer s/p AMALIA-BSO and Chemo
#DVT ppx: Lovenox
#CODE status
-full code
Anticipated Discharge: Within 24 hours
Subjective/Interval History
-
Date of Service: May 21, 2024
no seizures
Objective Data
-
Labs:
Laboratory Results
05/21/24
08:11
WBC 5.3
Hgb 9.8 L
Hct 30.2 L
Plt Count 240
Sodium 138
Potassium 3.4 L
Chloride 101
Carbon Dioxide 33 H
BUN 17
Creatinine 0.5 L
Glucose 97
Calcium 8.7
Vital Signs:
Vital Signs
Temp Pulse Resp BP Pulse Ox
97.7 F 85 18 105/48 96
05/21/24 11:22 05/21/24 12:54 05/21/24 11:22 05/21/24 12:54 05/21/24 11:22
I&O
05/20/24 05/21/24 05/22/24
06:59 06:59 06:59
Intake Total 500 / 500 720 / 720
Balance 500 / 500 720 / 720
Review of Systems
-
History Source: Patient
All other systems: Not reviewed unless documented
Data Reviewed
-
Labs: Labs Reviewed by me
[2024-05-21 15:34] VITALS: BP 97/54
[2024-05-21] MEDS: LOVENOX 40 MG SC (17:40)
[2024-05-21 19:53] VITALS: BP 100/49
--- NOTE | 2024-05-21 21:29 | W.PN.UPDATE ---
Update Note
Progress Note Update
Continuous EEG update note:
Worsening of EEG with return of generalizing epileptiform discharges since ~ 20:50.
Will restart Lacosamide 100 mg now, return to 100 mg BID. Patient may need additional dosing and third agent depending on changes by cEEG.
Will follow and formal cEEG report to follow.
[2024-05-21] MEDS: VIMPAT 100 MG PO (22:19)
[2024-05-21] MEDS: CRESTOR 10 MG PO (22:20)
[2024-05-21] MEDS: LEXAPRO 10 MG PO (22:20)
[2024-05-21] MEDS: LEXAPRO 20 MG PO (22:20)
[2024-05-21] MEDS: DESYREL 50 MG PO (22:20)
[2024-05-21 23:50] VITALS: BP 103/51
[2024-05-22] VITALS (7 sets, daily range): BP systolic 94–111; BP diastolic 48–59
[2024-05-22] MEDS: ATIVAN 2 MG PO ×3 (06:09→21:18)
[2024-05-22] MEDS: SINEMET 25-100 2 TABLET PO ×3 (06:09→16:28)
[2024-05-22] MEDS: NEUPRO 8 MG TRANSDERM (06:09)
[2024-05-22 07:36] LABS: Blood Urea Nitrogen 15 mg/dl (7-17); Carbon Dioxide 29 mmol/L (22-30); Chloride 105 mmol/L (98-107); Estimated Creatinine Clearance 85 ml/min; Glucose 90 mg/dl (70-99); Potassium 4.1 mmol/L (3.5-5.1); Sodium 138 mmol/L (135-145); eGFR > 60.00
[2024-05-22] MEDS: BRIVIACT 50 MG PO ×2 (08:14→21:16)
[2024-05-22] MEDS: ProAmatine 5 MG PO ×3 (08:14→16:28)
[2024-05-22] MEDS: VIMPAT 100 MG PO ×2 (08:14→21:16)
[2024-05-22] MEDS: DESENEX/MITRAZOL/ZEASORB 1 APPLIC TOPICAL ×2 (08:15→21:16)
--- NOTE | 2024-05-22 08:23 | EEGC.RPT ---
Continuous EEG Report
Recording
Start Date of Data Reviewed: 05/21/24
Start Time of Data Reviewed: :00
End Date of Data Reviewed: 05/22/24
End Time of Data Reviewed: 07:00
Type of EEG: Continuous
Done with Video Recording: Yes
Study Sequence: Continuation of ongoing Study
Report
CONTINUOUS EEG MONITORING INTERPRETATION:
Severely abnormal EEG for age due to:
Bihemispheric cortical dysfunction and generalized periodic epileptiform activity which became recurrent after 20:30 hours.
CLINICAL CORRELATION:
This study was suggestive of status epilepticus, worsened from the prior day based on that study demonstrating 'the presence of rare right temporal sharp waves. No clear seizures were noted. This finding can be seen in epilepsy and reflects
temporal lobe cortical irritability which can predispose to seizures.'
Immediate clinical correlation is advised.
METHODS:
A 21 channel digitized electroencephalogram (EEG) was performed at the bedside in the intensive care unit. The 10/20 international system of electrode placement was used. ECG was monitored. Video was recorded. The [employer] quantitive system was
utilized.
ELECTROENCEPHALOGRAPHER IMPRESSION(S):
Quality
Good
Background
Maximum: Alpha
Amplitude: Medium
Anterior-posterior gradient: Intact when seen
Sleep
Drowsiness was coming by attenuation of the background rhythm
Stage II sleep was characterized by sleep spindles
Abnormal EEG activity
Development of medium to high-amplitude Generalizing Periodic Epileptiform Discharges (GPEDs) starting at 2030 hrs, stopping at 2220 hours. There were no clinical signs associated
ECG
Unremarkable
--- NOTE | 2024-05-22 08:39 | W.PN.NEURO.1 ---
Today's Communication / Plan
-
Discontinue continuous EEG monitoring
Restarted lacosamide 100 mg BID due to nonconvulsive seizure recorded by continuous EEG monitoring last evening
Continue newly initiated brivaracetam 50 mg twice daily, may reconsider at 3 months
Nayzilam (Midazolam) nasal spray PRN seizure
Neuro Assessment/Plan
Assessment
68 year old woman with history of Parkinson's disease, anxiety, previous seizures associated with benzodiazepine withdrawal, benzodiazepine dependence, orthostatic hypotension, insomnia presented to hospital with 2 events on same day seen by her
daughter concerning for potential seizures
Non epileptic likely psychogenic seizure seen the evening of 05/17
Patient had clear epileptic seizure seen at 430 AM on continuous EEG monitoring 05/19
Manifested with bilateral arm raising and clonic jerks and left arm raising
Patient seems to have both non-epileptic and epileptic seizures which occurs in a sizeable minority of patient's with epilepsy
Do not think she is in benzodiazepine withdrawal
Unlikely that a trazodone dose of 50 mg qhs is leading to seizures
MRI brain from 05/08 with and without contrast with no abnormalities seen
Patient not showing signs suggestive of an encephalitis
Epilepsy appears to be idiopathic without structural lesion on brain MRI
Plan
Recommendations:
Discontinue continuous EEG monitoring
Restarted lacosamide 100 mg BID due to nonconvulsive seizure recorded by continuous EEG monitoring last evening
Continue newly initiated brivaracetam 50 mg twice daily, may reconsider at 3 months
Nayzilam (Midazolam) nasal spray PRN seizure
Maintain lorazepam at 2 mg TID
No changes to home Midodrine, escitalopram, Trazodone.
Maintain rotigotine/Neupro patch 8 mg q24hr as well as Carbidopa Levodopa 25/100 mg 2 tab TID
Will follow as outpatient
Subjective/Objective
Subjective Data
Date of Service: May 22, 2024
No issues
Objective Data
Vital Signs
Temp Pulse Resp BP Pulse Ox
36.7 C 78 20 105/53 91
05/22/24 03:45 05/22/24 08:14 05/22/24 03:45 05/22/24 08:14 05/22/24 03:45
Lab Results
05/22/24 07:00
Sodium 138 mmol/L (135-145) 05/22/24 07:00
Potassium 4.1 mmol/L (3.5-5.1) 05/22/24 07:00
BUN 15 mg/dl (7-17) 05/22/24 07:00
Glucose 90 mg/dl (70-99) 05/22/24 07:00
Calcium 9.0 mg/dl (8.4-10.2) 05/22/24 07:00
Patient Allergies
No Known Allergies Allergy (Verified 04/27/24 08:48)
Review of Systems
-
History Source: Patient
All other systems: Reviewed and negative
EENT: Negative Blurry Vision or Swallowing Difficulty
Respiratory: Negative Trouble Breathing
Cardiac: Negative Chest Pain
Abdomen/GI: Negative Incontinence of Stool
Genitourinary: Negative Incontinence
Musculoskeletal: Negative Back Pain or Neck Pain
Neuro: Negative Dizzy or Headache
Physical Exam
-
General: No Apparent Distress and Appears Stated Age
Eyes: Round OU, [place] Conjunctivae and No Ptosis
HEENT: Anicteric and Moist Mucous Membranes
Neck: Full Range of Motion
Respiratory: No Dyspnea
Cardiac: No JVD
GI: Non-distended
Skin: Unremarkable
Extremities: No Clubbing, No Cyanosis and No Edema
Psych: Intact Judgement/Insight
Extended Neurological Exam
Mood & Affect: Mood Unremarkable and Affect Unremarkable
Attention Span & Concentration: Awake, Alert, Interactive and No Difficulty with 2 Step Request
Memory: Reduced (for immediate information)
Tremor: Hand Tremor Absent and Head Tremor Absent
Involuntary Movement: None
Speech: Quality Unremarkable and Hoarse (Mildly)
Cranial Nerve II: Left Eye: Pupillary Size Unremarkable and Visual Arita Grossly Intact
Cranial Nerve II: Right Eye: Pupillary Size Unremarkable and Visual Arita Grossly Intact
Cranial Nerves III, IV, : Extraocular Movement: Grossly Intact
Cranial Nerve VII: Facial Symmetry: Normal Facial Symmetry
Cranial Nerve VIII: Hearing: Unremarkable Hearing to Normal Conversational Volume
Cranial Nerve XI: Shoulder Shrug: Unremarkable
Muscle Strength, Overall: Full in Upper Extremities
Muscle Bulk & Tone: Bulk Unremarkable and Tone Unremarkable
Pronator Drift: No Drift in Upper Extremities
Touch Sensation: Unremarkable
Coordination: [id number] Testing Unremarkable
[2024-05-22 09:34] LABS: Hematocrit 30.2 % (37.0-47.0); Hemoglobin 10.1 g/dL (12.0-16.0); Mean Corp Hgb Conc. 33.4 g/dL (33.0-37.0); Mean Corpuscular Hgb 27.4 pg (27.0-31.0); Mean Corpuscular Volume 81.8 fL (81.0-99.0); Mean Platelet Volume 11.4 fL (7.4-10.4); Platelet Count 207 10^3/uL (130-400); Red Blood Cell Count 3.69 10^6/uL (4.20-5.40); Red Cell Dist. Width 15.9 % (11.5-14.5); White Blood Cell Count 4.5 10^3/uL (4.8-10.8)
--- NOTE | 2024-05-22 13:27 | W.PN.HOSP.TC ---
Today's Communication/Plan
-
Stop EEG
Restarted lacosamide 100 mg BID
Continue brivaracetam 50 mg twice daily, may reconsider at 3 months
Nayzilam (Midazolam) nasal spray PRN seizure
DC ready, CM aware
Assessment / Plan
Assessment / Plan
Physical Exam
General: Well Developed, Well Nourished and No Apparent Distress
HEENT: NormoCephalic, Moist mucous membranes and Atraumatic
Respiratory: Clear
Cardiac: S1/S2 and Regular Rhythm; No Murmur or Rub
GI: Soft, Non Tender, Non Distended and Normal Bowel Sounds; No Organomegaly
Rectal: Deferred by Provider
Musculoskeletal: No Clubbing, No Cyanosis and No Edema
Skin: No Rash
Neuro: AO x 3 and Nonfocal/grossly intact
Psych: Calm
Seizure activity
-Can DC continuous EEG to assess if all events are non-epileptic which yesterday appeared to be although appeared to be true epileptic discharges today
- Neuro spoke to [place] for possible transfer at request of family- no further interventions on their side
-Continue continuous EEG monitoring
-Neurologic checks and seizure precautions
-Restarted lacosamide 100 mg BID due to nonconvulsive seizure recorded by continuous EEG monitoring last evening
-Continue newly initiated brivaracetam 50 mg twice daily, may reconsider at 3 months
-Nayzilam (Midazolam) nasal spray PRN seizure
-Maintain lorazepam at 2 mg TID
- No changes to home Midodrine, escitalopram, Trazodone.
- Maintain rotigotine/Neupro patch 8 mg q24hr as well as Carbidopa Levodopa 25/100 mg 2 tab TID
-Monitor closely for signs of seizure recurrence
-neuro following
#Parkinson's Disease with Autonomic Dysfunction
-Chronic, complicated by neurogenic orthostatic hypotension
-continue Sinemet and Neupro Patch, Midodrine
#Hypokalemia
-monitor and replete
#Anxiety/Depression
-Trazodone continued
-continue Lexapro
#Hyperlipidemia
-No known history of ASCVD
-continue Crestor
#Hyponatremia
-mild
-ctm
#hypokalemia
-replated with oral kcl
#anemia of chornic disease
-hgb stable
-ctm
#Hx Ovarian Cancer s/p AMALIA-BSO and Chemo
#DVT ppx: Lovenox
#CODE status
-full code
More than 30 minutes spent in discharge including
Final examination of the patient
Summarizing hospital stay
Instructions for continuing care to all relevant caregivers
Preparation of discharge records, prescriptions, and referral forms
Total time spent (35 in minutes):
Anticipated Discharge: Within 24 hours
Subjective/Interval History
-
Date of Service: May 22, 2024
Worsening of EEG with return of generalizing epileptiform discharges since ~ 20:50.
Objective Data
-
Labs:
Laboratory Results
05/22/24 05/22/24
07:00 08:21
WBC 4.5 L
Hgb 10.1 L
Hct 30.2 L
Plt Count 207
Sodium 138
Potassium 4.1
Chloride 105
Carbon Dioxide 29
BUN 15
Creatinine 0.4 L
Glucose 90
Calcium 9.0
Vital Signs:
Vital Signs
Temp Pulse Resp BP Pulse Ox
97.9 F 83 16 111/59 92
05/22/24 11:00 05/22/24 12:10 05/22/24 11:00 05/22/24 12:10 05/22/24 11:00
I&O
05/21/24 05/22/24 05/23/24
06:59 06:59 06:59
Intake Total 720 / 720 960 / 1440 480 / 480
Balance 720 / 720 960 / 1440 480 / 480
Review of Systems
-
History Source: Patient
All other systems: Not reviewed unless documented
Data Reviewed
-
Labs: Labs Reviewed by me
[2024-05-22] MEDS: LOVENOX 40 MG SC (16:28)
--- NOTE | 2024-05-22 16:44 | CM ---
NAVIN met with Farhana and her at bedside to discuss d/c to home which is what Farhana would like. Per , family members are ill, he is unable to provide care for Farhana due to lack of strength. SNF discussed as an option, however Farhana would
not agree to same.
Daughter Meche has been a caregiver in the home, and per Farhana she has a friend, Donavon, who will be able to help with her care needs.
Plan: Follow up with Meche in am, as I was unable to reach her this afternoon. Anticipate discharge to home with home care services to resume.
[2024-05-22] MEDS: CRESTOR 10 MG PO (21:18)
[2024-05-22] MEDS: LEXAPRO 20 MG PO (21:18)
[2024-05-22] MEDS: DESYREL 50 MG PO (21:18)
[2024-05-22] MEDS: LEXAPRO 10 MG PO (21:18)
[2024-05-23 03:55] VITALS: BP 116/70
[2024-05-23] MEDS: ATIVAN 2 MG PO ×2 (05:30→13:58)
[2024-05-23] MEDS: SINEMET 25-100 2 TABLET PO ×3 (05:30→16:17)
[2024-05-23] MEDS: NEUPRO 8 MG TRANSDERM (05:30)
--- NOTE | 2024-05-23 05:50 | PTCARENOTE ---
Pt noted with mild twitching of arms,mouth and legs at 0520 this morning. Pt responding to name but unable to communicate.Contacted [facility]- Morning Meds given. Pt now relaxed and able to respond (slowly)
[2024-05-23 07:55] VITALS: BP 97/50
[2024-05-23] MEDS: VIMPAT 100 MG PO ×2 (08:01→09:21)
[2024-05-23] MEDS: ProAmatine 5 MG PO ×3 (08:01→16:17)
[2024-05-23] MEDS: BRIVIACT 50 MG PO ×2 (08:02→10:23)
[2024-05-23] MEDS: DESENEX/MITRAZOL/ZEASORB 1 APPLIC TOPICAL (08:02)
--- NOTE | 2024-05-23 08:55 | W.PN.UPDATE ---
Update Note
Progress Note Update
Reviewed patient's circumstance with patient's daughter last evening.
Will increase dosing of lacosamide from 100 mg twice a day to dosing of 150 mg twice a day to ensure adequate protection against seizures.
We will follow as needed.
--- NOTE | 2024-05-23 09:05 | PTCARENOTE ---
At 0843 pt. with mild twitching of arms, head down not responding to verbal stimuli. Pt. response to tactile stimuli, lasting [address] De Luna and Dr. Walker made aware. Orders to follow. Pt. now relaxed and able to respond verbally slowly.
at bedside and updated.
--- NOTE | 2024-05-23 09:15 | W.PN.NEURO.1 ---
Today's Communication / Plan
-
Contact [facility] to determine if transfer due to intractable epilepsy is possible. Attempts to transfer to [facility] were not successful previously
Restart continuous EEG monitoring if patient is not able to be transferred to academic facility for consideration for responsive neurostimulation or other surgical interventions for intractable seizures
Continue newly initiated brivaracetam with advance dosing from 50 mg twice daily to dosing of 100 mg twice a day
Increase carbidopa Levodopa 25/100 mg 2 tab from 3 times a day to dosing of 4 times a day to ensure off periods are not mimicking some events
Neuro Assessment/Plan
Assessment
68 year old woman with history of Parkinson's disease, anxiety, previous seizures associated with benzodiazepine withdrawal, benzodiazepine dependence, orthostatic hypotension, insomnia presented to hospital with 2 events on same day seen by her
daughter concerning for potential seizures
Non epileptic likely psychogenic seizure seen the evening of 05/17, recurrent seizure activity by EEG and 2 episodes on 05/23/2024
Patient had clear epileptic seizure seen at 430 AM on continuous EEG monitoring 05/19
Manifested with bilateral arm raising and clonic jerks and left arm raising
Patient seems to have both non-epileptic and epileptic seizures which occurs in a sizeable minority of patients with epilepsy
Epilepsy appears to be idiopathic without structural lesion on brain MRI
MRI brain from 05/08 with and without contrast with no abnormalities seen
Patient not showing signs suggestive of an encephalitis
Restarted lacosamide 100 mg BID due to nonconvulsive seizure recorded by continuous EEG monitoring then increased on 05/23/2024 dosing of 200 mg twice a day
Plan
Recommendations:
Contact [facility] to determine if transfer due to intractable epilepsy is possible. Attempts to transfer to [facility] were not successful previously
Restart continuous EEG monitoring if patient is not able to be transferred to academic facility for consideration for responsive neurostimulation or other surgical interventions for intractable seizures
Continue newly initiated brivaracetam with advance dosing from 50 mg twice daily to dosing of 100 mg twice a day
Increase carbidopa Levodopa 25/100 mg 2 tab from 3 times a day to dosing of 4 times a day to ensure off periods are not mimicking some events
Nayzilam (Midazolam) nasal spray PRN seizure
Maintain lorazepam at 2 mg TID
No changes to home Midodrine, escitalopram, Trazodone.
Maintain rotigotine/Neupro patch 8 mg q24hr
Will follow
Subjective/Objective
Subjective Data
Date of Service: May 23, 2024
Patient unable to provide her own medical history.
Objective Data
Vital Signs
Temp Pulse Resp BP Pulse Ox
36.7 C 80 20 97/50 91
05/23/24 07:55 05/23/24 08:01 05/23/24 07:55 05/23/24 08:01 05/23/24 07:55
Lab Results
05/22/24 08:21
05/22/24 07:00
Sodium 138 mmol/L (135-145) 05/22/24 07:00
Potassium 4.1 mmol/L (3.5-5.1) 05/22/24 07:00
BUN 15 mg/dl (7-17) 05/22/24 07:00
Glucose 90 mg/dl (70-99) 05/22/24 07:00
Calcium 9.0 mg/dl (8.4-10.2) 05/22/24 07:00
Patient Allergies
No Known Allergies Allergy (Verified 04/27/24 08:48)
Review of Systems
-
Unable to obtain full review of systems at this time due to: Other (Confused)
History Source: Patient
All other systems: Reviewed and negative
Neuro: Dizzy and Headache
Physical Exam
-
General: No Apparent Distress and Appears Stated Age
Eyes: Round OU, [place] Conjunctivae and No Ptosis
HEENT: Anicteric and Moist Mucous Membranes
Neck: Full Range of Motion
Respiratory: No Dyspnea
Cardiac: No JVD
GI: Non-distended
Skin: Unremarkable
Extremities: No Clubbing, No Cyanosis and No Edema
Psych: Negative Intact Judgement/Insight
Extended Neurological Exam
Mood & Affect: Mood Unremarkable and Affect Unremarkable
Attention Span & Concentration: Awake, Alert, Interactive and Moderate Difficulty with 2 Step Request
Memory: Reduced (for immediate information)
Tremor: Hand Tremor Absent and Head Tremor Absent
Involuntary Movement: None
Speech: Quality Unremarkable and Hoarse (Mildly)
Cranial Nerve II: Left Eye: Pupillary Size Unremarkable and Visual Arita Grossly Intact
Cranial Nerve II: Right Eye: Pupillary Size Unremarkable and Visual Arita Grossly Intact
Cranial Nerves III, IV, : Extraocular Movement: Grossly Intact
Cranial Nerve VII: Facial Symmetry: Normal Facial Symmetry
Cranial Nerve VIII: Hearing: Unremarkable Hearing to Normal Conversational Volume
Cranial Nerve XI: Shoulder Shrug: Unremarkable
Muscle Bulk & Tone: Bulk Unremarkable and Tone Unremarkable
Pronator Drift: No Drift in Upper Extremities
Touch Sensation: Unremarkable
Coordination: [id number] Testing Unremarkable
Data Reviewed
-
Labs: Report Reviewed
Reviewed with: Physician, Nurse, Patient and Family
Old Records: Summarized
Past History
Past History
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
ED Past Surgical History: Appendectomy, Gynecological (AMALIA/BSO 2012), Orthopedic (Bilateral knee replacements, right hip replacement) and Other (Herniorrhaphy)
Social History
Tobacco: Non-smoker
Alcohol: None
Drug: None
Personal:
Living: with family
Employment: Retired
Family History
Family History: Other (Reviewed and noncontributory )
Medications
-
Medications:
Generic Name Dose Route Start Last Admin
Trade Name Freq PRN Reason Stop Dose Admin
Acetaminophen 1,000 mg 05/17/24 16:54
Acetaminophen 500 Mg Tablet PO 06/14/24 16:53
DAILYPRN PRN
mild pain
Bisacodyl 10 mg 05/17/24 16:54
Bisacodyl 10 Mg Rectal Suppository RECTAL 06/14/24 16:53
[id number] PRN
constipation
Brivaracetam 50 mg 05/21/24 08:00 05/23/24 08:02
Brivaracetam 50 Mg Tablet PO 06/18/24 07:59 50 mg
BID LISSA Administration
Calcium Carbonate 1 tablet 05/17/24 16:54
Calcium Carbonate 500 Mg (Regular-Strength) Chew Tablet PO 06/14/24 16:53
DAILYPRN PRN
gerd
Carbidopa/Levodopa 2 tablet 05/17/24 15:30 05/23/24 05:30
Carbidopa (25 Mg)/Levodopa (100 Mg) Regular Release Tablet PO 06/14/24 15:29 2 tablet
TID@0630,1030,1530 LISSA Administration
Enoxaparin Sodium 40 mg 05/17/24 18:00 05/22/24 16:28
Enoxaparin Sodium 40 Mg/0.4 Ml Syringe SC 06/14/24 17:59 40 mg
QPM LISSA Administration
Escitalopram Oxalate 20 mg 05/17/24 22:00 05/22/24 21:18
Escitalopram 20 Mg Tablet PO 06/14/24 21:59 20 mg
HS LISSA Administration
Escitalopram Oxalate 10 mg 05/17/24 22:00 05/22/24 21:18
Escitalopram 10 Mg Tablet PO 06/14/24 21:59 10 mg
HS LISSA Administration
Lacosamide 150 mg 05/23/24 20:00
Lacosamide (Vimpat) 100 Mg Tablet PO 06/19/24 19:59
BID LISSA
Lacosamide 100 mg 05/23/24 08:59
Lacosamide (10 Mg/Ml) 200 Mg/20 Ml Vial IV 05/23/24 09:00
NOW STA
Lorazepam 2 mg 05/17/24 21:30 05/23/24 05:30
Lorazepam 1 Mg Tablet PO 06/14/24 21:29 2 mg
TID@0630,1430,2130 LISSA Administration
Miconazole Nitrate 0 applic 05/17/24 23:00 05/23/24 08:02
Miconazole Powder Bottle TOPICAL 06/14/24 22:59 1 applic
BID LISSA Administration
Midodrine 5 mg 05/17/24 19:30 05/23/24 08:01
Midodrine 5 Mg Tablet PO 06/14/24 19:29 5 mg
TID @ 0800,1200,1700 LISSA Administration
Ondansetron HCl 4 mg 05/17/24 16:54 05/17/24 20:37
Ondansetron 4 Mg/2 Ml Vial IV 06/14/24 16:53 4 mg
Q6HPRN PRN Administration
nausea and vomiting
Polyethylene Glycol 17 grams 05/17/24 16:54
Polyethylene Glycol Powder 17 Grams Packet PO 06/14/24 16:53
DAILYPRN PRN
constipation
Rosuvastatin Calcium 10 mg 05/17/24 22:00 05/22/24 21:18
Rosuvastatin (Crestor) 10 Mg Tablet PO 06/14/24 21:59 10 mg
HS LISSA Administration
Rotigotine 8 mg 05/18/24 06:30 05/23/24 05:30
Rotigotine (Neupro) 4 Mg Patch TRANSDERM 06/15/24 06:29 8 mg
DAILY@0630 LISSA Administration
Senna/Docusate Sodium 1 tablet 05/17/24 16:54
Docusate W/Senna (Courtney-Colace) Tablet PO 06/14/24 16:53
BIDPRN PRN
constipation
Sodium Chloride 0 flush 05/21/24 22:00
Sodium Chloride 0.9% (Flush) Syringe IV 06/18/24 21:59
PER PROTOCOL LISSA
Trazodone HCl 50 mg 05/17/24 22:00 05/22/24 21:18
Trazodone 50 Mg Tablet PO 06/14/24 21:59 50 mg
HS LISSA Administration
--- NOTE | 2024-05-23 10:20 | CM ---
Addendum entered by Manuela Trejo 05/23/24 16:31:
Ambulance transport request and [facility] completed pending transfer to [facility].
Original Note:
CM met with Farhana and her this morning at bedside. advised that transfer to [facility] is being pursued. Support provided.
Transfer plan to [place] confirmed with JEN Degroot; Dr. De Luna coordinating transfer due to 2 additional seizures this AM.
CM will follow to facilitate transfer to [facility] if/when bed available.
[2024-05-23 11:00] VITALS: BP 91/54
--- NOTE | 2024-05-23 13:18 | W.PN.HOSP.TC ---
Addendum entered and electronically signed by Davis Walker MD 05/23/24 14:19:
Increase carbidopa Levodopa 25/100 mg 2 tab from 3 times a day to dosing of 4 times a day to ensure off periods are not mimicking some events
[id number]
Original Note:
Today's Communication/Plan
-
Restarted lacosamide 150 mg BID due to nonconvulsive seizure recorded by continuous EEG monitoring last evening
-Continue newly initiated brivaracetam but increase to 100mg twice daily, may reconsider at 3 months
- Increase carbidopa Levodopa 25/100 mg 2 tab from 3 times a day to dosing of 4 times a day to ensure off periods are not mimicking some events
-Transfer to [facility]
Assessment / Plan
Assessment / Plan
Physical Exam
General: Well Developed, Well Nourished and No Apparent Distress
HEENT: NormoCephalic, Moist mucous membranes and Atraumatic
Respiratory: Clear
Cardiac: S1/S2 and Regular Rhythm; No Murmur or Rub
GI: Soft, Non Tender, Non Distended and Normal Bowel Sounds; No Organomegaly
Rectal: Deferred by Provider
Musculoskeletal: No Clubbing, No Cyanosis and No Edema
Skin: No Rash
Neuro: AO x 3 and Nonfocal/grossly intact
Psych: Calm
Seizure activity
-continuous EEG DCed yesterday to assess if all events are non-epileptic which yesterday appeared to be although appeared to be true epileptic discharges today
- Neuro spoke to [facility] for possible transfer at request of family- no further interventions on their side
-Continue continuous EEG monitoring
-Neurologic checks and seizure precautions
-Restarted lacosamide 150 mg BID due to nonconvulsive seizure recorded by continuous EEG monitoring last evening
-Continue newly initiated brivaracetam but increase to 100mg twice daily, may reconsider at 3 months
- Increase carbidopa Levodopa 25/100 mg 2 tab from 3 times a day to dosing of 4 times a day to ensure off periods are not mimicking some events
-Maintain lorazepam at 2 mg TID
- No changes to home Midodrine, escitalopram, Trazodone.
- Maintain rotigotine/Neupro patch 8 mg q24hr as well as Carbidopa Levodopa 25/100 mg 2 tab TID
-Monitor closely for signs of seizure recurrence
-neuro following
-Accepted to [facility] for further interventions
#Parkinson's Disease with Autonomic Dysfunction
-Chronic, complicated by neurogenic orthostatic hypotension
-continue Sinemet and Neupro Patch, Midodrine
Increase carbidopa Levodopa 25/100 mg 2 tab from 3 times a day to dosing of 4 times a day
#Hypokalemia
-monitor and replete
#Anxiety/Depression
-Trazodone continued
-continue Lexapro
#Hyperlipidemia
-No known history of ASCVD
-continue Crestor
#Hyponatremia
-mild
-ctm
#hypokalemia
-replated with oral kcl
#anemia of chornic disease
-hgb stable
-ctm
#Hx Ovarian Cancer s/p AMALIA-BSO and Chemo
#DVT ppx: Lovenox
#CODE status
-full code
More than 30 minutes spent in discharge including
Final examination of the patient
Summarizing hospital stay
Instructions for continuing care to all relevant caregivers
Preparation of discharge records, prescriptions, and referral forms
Total time spent (35 in minutes):
Anticipated Discharge: Today
Subjective/Interval History
-
Date of Service: May 23, 2024
Had 2 seizures this am. Given increased lacosamide
Objective Data
-
Vital Signs:
Vital Signs
Temp Pulse Resp BP Pulse Ox
98.3 F 78 20 91/54 93
05/23/24 11:00 05/23/24 11:00 05/23/24 11:00 05/23/24 11:00 05/23/24 11:00
I&O
05/22/24 05/23/24 05/24/24
06:59 06:59 06:59
Intake Total 960 / 1440 1919
Balance 960 / 1440 1919
Review of Systems
-
History Source: Patient
All other systems: Not reviewed unless documented
Physical Exam
-
General: No Apparent Distress and Comfortable
HEENT: Normocephalic, Atraumatic, Moist Mucous Membranes and Anicteric
Respiratory: Clear to Auscultation and Non Labored Respirations; Negative Wheezes, Rales or Rhonchi
Cardiac: Regular Rhythm and S1/S2; Negative Murmur, Rub, JVD or Gallop
GI: Soft, Nontender, Nondistended and Normal Bowel Sounds
Musculoskeletal: No Clubbing, No Cyanosis and No Edema
Skin: Warm and Dry; Negative Rash or Jaundice
Neuro: AO x 3, Nonfocal/Grossly Intact and Central Nerve's Intact; Negative Tremors or Facial Droop
Psych: Calm
Data Reviewed
-
Labs: Labs Reviewed by me
--- NOTE | 2024-05-23 14:04 | PTCARENOTE ---
Spoke with [facility] and gave report. [facility] will call back when they have a bed for the pt.
[2024-05-23 15:00] VITALS: BP 122/95
[2024-05-23] MEDS: LOVENOX 40 MG SC (16:17)
[2024-05-23] MEDS: ZOFRAN 4 MG IV (16:17)
--- NOTE | 2024-05-23 16:36 | PTCARENOTE ---
Report given to JEN Jeffries at [facility]. Pt. to be transferred to [facility] bed [id number]. at bedside and updated.
--- NOTE | 2024-05-23 19:32 | PTCARENOTE ---
Pt. transported by Acute care to [facility]. 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
== END 2024-05-23 19:36 | disposition short-term general hospital (02) | DRG 101 ==
LOC: 4 EAST ACU 14:25
PROVIDERS: Registered Nurse; ADMITTING PHYSICIAN Internal Medicine; CONSULT PHYSICIAN Student in an Organized Health Care Education/Training Program; EMERGENCY PHYSICIAN Emergency Medicine; FAMILY PHYSICIAN Family Medicine
DX: R56.9 Unspecified convulsions (principal); G90.3 Multi-system degeneration of the autonomic nervous system; F13.20 Sedative, hypnotic or anxiolytic dependence, uncomplicated; R44.3 Hallucinations, unspecified; D63.8 Anemia in other chronic diseases classified elsewhere; F32.A Depression, unspecified; F41.9 Anxiety disorder, unspecified; E78.00 Pure hypercholesterolemia, unspecified; E87.6 Hypokalemia; G43.909 Migraine, unspecified, not intractable, without status migrainosus; Z96.641 Presence of right artificial hip joint; Z96.653 Presence of artificial knee joint, bilateral; Z79.899 Other long term (current) drug therapy; Z85.43 Personal history of malignant neoplasm of ovary; Z90.710 Acquired absence of both cervix and uterus; Z90.722 Acquired absence of ovaries, bilateral; Z92.21 Personal history of antineoplastic chemotherapy
CPT/HCPCS: 80048; 80053; 82962; 83735; 85025; 85027; 93005; 95714; 96374; 99283; 99285